=== PATIENT | male | born 1955 | race Caucasian/White ===

== ENCOUNTER 2017-11-08 12:37 | Inpatient (IN) | payer MEDICARE, SELFPAY ==
[2017-11-08] VITALS (24 sets, daily range): BP systolic 76–129; BP diastolic 55–91; PULSE 96–118; RESP 16–32; TEMP 36.3–36.4; O2SAT 95–100; BMI 24.5; BMI 24.3
--- NOTE | 2017-11-08 13:02 | RAD_ITS ---
STUDY: X-RAY CHEST REASON FOR EXAM: Male, 62 years old. Shortness of breath. TECHNIQUE: Single AP portable view of the chest. COMPARISON: None. FINDINGS: There is elevation of the right hemidiaphragm. There is mild interstitial accentuation of the lungs. There is no demonstrated pleural abnormality. Normal size heart. Normal mediastinum and paola. Normal visualized pulmonary arteries. There is atherosclerotic calcification of the aortic arch. Normal visualized thoracic spine. Normal visualized ribs, clavicles, and shoulders. There is no demonstrated abnormality of the visualized soft tissue structures of the upper abdomen. RAD/Chest 1 View (Portable) IMPRESSION: Degenerative changes, as described above. No demonstrated acute cardiopulmonary process. Electronically Signed: Boyd Colunga MD at 14:04 EDT , Service support ,
--- NOTE | 2017-11-08 13:02 | EKG12_ITS ---
Test Reason : EKG CHANGE Blood Pressure : / mmHG Vent. Rate : 088 BPM Atrial Rate : 088 BPM P-R Int : 166 ms QRS Dur : 110 ms QT Int : 434 ms P-R-T Axes : 038 -45 031 degrees QTc Int : 525 ms Normal sinus rhythm Low voltage QRS Left anterior fascicular block Prolonged QT Abnormal ECG When compared with ECG of 08-NOV-2017 13:23, MANUAL COMPARISON REQUIRED, DATA IS UNCONFIRMED Confirmed by NISHANT JONES, CYNTHIA ([id number]), editor continuity and script ASHLEE CLIFTON ([id number]) on 11/11/2017 9:43:13 AM Referred By: MELISSA Confirmed By:CYNTHIA DILLARD MD
--- NOTE | 2017-11-08 13:07 | RAD_ITS ---
STUDY: X-RAY - ABDOMEN/PELVIS REASON FOR EXAM: Male, 62 years old. Abdominal distention. Evaluate for soft tissue gas. TECHNIQUE: Two AP supine views of the abdomen and pelvis. COMPARISON: None. FINDINGS: Normal visualized lung bases. There is an unremarkable bowel gas pattern. There is seen throughout the colon as well as within nondilated small bowel loops in the upper abdomen. There is no evidence of obstruction. There is no demonstrated free abdominal air. The visualized liver, spleen and kidneys are grossly normal in size and morphology. Normal soft tissue structures. No evidence of subcutaneous gas. There is no old healed fracture of the right 12th rib. There are degenerative changes and levoscoliosis of the lumbar spine. RAD/Abdomen Single View IMPRESSION: 1. No evidence of acute intra-abdominal process. 2. No evidence of soft tissue gas. Electronically Signed: Uriel Laura DO at 16:01 EDT Tel [phone], Service support ,
--- NOTE | 2017-11-08 13:07 | ED.VISSUMM ---
- ER Visit Summary Date of Service: 11/08/17 Chief Complaint: [] Alcohol abuse laying in stool for days weakness History of Present Illness: The patient is a 62 M [] patient apparently generally lives out of state he apparently is visiting family her brother reported that the patient's been drinking heavily and for days he has been simply laying in his own stool drinking alcohol he was weak today would not get up etc. and he was brought in for evaluation the patient denies being suicidal or homicidal he does admit to the alcohol use he also reports he has bipolar disorder and COPD but he has been off meds some time he adamantly denies being suicidal his complaint is complete consisting of a deep abraded ulcerated perineum is other complaints he is awake and alert Physical Examination: [] He has an obvious deeply abraded ulcerated perineum has a malodorous to it, he to this area involves the folds the region the rectal area this is all red excoriated with multiple shallow ulcers and some deeper skin ulcers into the folds I do not appreciate any subcu air the testicles appear to be in normal position he has no testicular pain, he has deep circular folds of ulcers around the rectum but no obvious abscess or crepitus. His lungs are diminished the heart tones are unremarkable abdomen soft nontender he has had shows no obvious signs of trauma he is awake alert answering questions moving all 4 extremities his back shows red excoriation from the lower lumbar back across the buttocks Test Results: [] Emergency Department Course and Treatment: [] The differential is extensive would certainly include for fornieres gangrene cellulitis sepsis etc. his blood pressure is 95 at this time he will undergo sepsis protocol fluids antibiotics His blood pressures improved to 113/80 his sodium returns at 117, his white count is 13,000 his lactic acid is pending he has nonspecific elevations of the liver enzymes, he remained stable here in the department given all the above we have started him IV antibiotics we have provided wound care wound culture and have asked the hospital see him for further management and evaluation Treatment Plan: [] Disposition: [] Admit stable Impression: [] Hyponatremia, infection cellulitis involving the perineum with multiple ulcers, alcohol abuse, history of laying in on stool for days due to alcohol abuse weakness This note was generated with [employer] dictation software. It may contain incorrect words, spelling, and punctuation that were not noted in review of the chart prior to signing ED Disposition - Plan for ED Patient: Chief Complaint: Mental Health Referrals: Care Physician,No Primary [Primary Care Provider] -
--- NOTE | 2017-11-08 13:24 | ED.RN ---
Spoke to Brenda, social work services/case management. PT with self neglect, mental health component and noncompliant with medications. This RN wants PT on SW/CM list for further f/u.
--- NOTE | 2017-11-08 13:28 | CASEMGMT ---
SW received call from RN in ED w/concerns for pt, pt has bipolar, not on meds, unkempt, skin excoriated. As per ER physician note, pt is visiting his brother from out of state and has been drinking heavily, laying in his own stool for days, today was too weak to get up. SW will follow up w/pt on Friday as pt is going to be admitted. Pt is also listed as self pay, will speak w/pt regarding this as well and applying for Medicaid if appropriate. LIZZETTE Jay, EAP SPECIALIST
[2017-11-08] MEDS: 0.9% Normal Saline 1,000 ML IV.SOLN. 2000 ML IV (13:34)
[2017-11-08] MEDS: LORazepam 2 MG/ML Syringe 0.5 MG IV (13:46)
[2017-11-08 13:50] LABS: International Normalized Ratio 1.7; Prothrombin Time (Protime)PT. 19.6 SECONDS (11.7-14.9)
[2017-11-08 13:51] LABS: Absolute Lymphocyte Count 1.23 X10^3/ul (0.83-4.51); Absolute Neutrophil Count 10.4 X10^3/uL (2.0-7.7); Basophil# 0.05 X10^3/uL; Basophil% 0.4 % (0-1); Eosinophil# 0.01 X10^3/uL; Eosinophils% 0.1 % (0-5); Hematocrit 38.3 % (40-54); Lymphocyte # 1.23 X10^3/ul (4.0); Lymphocyte % 9.8 % (19-41); Mean Corpuscular Volume 88.2 fL (80-94); Monocyte% 4.8 % (0-10); Neutrophil # 10.39 X10^3/uL (2.7-7.7); Neutrophil % 82.8 % (47-70); Platelet Count 160 K/mm3 (150-450); RBC Distribution Width CV 14.1 % (11.6-14.6); RBC Distribution Width SD 44.6 fl (35.1-43.9); Red Blood Count 4.34 M/mm3 (4.6-6.2); White Blood Count 12.5 K/mm3 (4.4-11.0)
[2017-11-08 13:52] LABS: Mean Corp Hgb Conc 36.6 g/gl (32-36); Mean Corpuscular Hgb 32.3 pg (27.0-32.0); POSITIVE COUNT YES; POSITIVE DIFFERENTIAL NO; POSITIVE MORPHOLOGY YES; Partial Thromboplast Time 42.3 Seconds (24.1-36.2)
[2017-11-08 13:59] LABS: Squamous Epithelial Cells - UA 0 SEEN /hpf (0-5)
[2017-11-08 14:00] LABS: Color, Urine Amber (Yellow); Glucose, Dipstick Normal (Normal); Ketone-Dipstick 15 mg/dl (Negative); Leukocyte Esterase-Dipstick 25 /ul (Negative); Nitrite-Dipstick Positive (Negative); Occult Blood-Urine 10 /ul (Negative); Protein-Dipstick 15 mg/dl (Negative); Specific Gravity, Urine 1.015 (1.002-1.030); Urine Clarity Clear (Clear); Urine Urobilinogen 8 mg/dl (Normal)
[2017-11-08 14:01] LABS: ALB/GLOB Ratio 0.6 RATIO (0.9-2.4); AST(SGOT) 47 U/L (15-37); Alanine Aminotransfer ALT/SGPT 33 U/L (16-61); Alkaline Phosphatase 178 U/L (45-117); Anion Gap 12 (5-15); BUN 8 mg/dL (7-18); BUN/Creat Ratio 11.1 RATIO (10-20); Calcium,Total 7.6 mg/dL (8.5-10.1); Chloride 79 mmol/L (98-107); Creatinine, Serum 0.72 mg/dL (0.70-1.30); EST Glomerular Filtration Rate 118 mL/min (>60); Est Glom Filt Rate - Afr Amer 142 mL/min (>60); Estimated Creatinine Clearance 105.56 ml/min; Globulin 3.3 g/dL (2.2-4.2); Glucose 111 mg/dL (74-106); Protein, Total 5.3 g/dL (6.4-8.2); Sodium Level 117 mmol/L (136-145)
[2017-11-08 14:02] LABS: Urine Bilirubin Dipstick 3 mg/dL (Negative)
--- NOTE | 2017-11-08 14:02 | ED.RN ---
sodium 117, md aware.
[2017-11-08 14:10] LABS: CPK Total, Creatine Kinase 50 U/L (39-308)
[2017-11-08 14:19] LABS: Lactic Acid 3.6 mmol/L (0.4-2.0)
--- NOTE | 2017-11-08 14:20 | ED.RN ---
lactic 3.6, aware.
[2017-11-08 14:26] LABS: Bacteria RARE /hpf (None Seen); Mucous, Urine RARE /hpf (<or=2+); Red Blood Cells-Urine 0-5 SEEN /hpf (0-5); White Blood Cells 0-5 SEEN /hpf (0-5)
[2017-11-08] MEDS: Phenobarbital Sodium 130 MG/ML Vial 100 MG IV (14:39)
--- NOTE | 2017-11-08 14:39 | HP.PCM_ITS ---
Problem List (1) Hyponatremia Status: Acute (2) Alcohol abuse Status: Chronic (3) Tobacco dependence Status: Chronic (4) COPD (chronic obstructive pulmonary disease) Status: Chronic (5) Bipolar disorder Status: Chronic (6) Severe sepsis Status: Acute History of Present Illness Date of Admission: 11/08/17 Chief Complaint: Skin rash, weakness, alcohol abuse. The patient is a 62 year old M who presents to the emergency room following days of binge drinking and laying in his stool. He states he has had nausea, vomiting, abdominal pain, diarrhea and weakness. He has a significant painful rash in the perineum area. He has reported to be off of his bipolar medications. He denies suicidal ideations. Patient is a fairly poor historian. He reports a past medical history of COPD, bipolar disorder, tobacco dependence, chronic alcohol abuse. He admits to drinking approximately 12 beers per day. He smokes a pack and a half per day. Patient states he was last well approximately 2 weeks ago. He is currently living with his brother and previously from out of state. His is still currently out of state taking care of grandchildren. He states he last drank beer this morning. Denies current withdrawal symptoms. He denies fever, chills. Past Medical History Past Medical History (Chronic Problems): Chronic Problems Alcohol abuse (Chronic) Tobacco dependence (Chronic) COPD (chronic obstructive pulmonary disease) (Chronic) Bipolar disorder (Chronic) Allergies No Known Allergies Allergy (Verified 11/08/17 13:37) Home Medications: Ambulatory Orders Medication Instructions Recorded No Known/Unobtainable [No Known 07/06/16 Home Medications] Surgical History: - - Hemorrhoidectomy. Psychiatric History: Bipolar Lives: With Family - With brother. Smoking Status: Current every day smoker - 1.5 PPD Tobacco Use: Cigarettes Alcohol: Heavy Drugs: None - *Family History Maternal History Items: Cancer, Diabetes, Heart Disease, Hypertension Paternal History Items: Cancer, Diabetes, Heart Disease, Hypertension Review of Systems Constitutional: Reports: Weakness, Fatigue. Denies: Chills, Fever HEENT: Denies: Head Aches, Sinus Congestion, Sinus Drainage Cardiovascular: Denies: Chest Pain, Edema, Palpitations, Syncope Respiratory: Denies: Cough, Shortness of breath at rest, Sputum production Gastrointestinal: Reports: Abdominal Pain, Diarrhea, Nausea. Denies: Vomiting Genitourinary: Denies: Dysuria, Frequency, Hematuria Musculoskeletal: Denies: Joint Pain, Joint Tenderness Skin: Reports: - - Painful rash perineum. Neurological: Denies: Numbness, Tingling, Focal weakness Psychiatric: Reports: Anxiety, Depression Hematologic/ Lymphatic: Denies: Easy Bruising, Easy Bleeding VTE Information - Inpt Only VTE Present on Admission: No VTE Mechan Device Prophylaxis: SCD's VTE Pharm Prophylaxis ordered?: No Reason prophylaxis not ordered:: Medical Contraindication - Hold given possible need for intervention of wounds pending imaging. Patient Problems: Active and Suspected Problems Hyponatremia (Acute) Severe sepsis (Acute) - Physical Exam General: Alert, Oriented x3, - - Appears unkempt HEENT: Atraumatic, PERRLA, EOMI, Normocephalic Oral: Dry Mucosa Neck: Supple, No JVD, Negative Carotid Bruits Lungs: Clear to auscultation, Diminished Cardiovascular: Regular Rhythm, Normal S1, Normal S2, No murmurs, Tachycardic Abdomen: Bowel Sounds Present, Soft, Non Tender, Non-Distended Extremities: No clubbing, No cyanosis, No edema, Capillary Refill Less than 3 Seconds Skin: - - Extensive peritoneal beefy red excoriation with ulcerations, foul odor , extending to bilateral hips and bilateral inner thighs. Musculoskeletal: No Tenderness to Palpation of Joints or Extremities Neurological: Cranial nerves II-XII grossly intact, Neuro grossly intact Psych/Mental Status: Flat Affect, Depressed Vital Signs Temp Pulse Resp BP Pulse Ox 97.5 F L 106 H 25 H 121/91 H 100 11/08/17 13:37 11/08/17 14:02 11/08/17 14:02 11/08/17 14:02 11/08/17 14:02 Oxygen Delivery Method Room Air Weight: 73.074 kg Body Mass Index (BMI) 24.5 Laboratory Tests Past 24 Hrs 11/08/17 11/08/17 11/08/17 13:30 13:30 13:30 WBC 12.5 H RBC 4.34 L Hgb 14.0 Hct 38.3 L MCV 88.2 MCH 32.3 H MCHC 36.6 H RDW 14.1 RDW Differential 44.6 H Plt Count 160 MPV 11.0 Immature Gran % (Auto) 2.100 H Neut % (Auto) 82.8 H Lymph % (Auto) 9.8 L Harding % (Auto) 4.8 Eos % (Auto) 0.1 Baso % (Auto) 0.4 Absolute Neuts (auto) 10.4 H Absolute Lymphs (auto) 1.23 Total Counted Not Reportable Diff Path Review September foll PT 19.6 H INR 1.7 APTT 42.3 H Sodium 117 L* Potassium 4.0 Chloride 79 L Carbon Dioxide 26.0 Anion Gap 12 BUN 8 Creatinine 0.72 Estim Creat Clear Calc 105.56 Est GFR (MDRD) Af Amer 142 Est GFR (MDRD) Non-Af 118 BUN/Creatinine Ratio 11.1 Glucose 111 H Lactic Acid Calcium 7.6 L Total Bilirubin 3.00 H AST 47 H ALT 33 Alkaline Phosphatase 178 H Total Creatine Kinase Total Protein 5.3 L Albumin 2.0 L Globulin 3.3 Albumin/Globulin Ratio 0.6 L Urine Color Urine Clarity Urine pH Ur Specific Russell Urine Protein Urine Glucose (UA) Urine Ketones Urine Occult Blood Urine Nitrite Urine Bilirubin Urine Urobilinogen Ur Leukocyte Esterase Urine RBC Urine WBC Ur Squamous Epith Cells Urine Bacteria Urine Mucus 11/08/17 11/08/17 11/08/17 13:30 13:30 13:50 WBC RBC Hgb Hct MCV MCH MCHC RDW RDW Differential Plt Count MPV Immature Gran % (Auto) Neut % (Auto) Lymph % (Auto) Harding % (Auto) Eos % (Auto) Baso % (Auto) Absolute Neuts (auto) Absolute Lymphs (auto) Total Counted Diff Path Review PT INR APTT Sodium Potassium Chloride Carbon Dioxide Anion Gap BUN Creatinine Estim Creat Clear Calc Est GFR (MDRD) Af Amer Est GFR (MDRD) Non-Af BUN/Creatinine Ratio Glucose Lactic Acid 3.6 H Calcium Total Bilirubin AST ALT Alkaline Phosphatase Total Creatine Kinase 50 Total Protein Albumin Globulin Albumin/Globulin Ratio Urine Color Marisabel Urine Clarity Clear Urine pH 5.0 Ur Specific Russell 1.015 Urine Protein 15 H Urine Glucose (UA) Normal Urine Ketones 15 H Urine Occult Blood 10 H Urine Nitrite Positive H Urine Bilirubin 3 H Urine Urobilinogen 8 H Ur Leukocyte Esterase 25 H Urine RBC 0-5 SEEN Urine WBC 0-5 SEEN Ur Squamous Epith Cells 0 SEEN Urine Bacteria RARE Urine Mucus RARE Assessment/Plan All Active Problems Hyponatremia (Acute) Severe sepsis (Acute) 1. Severe sepsis secondary to suspected fungal and bacterial perineal cellulitis -(leukocytosis, tachycardia, hypotension, lactic acid 3.6) wound cultures sent from ED. Blood cultures pending. Obtain pelvic CT. Wound RN consult. Check mg, phos. Repeat lactic. Begin IV vancomycin, IV Zosyn, IV fluconazole. Frequent position changes. PRN pain regimen. PT/OT. 2. Possible UTI-urine positive for nitrites, negative WBC. Possible contamination? Urine culture pending. Antibiotics as noted above. Lepe in place. 3. Hyponatremia-Gentle IVF. Serial BMPs. 4. Chronic alcohol abuse- CIWA protocol. MVM, folic acid, B12. Check urine drug screen for other substance use. 5. Tobacco dependence-encourage smoking cessation. Nicotine replacement patch. 6. COPD-no acute exacerbation. Albuterol and DuoNeb aerosols. IS. 7. Bipolar disorder-recently took himself off of home regimen. Attempt to obtain home medication list. Encourage outpatient counseling/follow-up. 8. Moderate-severe protein calorie malnutrition- Nutrition consult. DVT prophylaxis-SCDs, hold pharmacologic prophylaxis pending further imaging. This patient was seen by REGINALDO Morris under the supervision of Dr. Kinney.
[2017-11-08] MEDS: Morphine 2 MG/ML Syringe IV (14:52)
--- NOTE | 2017-11-08 15:29 | CT_ITS ---
STUDY: CT PELVIS WITH CONTRAST REASON FOR EXAM: Male, 62 years old. Perianal pain. Chronic nausea, vomiting and diarrhea. History of alcohol abuse/withdrawal and sepsis. Patient sat in his own feces for multiple days. RADIATION DOSAGE (If Supplied By Facility): CTDIvol = ( 27.68 ) mGy, DLP = ( 1180.81 ) mGycm TECHNIQUE: Transaxial imaging of the pelvis was performed without oral contrast. 100CC ml of Isovue 300 contrast was administered intravenously. Multiplanar coronal and sagittal images were reformatted. Individualized dose optimization techniques were used for this CT. COMPARISON: None. FINDINGS: The urinary bladder is thick-walled and collapsed about a Lepe catheter. There is no evidence for opaque filling defect or obvious mass. The prostate is mildly enlarged with central calcifications. Normal seminal vesicles. Normal visualized small intestine. There is evidence of sigmoid diverticulitis without obvious inflammatory change. Normal appendix. There is diffuse pelvic fluid in the paracolic gutters and pelvis. This is most marked on the right There is no pelvic lymphadenopathy or mass lesion. There are 2 small saccular aneurysms of the lower abdominal aorta. The first measures 2.5 x 2.2 cm. The second measures 1.8 x 2 cm in size. There is diffuse atherosclerotic changes of the aorta and iliac arteries Normal abdominal wall. There is no evidence of soft tissue ulceration or abscess. There are diffuse degenerative changes of the visualized lumbar spine. CT/Pelvis WITH IV Contrast IMPRESSION: 1. Free fluid in the pelvis of unknown etiology. 2. Diverticulosis without obvious acute inflammatory change. 3. Thick-walled urinary bladder collapsed about a Lepe catheter. 4. Mildly enlarged prostate. 5. Atherosclerotic changes of the lower aorta and iliac arteries. 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 Electronically Signed: Uriel Laura DO at 16:27 EDT Tel [phone], Service support ,
[2017-11-08 16:38] LABS: Reflex Lactate? Y
[2017-11-08] MEDS: 0.9% Normal Saline 1,000 ML 125 ML IV ×2 (16:48→23:13)
--- NOTE | 2017-11-08 16:52 | PCM.RX.CS ---
Consult Pharmacy has been consulted to manage selected antiobiotic: Vancomycin Type of Consult: New start Suspected Infection: Sepsis Prior Doses of Antibiotics Received/Current Regimen: Received 1000mg IV in ER at 14:41 today Labs: Sodium 117 mmol/L (136-145) L* 11/08/17 13:30 Potassium 4.0 mmol/L (3.5-5.1) 11/08/17 13:30 Chloride 79 mmol/L (98-107) L 11/08/17 13:30 Carbon Dioxide 26.0 mmol/L (21.0-32.0) 11/08/17 13:30 Anion Gap 12 (5-15) 11/08/17 13:30 BUN 8 mg/dL (7-18) 11/08/17 13:30 Creatinine 0.72 mg/dL (0.70-1.30) 11/08/17 13:30 Est GFR (MDRD) Af Amer 142 mL/min (>60) 11/08/17 13:30 Est GFR (MDRD) Non-Af 118 mL/min (>60) 11/08/17 13:30 BUN/Creatinine Ratio 11.1 RATIO (10-20) 11/08/17 13:30 Glucose 111 mg/dL (74-106) H 11/08/17 13:30 Weight used for dosin kg Estimated Creatinine Clearance: 106 ml/min Goal Trough: 15-20 mcg/mL Pharmacy Plan for Drug Dosinmg IV q8h. Will obtain trough before the 4th dose. Pharmacy Service will continue to monitor and adjust dosing as required. Follow-Up Labs: Trough Vancomycin Labs to be done on [date and time ordered]: 11/09/17 at 14:30 before the 4th total dose at 15:00
[2017-11-08 17:32] LABS: Anion Gap 12 (5-15); BUN 7 mg/dL (7-18); BUN/Creat Ratio 14.5 RATIO (10-20); Calcium,Total 6.8 mg/dL (8.5-10.1); Chloride 83 mmol/L (98-107); Creatinine, Serum 0.48 mg/dL (0.70-1.30); EST Glomerular Filtration Rate 187 mL/min (>60); Est Glom Filt Rate - Afr Amer 226 mL/min (>60); Estimated Creatinine Clearance 158.33 ml/min; Glucose 99 mg/dL (74-106); Magnesium 1.8 mg/dL (1.6-2.6); Phosphorus 2.1 mg/dL (2.5-4.9); Potassium 3.2 mmol/L (3.5-5.1); Sodium Level 120 mmol/L (136-145)
[2017-11-08 17:39] LABS: Lactic Acid 2.1 mmol/L (0.4-2.0)
[2017-11-08] MEDS: cloNIDine HCl 0.1 MG Tablet PO ×2 (17:39→21:35)
[2017-11-08 18:47] LABS: M R Staph aureus DNA By PCR Negative (Negative); Probe Check PASS; Specimen Processing Control PASS
[2017-11-08] MEDS: Ipratropium/Albuterol Sulfate 3 ML AMPUL.NEB INHALATION (19:20)
[2017-11-08 20:31] LABS: Anion Gap 9 (5-15); BUN 8 mg/dL (7-18); BUN/Creat Ratio 16.7 RATIO (10-20); Calcium,Total 6.8 mg/dL (8.5-10.1); Chloride 86 mmol/L (98-107); Creatinine, Serum 0.48 mg/dL (0.70-1.30); EST Glomerular Filtration Rate 189 mL/min (>60); Est Glom Filt Rate - Afr Amer 229 mL/min (>60); Estimated Creatinine Clearance 158.33 ml/min; Glucose 91 mg/dL (74-106); Potassium 3.4 mmol/L (3.5-5.1); Sodium Level 120 mmol/L (136-145)
[2017-11-08] MEDS: Piperacil/Tazobactam 3.375 GM/50 ML ML IV (20:47)
[2017-11-08] MEDS: Heparin Injection (Vial) 5,000 UNIT/ML VIAL 5000 UNIT SC (21:34)
[2017-11-08] MEDS: Famotidine 20 MG Tablet PO (21:35)
[2017-11-08] MEDS: 0.9% NaCl Peripheral Flush Adult/Peds IV (21:40)
[2017-11-08 21:49] LABS: Anion Gap 12 (5-15); BUN 7 mg/dL (7-18); Calcium,Total 6.6 mg/dL (8.5-10.1); Chloride 87 mmol/L (98-107); Creatinine, Serum 0.39 mg/dL (0.70-1.30); EST Glomerular Filtration Rate 241 mL/min (>60); Est Glom Filt Rate - Afr Amer 292 mL/min (>60); Estimated Creatinine Clearance 194.87 ml/min; Glucose 88 mg/dL (74-106); Potassium 3.5 mmol/L (3.5-5.1); Sodium Level 124 mmol/L (136-145)
[2017-11-08 22:08] LABS: M R Staph aureus DNA By PCR Negative (Negative); Staph aureus DNA By PCR NEGATIVE (Negative)
[2017-11-08 22:09] LABS: Probe Check PASS
[2017-11-08 23:58] LABS: Anion Gap 12 (5-15); BUN 7 mg/dL (7-18); BUN/Creat Ratio 17.2 RATIO (10-20); Calcium,Total 6.5 mg/dL (8.5-10.1); Chloride 89 mmol/L (98-107); Creatinine, Serum 0.41 mg/dL (0.70-1.30); EST Glomerular Filtration Rate 228 mL/min (>60); Est Glom Filt Rate - Afr Amer 276 mL/min (>60); Estimated Creatinine Clearance 185.37 ml/min; Glucose 94 mg/dL (74-106); Potassium 3.2 mmol/L (3.5-5.1); Sodium Level 126 mmol/L (136-145)
[2017-11-09] VITALS (27 sets, daily range): BP systolic 80–101; BP diastolic 55–72; PULSE 84–96; RESP 16–35; TEMP 36.3–36.9; O2SAT 93–100
[2017-11-09 02:48] LABS: Anion Gap 10 (5-15); BUN 7 mg/dL (7-18); BUN/Creat Ratio 14.9 RATIO (10-20); Calcium,Total 7.3 mg/dL (8.5-10.1); Chloride 88 mmol/L (98-107); Creatinine, Serum 0.47 mg/dL (0.70-1.30); EST Glomerular Filtration Rate 194 mL/min (>60); Est Glom Filt Rate - Afr Amer 234 mL/min (>60); Glucose 84 mg/dL (74-106); Potassium 3.4 mmol/L (3.5-5.1); Sodium Level 122 mmol/L (136-145)
[2017-11-09 05:01] LABS: Hematocrit 32.3 % (40-54); Hemoglobin 11.7 g/dl (13.0-16.5); Mean Corp Hgb Conc 36.2 g/gl (32-36); Mean Corpuscular Hgb 32.8 pg (27.0-32.0); Mean Corpuscular Volume 90.5 fL (80-94); Platelet Count 113 K/mm3 (150-450); RBC Distribution Width CV 14.4 % (11.6-14.6); Red Blood Count 3.57 M/mm3 (4.6-6.2); White Blood Count 7.5 K/mm3 (4.4-11.0)
[2017-11-09 05:02] LABS: Absolute Lymphocyte Count 1.25 X10^3/ul (0.83-4.51); Absolute Neutrophil Count 5.6 X10^3/uL (2.0-7.7); Basophil# 0.03 X10^3/uL; Basophil% 0.4 % (0-1); Eosinophil# 0.06 X10^3/uL; Eosinophils% 0.8 % (0-5); Lymphocyte # 1.25 X10^3/ul (4.0); Lymphocyte % 16.6 % (19-41); Mean Platelet Vol. 10.9 fl (6.2-12.0); Monocyte# 0.44 X10^3/uL; Monocyte% 5.8 % (0-10); Neutrophil # 5.63 X10^3/uL (2.7-7.7); Neutrophil % 74.8 % (47-70); POSITIVE COUNT NO; POSITIVE DIFFERENTIAL NO; POSITIVE MORPHOLOGY NO
[2017-11-09] MEDS: Piperacil/Tazobactam 3.375 GM/50 ML ML IV ×3 (05:21→21:10)
[2017-11-09 05:27] LABS: ALB/GLOB Ratio 0.6 RATIO (0.9-2.4); AST(SGOT) 45 U/L (15-37); Alanine Aminotransfer ALT/SGPT 30 U/L (16-61); Albumin, Serum 1.5 g/dL (3.2-5.0); Alkaline Phosphatase 132 U/L (45-117); Anion Gap 11 (5-15); BUN 7 mg/dL (7-18); BUN/Creat Ratio 16.1 RATIO (10-20); CPK Total, Creatine Kinase 28 U/L (39-308); Calcium,Total 7.2 mg/dL (8.5-10.1); Chloride 89 mmol/L (98-107); Creatinine, Serum 0.44 mg/dL (0.70-1.30); EST Glomerular Filtration Rate 212 mL/min (>60); Est Glom Filt Rate - Afr Amer 256 mL/min (>60); Estimated Creatinine Clearance 172.73 ml/min; Globulin 2.7 g/dL (2.2-4.2); Glucose 83 mg/dL (74-106); Magnesium 1.7 mg/dL (1.6-2.6); Phosphorus 2.7 mg/dL (2.5-4.9); Potassium 3.4 mmol/L (3.5-5.1); Protein, Total 4.2 g/dL (6.4-8.2); Sodium Level 125 mmol/L (136-145)
[2017-11-09] MEDS: chlordiazePOXIDE 25 MG Capsule 50 MG PO (05:27)
--- NOTE | 2017-11-09 06:42 | CON.PCM_ITS ---
Reason for Consult Date of Consultation: 11/09/17 Reason for Consultation: Severe sepsis History of Present Illness: The patient is a 62-year-old male, with a history as outlined below, who presented to the emergency department on November 08 with a several day history of nausea, vomiting and abdominal pain following a recent alcohol binge. The patient resides with his brother and had reportedly been laying in his own stool for several days. He reported the presence of perineal discomfort along with chills and fever. The patient is an alcoholic and reports that he consumes 12-13 beers per day. He also smokes 1 pack of cigarettes daily. On presentation to the emergency department, the patient was noted to be afebrile, tachycardic and hemodynamically stable. He was maintaining appropriate oxygen saturations on room air. Laboratory evaluation revealed a mildly elevated white blood cell count to 13,000. INR was noted to be 1.7. Serum sodium was 117 with a chloride of 79. Lactate was elevated at 3.6. MRSA screen was negative. Initial plain film chest x-ray revealed no acute cardiopulmonary process. CT pelvis obtained in the emergency department revealed free fluid within the pelvis of unclear etiology along with diverticulosis and a thickened urinary bladder wall. The patient received supplemental IV fluids along with broad-spectrum antimicrobials and fluconazole in the emergency department. The patient was subsequently admitted to the medical intensive care unit for ongoing management. Past Medical History Past Medical History (Chronic Problems): Chronic Problems Alcohol abuse (Chronic) Tobacco dependence (Chronic) COPD (chronic obstructive pulmonary disease) (Chronic) Bipolar disorder (Chronic) Allergies No Known Allergies Allergy (Verified 11/08/17 13:37) Home Medications: Ambulatory Orders Medication Instructions Recorded No Known/Unobtainable [No Known 07/06/16 Home Medications] Surgical History: - - Hemorrhoidectomy. Psychiatric History: Bipolar Lives: With Family - With brother. Smoking Status: Current every day smoker Tobacco Use: Cigarettes Alcohol: Heavy Drugs: None - *Family History Maternal History Items: Cancer, Diabetes, Heart Disease, Hypertension Paternal History Items: Cancer, Diabetes, Heart Disease, Hypertension Review of Systems Constitutional: Reports: Chills, Weakness Eyes: Denies: Blurred vision, Double vision HEENT: Denies: Head Aches, Sinus Congestion, Sinus Drainage Cardiovascular: Denies: Chest Pain, Palpitations Respiratory: Denies: Cough, Shortness of breath at rest, Sputum production Gastrointestinal: Reports: Abdominal Pain, Diarrhea, Nausea Genitourinary: Reports: Incontinence Musculoskeletal: Denies: Joint Pain, Joint Tenderness Skin: Reports: Lesions, Rash, Skin Changes, Wounds Neurological: Denies: Numbness, Tingling, Focal weakness Psychiatric: Denies: Anxiety, Depression, Homicidal Ideations, Suicidal Ideations Hematologic/ Lymphatic: Denies: Easy Bruising, Easy Bleeding Patient Problems: Active and Suspected Problems Hyponatremia (Acute) Severe sepsis (Acute) Objective: The patient's most recent lab work, culture data and imaging studies have all been personally reviewed. Preliminary blood culture dated November 08 was positive for gram-negative rods. Wound and urine cultures are pending. - Physical Exam General: Alert, Cooperative, No apparent distress HEENT: Atraumatic, PERRLA, Normocephalic Oral: Moist Mucosa Neck: Supple, No Nodes, Trachea Midline Lungs: No rhonchi, No wheeze, No rales, Diminished Cardiovascular: Normal S1, Normal S2, No murmurs, Tachycardic Abdomen: Bowel Sounds Present, Soft, Non Tender, Non-Distended Extremities: No clubbing, No cyanosis, No edema, Cool Skin: - - Extensive perineal erythema/maceration with extension posteriorly to involve the buttocks. Musculoskeletal: Cachexia, Muscle Wasting Lymphatic: No Cervical, Supraclavicular, or Inguinal Adenopathy Neurological: Neuro grossly intact Psych/Mental Status: Flat Affect Vital Signs Temp Pulse Resp BP Pulse Ox 97.4 F L 90 27 H 84/59 L 97 11/09/17 06:00 11/09/17 06:00 11/09/17 06:00 11/09/17 06:00 11/09/17 06:00 Oxygen Delivery Method Room Air Weight: 159 lb 13.362 oz Body Mass Index (BMI) 24.3 Intake and Output for Last 24 Hours 11/07/17 11/08/17 11/09/17 23:59 23:59 23:59 Intake Total 803.7 / 803.7 590.5 / 590.5 Output Total 800 / 800 200 / 200 Balance 3.7 / 3.7 390.5 / 390.5 Laboratory Tests Past 24 Hrs 11/08/17 11/08/17 11/08/17 16:10 17:00 17:00 WBC RBC Hgb Hct MCV MCH MCHC RDW RDW Differential Plt Count MPV Immature Gran % (Auto) Neut % (Auto) Lymph % (Auto) Clay % (Auto) Eos % (Auto) Baso % (Auto) Absolute Neuts (auto) Absolute Lymphs (auto) Total Counted Sodium 120 L Potassium 3.2 L Chloride 83 L Carbon Dioxide 25.0 Anion Gap 12 BUN 7 Creatinine 0.48 L Estim Creat Clear Calc 158.33 Est GFR (MDRD) Af Amer 226 Est GFR (MDRD) Non-Af 187 BUN/Creatinine Ratio 14.5 Glucose 99 Lactic Acid 2.1 H Calcium 6.8 L Phosphorus 2.1 L Magnesium 1.8 Total Bilirubin AST ALT Alkaline Phosphatase Total Creatine Kinase Total Protein Albumin Globulin Albumin/Globulin Ratio S.aureus Protein A PCR MRSA (PCR) Negative 11/08/17 11/08/17 11/08/17 19:55 20:20 21:30 WBC RBC Hgb Hct MCV MCH MCHC RDW RDW Differential Plt Count MPV Immature Gran % (Auto) Neut % (Auto) Lymph % (Auto) Clay % (Auto) Eos % (Auto) Baso % (Auto) Absolute Neuts (auto) Absolute Lymphs (auto) Total Counted Sodium 120 L 124 L Potassium 3.4 L 3.5 Chloride 86 L 87 L Carbon Dioxide 25.0 25.0 Anion Gap 9 12 BUN 8 7 Creatinine 0.48 L 0.39 L Estim Creat Clear Calc 158.33 194.87 Est GFR (MDRD) Af Amer 229 292 Est GFR (MDRD) Non-Af 189 241 BUN/Creatinine Ratio 16.7 18.0 Glucose 91 88 Lactic Acid Calcium 6.8 L 6.6 L Phosphorus Magnesium Total Bilirubin AST ALT Alkaline Phosphatase Total Creatine Kinase Total Protein Albumin Globulin Albumin/Globulin Ratio S.aureus Protein A PCR NEGATIVE MRSA (PCR) Negative 11/08/17 11/09/17 11/09/17 23:10 02:00 04:50 WBC 7.5 RBC 3.57 L Hgb 11.7 L Hct 32.3 L MCV 90.5 MCH 32.8 H MCHC 36.2 H RDW 14.4 RDW Differential 46.0 H Plt Count 113 L MPV 10.9 Immature Gran % (Auto) 1.600 H Neut % (Auto) 74.8 H Lymph % (Auto) 16.6 L Clay % (Auto) 5.8 Eos % (Auto) 0.8 Baso % (Auto) 0.4 Absolute Neuts (auto) 5.6 Absolute Lymphs (auto) 1.25 Total Counted Not Reportable Sodium 126 L 122 L Potassium 3.2 L 3.4 L Chloride 89 L 88 L Carbon Dioxide 25.0 24.0 Anion Gap 12 10 BUN 7 7 Creatinine 0.41 L 0.47 L Estim Creat Clear Calc 185.37 161.70 Est GFR (MDRD) Af Amer 276 234 Est GFR (MDRD) Non-Af 228 194 BUN/Creatinine Ratio 17.2 14.9 Glucose 94 84 Lactic Acid Calcium 6.5 L* 7.3 L Phosphorus Magnesium Total Bilirubin AST ALT Alkaline Phosphatase Total Creatine Kinase Total Protein Albumin Globulin Albumin/Globulin Ratio S.aureus Protein A PCR MRSA (PCR) 11/09/17 04:50 WBC RBC Hgb Hct MCV MCH MCHC RDW RDW Differential Plt Count MPV Immature Gran % (Auto) Neut % (Auto) Lymph % (Auto) Clay % (Auto) Eos % (Auto) Baso % (Auto) Absolute Neuts (auto) Absolute Lymphs (auto) Total Counted Sodium 125 L Potassium 3.4 L Chloride 89 L Carbon Dioxide 25.0 Anion Gap 11 BUN 7 Creatinine 0.44 L Estim Creat Clear Calc 172.73 Est GFR (MDRD) Af Amer 256 Est GFR (MDRD) Non-Af 212 BUN/Creatinine Ratio 16.1 Glucose 83 Lactic Acid Calcium 7.2 L Phosphorus 2.7 Magnesium 1.7 Total Bilirubin 2.10 H AST 45 H ALT 30 Alkaline Phosphatase 132 H Total Creatine Kinase 28 L Total Protein 4.2 L Albumin 1.5 L Globulin 2.7 Albumin/Globulin Ratio 0.6 L S.aureus Protein A PCR MRSA (PCR) Clinical Impression(s) from Imaging Studies Chest X-Ray 11/08/17 13:02 IMPRESSION: Degenerative changes, as described above. No demonstrated acute cardiopulmonary process. Electronically Signed: Boyd Colunga MD at 14:04 EDT , Service support , Pelvis CT 11/08/17 15:29 IMPRESSION: 1. Free fluid in the pelvis of unknown etiology. 2. Diverticulosis without obvious acute inflammatory change. 3. Thick-walled urinary bladder collapsed about a Lepe catheter. 4. Mildly enlarged prostate. 5. Atherosclerotic changes of the lower aorta and iliac arteries. 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 Electronically Signed: Uriel Laura DO at 16:27 EDT Tel [phone], Service support , Assessment/Plan Active and Suspected Problems Hyponatremia (Acute) Severe sepsis (Acute) RECOMMENDATIONS: 1. Continue antibiotics/fluconazole, pending infectious workup. 2. Wound care evaluation 3. Continue gentle IV fluid hydration and monitor serum sodium level accordingly. 4. Resend blood cultures. 5. Electrolyte repletion as indicated. 6. Continue to monitor for alcohol withdrawal. Continue CIWA, along with thiamine and folate repletion. 7. ICU prophylaxis IMPRESSIONS: 1. Severe sepsis secondary to gram-negative bacteremia and extensive perineal soft tissue infection Continue broad-spectrum antibiotics, along with fluconazole, pending finalized culture results. Resend blood cultures. Continue local wound care. Wound care nurse to evaluate patient tomorrow. Continue supplemental IV fluid hydration. 2. Hyponatremia/hypokalemia Likely multifactorial in etiology with intravascular volume depletion, chronic alcohol dependence and GI losses contributing. The patient is incremented appropriately with the use of supplemental IV fluids, which will be continued. Potassium repletion as indicated. Continue to trend serial chemistry profiles. Avoid overcorrection of serum sodium. 3. Chronic alcohol dependence/tobacco abuse Continue to monitor for signs of alcohol withdrawal. Continue CIWA protocol along with thiamine and folate repletion. Nicotine replacement therapy can be offered to the patient while admitted to the hospital. Continue bronchodilators. 4. Severe protein calorie malnutrition/generalized deconditioning and weakness/ bipolar disorder Complicates care, management, recovery and prognosis. Recommend advancing diet if no surgical intervention is planned. Patient will require evaluation by physical therapy. He will likely require placement at the time of his discharge from the hospital. Nutrition consultation is pending. This note was generated with [employer] software. It may contain incorrect words, spelling, and punctuation that were not noted in checking the note before signing. Code Visit Inpatient E&M: 18222 Init Hosp L3
[2017-11-09] MEDS: Folic Acid 1 MG Tablet PO (08:20)
[2017-11-09] MEDS: Multivitamins,Ther W-Minerals Tablet 1 TABLET PO (08:20)
[2017-11-09] MEDS: Thiamine Hydrochloride 100 MG Tablet PO (08:20)
[2017-11-09] MEDS: Ibuprofen 600 MG Tablet PO ×2 (08:21→16:03)
--- NOTE | 2017-11-09 08:53 | PCM.RX.CS ---
Consult Pharmacy has been consulted to manage selected antiobiotic: Vancomycin Type of Consult: New start Suspected Infection: Sepsis Prior Doses of Antibiotics Received/Current Regimen: Received vancomycin 1000mg IV x1 in ER on 11/08/17 at 14:41 Labs: Sodium 125 mmol/L (136-145) L 11/09/17 04:50 Potassium 3.4 mmol/L (3.5-5.1) L 11/09/17 04:50 Chloride 89 mmol/L (98-107) L 11/09/17 04:50 Carbon Dioxide 25.0 mmol/L (21.0-32.0) 11/09/17 04:50 Anion Gap 11 (5-15) 11/09/17 04:50 BUN 7 mg/dL (7-18) 11/09/17 04:50 Creatinine 0.44 mg/dL (0.70-1.30) L 11/09/17 04:50 Est GFR (MDRD) Af Amer 256 mL/min (>60) 11/09/17 04:50 Est GFR (MDRD) Non-Af 212 mL/min (>60) 11/09/17 04:50 BUN/Creatinine Ratio 16.1 RATIO (10-20) 11/09/17 04:50 Glucose 83 mg/dL (74-106) 11/09/17 04:50 Weight used for dosin kg Estimated Creatinine Clearance: 106 ml/min Goal Trough: 15-20 mcg/mL Pharmacy Plan for Drug Dosing: Started vancomycin 1000mg IV q8h on 11/08/17 at 23:00. Note that pharmacy could not enter a kinetics note on 11/08/17 due to an issue in [employer] Software with e-signing the note. Pharmacy Service will continue to monitor and adjust dosing as required. Follow-Up Labs: Trough Vancomycin Labs to be done on [date and time ordered]: 11/09/17 (today) at 14:30 before the 4th total dose at 15:00
--- NOTE | 2017-11-09 09:13 | PCM.PN.HOSP ---
Patient Problems: Active and Suspected Problems Hyponatremia (Acute) Severe sepsis (Acute) Subjective: The patient is a 62 y/o M w/ PMHx: Chronic COPD, Ongoing Tobacco use, Bipolar Disorder, EtOH Abuse who presents to the [facility] ED on 11/08/17 w/ history of going several day history of nausea, emesis as well as abdominal discomfort with diarrhea while additionally on an alcoholic binge with eventual likely blackout in onset of perineal discomfort, pain, erythema with chills. Admitted w/ Severe Sepsis secondary to Diffuse BL LQ, Perineal and Posterior Buttock Region Cellulitis and Candidiasis AND resulting GNR Bactermia to the ICU given severity of electrolyte disturbances, obtained CT w/ contrast pelvic region per discussion with Dr. Hsieh w/ no acute findings requiring immediate surgical intervention. Will maintain on IV vanc, zosyn, fluconazole, pending ED obtained Wound Cx, requested Wound MRSA PCR, trending CBC in AM, monitor erythema, PRN pain regimen, antiemetics. Trended LA with improvement, repeat 2.1. Continue hydration as noted. Awaiting Urology assessment, likely will allow diet restart. Monitor BP as low, may need IVF bolus or consideration for pressor therapy, but has appeared low stable, asymptomatic. Additionally, Electrolyte Disturbances including Severe Hyponatremia secondary to GI Losses and Chronic EtOH Abuse w/ Admission Na 117, likely baseline high 120-130s secondary to chronic EtOH Abuse, maintained on telemetry in the ICU, continued to gently hydrate w/ NS given no neurological symptoms, maintained on seizure precautions/aspiration precautions secondary to EtOH Abuse history in withdrawal as noted, trended serial BMPs w/ 11/09/17 BMP w/ Na 125, K 3.4, improving. Closely monitoring to avoid >12 mEq/24 hours, ICU physician consulted, following. Monitor I/Os. Acute EtOH Withdrawal also upon admission, initiated and continued on [facility] service protocol with taper course of librium, as needed Seroquel, Catapres, Bentyl, Vistaril, IV fluids, IV antiemetics, Tylenol as needed for pain. Once patient clinically improved and completion of taper nearing will need CM assistance for transition to next level of rehabilitation care. Mag, phos obtained, phos low, supplementing. Maintain on CIWA protocol. Patient with no acute events overnight per self and per nursing report aside from mildly low blood pressures and resulting positive blood culture with gram-negative rods. 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 Patient remained afebrile and tachycardia improved upon transition to the ICU with continued IV fluids and IV antibiotic therapy as well as antifungal regimen. Pending urology consultation this morning. Patient evaluated per ICU physician this morning. Patient notes feeling improved but still ongoing discomfort to the perineal and bilateral lower quadrants groin region. Patient denies fevers, chills, nausea, emesis, abdominal pain, chest pain or dyspnea. Objective: Physical Examination: General: awake, alert, oriented x 3 and cooperative, seated upright in the ICU bed, more comfortable appearing, less ill-appearing. Skin: normal color, turgor, no icterus, cyanosis except left eye lids older appearing ecchymoses on the lid and underneath, patient extremity ecchymoses, improvement to the peroneal, bilateral lower quadrant, circumferential thigh and posterior coccyx regions with near resolution of prior beefy red appearance, mild cellulitic region still remain especially surrounding ulcerated/excoriated regions. HEENT: AT/NC aside bruising as noted, see skin, EOMI, PERRLA, improved MMM. Lungs: Diminished BS BL, > bases, poor effort, no rales, ronchi or wheezing. Heart: Improved, regular rate and regular rhythm; no gallop, rub audible. Abdomen: soft, thin/cachectic habitus, NTTP, ND, normal BS. Extremities: no cyanosis, clubbing, see skin, feet cool to touch (chronic), see skin. Neurological: patient awake, alert, oriented x 3; cognitive function intact; pupils equally reactive to light and accomodation; cranial nerves II-XII grossly normal, moving all 4 extremities, no focal deficits, strength severely globally decreased secondary to acute presentation. Psychiatric: affect appears fatigued, no acute evidence of depressive or anxiety feelings, denies any SI. Vitals/I&O's: Vital Signs Temp Pulse Resp BP Pulse Ox 97.4 F L 86 35 H 82/62 L 98 11/09/17 06:00 11/09/17 07:00 11/09/17 07:00 11/09/17 07:00 11/09/17 07:18 Oxygen Delivery Method Room Air Weight: 159 lb 13.362 oz Body Mass Index (BMI) 24.3 Intake and Output for Last 24 Hours 11/07/17 11/08/17 11/09/17 23:59 23:59 23:59 Intake Total 803.7 / 803.7 590.5 / 590.5 Output Total 800 / 800 200 / 200 Balance 3.7 / 3.7 390.5 / 390.5 Laboratory Results 11/08/17 16:10: MRSA (PCR) Negative 11/08/17 17:00: Sodium 120 L, Potassium 3.2 L, Chloride 83 L, Carbon Dioxide 25.0, Anion Gap 12, BUN 7, Creatinine 0.48 L, Estim Creat Clear Calc 158.33, Est GFR (MDRD) Af Amer 226, Est GFR (MDRD) Non-Af 187, BUN/Creatinine Ratio 14.5, Glucose 99, Calcium 6.8 L, Phosphorus 2.1 L, Magnesium 1.8 11/08/17 17:00: Lactic Acid 2.1 H 11/08/17 19:55: Sodium 120 L, Potassium 3.4 L, Chloride 86 L, Carbon Dioxide 25.0, Anion Gap 9, BUN 8, Creatinine 0.48 L, Estim Creat Clear Calc 158.33, Est GFR (MDRD) Af Amer 229, Est GFR (MDRD) Non-Af 189, BUN/Creatinine Ratio 16.7, Glucose 91, Calcium 6.8 L 11/08/17 20:20: S.aureus Protein A PCR NEGATIVE, MRSA (PCR) Negative 11/08/17 21:30: Sodium 124 L, Potassium 3.5, Chloride 87 L, Carbon Dioxide 25.0, Anion Gap 12, BUN 7, Creatinine 0.39 L, Estim Creat Clear Calc 194.87, Est GFR (MDRD) Af Amer 292, Est GFR (MDRD) Non-Af 241, BUN/Creatinine Ratio 18.0, Glucose 88, Calcium 6.6 L 11/08/17 23:10: Sodium 126 L, Potassium 3.2 L, Chloride 89 L, Carbon Dioxide 25.0, Anion Gap 12, BUN 7, Creatinine 0.41 L, Estim Creat Clear Calc 185.37, Est GFR (MDRD) Af Amer 276, Est GFR (MDRD) Non-Af 228, BUN/Creatinine Ratio 17.2, Glucose 94, Calcium 6.5 L* 11/09/17 02:00: Sodium 122 L, Potassium 3.4 L, Chloride 88 L, Carbon Dioxide 24.0, Anion Gap 10, BUN 7, Creatinine 0.47 L, Estim Creat Clear Calc 161.70, Est GFR (MDRD) Af Amer 234, Est GFR (MDRD) Non-Af 194, BUN/Creatinine Ratio 14.9, Glucose 84, Calcium 7.3 L 11/09/17 04:50: WBC 7.5, RBC 3.57 L, Hgb 11.7 L, Hct 32.3 L, MCV 90.5, MCH 32.8 H, MCHC 36.2 H, RDW 14.4, RDW Differential 46.0 H, Plt Count 113 L, MPV 10.9, Immature Gran % (Auto) 1.600 H, Neut % (Auto) 74.8 H, Lymph % (Auto) 16.6 L, [place] % (Auto) 5.8, Eos % (Auto) 0.8, Baso % (Auto) 0.4, Absolute Neuts (auto) 5.6, Absolute Lymphs (auto) 1.25, Total Counted Not Reportable 11/09/17 04:50: Sodium 125 L, Potassium 3.4 L, Chloride 89 L, Carbon Dioxide 25.0, Anion Gap 11, BUN 7, Creatinine 0.44 L, Estim Creat Clear Calc 172.73, Est GFR (MDRD) Af Amer 256, Est GFR (MDRD) Non-Af 212, BUN/Creatinine Ratio 16.1, Glucose 83, Calcium 7.2 L, Phosphorus 2.7, Magnesium 1.7, Total Bilirubin 2.10 H, AST 45 H, ALT 30, Alkaline Phosphatase 132 H, Total Creatine Kinase 28 L, Total Protein 4.2 L, Albumin 1.5 L, Globulin 2.7, Albumin/Globulin Ratio 0.6 L Current Medications Acetaminophen (Tylenol) 500 mg PO Q4H PRN PRN PRN Reason: Temp > 100.4 F Al Hydroxide/Mg Hydroxide (Mylanta Ii) 30 ml PO Q6H PRN PRN PRN Reason: Gastric burning Albuterol Sulfate (Ventolin Aerosols) 2.5 mg INHALATION Q2H PRN PRN PRN Reason: dyspnea, wheezing Chlordiazepoxide (Librium) 50 mg PO Q6H RICH PRN Reason: Taper Stop: 11/11/17 17:59 Last Admin: 11/09/17 05:27 Dose: 50 mg Clonidine (Catapres) 0.1 mg PO Q4 [facility] Last Admin: 11/09/17 05:24 Dose: Not Given Clotrimazole (Lotrimin) 1 applicatio TOPICAL BID RICH PRN Reason: Protocol Last Admin: 11/08/17 21:35 Dose: 1 applicatio Dextrose (D50w Syringe) 0 gm IV X1 PRN; Protocol PRN Reason: Hypoglycemia Dicyclomine HCl (Bentyl) 20 mg PO Q6H PRN PRN PRN Reason: abdominal discomfort Famotidine (Pepcid) 20 mg PO BID [facility] Last Admin: 11/08/17 21:35 Dose: 20 mg Folic Acid (Folic Acid) 1 mg PO DAILY@0800 [facility] Last Admin: 11/09/17 08:20 Dose: 1 mg Glucagon () 1 mg IM .X1 PRN PRN Reason: Hypoglycemia Heparin Sodium (Porcine) (Heparin Na) 5,000 unit SC Q12 [facility] Last Admin: 11/08/17 21:34 Dose: 5,000 u Hydralazine HCl (Apresoline Iv) 10 mg IV Q4H PRN PRN PRN Reason: SBP > 160 Hydroxyzine Pamoate (Vistaril Pamoate Capsule) 50 mg PO Q6H PRN PRN PRN Reason: Mild Anxiety (score 1/3) Sodium Chloride () 1,000 mls @ 125 mls/hr IV .Q8H [facility] Last Admin: 11/08/17 23:13 Dose: 125 mls/hr Fluconazole (Diflucan) 200 mg in 100 mls @ 100 mls/hr IV Q24 [facility] Piperacillin Sod/Tazobactam Sod (Zosyn) 3.375 gm in 50 mls @ 12.5 mls/hr IV Q8 [facility] Last Admin: 11/09/17 05:21 Dose: 12.5 mls/hr Vancomycin HCl (Vancomycin) 1,000 mg in 200 mls @ 200 mls/hr IV Q8H [facility] Last Admin: 11/09/17 06:14 Dose: 200 mls/hr Sodium Chloride () 250 mls @ 15 mls/hr IV .[id number] PRN PRN Reason: SALINE FLUSH Potassium Chloride (Kcl 10meq/100ml) 10 meq in 100 mls @ 100 mls/hr IV BOLUS Q1H [facility] Stop: 11/09/17 10:59 Last Admin: 11/09/17 08:18 Dose: 100 mls/hr Ibuprofen (Motrin) 600 mg PO Q8H PRN PRN PRN Reason: Mild-Moderate Pain (1-5/10) Last Admin: 11/09/17 08:21 Dose: 600 mg Lorazepam (Ativan) 2 mg PO Q2H PRN PRN; Protocol PRN Reason: CIWA score > 8 but <15 Lorazepam (Ativan) 2 mg IV Q2H PRN PRN; Protocol PRN Reason: CIWA score > 8 but <15 Lorazepam (Ativan) 2 mg PO UD PRN; Protocol PRN Reason: CIWA score >/=15. Lorazepam (Ativan) 2 mg IV UD PRN; Protocol PRN Reason: CIWA score >/=15. Magnesium Hydroxide (Milk Of Magnesia) 30 ml PO DAILY PRN PRN PRN Reason: Constipation Methocarbamol (Methocarbamol) 750 mg PO Q6H PRN PRN PRN Reason: Muscle Aches Morphine Sulfate () 1 - 2 mg IV Q4H PRN PRN PRN Reason: .MODERATE PAIN Morphine Sulfate () 2 - 4 mg IV Q4H PRN PRN Reason: Severe Pain (pain scale 6-10) Multivitamins/Minerals ([facility]ivitamin With Minerals) [facility] Last Admin: 11/09/17 08:20 Dose: 1 tablet Nicotine (Nicoderm Cq (Pbkc)) 21 mg TRANSDERM. DAILY [facility] Last Admin: 11/08/17 17:37 Dose: 21 mg Nutritional Formula (Lactose Free) (Ensure Clear) 120 ml PO 4X/DAY [facility] Last Admin: 11/08/17 21:35 Dose: 120 ml Ondansetron HCl (Zofran) 4 mg IV Q8H PRN PRN PRN Reason: NAUSEA Oxycodone HCl (Oxyir) 5 - 10 mg PO Q4H PRN PRN PRN Reason: Moderate Pain (pain scale 4-5) Pramipexole Dihydrochloride (Mirapex) 0.25 mg PO Q12H PRN PRN PRN Reason: Restless legs Promethazine HCl (Phenergan) 12.5 mg IV Q6H PRN PRN PRN Reason: NAUSEA/VOMITING Quetiapine Fumarate (Seroquel) 25 mg PO Q6H PRN PRN PRN Reason: Moderate Anxiety (score 2/3) Sodium Chloride () 5 - 30 ml IV UD PRN PRN Reason: SALINE FLUSH Last Admin: 11/08/17 21:40 Dose: 20 ml Thiamine HCl (Vitamin B1) 100 mg PO DAILYCM [facility] Last Admin: 11/09/17 08:20 Dose: 100 mg Trazodone HCl (Desyrel) 50 mg PO QHS [facility] Last Admin: 11/08/17 21:36 Dose: Not Given Medical Necessity - Tobacco Use Smoking Status: Current every day smoker Tobacco Use: Cigarettes Assessment/Plan All Active Problems Hyponatremia (Acute) Severe sepsis (Acute) The patient is a 62 y/o M w/ PMHx: Chronic COPD, Ongoing Tobacco use, Bipolar Disorder, EtOH Abuse who presents to the [facility] ED on 11/08/17 w/ history of going several day history of nausea, emesis as well as abdominal discomfort with diarrhea while additionally on an alcoholic binge with eventual likely blackout in onset of perineal discomfort, pain, erythema with chills. (1) Severe Sepsis secondary to Diffuse BL LQ, Perineal and Posterior Buttock Region Cellulitis and Candidiasis AND resulting GNR Bactermia: Admitted to the ICU given severity of electrolyte disturbances, obtained CT w/ contrast pelvic region per discussion with Dr. Hsieh w/ no acute findings requiring immediate surgical intervention. Will maintain on IV vanc, zosyn, fluconazole, pending ED obtained Wound Cx, requested Wound MRSA PCR, trending CBC in AM, monitor erythema, PRN pain regimen, antiemetics. Trended LA with improvement, repeat 2.1. Continue hydration as noted. Awaiting Urology assessment, likely will allow diet restart. Monitor BP as low, may need IVF bolus or consideration for pressor therapy, but has appeared low stable, asymptomatic. (2) Electrolyte Disturbances including Severe Hyponatremia secondary to GI Losses and Chronic EtOH Abuse: Admission Na 117, likely baseline high 120-130s secondary to chronic EtOH Abuse, maintained on telemetry in the ICU, continued to gently hydrate w/ NS given no neurological symptoms, maintained on seizure precautions/aspiration precautions secondary to EtOH Abuse history in withdrawal as noted, trended serial BMPs w/ 11/09/17 BMP w/ Na 125, K 3.4, improving. Closely monitoring to avoid >12 mEq/24 hours, ICU physician consulted, following. Monitor I/Os. (3) Acute EtOH Withdrawal: Initiated and continue on [facility] [employer] service protocol with taper course of librium, as needed Seroquel, Catapres, Bentyl, Vistaril, IV fluids, IV antiemetics, Tylenol as needed for pain. Once patient clinically improved and completion of taper nearing will need CM assistance for transition to next level of rehabilitation care. Mag, phos obtained, phos low, supplementing. Maintain on CIWA protocol. (4) N/V/D, ? Viral Gastroenteritis: Will continue hydration, no diarrhea following admission, if recurrent will obtain c diff, stool cx. (5) Debility, Weakness, Recent Immobility: Given history repeated AM TCPK, not marked appearing especially given prolonged position per report. Position changes, fall precautions, PT, OT, CM for discharge planning. (6) Chronic COPD: ATC duonebs, PRN albuterol, HOB, IS parameters. (7) Tobacco Abuse: Encouraged cessation, inpatient consultation per RT, NR if desired. (8) Bipolar disorder: Not taking regimen, once clinically appropriate will need to refer to therapy, PCP for medication considerations as binge possibly related to uncontrolled psychiatric disease. (9) Severe Protein-Calorie Malnutrition: Evidenced per habitus, BMP, muscle and fat loss, nutrition consulted. (10) Elevated LFT, Bilirubin: Given presentation, may be transient, 11/09/17 TBili 2.10, AST/ALT 45/30, improving. (11) DVT Prophylaxis: SCDs, heparin. Code Visit Inpatient E&M: 25371 Subs Hosp L3
--- NOTE | 2017-11-09 09:24 | PN_ITS ---
Patient Problems: Active and Suspected Problems Hyponatremia (Acute) Severe sepsis (Acute) Subjective: The patient is a 62 y/o M w/ PMHx: Chronic COPD, Ongoing Tobacco use, Bipolar Disorder, EtOH Abuse who presents to the [facility] ED on 11/08/17 w/ history of going several day history of nausea, emesis as well as abdominal discomfort with diarrhea while additionally on an alcoholic binge with eventual likely blackout in onset of perineal discomfort, pain, erythema with chills. Admitted w/ Severe Sepsis secondary to Diffuse BL LQ, Perineal and Posterior Buttock Region Cellulitis and Candidiasis AND resulting GNR Bactermia to the ICU given severity of electrolyte disturbances, obtained CT w/ contrast pelvic region per discussion with Dr. Hsieh w/ no acute findings requiring immediate surgical intervention. Will maintain on IV vanc, zosyn, fluconazole, pending ED obtained Wound Cx, requested Wound MRSA PCR, trending CBC in AM, monitor erythema, PRN pain regimen, antiemetics. Trended LA with improvement, repeat 2.1. Continue hydration as noted. Awaiting Urology assessment, likely will allow diet restart. Monitor BP as low, may need IVF bolus or consideration for pressor therapy, but has appeared low stable, asymptomatic. Additionally, Electrolyte Disturbances including Severe Hyponatremia secondary to GI Losses and Chronic EtOH Abuse w/ Admission Na 117, likely baseline high 120-130s secondary to chronic EtOH Abuse, maintained on telemetry in the ICU, continued to gently hydrate w/ NS given no neurological symptoms, maintained on seizure precautions/ aspiration precautions secondary to EtOH Abuse history in withdrawal as noted, trended serial BMPs w/ 11/09/17 BMP w/ Na 125, K 3.4, improving. Closely monitoring to avoid >12 mEq/24 hours, ICU physician consulted, following. Monitor I/Os. Acute EtOH Withdrawal also upon admission, initiated and continued on [facility] service protocol with taper course of librium, as needed Seroquel, Catapres, Bentyl, Vistaril, IV fluids, IV antiemetics, Tylenol as needed for pain. Once patient clinically improved and completion of taper nearing will need CM assistance for transition to next level of rehabilitation care. Mag, phos obtained, phos low, supplementing. Maintain on CIWA protocol. Patient with no acute events overnight per self and per nursing report aside from mildly low blood pressures and resulting positive blood culture with gram- negative rods. 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 Patient remained afebrile and tachycardia improved upon transition to the ICU with continued IV fluids and IV antibiotic therapy as well as antifungal regimen. Pending urology consultation this morning. Patient evaluated per ICU physician this morning. Patient notes feeling improved but still ongoing discomfort to the perineal and bilateral lower quadrants groin region. Patient denies fevers, chills, nausea, emesis, abdominal pain, chest pain or dyspnea. Objective: Physical Examination: General: awake, alert, oriented x 3 and cooperative, seated upright in the ICU bed, more comfortable appearing, less ill-appearing. Skin: normal color, turgor, no icterus, cyanosis except left eye lids older appearing ecchymoses on the lid and underneath, patient extremity ecchymoses, improvement to the peroneal, bilateral lower quadrant, circumferential thigh and posterior coccyx regions with near resolution of prior beefy red appearance , mild cellulitic region still remain especially surrounding ulcerated/ excoriated regions. HEENT: AT/NC aside bruising as noted, see skin, EOMI, PERRLA, improved MMM. Lungs: Diminished BS BL, > bases, poor effort, no rales, ronchi or wheezing. Heart: Improved, regular rate and regular rhythm; no gallop, rub audible. Abdomen: soft, thin/cachectic habitus, NTTP, ND, normal BS. Extremities: no cyanosis, clubbing, see skin, feet cool to touch (chronic), see skin. Neurological: patient awake, alert, oriented x 3; cognitive function intact; pupils equally reactive to light and accomodation; cranial nerves II-XII grossly normal, moving all 4 extremities, no focal deficits, strength severely globally decreased secondary to acute presentation. Psychiatric: affect appears fatigued, no acute evidence of depressive or anxiety feelings, denies any SI. Vitals/I&O's: Vital Signs Temp Pulse Resp BP Pulse Ox 97.4 F L 86 35 H 82/62 L 98 11/09/17 06:00 11/09/17 07:00 11/09/17 07:00 11/09/17 07:00 11/09/17 07:18 Oxygen Delivery Method Room Air Weight: 159 lb 13.362 oz Body Mass Index (BMI) 24.3 Intake and Output for Last 24 Hours 11/07/17 11/08/17 11/09/17 23:59 23:59 23:59 Intake Total 803.7 / 803.7 590.5 / 590.5 Output Total 800 / 800 200 / 200 Balance 3.7 / 3.7 390.5 / 390.5 Laboratory Results 11/08/17 16:10: MRSA (PCR) Negative 11/08/17 17:00: Sodium 120 L, Potassium 3.2 L, Chloride 83 L, Carbon Dioxide 25.0, Anion Gap 12, BUN 7, Creatinine 0.48 L, Estim Creat Clear Calc 158.33, Est GFR (MDRD) Af Amer 226, Est GFR (MDRD) Non-Af 187, BUN/Creatinine Ratio 14.5 , Glucose 99, Calcium 6.8 L, Phosphorus 2.1 L, Magnesium 1.8 11/08/17 17:00: Lactic Acid 2.1 H 11/08/17 19:55: Sodium 120 L, Potassium 3.4 L, Chloride 86 L, Carbon Dioxide 25.0, Anion Gap 9, BUN 8, Creatinine 0.48 L, Estim Creat Clear Calc 158.33, Est GFR (MDRD) Af Amer 229, Est GFR (MDRD) Non-Af 189, BUN/Creatinine Ratio 16.7, Glucose 91, Calcium 6.8 L 11/08/17 20:20: S.aureus Protein A PCR NEGATIVE, MRSA (PCR) Negative 11/08/17 21:30: Sodium 124 L, Potassium 3.5, Chloride 87 L, Carbon Dioxide 25.0 , Anion Gap 12, BUN 7, Creatinine 0.39 L, Estim Creat Clear Calc 194.87, Est GFR (MDRD) Af Amer 292, Est GFR (MDRD) Non-Af 241, BUN/Creatinine Ratio 18.0, Glucose 88, Calcium 6.6 L 11/08/17 23:10: Sodium 126 L, Potassium 3.2 L, Chloride 89 L, Carbon Dioxide 25.0, Anion Gap 12, BUN 7, Creatinine 0.41 L, Estim Creat Clear Calc 185.37, Est GFR (MDRD) Af Amer 276, Est GFR (MDRD) Non-Af 228, BUN/Creatinine Ratio 17.2 , Glucose 94, Calcium 6.5 L* 11/09/17 02:00: Sodium 122 L, Potassium 3.4 L, Chloride 88 L, Carbon Dioxide 24.0, Anion Gap 10, BUN 7, Creatinine 0.47 L, Estim Creat Clear Calc 161.70, Est GFR (MDRD) Af Amer 234, Est GFR (MDRD) Non-Af 194, BUN/Creatinine Ratio 14.9 , Glucose 84, Calcium 7.3 L 11/09/17 04:50: WBC 7.5, RBC 3.57 L, Hgb 11.7 L, Hct 32.3 L, MCV 90.5, MCH 32.8 H, MCHC 36.2 H, RDW 14.4, RDW Differential 46.0 H, Plt Count 113 L, MPV 10.9, Immature Gran % (Auto) 1.600 H, Neut % (Auto) 74.8 H, Lymph % (Auto) 16.6 L, [place] % (Auto) 5.8, Eos % (Auto) 0.8, Baso % (Auto) 0.4, Absolute Neuts (auto) 5.6, Absolute Lymphs (auto) 1.25, Total Counted Not Reportable 11/09/17 04:50: Sodium 125 L, Potassium 3.4 L, Chloride 89 L, Carbon Dioxide 25.0, Anion Gap 11, BUN 7, Creatinine 0.44 L, Estim Creat Clear Calc 172.73, Est GFR (MDRD) Af Amer 256, Est GFR (MDRD) Non-Af 212, BUN/Creatinine Ratio 16.1 , Glucose 83, Calcium 7.2 L, Phosphorus 2.7, Magnesium 1.7, Total Bilirubin 2.10 H, AST 45 H, ALT 30, Alkaline Phosphatase 132 H, Total Creatine Kinase 28 L , Total Protein 4.2 L, Albumin 1.5 L, Globulin 2.7, Albumin/Globulin Ratio 0.6 L Current Medications Acetaminophen (Tylenol) 500 mg PO Q4H PRN PRN PRN Reason: Temp > 100.4 F Al Hydroxide/Mg Hydroxide (Mylanta Ii) 30 ml PO Q6H PRN PRN PRN Reason: Gastric burning Albuterol Sulfate (Ventolin Aerosols) 2.5 mg INHALATION Q2H PRN PRN PRN Reason: dyspnea, wheezing Chlordiazepoxide (Librium) 50 mg PO Q6H RICH PRN Reason: Taper Stop: 11/11/17 17:59 Last Admin: 11/09/17 05:27 Dose: 50 mg Clonidine (Catapres) 0.1 mg PO Q4 [facility] Last Admin: 11/09/17 05:24 Dose: Not Given Clotrimazole (Lotrimin) 1 applicatio TOPICAL BID RICH PRN Reason: Protocol Last Admin: 11/08/17 21:35 Dose: 1 applicatio Dextrose (D50w Syringe) 0 gm IV X1 PRN; Protocol PRN Reason: Hypoglycemia Dicyclomine HCl (Bentyl) 20 mg PO Q6H PRN PRN PRN Reason: abdominal discomfort Famotidine (Pepcid) 20 mg PO BID [facility] Last Admin: 11/08/17 21:35 Dose: 20 mg Folic Acid (Folic Acid) 1 mg PO DAILY@0800 [facility] Last Admin: 11/09/17 08:20 Dose: 1 mg Glucagon () 1 mg IM .X1 PRN PRN Reason: Hypoglycemia Heparin Sodium (Porcine) (Heparin Na) 5,000 unit SC Q12 [facility] Last Admin: 11/08/17 21:34 Dose: 5,000 u Hydralazine HCl (Apresoline Iv) 10 mg IV Q4H PRN PRN PRN Reason: SBP > 160 Hydroxyzine Pamoate (Vistaril Pamoate Capsule) 50 mg PO Q6H PRN PRN PRN Reason: Mild Anxiety (score 1/3) Sodium Chloride () 1,000 mls @ 125 mls/hr IV .Q8H [facility] Last Admin: 11/08/17 23:13 Dose: 125 mls/hr Fluconazole (Diflucan) 200 mg in 100 mls @ 100 mls/hr IV Q24 [facility] Piperacillin Sod/Tazobactam Sod (Zosyn) 3.375 gm in 50 mls @ 12.5 mls/hr IV Q8 [facility] Last Admin: 11/09/17 05:21 Dose: 12.5 mls/hr Vancomycin HCl (Vancomycin) 1,000 mg in 200 mls @ 200 mls/hr IV Q8H [facility] Last Admin: 11/09/17 06:14 Dose: 200 mls/hr Sodium Chloride () 250 mls @ 15 mls/hr IV .[id number] PRN PRN Reason: SALINE FLUSH Potassium Chloride (Kcl 10meq/100ml) 10 meq in 100 mls @ 100 mls/hr IV BOLUS Q1H [facility] Stop: 11/09/17 10:59 Last Admin: 11/09/17 08:18 Dose: 100 mls/hr Ibuprofen (Motrin) 600 mg PO Q8H PRN PRN PRN Reason: Mild-Moderate Pain (1-5/10) Last Admin: 11/09/17 08:21 Dose: 600 mg Lorazepam (Ativan) 2 mg PO Q2H PRN PRN; Protocol PRN Reason: CIWA score > 8 but <15 Lorazepam (Ativan) 2 mg IV Q2H PRN PRN; Protocol PRN Reason: CIWA score > 8 but <15 Lorazepam (Ativan) 2 mg PO UD PRN; Protocol PRN Reason: CIWA score >/=15. Lorazepam (Ativan) 2 mg IV UD PRN; Protocol PRN Reason: CIWA score >/=15. Magnesium Hydroxide (Milk Of Magnesia) 30 ml PO DAILY PRN PRN PRN Reason: Constipation Methocarbamol (Methocarbamol) 750 mg PO Q6H PRN PRN PRN Reason: Muscle Aches Morphine Sulfate () 1 - 2 mg IV Q4H PRN PRN PRN Reason: .MODERATE PAIN Morphine Sulfate () 2 - 4 mg IV Q4H PRN PRN Reason: Severe Pain (pain scale 6-10) Multivitamins/Minerals ([facility] With Minerals) [facility] Admin: 11/09/17 08:20 Dose: 1 tablet Nicotine (Nicoderm Cq (Pbkc)) 21 mg TRANSDERM. DAILY [facility] Last Admin: 11/08/17 17:37 Dose: 21 mg Nutritional Formula (Lactose Free) (Ensure Clear) 120 ml PO 4X/DAY [facility] Last Admin: 11/08/17 21:35 Dose: 120 ml Ondansetron HCl (Zofran) 4 mg IV Q8H PRN PRN PRN Reason: NAUSEA Oxycodone HCl (Oxyir) 5 - 10 mg PO Q4H PRN PRN PRN Reason: Moderate Pain (pain scale 4-5) Pramipexole Dihydrochloride (Mirapex) 0.25 mg PO Q12H PRN PRN PRN Reason: Restless legs Promethazine HCl (Phenergan) 12.5 mg IV Q6H PRN PRN PRN Reason: NAUSEA/VOMITING Quetiapine Fumarate (Seroquel) 25 mg PO Q6H PRN PRN PRN Reason: Moderate Anxiety (score 2/3) Sodium Chloride () 5 - 30 ml IV UD PRN PRN Reason: SALINE FLUSH Last Admin: 11/08/17 21:40 Dose: 20 ml Thiamine HCl (Vitamin B1) 100 mg PO DAILYCM [facility] Last Admin: 11/09/17 08:20 Dose: 100 mg Trazodone HCl (Desyrel) 50 mg PO QHS [facility] Last Admin: 11/08/17 21:36 Dose: Not Given Medical Necessity - Tobacco Use Smoking Status: Current every day smoker Tobacco Use: Cigarettes Assessment/Plan All Active Problems Hyponatremia (Acute) Severe sepsis (Acute) The patient is a 62 y/o M w/ PMHx: Chronic COPD, Ongoing Tobacco use, Bipolar Disorder, EtOH Abuse who presents to the [facility] ED on 11/08/17 w/ history of going several day history of nausea, emesis as well as abdominal discomfort with diarrhea while additionally on an alcoholic binge with eventual likely blackout in onset of perineal discomfort, pain, erythema with chills. (1) Severe Sepsis secondary to Diffuse BL LQ, Perineal and Posterior Buttock Region Cellulitis and Candidiasis AND resulting GNR Bactermia: Admitted to the ICU given severity of electrolyte disturbances, obtained CT w/ contrast pelvic region per discussion with Dr. Hsieh w/ no acute findings requiring immediate surgical intervention. Will maintain on IV vanc, zosyn, fluconazole, pending ED obtained Wound Cx, requested Wound MRSA PCR, trending CBC in AM, monitor erythema, PRN pain regimen, antiemetics. Trended LA with improvement, repeat 2.1. Continue hydration as noted. Awaiting Urology assessment, likely will allow diet restart. Monitor BP as low, may need IVF bolus or consideration for pressor therapy, but has appeared low stable, asymptomatic. (2) Electrolyte Disturbances including Severe Hyponatremia secondary to GI Losses and Chronic EtOH Abuse: Admission Na 117, likely baseline high 120-130s secondary to chronic EtOH Abuse, maintained on telemetry in the ICU, continued to gently hydrate w/ NS given no neurological symptoms, maintained on seizure precautions/aspiration precautions secondary to EtOH Abuse history in withdrawal as noted, trended serial BMPs w/ 11/09/17 BMP w/ Na 125, K 3.4, improving. Closely monitoring to avoid >12 mEq/24 hours, ICU physician consulted , following. Monitor I/Os. (3) Acute EtOH Withdrawal: Initiated and continue on [facility] [employer] service protocol with taper course of librium, as needed Seroquel, Catapres, Bentyl, Vistaril, IV fluids, IV antiemetics, Tylenol as needed for pain. Once patient clinically improved and completion of taper nearing will need CM assistance for transition to next level of rehabilitation care. Mag, phos obtained, phos low, supplementing. Maintain on CIWA protocol. (4) N/V/D, ? Viral Gastroenteritis: Will continue hydration, no diarrhea following admission, if recurrent will obtain c diff, stool cx. (5) Debility, Weakness, Recent Immobility: Given history repeated AM TCPK, not marked appearing especially given prolonged position per report. Position changes, fall precautions, PT, OT, CM for discharge planning. (6) Chronic COPD: ATC duonebs, PRN albuterol, HOB, IS parameters. (7) Tobacco Abuse: Encouraged cessation, inpatient consultation per RT, NR if desired. (8) Bipolar disorder: Not taking regimen, once clinically appropriate will need to refer to therapy, PCP for medication considerations as binge possibly related to uncontrolled psychiatric disease. (9) Severe Protein-Calorie Malnutrition: Evidenced per habitus, BMP, muscle and fat loss, nutrition consulted. (10) Elevated LFT, Bilirubin: Given presentation, may be transient, 11/09/17 TBili 2.10, AST/ALT 45/30, improving. (11) DVT Prophylaxis: SCDs, heparin. Code Visit Inpatient E&M: 17368 Subs Hosp L3
--- NOTE | 2017-11-09 09:59 | PCM.PN.BLA ---
Progress Note pt seen most of excuriation is on thighs and buttucks consider plastics evaluation I do not see any thing surgical on the scrotum keep dry. call with questions.
[2017-11-09] MEDS: Famotidine 20 MG Tablet PO ×2 (10:24→21:11)
[2017-11-09] MEDS: 0.9% Normal Saline 1,000 ML 125 ML IV ×2 (11:16→21:10)
[2017-11-09 16:47] LABS: Vancomycin, Trough Level 15.8 ug/mL (5.0-15.0)
--- NOTE | 2017-11-09 17:16 | PCM.RX.CS ---
Consult Pharmacy has been consulted to manage selected antiobiotic: Vancomycin Type of Consult: Follow-up Suspected Infection: Sepsis Prior Doses of Antibiotics Received/Current Regimen: Currently receiving vancomycin 1000mg IV q8h Medications Labs: Sodium 125 mmol/L (136-145) L 11/09/17 04:50 Potassium 3.4 mmol/L (3.5-5.1) L 11/09/17 04:50 Chloride 89 mmol/L (98-107) L 11/09/17 04:50 Carbon Dioxide 25.0 mmol/L (21.0-32.0) 11/09/17 04:50 Anion Gap 11 (5-15) 11/09/17 04:50 BUN 7 mg/dL (7-18) 11/09/17 04:50 Creatinine 0.44 mg/dL (0.70-1.30) L 11/09/17 04:50 Est GFR (MDRD) Af Amer 256 mL/min (>60) 11/09/17 04:50 Est GFR (MDRD) Non-Af 212 mL/min (>60) 11/09/17 04:50 BUN/Creatinine Ratio 16.1 RATIO (10-20) 11/09/17 04:50 Glucose 83 mg/dL (74-106) 11/09/17 04:50 Vancomycin Trough 15.8 ug/mL (5.0-15.0) H 11/09/17 15:50 Goal Trough: 15-20 mcg/mL Pharmacy Plan for Drug Dosing: Vancomycin trough obtained before the 4th dose was 15.8 which was within goal range of 15-20. Recommend continue current dosing of 1000mg IV q8h. Pharmacy Service will continue to monitor and adjust dosing as required.
[2017-11-09] MEDS: Menthol/Lanolin/Calamine/Znox 113 GM Tube 1 APPLIC TOPICAL ×2 (17:38→21:11)
[2017-11-09] MEDS: 0.9% Normal Saline 1,000 ML 999 ML IV (17:39)
[2017-11-09] MEDS: Heparin Injection (Vial) 5,000 UNIT/ML VIAL 5000 UNIT SC (21:11)
[2017-11-10] VITALS (22 sets, daily range): BP systolic 93–120; BP diastolic 60–80; PULSE 81–89; RESP 12–25; TEMP 35.9–36.8; O2SAT 95–100
[2017-11-10] MEDS: Ibuprofen 600 MG Tablet PO (00:10)
[2017-11-10 04:32] LABS: Absolute Lymphocyte Count 1.16 X10^3/ul (0.83-4.51); Absolute Neutrophil Count 3.7 X10^3/uL (2.0-7.7); Basophil# 0.01 X10^3/uL; Basophil% 0.2 % (0-1); Eosinophil# 0.03 X10^3/uL; Eosinophils% 0.6 % (0-5); Hematocrit 30.6 % (40-54); Lymphocyte # 1.16 X10^3/ul (4.0); Lymphocyte % 21.5 % (19-41); Mean Corp Hgb Conc 35.9 g/gl (32-36); Mean Corpuscular Hgb 32.8 pg (27.0-32.0); Mean Corpuscular Volume 91.3 fL (80-94); Monocyte# 0.41 X10^3/uL; Monocyte% 7.6 % (0-10); Neutrophil # 3.68 X10^3/uL (2.7-7.7); Neutrophil % 68.1 % (47-70); Platelet Count 114 K/mm3 (150-450); RBC Distribution Width CV 14.7 % (11.6-14.6); RBC Distribution Width SD 47.5 fl (35.1-43.9); Red Blood Count 3.35 M/mm3 (4.6-6.2); White Blood Count 5.4 K/mm3 (4.4-11.0)
[2017-11-10 04:34] LABS: POSITIVE COUNT NO; POSITIVE DIFFERENTIAL NO; POSITIVE MORPHOLOGY YES
[2017-11-10 04:51] LABS: ALB/GLOB Ratio 0.5 RATIO (0.9-2.4); AST(SGOT) 53 U/L (15-37); Alanine Aminotransfer ALT/SGPT 30 U/L (16-61); Albumin, Serum 1.3 g/dL (3.2-5.0); Alkaline Phosphatase 165 U/L (45-117); Anion Gap 9 (5-15); BUN 10 mg/dL (7-18); BUN/Creat Ratio 20.2 RATIO (10-20); Calcium,Total 6.4 mg/dL (8.5-10.1); Chloride 96 mmol/L (98-107); Creatinine, Serum 0.49 mg/dL (0.70-1.30); EST Glomerular Filtration Rate 183 mL/min (>60); Est Glom Filt Rate - Afr Amer 221 mL/min (>60); Globulin 2.6 g/dL (2.2-4.2); Glucose 88 mg/dL (74-106); Potassium 3.4 mmol/L (3.5-5.1); Protein, Total 3.9 g/dL (6.4-8.2); Sodium Level 128 mmol/L (136-145)
[2017-11-10] MEDS: 0.9% Normal Saline 1,000 ML 125 ML IV ×2 (06:07→21:53)
[2017-11-10] MEDS: 0.9% NaCl IVPB Med Flush (250 mL) 15 ML IV (06:08)
[2017-11-10] MEDS: Piperacil/Tazobactam 3.375 GM/50 ML ML IV ×3 (06:08→21:54)
--- NOTE | 2017-11-10 06:29 | PCM.PN.INT ---
Subjective: Patient did okay overnight. Patient has been receiving Motrin to help with perineal pain. Patient continues to have diarrhea. Patient did receive a fluid bolus yesterday for decreased urine output with little effect. Patient has not been on pressors, but blood pressures have been marginal. Nursing reports these have been improving overnight. Patient currently saturating well on room air. General: Alert, Oriented x3, Cooperative, No apparent distress, - - Appears stated age. Speaking in full sentences. HEENT: Atraumatic, PERRLA, EOMI, Normocephalic, - - No scleral icterus or injection noted. Slight temporal wasting noted. Oral: Moist Mucosa, No Gingival or Mucosal Lesions/ Ulcerations, - - Poor dentition Neck: Supple, No JVD, No Nodes, Trachea Midline Lungs: No rhonchi, No wheeze, No rales, Diminished, - - Symmetric expansion. No dullness to percussion. Cardiovascular: Regular rate, Regular Rhythm, Normal S1, Normal S2, No murmurs, No rub noted, No Gallop Abdomen: Bowel Sounds Present, Soft, Distended, Tender - No rebound or guarding noted Extremities: No clubbing, No cyanosis, Capillary Refill Less than 3 Seconds, Edema - 2+ anasarca Skin: Rash Present - Perineal rash noted with multiple levels of breakdown. Nursing reports similar presentation Musculoskeletal: No Tenderness to Palpation of Joints or Extremities Lymphatic: No Cervical, Supraclavicular, or Inguinal Adenopathy Neurological: Cranial nerves II-XII grossly intact, Neuro grossly intact, Motor Exam 5/5 strength throughout Psych/Mental Status: Alert and oriented to time, place, person, mood and affect Vital Signs Temp Pulse Resp BP Pulse Ox 36.7 C 83 19 H 100/72 99 11/10/17 06:00 11/10/17 06:00 11/10/17 06:00 11/10/17 06:00 11/10/17 06:00 Oxygen Delivery Method Room Air Weight: 80.1 kg Body Mass Index (BMI) 24.3 Intake and Output for Last 24 Hours 11/08/17 11/09/17 11/10/17 23:59 23:59 23:59 Intake Total 803.7 / 803.7 4628.7 / 4628.7 1481.7 / 1481.7 Output Total 800 / 800 550 / 550 200 / 200 Balance 3.7 / 3.7 4078.7 / 4078.7 1281.7 / 1281.7 Labs (Last 48 Hours) 11/08/17 11/08/17 11/08/17 16:10 17:00 17:00 WBC RBC Hgb Hct MCV MCH MCHC RDW RDW Differential Plt Count MPV Immature Gran % (Auto) Neut % (Auto) Lymph % (Auto) [place] % (Auto) Eos % (Auto) Baso % (Auto) Absolute Neuts (auto) Absolute Lymphs (auto) Total Counted Diff Path Review Sodium 120 L Potassium 3.2 L Chloride 83 L Carbon Dioxide 25.0 Anion Gap 12 BUN 7 Creatinine 0.48 L Estim Creat Clear Calc 158.33 Est GFR (MDRD) Af Amer 226 Est GFR (MDRD) Non-Af 187 BUN/Creatinine Ratio 14.5 Glucose 99 Lactic Acid 2.1 H Calcium 6.8 L Phosphorus 2.1 L Magnesium 1.8 Total Bilirubin AST ALT Alkaline Phosphatase Total Creatine Kinase Total Protein Albumin Globulin Albumin/Globulin Ratio Vancomycin Trough S.aureus Protein A PCR MRSA (PCR) Negative 11/08/17 11/08/17 11/08/17 19:55 20:20 21:30 WBC RBC Hgb Hct MCV MCH MCHC RDW RDW Differential Plt Count MPV Immature Gran % (Auto) Neut % (Auto) Lymph % (Auto) [place] % (Auto) Eos % (Auto) Baso % (Auto) Absolute Neuts (auto) Absolute Lymphs (auto) Total Counted Diff Path Review Sodium 120 L 124 L Potassium 3.4 L 3.5 Chloride 86 L 87 L Carbon Dioxide 25.0 25.0 Anion Gap 9 12 BUN 8 7 Creatinine 0.48 L 0.39 L Estim Creat Clear Calc 158.33 194.87 Est GFR (MDRD) Af Amer 229 292 Est GFR (MDRD) Non-Af 189 241 BUN/Creatinine Ratio 16.7 18.0 Glucose 91 88 Lactic Acid Calcium 6.8 L 6.6 L Phosphorus Magnesium Total Bilirubin AST ALT Alkaline Phosphatase Total Creatine Kinase Total Protein Albumin Globulin Albumin/Globulin Ratio Vancomycin Trough S.aureus Protein A PCR NEGATIVE MRSA (PCR) Negative 11/08/17 11/09/17 11/09/17 23:10 02:00 04:50 WBC 7.5 RBC 3.57 L Hgb 11.7 L Hct 32.3 L MCV 90.5 MCH 32.8 H MCHC 36.2 H RDW 14.4 RDW Differential 46.0 H Plt Count 113 L MPV 10.9 Immature Gran % (Auto) 1.600 H Neut % (Auto) 74.8 H Lymph % (Auto) 16.6 L [place] % (Auto) 5.8 Eos % (Auto) 0.8 Baso % (Auto) 0.4 Absolute Neuts (auto) 5.6 Absolute Lymphs (auto) 1.25 Total Counted Not Reportable Diff Path Review Sodium 126 L 122 L Potassium 3.2 L 3.4 L Chloride 89 L 88 L Carbon Dioxide 25.0 24.0 Anion Gap 12 10 BUN 7 7 Creatinine 0.41 L 0.47 L Estim Creat Clear Calc 185.37 161.70 Est GFR (MDRD) Af Amer 276 234 Est GFR (MDRD) Non-Af 228 194 BUN/Creatinine Ratio 17.2 14.9 Glucose 94 84 Lactic Acid Calcium 6.5 L* 7.3 L Phosphorus Magnesium Total Bilirubin AST ALT Alkaline Phosphatase Total Creatine Kinase Total Protein Albumin Globulin Albumin/Globulin Ratio Vancomycin Trough S.aureus Protein A PCR MRSA (PCR) 11/09/17 11/09/17 11/10/17 04:50 15:50 04:15 WBC 5.4 RBC 3.35 L Hgb 11.0 L Hct 30.6 L MCV 91.3 MCH 32.8 H MCHC 35.9 RDW 14.7 H RDW Differential 47.5 H Plt Count 114 L MPV 11.0 Immature Gran % (Auto) 2.000 H Neut % (Auto) 68.1 Lymph % (Auto) 21.5 [place] % (Auto) 7.6 Eos % (Auto) 0.6 Baso % (Auto) 0.2 Absolute Neuts (auto) 3.7 Absolute Lymphs (auto) 1.16 Total Counted Not Reportable Diff Path Review May foll Sodium 125 L Potassium 3.4 L Chloride 89 L Carbon Dioxide 25.0 Anion Gap 11 BUN 7 Creatinine 0.44 L Estim Creat Clear Calc 172.73 Est GFR (MDRD) Af Amer 256 Est GFR (MDRD) Non-Af 212 BUN/Creatinine Ratio 16.1 Glucose 83 Lactic Acid Calcium 7.2 L Phosphorus 2.7 Magnesium 1.7 Total Bilirubin 2.10 H AST 45 H ALT 30 Alkaline Phosphatase 132 H Total Creatine Kinase 28 L Total Protein 4.2 L Albumin 1.5 L Globulin 2.7 Albumin/Globulin Ratio 0.6 L Vancomycin Trough 15.8 H S.aureus Protein A PCR MRSA (PCR) 11/10/17 04:15 WBC RBC Hgb Hct MCV MCH MCHC RDW RDW Differential Plt Count MPV Immature Gran % (Auto) Neut % (Auto) Lymph % (Auto) [place] % (Auto) Eos % (Auto) Baso % (Auto) Absolute Neuts (auto) Absolute Lymphs (auto) Total Counted Diff Path Review Sodium 128 L Potassium 3.4 L Chloride 96 L Carbon Dioxide 23.0 Anion Gap 9 BUN 10 Creatinine 0.49 L Estim Creat Clear Calc 155.10 Est GFR (MDRD) Af Amer 221 Est GFR (MDRD) Non-Af 183 BUN/Creatinine Ratio 20.2 H Glucose 88 Lactic Acid Calcium 6.4 L* Phosphorus Magnesium Total Bilirubin 1.30 H AST 53 H ALT 30 Alkaline Phosphatase 165 H Total Creatine Kinase Total Protein 3.9 L Albumin 1.3 L Globulin 2.6 Albumin/Globulin Ratio 0.5 L Vancomycin Trough S.aureus Protein A PCR MRSA (PCR) Microbiology 11/09/17 17:00 Stool C. difficile DNA Amplification - Final 11/09/17 17:00 Stool Stool Lactoferrin - Final Clinical Impression(s) from Imaging Studies [facility] X-Ray 11/08/17 13:07 IMPRESSION: 1. No evidence of acute intra-abdominal process. 2. No evidence of soft tissue gas. Electronically Signed: Uriel Laura DO at 16:01 EDT Tel [phone], Service support , Medical Necessity - Tobacco Use Smoking Status: Current every day smoker Tobacco Use: Cigarettes Assessment/Plan All Active Problems Hyponatremia (Acute) Severe sepsis (Acute) RECOMMENDATIONS: 1. Continue antibiotics/fluconazole, pending infectious workup. 2. Wound care evaluation 3. Continue gentle IV fluid hydration and monitor serum sodium level accordingly. 4. May add fentanyl for pain control 5. Electrolyte repletion as indicated. 6. Continue to monitor for alcohol withdrawal. Continue CIWA, along with thiamine and folate repletion. 7. ICU prophylaxis IMPRESSIONS: 1. Severe sepsis secondary to gram-negative bacteremia and extensive perineal soft tissue infection Continue broad-spectrum antibiotics, along with fluconazole, pending finalized culture results. Cultures appear to have a gram-negative baldomero. Continue local wound care. Wound care nurse to evaluate patient today. Continue supplemental IV fluid hydration. Cannot exclude the need for surgical diversion to facilitate wound care. Patient does have WBCs in the stool, so would continue with contact precautions until enteric bacteriologic panel is resulted. 2. Hypovolemic hyponatremia/hypokalemia Likely multifactorial in etiology with intravascular volume depletion, chronic alcohol dependence and GI losses contributing. The patient is incremented appropriately with the use of supplemental IV fluids, which will be continued. Potassium repletion as indicated. Continue to trend serial chemistry profiles. Avoid overcorrection of serum sodium. Patient was significantly depressed albumin leading to edema, but still appears to be intravascularly depleted. Encourage p.o. diet. Calcium corrects to 8.6 mg/dL when corrected for albumin. 3. Chronic alcohol dependence/tobacco abuse Continue to monitor for signs of alcohol withdrawal. Continue CIWA protocol along with thiamine and folate repletion. Nicotine replacement therapy can be offered to the patient while admitted to the hospital. Continue bronchodilators. 4. Severe protein calorie malnutrition/generalized deconditioning and weakness/bipolar disorder Complicates care, management, recovery and prognosis. Recommend advancing diet if no surgical intervention is planned. Patient will require evaluation by physical therapy. He will likely require placement at the time of his discharge from the hospital. Nutrition consultation is pending. This note was generated with [employer] software. It may contain incorrect words, spelling, and punctuation that were not noted in checking the note before signing.
--- NOTE | 2017-11-10 08:16 | PN_ITS ---
Patient Problems: Active and Suspected Problems Hyponatremia (Acute) Severe sepsis (Acute) Subjective: Patient was seen and examined. Remains in ICU. No acute events overnight. No seizures seen. Patient complains of severe pain in the perineum and buttocks. Still having diarrhea. Stool for enteric panel is still pending. C. difficile was negative. Objective: Physical Examination: General: awake, alert, oriented x 3 and cooperative, seated upright in the ICU bed, more comfortable appearing, less ill-appearing. Skin: normal color, turgor, no icterus, cyanosis except left eye lids older appearing ecchymoses on the lid and underneath, patient extremity ecchymoses, improvement to the peroneal, bilateral lower quadrant, circumferential thigh and posterior coccyx regions with near resolution of prior beefy red appearance , mild cellulitic region still remain especially surrounding ulcerated/ excoriated regions. HEENT: AT/NC aside bruising as noted, see skin, EOMI, PERRLA, improved MMM. Lungs: Diminished BS BL, no rales, ronchi or wheezing. Heart: Improved, regular rate and regular rhythm; no gallop, rub audible. Abdomen: soft, thin/cachectic habitus, NTTP, ND, normal BS. Extremities: no cyanosis, clubbing, see skin, feet cool to touch (chronic), see skin. Neurological:grossly intact Psychiatric: affect appears fatigued, no acute evidence of depressive or anxiety feelings, denies any SI. Vitals/I&O's: Vital Signs Temp Pulse Resp BP Pulse Ox 98.0 F 82 16 106/75 100 11/10/17 06:00 11/10/17 07:40 11/10/17 07:00 11/10/17 07:00 11/10/17 07:00 Oxygen Delivery Method Room Air Weight: 80.1 kg Body Mass Index (BMI) 24.3 Intake and Output for Last 24 Hours 11/08/17 11/09/17 11/10/17 23:59 23:59 23:59 Intake Total 803.7 / 803.7 4628.7 / 4628.7 1732.7 / 1732.7 Output Total 800 / 800 550 / 550 200 / 200 Balance 3.7 / 3.7 4078.7 / 4078.7 1532.7 / 1532.7 Microbiology Past 72 Hours 11/09/17 17:00 Stool C. difficile DNA Amplification - Final 11/09/17 17:00 Stool Stool Lactoferrin - Final Laboratory Results 11/09/17 15:50: Vancomycin Trough 15.8 H 11/10/17 04:15: WBC 5.4, RBC 3.35 L, Hgb 11.0 L, Hct 30.6 L, MCV 91.3, MCH 32.8 H, MCHC 35.9, RDW 14.7 H, RDW Differential 47.5 H, Plt Count 114 L, MPV 11.0, Immature Gran % (Auto) 2.000 H, Neut % (Auto) 68.1, Lymph % (Auto) 21.5, [place] % (Auto) 7.6, Eos % (Auto) 0.6, Baso % (Auto) 0.2, Absolute Neuts (auto) 3.7, Absolute Lymphs (auto) 1.16, Total Counted Not Reportable, Diff Path Review September11/10/17 04:15: Sodium 128 L, Potassium 3.4 L, Chloride 96 L, Carbon Dioxide 23.0, Anion Gap 9, BUN 10, Creatinine 0.49 L, Estim Creat Clear Calc 155.10, Est GFR (MDRD) Af Amer 221, Est GFR (MDRD) Non-Af 183, BUN/Creatinine Ratio 20.2 H, Glucose 88, Calcium 6.4 L*, Total Bilirubin 1.30 H, AST 53 H, ALT 30, Alkaline Phosphatase 165 H, Total Protein 3.9 L, Albumin 1.3 L, Globulin 2.6, Albumin/Globulin Ratio 0.5 L Current Medications Acetaminophen (Tylenol) 500 mg PO Q4H PRN PRN PRN Reason: Temp > 100.4 F Al Hydroxide/Mg Hydroxide (Mylanta Ii) 30 ml PO Q6H PRN PRN PRN Reason: Gastric burning Albuterol Sulfate (Ventolin Aerosols) 2.5 mg INHALATION Q2H PRN PRN PRN Reason: dyspnea, wheezing Calamine/Phenol (Calmoseptine Ointment) 1 applic TOPICAL 4X/DAY RICH PRN Reason: Protocol Last Admin: 11/09/17 21:11 Dose: 1 applicatio Chlordiazepoxide (Librium) 50 mg PO Q8H RICH PRN Reason: Taper Stop: 11/11/17 17:59 Last Admin: 11/10/17 02:32 Dose: Not Given Clotrimazole (Lotrimin) 1 applicatio TOPICAL BID RICH PRN Reason: Protocol Last Admin: 11/09/17 21:10 Dose: 1 applicatio Dextrose (D50w Syringe) 0 gm IV X1 PRN; Protocol PRN Reason: Hypoglycemia Dicyclomine HCl (Bentyl) 20 mg PO Q6H PRN PRN PRN Reason: abdominal discomfort Famotidine (Pepcid) 20 mg PO BID [facility] Last Admin: 11/09/17 21:11 Dose: 20 mg Folic Acid (Folic Acid) 1 mg PO DAILY@0800 [facility] Last Admin: 11/09/17 08:20 Dose: 1 mg Glucagon () 1 mg IM .X1 PRN PRN Reason: Hypoglycemia Heparin Sodium (Porcine) (Heparin Na) 5,000 unit SC Q12 [facility] Last Admin: 11/09/17 21:11 Dose: 5,000 u Hydralazine HCl (Apresoline Iv) 10 mg IV Q4H PRN PRN PRN Reason: SBP > 160 Hydroxyzine Pamoate (Vistaril Pamoate Capsule) 50 mg PO Q6H PRN PRN PRN Reason: Mild Anxiety (score 1/3) Sodium Chloride () 1,000 mls @ 125 mls/hr IV .Q8H [facility] Last Admin: 11/10/17 06:07 Dose: 125 mls/hr Fluconazole (Diflucan) 200 mg in 100 mls @ 100 mls/hr IV Q24 [facility] Last Admin: 11/09/17 10:39 Dose: 100 mls/hr Piperacillin Sod/Tazobactam Sod (Zosyn) 3.375 gm in 50 mls @ 12.5 mls/hr IV Q8 [facility] Last Admin: 11/10/17 06:08 Dose: 12.5 mls/hr Vancomycin HCl (Vancomycin) 1,000 mg in 200 mls @ 200 mls/hr IV Q8H [facility] Last Admin: 11/10/17 06:08 Dose: 200 mls/hr Sodium Chloride () 250 mls @ 15 mls/hr IV .[id number] PRN PRN Reason: SALINE FLUSH Last Admin: 11/10/17 06:08 Dose: 15 mls/hr Ibuprofen (Motrin) 600 mg PO Q8H PRN PRN PRN Reason: Mild-Moderate Pain (1-5/10) Last Admin: 11/10/17 00:10 Dose: 600 mg Lorazepam (Ativan) 2 mg PO Q2H PRN PRN; Protocol PRN Reason: CIWA score > 8 but <15 Lorazepam (Ativan) 2 mg IV Q2H PRN PRN; Protocol PRN Reason: CIWA score > 8 but <15 Lorazepam (Ativan) 2 mg PO UD PRN; Protocol PRN Reason: CIWA score >/=15. Lorazepam (Ativan) 2 mg IV UD PRN; Protocol PRN Reason: CIWA score >/=15. Magnesium Hydroxide (Milk Of Magnesia) 30 ml PO DAILY PRN PRN PRN Reason: Constipation Methocarbamol (Methocarbamol) 750 mg PO Q6H PRN PRN PRN Reason: Muscle Aches Morphine Sulfate () 1 - 2 mg IV Q4H PRN PRN PRN Reason: .MODERATE PAIN Morphine Sulfate () 2 - 4 mg IV Q4H PRN PRN Reason: Severe Pain (pain scale 6-10) Multivitamins/Minerals ([facility]ivitamin With Minerals) [facility] Last Admin: 11/09/17 08:20 Dose: 1 tablet Nicotine (Nicoderm Cq (Pbkc)) 21 mg TRANSDERM. DAILY [facility] Last Admin: 11/09/17 10:23 Dose: 21 mg Nutritional Formula (Lactose Free) (Ensure Clear) 120 ml PO 4X/DAY [facility] Last Admin: 11/09/17 21:12 Dose: Not Given Ondansetron HCl (Zofran) 4 mg IV Q8H PRN PRN PRN Reason: NAUSEA Oxycodone HCl (Oxyir) 5 - 10 mg PO Q4H PRN PRN PRN Reason: Moderate Pain (pain scale 4-5) Potassium Chloride (K-Dur) [facility] Stop: 11/10/17 17:01 Pramipexole Dihydrochloride (Mirapex) 0.25 mg PO Q12H PRN PRN PRN Reason: Restless legs Promethazine HCl (Phenergan) 12.5 mg IV Q6H PRN PRN PRN Reason: NAUSEA/VOMITING Quetiapine Fumarate (Seroquel) 25 mg PO Q6H PRN PRN PRN Reason: Moderate Anxiety (score 2/3) Sodium Chloride () 5 - 30 ml IV UD PRN PRN Reason: SALINE FLUSH Last Admin: 11/08/17 21:40 Dose: 20 ml Thiamine HCl (Vitamin B1) 100 mg PO DAILYCM [facility] Last Admin: 11/09/17 08:20 Dose: 100 mg Trazodone HCl (Desyrel) 50 mg PO QHS [facility] Last Admin: 11/09/17 21:05 Dose: Not Given Medical Necessity - Tobacco Use Smoking Status: Current every day smoker Tobacco Use: Cigarettes Assessment/Plan All Active Problems Hyponatremia (Acute) Severe sepsis (Acute) 62 y/o male with PMHx of Chronic COPD, Bipolar Disorder, Nicotine and alcohol use disorder, admitted on 11/08/17 with 8 day history of nausea, emesis, abdominal discomfort, diarrhea, was on an alcoholic binge, passed ou and presented with perineal discomfort, pain, erythema with chills. 1. Severe Sepsis secondary to Diffuse bilateral lower quadrants, perineal and posterior buttock cellulitis/intertriginous candidiasis/ E. Coli bacteremia, no fever, no tachycardia. Patient's blood pressure has been relatively low, received a couple of boluses of fluid, no acute events overnight Plan: Continue on IV vancomycin and Zosyn, transferred to [facility], continue to monitor vitals closely 2. Relative hypotension, MAP> 65, likely related to severe sepsis, will continue on IVF 125cc/hr, monitor for fluid overload 3. Severe hyponatremia, kalemia, hypomagnesemia, secondary to GI Losses/Chronic EtOH Abuse, sodium was improved to 128, change of 6mEq/l, continue on normal saline, recheck BMP in a.m. 3. Acute EtOH Withdrawal, on alcohol withdrawal protocol 4. Acute diarrhea secondary to acute gastroenteritis, stool for C. difficile is negative, stool for enteric panel is pending, follow-up on results, continue hydration. 5. Severe bilateral lower quadrants, perineal, buttocks, inner thighs cellulitis , excoriative, non-purulent cellulitis, wound cultures growing E. coli and Proteus mirabilis, continue on antibiotics, clotrimazole cream, fluconazole, wound nurse consulted. 6. Debility, weakness, recent immobility, PT/OT to evaluate and treat, care managers for discharge planning. 7. Chronic COPD, on breathing treatments prn 8. Tobacco Abuse, on nicotine replacement. 8. Bipolar disorder, needs to be followed up in the outpatient. 9. Severe Protein-Calorie Malnutrition, nutrition consulted. 10. Elevated LFT, Bilirubin, transient, improving, will continue to follow CMP. 11.DVT Prophylaxis - Heparin SC. 12. Disposition: Transfer to [facility]. Code Visit Inpatient E&M: 16225 Subs Hosp L3
[2017-11-10] MEDS: Multivitamins,Ther W-Minerals Tablet 1 TABLET PO (08:29)
[2017-11-10] MEDS: Thiamine Hydrochloride 100 MG Tablet PO (08:29)
[2017-11-10] MEDS: Folic Acid 1 MG Tablet PO (08:29)
[2017-11-10 09:04] LABS: Magnesium 1.7 mg/dL (1.6-2.6)
[2017-11-10] MEDS: Menthol/Lanolin/Calamine/Znox 113 GM Tube 1 APPLIC TOPICAL ×4 (09:41→21:55)
[2017-11-10] MEDS: Famotidine 20 MG Tablet PO ×2 (09:42→21:56)
[2017-11-10] MEDS: Heparin Injection (Vial) 5,000 UNIT/ML VIAL 5000 UNIT SC ×2 (09:43→21:55)
[2017-11-10] MEDS: oxyCODONE 5 MG Tablet PO ×2 (09:44→10:52)
--- NOTE | 2017-11-10 10:39 | CASEMGMT ---
Addendum entered by Julieta Juarez 11/10/17 13:37: Pt gets $1000/month in disability, and has been on disability for about 8 months, as per pt. LIZZETTE Jay, STAGE SET UP WORKER Original Note: Addendum entered by Julieta Juarez 11/10/17 11:21: SW did ask pt if he was suicidal, pt denies being suicidal. SW asked pt about neglect, pt denies that his brother is intentionally neglecting pt. Pt's brother is a flatbed truck driver so travels. When pt's brother is home, he does help pt w/food, and he also will take pt places if needed or pt gets a ride, as he does not drive. Pt was on no medication prior to this hospitalization. SW asked pt about POA, he may be willing to fill out POA forms and would put his brother, he states does not have anyone else. Pt will consider completing these forms tomorrow. SW assisted pt in completing a Medicaid application, faxed it to [facility]. SW asked pt again about skilled nursing placement. Pt states he will be able to manage at home, will be able to get around, even though pt is needing assist of two at present--PT/OT just finished working w/pt. SW explained we will follow up w/him again tomorrow regarding POA and possible skilled nursing placement. LIZZETTE Jay, STAGE SET UP WORKER Original Note: See assessment. SW spoke w/pt in room, pt has been living w/his brother for about one year. Pt is from [place], [place], he states is returning at the end of the year. As per RN, a woman called in stating she is his . Pt states he does not have a , did live with a woman. Pt states that is probably who called in about him. SW asked how pt has been managing at home, pt states he has been struggling to move for about 2 weeks, has been sitting in a chair. Pt's brother does not help pt with anything, as per pt. Pt states his brother is a fat ass, and is not able to help him. SW asked pt about his drinking, he states is drinking 10-12 beers/day, this is less than what he used to drink. Pt has been to AA and a [facility] house in the past. Pt states he plans to stop drinking, eventually. Pt does state has been diagnosed w/depression in the past, has been on medication prior, is not on medication now. Pt is not interested in being on meds or participating in counseling at this time. SW asked pt about insurance, pt states he thought he had Medicare and Medicaid, SW will check on this for pt. SW asked pt about going to a skilled nursing, pt states I don't know about that. SW explained we can talk about it again. SW called [facility], they have no record of pt ever applying fro Medicaid here. SW spoke w/Mirella from our financial dept, confirmed pt has no insurance. SW will go back and speak w/pt regarding Medicaid application and skilled nursing placement. LIZZETTE Jay, STAGE SET UP WORKER
--- NOTE | 2017-11-10 12:02 | NURSING ---
wound photo: bilateral buttocks/per-rectal area
[2017-11-10] MEDS: traZODone 50 MG Tablet PO (21:55)
[2017-11-11] VITALS (9 sets, daily range): BP systolic 100–109; BP diastolic 60–69; PULSE 83–99; RESP 14–16; TEMP 36.3–36.7; O2SAT 93–99
[2017-11-11] MEDS: oxyCODONE 5 MG Tablet PO ×3 (01:42→20:50)
[2017-11-11] MEDS: Piperacil/Tazobactam 3.375 GM/50 ML ML IV ×2 (05:52→15:46)
[2017-11-11 06:44] LABS: Absolute Neutrophil Count 3.6 X10^3/uL (2.0-7.7); Basophil# 0.01 X10^3/uL; Basophil% 0.2 % (0-1); Eosinophil# 0.03 X10^3/uL; Eosinophils% 0.6 % (0-5); Hematocrit 32.4 % (40-54); Hemoglobin 11.1 g/dl (13.0-16.5); Lymphocyte % 19.5 % (19-41); Mean Corp Hgb Conc 34.3 g/gl (32-36); Mean Corpuscular Volume 93.4 fL (80-94); Monocyte# 0.45 X10^3/uL; Monocyte% 8.8 % (0-10); Neutrophil # 3.61 X10^3/uL (2.7-7.7); Neutrophil % 70.3 % (47-70); Platelet Count 102 K/mm3 (150-450); RBC Distribution Width CV 15.2 % (11.6-14.6); RBC Distribution Width SD 51.3 fl (35.1-43.9); Red Blood Count 3.47 M/mm3 (4.6-6.2); White Blood Count 5.1 K/mm3 (4.4-11.0)
[2017-11-11 06:45] LABS: POSITIVE COUNT NO; POSITIVE DIFFERENTIAL NO; POSITIVE MORPHOLOGY NO
[2017-11-11 07:05] LABS: ALB/GLOB Ratio 0.5 RATIO (0.9-2.4); AST(SGOT) 55 U/L (15-37); Alanine Aminotransfer ALT/SGPT 33 U/L (16-61); Albumin, Serum 1.4 g/dL (3.2-5.0); Alkaline Phosphatase 169 U/L (45-117); Anion Gap 7 (5-15); BUN 10 mg/dL (7-18); BUN/Creat Ratio 13.6 RATIO (10-20); Calcium,Total 6.8 mg/dL (8.5-10.1); Chloride 98 mmol/L (98-107); Creatinine, Serum 0.74 mg/dL (0.70-1.30); EST Glomerular Filtration Rate 115 mL/min (>60); Est Glom Filt Rate - Afr Amer 139 mL/min (>60); Globulin 2.7 g/dL (2.2-4.2); Glucose 81 mg/dL (74-106); Protein, Total 4.1 g/dL (6.4-8.2); Sodium Level 129 mmol/L (136-145)
--- NOTE | 2017-11-11 07:52 | PCM.PN.INT ---
Subjective: Patient transferred out of the intensive care unit yesterday. No acute issues were reported overnight by nursing. Patient continues to report significant perineal pain with some mild abdominal discomfort. No nausea or vomiting has been reported. Patient denies any cough, shortness of breath or chest pain. General: Alert, Oriented x3, Cooperative, - - Mild distress secondary to pain. Appears older than stated age. HEENT: Atraumatic, PERRLA, EOMI, Normocephalic, - - Some temporal wasting noted. Oral: Moist Mucosa, No Gingival or Mucosal Lesions/ Ulcerations Neck: Supple, No JVD, No Nodes, Trachea Midline Lungs: No rhonchi, No wheeze, No rales, Diminished, - - Symmetric expansion. No dullness to percussion. Cardiovascular: Regular rate, Regular Rhythm, Normal S1, Normal S2, No murmurs, No rub noted, No Gallop Abdomen: Bowel Sounds Present, Soft, Non Tender, Non-Distended Extremities: No clubbing, No cyanosis, Capillary Refill Less than 3 Seconds, Edema Skin: - - No significant change compared to previous. Musculoskeletal: No Tenderness to Palpation of Joints or Extremities Lymphatic: No Cervical, Supraclavicular, or Inguinal Adenopathy Neurological: Cranial nerves II-XII grossly intact, Neuro grossly intact, Motor Exam 5/5 strength throughout Psych/Mental Status: Alert and oriented to time, place, person, mood and affect Vital Signs Temp Pulse Resp BP Pulse Ox 36.3 C L 85 16 101/60 98 11/11/17 03:50 11/11/17 07:19 11/11/17 03:50 11/11/17 03:50 11/11/17 03:50 Oxygen Delivery Method Room Air Weight: 80.3 kg Body Mass Index (BMI) 24.3 Intake and Output for Last 24 Hours 11/09/17 11/10/17 11/11/17 23:59 23:59 23:59 Intake Total 4628.7 / 4628.7 2376.7 / 2376.7 1458 / 1458 Output Total 550 / 550 525 / 525 900 / 900 Balance 4078.7 / 4078.7 1851.7 / 1851.7 558 / 558 Labs (Last 48 Hours) 11/09/17 11/10/17 11/10/17 15:50 04:15 04:15 WBC 5.4 RBC 3.35 L Hgb 11.0 L Hct 30.6 L MCV 91.3 MCH 32.8 H MCHC 35.9 RDW 14.7 H RDW Differential 47.5 H Plt Count 114 L MPV 11.0 Immature Gran % (Auto) 2.000 H Neut % (Auto) 68.1 Lymph % (Auto) 21.5 [place] % (Auto) 7.6 Eos % (Auto) 0.6 Baso % (Auto) 0.2 Absolute Neuts (auto) 3.7 Absolute Lymphs (auto) 1.16 Total Counted Not Reportable Diff Path Review May foll Sodium 128 L Potassium 3.4 L Chloride 96 L Carbon Dioxide 23.0 Anion Gap 9 BUN 10 Creatinine 0.49 L Estim Creat Clear Calc 155.10 Est GFR (MDRD) Af Amer 221 Est GFR (MDRD) Non-Af 183 BUN/Creatinine Ratio 20.2 H Glucose 88 Calcium 6.4 L* Magnesium Total Bilirubin 1.30 H AST 53 H ALT 30 Alkaline Phosphatase 165 H Total Protein 3.9 L Albumin 1.3 L Globulin 2.6 Albumin/Globulin Ratio 0.5 L Vancomycin Trough 15.8 H 11/10/17 11/11/17 11/11/17 04:15 06:15 06:15 WBC 5.1 RBC 3.47 L Hgb 11.1 L Hct 32.4 L MCV 93.4 MCH 32.0 MCHC 34.3 RDW 15.2 H RDW Differential 51.3 H Plt Count 102 L MPV 10.0 Immature Gran % (Auto) 0.600 Neut % (Auto) 70.3 H Lymph % (Auto) 19.5 [place] % (Auto) 8.8 Eos % (Auto) 0.6 Baso % (Auto) 0.2 Absolute Neuts (auto) 3.6 Absolute Lymphs (auto) 1.00 Total Counted Not Reportable Diff Path Review Sodium 129 L Potassium 4.0 Chloride 98 Carbon Dioxide 24.0 Anion Gap 7 BUN 10 Creatinine 0.74 Estim Creat Clear Calc 102.70 Est GFR (MDRD) Af Amer 139 Est GFR (MDRD) Non-Af 115 BUN/Creatinine Ratio 13.6 Glucose 81 Calcium 6.8 L Magnesium 1.7 2.0 Total Bilirubin 1.30 H AST 55 H ALT 33 Alkaline Phosphatase 169 H Total Protein 4.1 L Albumin 1.4 L Globulin 2.7 Albumin/Globulin Ratio 0.5 L Vancomycin Trough Microbiology 11/09/17 17:00 Stool Enteric Bacteriology - Final 11/09/17 17:00 Stool C. difficile DNA Amplification - Final 11/09/17 17:00 Stool Stool Lactoferrin - Final Medical Necessity - Tobacco Use Smoking Status: Current every day smoker Tobacco Use: Cigarettes Assessment/Plan All Active Problems Hyponatremia (Acute) Severe sepsis (Acute) RECOMMENDATIONS: 1. Continue antibiotics/fluconazole, pending infectious workup. 2. Wound care evaluation 3. Consider narrowing of antibiotic spectrum 4. Okay to use opiates for pain control from my perspective 5. Electrolyte repletion as indicated. 6. Continue to monitor for alcohol withdrawal. Continue CIWA, along with thiamine and folate repletion. 7. Hemodynamically stable on room air. Will sign off from a critical care perspective. IMPRESSIONS: 1. Severe sepsis secondary to gram-negative bacteremia and extensive perineal soft tissue infection Wound care is following. Patient growing pansensitive gram-negative bacteria. Consider discontinuation supplemental IV fluid hydration. Cannot exclude the need for surgical diversion to facilitate wound care. Enteric pathogens are negative. Likely okay to discontinue contact precautions from my perspective. 2. Hypovolemic hyponatremia/hypokalemia Likely multifactorial in etiology with intravascular volume depletion, chronic alcohol dependence and GI losses contributing. Sodium and chloride are in acceptable levels potassium repletion as indicated. Continue to trend serial chemistry profiles. Significantly depressed albumin will lead to significant third spacing. Encourage p.o. diet. Calcium corrects to normal when corrected for albumin. 3. Chronic alcohol dependence/tobacco abuse Continue to monitor for signs of alcohol withdrawal. Continue CIWA protocol along with thiamine and folate repletion. Nicotine replacement therapy can be offered to the patient while admitted to the hospital. Continue bronchodilators. Outpatient follow-up for pulmonary function testing and evaluation for COPD can be completed if patient requests. 4. Severe protein calorie malnutrition/generalized deconditioning and weakness/bipolar disorder Complicates care, management, recovery and prognosis. Recommend advancing diet if no surgical intervention is planned. Patient will require evaluation by physical therapy. He will likely require placement at the time of his discharge from the hospital. Nutrition consultation is pending. This note was generated with [employer] dictation software. It may contain incorrect words, spelling, and punctuation that were not noted in checking the note before signing. Code Visit Inpatient E&M: 65209 Subs Hosp L2
[2017-11-11] MEDS: Folic Acid 1 MG Tablet PO (08:22)
[2017-11-11] MEDS: Thiamine Hydrochloride 100 MG Tablet PO (08:22)
[2017-11-11] MEDS: Multivitamins,Ther W-Minerals Tablet 1 TABLET PO (08:23)
[2017-11-11] MEDS: Famotidine 20 MG Tablet PO ×2 (08:24→22:01)
[2017-11-11] MEDS: Heparin Injection (Vial) 5,000 UNIT/ML VIAL 5000 UNIT SC ×2 (08:25→22:01)
[2017-11-11] MEDS: Menthol/Lanolin/Calamine/Znox 113 GM Tube 1 APPLIC TOPICAL ×4 (08:26→22:01)
--- NOTE | 2017-11-11 10:17 | NURSING ---
Isolation precautions discontinued after enteric panel and sensitivities to antibiotics resulted.
[2017-11-11 11:34] LABS: Pathologist Review Reviewed
[2017-11-11 11:40] LABS: Pathologist Review Reviewed
--- NOTE | 2017-11-11 11:59 | CASEMGMT ---
Social Work Note Met with pt to discuss discharge planning. Introduced self and role at [facility]. Discuss that he required 2 people to assist him with ADLs and ambulation. Express concern with the pt returning home as he has shown difficulty with his management at home and has limited support as his brother works. Pt states that he may be able to stay with his sister in [place] and inquire if he has her phone number. Pt asks why this would be needed. Inform that we would want to confirm that she was willing and able to accept him into her home as he requires the assistance of two individuals and we cannot simply discharge him without confirming that where he intends on going is welcoming of his presence. Educate to area SNFs and that the Medicaid application was submitted yesterday 11/10 for processing of payment for placement. Pt states that he has not put much thought into this yet. Denies further questions. Pt is agreeable to speak with SW after therapy today in regards to determining a plan for discharge. Pt does express understanding of inability to manage care presently. SW to continue to follow and assist with discharge planning. Karis Cunha, BODYWORK THERAPIST, FOLD SKIVER
--- NOTE | 2017-11-11 15:35 | CASEMGMT ---
Addendum entered by Hellen Awad 11/11/17 16:02: Social Work Return call from [facility] and they are unable to accept pt due to alcohol and tobacco history. SW informed pt that neither facility could accept and reviewed other options. [facility] choice is [facility]. Phone call to [facility] and they will review the referral. They will not automatically accept pending Medicaid, but will meet with pt to get some of the needed financial information prior to accepting. Will await return call from [facility] to see if they could accommodate pt. JESU Michael Original Note: Social Work Met with pt in room to discuss d/c plan. Pt stating that he possibly go home with his 80 year old father in law or with his sister. SW reviewed with pt functional ability in therapy today and that it is taking mod - max A x 2 to help pt out of bed. Discussed pt's families ability to provide this level of care. Discussed with pt recommendations for SNF and presented options of SNFs in [facility] - where pt lives, and [place] - where pt sister lives. After extensive discussion pt is agreeable to SNF and first choice is [facility] and second choice is [facility]. Phone call to Laurita at [facility] and they do have beds available but cannot accept pending Medicaid. Phone call to Klarissa at [facility] and they do have beds and accept pending Medicaid number. Referral faxed to [facility]. Will await return call for determination if they can accept pt. Phone call to Delia at [facility] [phone] to notify her that [facility] is potentially the accepting facility. SW offered to assist pt in completing advance directives but pt does not want to complete them at this time. FELIPA will continue to follow for SNF placement. JESU Michael
[2017-11-11] MEDS: 0.9% Normal Saline 1,000 ML 125 ML IV (15:45)
[2017-11-11] MEDS: 0.9% NaCl IVPB Med Flush (250 mL) 15 ML IV (15:47)
--- NOTE | 2017-11-11 16:52 | PN_ITS ---
<Karis Gil - Last Filed: 11/11/17 16:52> Patient Problems: Active and Suspected Problems Hyponatremia (Acute) Severe sepsis (Acute) Subjective: Patient seen and examined. Lethargic on assessment. Does not open eyes or make eye contact during conversation. Denies current complaints. Denies diarrhea. - Physical Exam General: Oriented x3, No apparent distress, - - Drowsy HEENT: Atraumatic, PERRLA, EOMI, Normocephalic Oral: Dry Mucosa Neck: Supple, No JVD, Negative Carotid Bruits Lungs: Clear to auscultation, Diminished Cardiovascular: Regular rate, Regular Rhythm, Normal S1, Normal S2, No murmurs Abdomen: Bowel Sounds Present, Soft, Non Tender, Non-Distended Extremities: No clubbing, No cyanosis, No edema, Capillary Refill Less than 3 Seconds Skin: - - Extensive peritoneal excoriation with ulcerations, improved from prior. Left eye ecchymosis. Musculoskeletal: No Tenderness to Palpation of Joints or Extremities Neurological: Cranial nerves II-XII grossly intact, Neuro grossly intact Psych/Mental Status: Flat Affect, Depressed Vital Signs Temp Pulse Resp BP Pulse Ox 97.9 F 90 16 104/66 97 11/11/17 16:00 11/11/17 16:00 11/11/17 16:00 11/11/17 16:00 11/11/17 16:00 Oxygen Delivery Method Room Air Weight: 80.3 kg Body Mass Index (BMI) 24.3 Intake and Output for Last 24 Hours 11/09/17 11/10/17 11/11/17 23:59 23:59 23:59 Intake Total 4628.7 / 4628.7 2376.7 / 2376.7 1878 / 1878 Output Total 550 / 550 525 / 525 1150 / 1150 Balance 4078.7 / 4078.7 1851.7 / 1851.7 728 / 728 Microbiology Past 72 Hours 11/09/17 17:00 Enteric Bacteriology - Final Stool 11/09/17 17:00 C. difficile DNA Amplification - Final Stool 11/09/17 17:00 Stool Lactoferrin - Final Stool Laboratory Tests Past 24 Hrs 11/10/17 11/11/17 11/11/17 04:15 06:15 06:15 WBC 5.1 RBC 3.47 L Hgb 11.1 L Hct 32.4 L MCV 93.4 MCH 32.0 MCHC 34.3 RDW 15.2 H RDW Differential 51.3 H Plt Count 102 L MPV 10.0 Immature Gran % (Auto) 0.600 Neut % (Auto) 70.3 H Lymph % (Auto) 19.5 [place] % (Auto) 8.8 Eos % (Auto) 0.6 Baso % (Auto) 0.2 Absolute Neuts (auto) 3.6 Absolute Lymphs (auto) 1.00 Total Counted Not Reportable Diff Path Review Reviewed Sodium 129 L Potassium 4.0 Chloride 98 Carbon Dioxide 24.0 Anion Gap 7 BUN 10 Creatinine 0.74 Estim Creat Clear Calc 102.70 Est GFR (MDRD) Af Amer 139 Est GFR (MDRD) Non-Af 115 BUN/Creatinine Ratio 13.6 Glucose 81 Calcium 6.8 L Magnesium 2.0 Total Bilirubin 1.30 H AST 55 H ALT 33 Alkaline Phosphatase 169 H Total Protein 4.1 L Albumin 1.4 L Globulin 2.7 Albumin/Globulin Ratio 0.5 L Medical Necessity - Tobacco Use Smoking Status: Current every day smoker Tobacco Use: Cigarettes Assessment/Plan All Active Problems Hyponatremia (Acute) Severe sepsis (Acute) 1. Severe sepsis secondary to gram-negative bacteremia and extensive perennial soft tissue infection-(leukocytosis, tachycardia, hypotension, lactic acid 3.6) wound culture positive for E. coli and Proteus Mirabilis. Blood culture positive for E. coli. Stool negative for C. difficile and enteric bacteriology. Pelvis CT showed free fluid in the pelvis, mildly enlarged prostate. Continue IV vancomycin, IV Zosyn, IV Diflucan. Continue IV fluids. Continue wound care. Frequent position changes. PT/OT. 2. Possible UTI-urine positive for nitrites, negative WBC. Urine culture showed no growth. UTI ruled out. 3. Electrolyte disturbances including severe hyponatremia, hypokalemia, hypomagnesemia-improved. Trend BMP. Continue IV fluids. 4. Chronic alcohol abuse- CIWA protocol. MVM, folic acid, B12. Check urine drug screen for other substance use. 5. Tobacco dependence-encourage smoking cessation. Nicotine replacement patch. 6. COPD-no acute exacerbation. Albuterol and DuoNeb aerosols. IS. 7. Bipolar disorder-recently took himself off of home regimen. Attempt to obtain home medication list. Encourage outpatient counseling/follow-up. 8. Severe protein calorie malnutrition- Nutrition consulted. DVT prophylaxis-SCDs, hold pharmacologic prophylaxis pending further imaging. Discharge planning: Case management working on SNF placement. This patient was seen by [facility] under the supervision of Dr. Loyd. <Chantell Lody - Last Filed: 11/11/17 17:34> - Physical Exam Vital Signs Temp Pulse Resp BP Pulse Ox 97.9 F 90 16 104/66 97 11/11/17 16:00 11/11/17 16:00 11/11/17 16:00 11/11/17 16:00 11/11/17 16:00 Oxygen Delivery Method Room Air Weight: 80.3 kg Body Mass Index (BMI) 24.3 Intake and Output for Last 24 Hours 11/09/17 11/10/17 11/11/17 23:59 23:59 23:59 Intake Total 4628.7 / 4628.7 2376.7 / 2376.7 1878 / 1878 Output Total 550 / 550 525 / 525 1150 / 1150 Balance 4078.7 / 4078.7 1851.7 / 1851.7 728 / 728 Microbiology Past 72 Hours 11/09/17 17:00 Enteric Bacteriology - Final Stool 11/09/17 17:00 C. difficile DNA Amplification - Final Stool 11/09/17 17:00 Stool Lactoferrin - Final Stool Laboratory Tests Past 24 Hrs 11/10/17 11/11/17 11/11/17 04:15 06:15 06:15 WBC 5.1 RBC 3.47 L Hgb 11.1 L Hct 32.4 L MCV 93.4 MCH 32.0 MCHC 34.3 RDW 15.2 H RDW Differential 51.3 H Plt Count 102 L MPV 10.0 Immature Gran % (Auto) 0.600 Neut % (Auto) 70.3 H Lymph % (Auto) 19.5 [place] % (Auto) 8.8 Eos % (Auto) 0.6 Baso % (Auto) 0.2 Absolute Neuts (auto) 3.6 Absolute Lymphs (auto) 1.00 Total Counted Not Reportable Diff Path Review Reviewed Sodium 129 L Potassium 4.0 Chloride 98 Carbon Dioxide 24.0 Anion Gap 7 BUN 10 Creatinine 0.74 Estim Creat Clear Calc 102.70 Est GFR (MDRD) Af Amer 139 Est GFR (MDRD) Non-Af 115 BUN/Creatinine Ratio 13.6 Glucose 81 Calcium 6.8 L Magnesium 2.0 Total Bilirubin 1.30 H AST 55 H ALT 33 Alkaline Phosphatase 169 H Total Protein 4.1 L Albumin 1.4 L Globulin 2.7 Albumin/Globulin Ratio 0.5 L Assessment/Plan Patient seen and examined. I agree with the history and physical exam as well as plan as documented by nurse practitioner, Karis Gil. No acute events overnight. Vitals are stable. No complaints. consulting solution manager is working on discharge to correction facility for patient Labs appear improved Discussed with patient's nurse and wound nurse, patient's excoriations are much better with the current therapy, will we will decrease IV fluids to 75 cc/h, DC IV vancomycin and Zosyn, will continue on IV Unasyn with eventual transition to p.o. Augmentin. Code Visit Inpatient E&M: 22844 Subs Hosp L2
[2017-11-12] VITALS (11 sets, daily range): BP systolic 103–144; BP diastolic 69–85; PULSE 96–111; RESP 14–20; TEMP 36.6–37.1; O2SAT 90–95
[2017-11-12 05:27] LABS: Anion Gap 9 (5-15); BUN 12 mg/dL (7-18); BUN/Creat Ratio 11.3 RATIO (10-20); Calcium,Total 6.8 mg/dL (8.5-10.1); Chloride 102 mmol/L (98-107); Creatinine, Serum 1.06 mg/dL (0.70-1.30); EST Glomerular Filtration Rate 76 mL/min (>60); Est Glom Filt Rate - Afr Amer 92 mL/min (>60); Glucose 73 mg/dL (74-106); Sodium Level 134 mmol/L (136-145)
[2017-11-12] MEDS: 0.9% Normal Saline 1,000 ML 75 ML IV ×2 (06:16→21:32)
--- NOTE | 2017-11-12 09:40 | NURSING ---
In to reassess buttocks. areas remain stable. plan to continue current treatment. will continue to monitor.
[2017-11-12] MEDS: Multivitamins,Ther W-Minerals Tablet 1 TABLET PO (10:04)
[2017-11-12] MEDS: Thiamine Hydrochloride 100 MG Tablet PO (10:04)
[2017-11-12] MEDS: Menthol/Lanolin/Calamine/Znox 113 GM Tube 1 APPLIC TOPICAL ×4 (10:04→20:48)
[2017-11-12] MEDS: Folic Acid 1 MG Tablet PO (10:04)
[2017-11-12] MEDS: Famotidine 20 MG Tablet PO ×2 (10:05→21:03)
[2017-11-12] MEDS: Heparin Injection (Vial) 5,000 UNIT/ML VIAL 5000 UNIT SC ×2 (10:13→21:03)
--- NOTE | 2017-11-12 11:37 | CASEMGMT ---
[facility]IP[facility] called [facility], but [facility] was not available. FELIPA was told that [facility] was going to stop by this afternoon to see patient. Plan: At this time we are waiting on [facility] to talk with patient to see if they will accept him. Lesli OLSON MSW
[2017-11-12] MEDS: 0.9% NaCl IVPB Med Flush (250 mL) 15 ML IV (12:33)
--- NOTE | 2017-11-12 14:32 | PCM.PROGNOTE ---
<Karis Gil - Last Filed: 11/12/17 14:38> Patient Problems: Active and Suspected Problems Hyponatremia (Acute) Severe sepsis (Acute) Subjective: Patient seen and examined. Sitting in chair eating breakfast in no acute stress. More conversant today. States his groin area hurts due to ongoing tissue infection. Denies fever, chills. Denies other complaints. Awaiting facility acceptance for SNF. - Physical Exam General: Alert, Oriented x3, Cooperative, No apparent distress HEENT: Atraumatic, PERRLA, EOMI, Normocephalic Oral: Moist Mucosa Neck: Supple, No JVD, Negative Carotid Bruits Lungs: Clear to auscultation, Diminished Cardiovascular: Regular rate, Regular Rhythm, Normal S1, Normal S2, No murmurs Abdomen: Bowel Sounds Present, Soft, Non Tender, Non-Distended Extremities: No clubbing, No cyanosis, No edema, Capillary Refill Less than 3 Seconds Skin: - - Extensive peritoneal excoriation with ulcerations, improved from prior. Left eye ecchymosis. Musculoskeletal: No Tenderness to Palpation of Joints or Extremities Neurological: Cranial nerves II-XII grossly intact, Neuro grossly intact Psych/Mental Status: Flat Affect, Depressed Vital Signs Temp Pulse Resp BP Pulse Ox 98.1 F 110 H 17 103/72 94 11/12/17 10:00 11/12/17 11:52 11/12/17 10:00 11/12/17 10:00 11/12/17 10:00 Oxygen Delivery Method Room Air Weight: 80.3 kg Body Mass Index (BMI) 24.3 Intake and Output for Last 24 Hours 11/10/17 11/11/17 11/12/17 23:59 23:59 23:59 Intake Total 2376.7 / 2376.7 3058 / 3058 2211 / 2211 Output Total 525 / 525 1525 / 1525 1500 / 1500 Balance 1851.7 / 1851.7 1533 / 1533 711 / 711 Microbiology Past 72 Hours 11/09/17 17:00 Enteric Bacteriology - Final Stool 11/09/17 17:00 C. difficile DNA Amplification - Final Stool 11/09/17 17:00 Stool Lactoferrin - Final Stool Laboratory Tests Past 24 Hrs 11/12/17 04:40 Sodium 134 L Potassium 4.0 Chloride 102 Carbon Dioxide 23.0 Anion Gap 9 BUN 12 Creatinine 1.06 Estim Creat Clear Calc 71.70 Est GFR (MDRD) Af Amer 92 Est GFR (MDRD) Non-Af 76 BUN/Creatinine Ratio 11.3 Glucose 73 L Calcium 6.8 L Medical Necessity - Tobacco Use Smoking Status: Current every day smoker Tobacco Use: Cigarettes Assessment/Plan All Active Problems Hyponatremia (Acute) Severe sepsis (Acute) 1. Severe sepsis secondary to gram-negative bacteremia and extensive perennial soft tissue infection-(leukocytosis, tachycardia, hypotension, lactic acid 3.6) wound culture positive for E. coli and Proteus Mirabilis. Blood culture positive for E. coli. Stool negative for C. difficile and enteric bacteriology. Pelvis CT showed free fluid in the pelvis, mildly enlarged prostate. Continue IV ampicillin and IV fluconazole. Continue wound care. Frequent position changes. PT/OT. SNF at [facility] pending accepting facility. 2. Possible UTI-urine positive for nitrites, negative WBC. Urine culture showed no growth. UTI ruled out. 3. Electrolyte disturbances including severe hyponatremia, hypokalemia, hypomagnesemia-improved. Trend BMP. Continue IV fluids. 4. Chronic alcohol abuse- CIWA protocol. MVM, folic acid, B12. 5. Tobacco dependence-encourage smoking cessation. Nicotine replacement patch. 6. COPD-no acute exacerbation. Albuterol and DuoNeb aerosols. IS. 7. Bipolar disorder-recently took himself off of home regimen. Attempt to obtain home medication list. Encourage outpatient counseling/follow-up. 8. Severe protein calorie malnutrition- Nutrition consulted. DVT prophylaxis-SCDs, heparin subcu. Discharge planning: Case management working on SNF placement. This patient was seen by [facility] under the supervision of Dr. Loyd. <Chantell Loyd - Last Filed: 11/12/17 15:50> - Physical Exam Vital Signs Temp Pulse Resp BP Pulse Ox 98.1 F 101 H 16 123/73 H 94 11/12/17 15:24 11/12/17 15:24 11/12/17 15:24 11/12/17 15:24 11/12/17 15:24 Oxygen Delivery Method Room Air Weight: 80.3 kg Body Mass Index (BMI) 24.3 Intake and Output for Last 24 Hours 11/10/17 11/11/17 11/12/17 23:59 23:59 23:59 Intake Total 2376.7 / 2376.7 3058 / 3058 2211 / 2211 Output Total 525 / 525 1525 / 1525 1500 / 1500 Balance 1851.7 / 1851.7 1533 / 1533 711 / 711 Microbiology Past 72 Hours 11/09/17 17:00 Enteric Bacteriology - Final Stool 11/09/17 17:00 C. difficile DNA Amplification - Final Stool 11/09/17 17:00 Stool Lactoferrin - Final Stool Laboratory Tests Past 24 Hrs 11/12/17 04:40 Sodium 134 L Potassium 4.0 Chloride 102 Carbon Dioxide 23.0 Anion Gap 9 BUN 12 Creatinine 1.06 Estim Creat Clear Calc 71.70 Est GFR (MDRD) Af Amer 92 Est GFR (MDRD) Non-Af 76 BUN/Creatinine Ratio 11.3 Glucose 73 L Calcium 6.8 L Assessment/Plan Patient seen and examined. I agree with the history and physical exam as well as plan as documented by nurse practitioner, Karis Gil. No acute events overnight. Vitals are stable. No complaints. trials manager is working on discharge to [facility] facility for patient Labs appear improved, wounds are about the same. No more diarrhea. Remains on Unasyn. Code Visit Inpatient E&M: 05023 Subs Hosp L2
--- NOTE | 2017-11-12 14:38 | PN_ITS ---
<Karis Gil - Last Filed: 11/12/17 14:38> Patient Problems: Active and Suspected Problems Hyponatremia (Acute) Severe sepsis (Acute) Subjective: Patient seen and examined. Sitting in chair eating breakfast in no acute stress. More conversant today. States his groin area hurts due to ongoing tissue infection. Denies fever, chills. Denies other complaints. Awaiting facility acceptance for SNF. - Physical Exam General: Alert, Oriented x3, Cooperative, No apparent distress HEENT: Atraumatic, PERRLA, EOMI, Normocephalic Oral: Moist Mucosa Neck: Supple, No JVD, Negative Carotid Bruits Lungs: Clear to auscultation, Diminished Cardiovascular: Regular rate, Regular Rhythm, Normal S1, Normal S2, No murmurs Abdomen: Bowel Sounds Present, Soft, Non Tender, Non-Distended Extremities: No clubbing, No cyanosis, No edema, Capillary Refill Less than 3 Seconds Skin: - - Extensive peritoneal excoriation with ulcerations, improved from prior. Left eye ecchymosis. Musculoskeletal: No Tenderness to Palpation of Joints or Extremities Neurological: Cranial nerves II-XII grossly intact, Neuro grossly intact Psych/Mental Status: Flat Affect, Depressed Vital Signs Temp Pulse Resp BP Pulse Ox 98.1 F 110 H 17 103/72 94 11/12/17 10:00 11/12/17 11:52 11/12/17 10:00 11/12/17 10:00 11/12/17 10:00 Oxygen Delivery Method Room Air Weight: 80.3 kg Body Mass Index (BMI) 24.3 Intake and Output for Last 24 Hours 11/10/17 11/11/17 11/12/17 23:59 23:59 23:59 Intake Total 2376.7 / 2376.7 3058 / 3058 2211 / 2211 Output Total 525 / 525 1525 / 1525 1500 / 1500 Balance 1851.7 / 1851.7 1533 / 1533 711 / 711 Microbiology Past 72 Hours 11/09/17 17:00 Enteric Bacteriology - Final Stool 11/09/17 17:00 C. difficile DNA Amplification - Final Stool 11/09/17 17:00 Stool Lactoferrin - Final Stool Laboratory Tests Past 24 Hrs 11/12/17 04:40 Sodium 134 L Potassium 4.0 Chloride 102 Carbon Dioxide 23.0 Anion Gap 9 BUN 12 Creatinine 1.06 Estim Creat Clear Calc 71.70 Est GFR (MDRD) Af Amer 92 Est GFR (MDRD) Non-Af 76 BUN/Creatinine Ratio 11.3 Glucose 73 L Calcium 6.8 L Medical Necessity - Tobacco Use Smoking Status: Current every day smoker Tobacco Use: Cigarettes Assessment/Plan All Active Problems Hyponatremia (Acute) Severe sepsis (Acute) 1. Severe sepsis secondary to gram-negative bacteremia and extensive perennial soft tissue infection-(leukocytosis, tachycardia, hypotension, lactic acid 3.6) wound culture positive for E. coli and Proteus Mirabilis. Blood culture positive for E. coli. Stool negative for C. difficile and enteric bacteriology. Pelvis CT showed free fluid in the pelvis, mildly enlarged prostate. Continue IV ampicillin and IV fluconazole. Continue wound care. Frequent position changes. PT/OT. SNF at [place] pending accepting facility. 2. Possible UTI-urine positive for nitrites, negative WBC. Urine culture showed no growth. UTI ruled out. 3. Electrolyte disturbances including severe hyponatremia, hypokalemia, hypomagnesemia-improved. Trend BMP. Continue IV fluids. 4. Chronic alcohol abuse- CIWA protocol. MVM, folic acid, B12. 5. Tobacco dependence-encourage smoking cessation. Nicotine replacement patch. 6. COPD-no acute exacerbation. Albuterol and DuoNeb aerosols. IS. 7. Bipolar disorder-recently took himself off of home regimen. Attempt to obtain home medication list. Encourage outpatient counseling/follow-up. 8. Severe protein calorie malnutrition- Nutrition consulted. DVT prophylaxis-SCDs, heparin subcu. Discharge planning: Case management working on SNF placement. This patient was seen by REGINALDO Morris under the supervision of Dr. Loyd. <Chantell Loyd - Last Filed: 11/12/17 15:50> - Physical Exam Vital Signs Temp Pulse Resp BP Pulse Ox 98.1 F 101 H 16 123/73 H 94 11/12/17 15:24 11/12/17 15:24 11/12/17 15:24 11/12/17 15:24 11/12/17 15:24 Oxygen Delivery Method Room Air Weight: 80.3 kg Body Mass Index (BMI) 24.3 Intake and Output for Last 24 Hours 11/10/17 11/11/17 11/12/17 23:59 23:59 23:59 Intake Total 2376.7 / 2376.7 3058 / 3058 2211 / 2211 Output Total 525 / 525 1525 / 1525 1500 / 1500 Balance 1851.7 / 1851.7 1533 / 1533 711 / 711 Microbiology Past 72 Hours 11/09/17 17:00 Enteric Bacteriology - Final Stool 11/09/17 17:00 C. difficile DNA Amplification - Final Stool 11/09/17 17:00 Stool Lactoferrin - Final Stool Laboratory Tests Past 24 Hrs 11/12/17 04:40 Sodium 134 L Potassium 4.0 Chloride 102 Carbon Dioxide 23.0 Anion Gap 9 BUN 12 Creatinine 1.06 Estim Creat Clear Calc 71.70 Est GFR (MDRD) Af Amer 92 Est GFR (MDRD) Non-Af 76 BUN/Creatinine Ratio 11.3 Glucose 73 L Calcium 6.8 L Assessment/Plan Patient seen and examined. I agree with the history and physical exam as well as plan as documented by nurse practitioner, Karis Gil. No acute events overnight. Vitals are stable. No complaints. discovery manager is working on discharge to [facility] facility for patient Labs appear improved, wounds are about the same. No more diarrhea. Remains on Unasyn. Code Visit Inpatient E&M: 83211 Subs Hosp L2
--- NOTE | 2017-11-12 14:45 | CASEMGMT ---
FELIPA spoke with Kaur from [facility]. She left documents for SW. She indicated these documents need completed and some of the information requested is needed also. Kaur tried to talk with patient, but he would not cooperate with her. SW completed parts of the form with information from his Medicaid application. SW will talk with patient about the other information they are requesting. Patient was sleeping and would not wake up to SW saying his name. Plan: Possibly [facility] pending patient cooperating and giving needed information. Lesli OLSON MSW
[2017-11-12] MEDS: traZODone 50 MG Tablet PO (21:03)
[2017-11-12] MEDS: Ibuprofen 600 MG Tablet PO (21:30)
[2017-11-13] VITALS (11 sets, daily range): BP systolic 108–143; BP diastolic 74–81; PULSE 90–100; RESP 16–18; TEMP 36.4–36.7; O2SAT 93–97
[2017-11-13] MEDS: oxyCODONE 5 MG Tablet PO ×2 (03:57→14:31)
[2017-11-13 05:32] LABS: Anion Gap 8 (5-15); BUN 14 mg/dL (7-18); BUN/Creat Ratio 12.3 RATIO (10-20); Calcium,Total 6.9 mg/dL (8.5-10.1); Chloride 103 mmol/L (98-107); Creatinine, Serum 1.14 mg/dL (0.70-1.30); EST Glomerular Filtration Rate 70 mL/min (>60); Est Glom Filt Rate - Afr Amer 84 mL/min (>60); Estimated Creatinine Clearance 66.67 ml/min; Glucose 87 mg/dL (74-106); Potassium 3.6 mmol/L (3.5-5.1); Sodium Level 133 mmol/L (136-145)
[2017-11-13] MEDS: 0.9% NaCl Peripheral Flush Adult/Peds IV (05:57)
[2017-11-13] MEDS: Multivitamins,Ther W-Minerals Tablet 1 TABLET PO (08:37)
[2017-11-13] MEDS: Folic Acid 1 MG Tablet PO (08:37)
[2017-11-13] MEDS: Thiamine Hydrochloride 100 MG Tablet PO (08:37)
[2017-11-13] MEDS: Menthol/Lanolin/Calamine/Znox 113 GM Tube 1 APPLIC TOPICAL ×4 (08:38→21:01)
[2017-11-13] MEDS: Famotidine 20 MG Tablet PO ×2 (08:39→21:01)
[2017-11-13] MEDS: Heparin Injection (Vial) 5,000 UNIT/ML VIAL 5000 UNIT SC ×2 (09:27→21:01)
--- NOTE | 2017-11-13 10:20 | NURSING ---
In to reassess the wounds to bilateral buttocks/groin. there is slightly less redness noted. patient had been on the bedpan. there is a small amount of bleeding noted in some areas. encouraged patient to turn from side to side rather than laying on his bottom to keep pressure off open areas and also to allow some air to get to these wounds. would not be able to keep a dressing in place to these areas. applied stoma powder followed by calmoseptine and repeated to layer and protect these wounds. will continue to monitor. pt is currently laying on his right side.
[2017-11-13] MEDS: 0.9% Normal Saline 1,000 ML 75 ML IV (11:42)
--- NOTE | 2017-11-13 15:30 | CASEMGMT ---
Social Work Phone call from Delia at [facility] and pt Medicaid pending number is [id number]. Met with pt in room to discuss discharge plan. Reviewed current plan with pt that [facility] had a bed available. Pt is agreeable to go to [facility]. SW explained to pt that financial information is needed for [facility] and Medicaid application. Pt states his SSA is deposited into direct express account. Pt does not know balance of account but thinks $1000/month is SSA payment. Pt states his wallet with ID and cards are locked up. Pt states his brother should know financial information and pt gave SW permission to call pt brother. Phone call placed to Boone Maria, pt brother, who states he withdrew all money from pt checking account and the money is with pt belongings and wallet locked up at the hospital. 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 SW explained to pt where his belongings were and need for information for SNF as they are concerned about payment. Pt gave permission for SW to obtain wallet for needed items and requested that eye glasses and cell phone be brought to him. SW spoke with security, who escorted SW to pt belongings. Eye glasses and cell phone obtained. Copy made of pt cards and cards put back with belongings and locked up. Pt has $3568.00 in locked belongings. Pt has a balance of $2880.00 in [employer] Account. Laurita at [facility] notified and pt does not qualify for Medicaid but will be private pay for first month and this balance ($5240) is due prior to admission. [facility] will assist with applying for Medicaid after pt arrives to the facility if another month of SNF is needed. Kaur from [facility] will come to hospital to secure payment prior to admission. FELIPA entered pt room and gave pt cell phone, syrup mixer and eye glasses. Pt immediately states he has changed his mind and is not going to a prison. FELIPA reviewed with pt that therapy notes reflect he needs 2 person mod A to get to standing and can stand pivot transfer only. SW inquired where he will be going at d/c and he states he will go to his sister's home or father and mother in law's home. SW emphasized need for SNF and pt continues to decline need. SW explained that he will be private pay for first month due prior to admission. SW asked to have contact information of person he will be living with if he returns home to confirm they can take care of him. Pt gave SW permission to call his who lives in [place] and gave SW her number. Gabi ([phone]) called and informed about pt desire to return home and recommendations for SNF and that pt will be private pay for first month. Gabi agrees pt is in need of SNF. Gabi states she will speak with pt and call SW back. Return call from Gabi. She states she has spoken with pt and he does not want to see SW any more today. He wants time to consider his options. Gabi states that if pt does not go to SNF, his niece has agreed to pick pt up at the hospital and drive him to Gabi's home in [place] and Gabi will care for him. FELIPA clearly explained the level of care that pt is currently needing and inquired how pt will be able to travel in a car to [place]. Gabi states her niece, niece's and a cousin will assist with transportation and be able to handle pt. FELIPA also inquired of Gabi's ability to care for pt once there and she states they have a dgt who is in the medical field and if needed they will put pt in a SNF near [place]. SW informed physician of conversation with pt and Gabi. SW will followup with pt in the morning to confirm d/c plan. JESU Michael
--- NOTE | 2017-11-13 19:36 | PCM.PN.HOSP ---
Patient Problems: Active and Suspected Problems Hyponatremia (Acute) Severe sepsis (Acute) Subjective: He was seen and examined. No acute events overnight. Waiting on insurance precertification for [facility] to [facility]. Objective: Physical Exam General: Alert, Oriented x3, Cooperative, No apparent distress HEENT: Atraumatic, PERRLA, EOMI, Normocephalic Oral: Moist Mucosa Neck: Supple, No JVD, Negative Carotid Bruits Lungs: Clear to auscultation, Diminished Cardiovascular: Regular rate, Regular Rhythm, Normal S1, Normal S2, No murmurs Abdomen: Bowel Sounds Present, Soft, Non Tender, Non-Distended Extremities: No clubbing, No cyanosis, No edema, Capillary Refill Less than 3 Seconds Skin: - - Extensive peritoneal excoriation with ulcerations, improved from prior. Left eye ecchymosis. Musculoskeletal: No Tenderness to Palpation of Joints or Extremities Neurological: Cranial nerves II-XII grossly intact, Neuro grossly intact Psych/Mental Status: Flat Affect, Depressed Vitals/I&O's: Vital Signs Temp Pulse Resp BP Pulse Ox 97.5 F L 99 18 143/81 H 97 11/13/17 15:00 11/13/17 15:02 11/13/17 15:00 11/13/17 15:00 11/13/17 15:00 Oxygen Delivery Method Room Air Weight: 80.6 kg Body Mass Index (BMI) 24.3 Intake and Output for Last 24 Hours 11/11/17 11/12/17 11/13/17 23:59 23:59 23:59 Intake Total 3058 / 3058 4166 / 4166 2603 / 2603 Output Total 1525 / 1525 2175 / 2175 750 / 750 Balance 1533 / 1533 1990 / 1990 1853 / 1853 Laboratory Results 11/13/17 05:03: Sodium 133 L, Potassium 3.6, Chloride 103, Carbon Dioxide 22.0, Anion Gap 8, BUN 14, Creatinine 1.14, Estim Creat Clear Calc 66.67, Est GFR (MDRD) Af Amer 84, Est GFR (MDRD) Non-Af 70, BUN/Creatinine Ratio 12.3, Glucose 87, Calcium 6.9 L Current Medications Acetaminophen (Tylenol) 500 mg PO Q4H PRN PRN PRN Reason: Temp > 100.4 F Al Hydroxide/Mg Hydroxide (Mylanta Ii) 30 ml PO Q6H PRN PRN PRN Reason: Gastric burning Albuterol Sulfate (Ventolin Aerosols) 2.5 mg INHALATION Q2H PRN PRN PRN Reason: dyspnea, wheezing Calamine/Phenol (Calmoseptine Ointment) 1 applic TOPICAL 4X/DAY RICH PRN Reason: Protocol Last Admin: 11/13/17 17:51 Dose: 1 applicatio Clotrimazole (Lotrimin) 1 applicatio TOPICAL BID RICH PRN Reason: Protocol Last Admin: 11/13/17 08:38 Dose: 1 applicatio Dextrose (D50w Syringe) 0 gm IV X1 PRN; Protocol PRN Reason: Hypoglycemia Dicyclomine HCl (Bentyl) 20 mg PO Q6H PRN PRN PRN Reason: abdominal discomfort Famotidine (Pepcid) 20 mg PO BID [facility] Last Admin: 11/13/17 08:39 Dose: 20 mg Folic Acid (Folic Acid) 1 mg PO DAILY@0800 [facility] Last Admin: 11/13/17 08:37 Dose: 1 mg Glucagon () 1 mg IM .X1 PRN PRN Reason: Hypoglycemia Heparin Sodium (Porcine) (Heparin Na) 5,000 unit SC Q12 [facility] Last Admin: 11/13/17 09:27 Dose: 5,000 u Hydralazine HCl (Apresoline Iv) 10 mg IV Q4H PRN PRN PRN Reason: SBP > 160 Hydroxyzine Pamoate (Vistaril Pamoate Capsule) 50 mg PO Q6H PRN PRN PRN Reason: Mild Anxiety (score 1/3) Fluconazole (Diflucan) 200 mg in 100 mls @ 100 mls/hr IV Q24 [facility] Last Admin: 11/13/17 09:27 Dose: 100 mls/hr Sodium Chloride () 250 mls @ 15 mls/hr IV .[id number] PRN PRN Reason: SALINE FLUSH Last Admin: 11/12/17 12:33 Dose: 15 mls/hr Ampicillin Sodium/Sulbactam (Sodium 3 gm/ Sodium Chloride) 112 mls @ 150 mls/hr IV Q6 [facility] Last Admin: 11/13/17 17:51 Dose: 150 mls/hr Sodium Chloride () 1,000 mls @ 75 mls/hr IV .[id number] [facility] Last Admin: 11/13/17 11:42 Dose: 75 mls/hr Ibuprofen (Motrin) 600 mg PO Q8H PRN PRN PRN Reason: Mild-Moderate Pain (1-5/10) Last Admin: 11/12/17 21:30 Dose: 600 mg Lorazepam (Ativan) 2 mg PO Q2H PRN PRN; Protocol PRN Reason: CIWA score > 8 but <15 Lorazepam (Ativan) 2 mg IV Q2H PRN PRN; Protocol PRN Reason: CIWA score > 8 but <15 Lorazepam (Ativan) 2 mg PO UD PRN; Protocol PRN Reason: CIWA score >/=15. Lorazepam (Ativan) 2 mg IV UD PRN; Protocol PRN Reason: CIWA score >/=15. Magnesium Hydroxide (Milk Of Magnesia) 30 ml PO DAILY PRN PRN PRN Reason: Constipation Methocarbamol (Methocarbamol) 750 mg PO Q6H PRN PRN PRN Reason: Muscle Aches Morphine Sulfate () 1 - 2 mg IV Q4H PRN PRN PRN Reason: .MODERATE PAIN Morphine Sulfate () 2 - 4 mg IV Q4H PRN PRN Reason: Severe Pain (pain scale 6-10) Multivitamins/Minerals ([facility]amin With Minerals) [facility] Last Admin: 11/13/17 08:37 Dose: 1 tablet Nicotine (Nicoderm Cq (Pbkc)) 21 mg TRANSDERM. DAILY [facility] Last Admin: 11/13/17 08:39 Dose: 21 mg Nutritional Formula (Lactose Free) (Ensure Clear) 120 ml PO 4X/DAY [facility] Last Admin: 11/13/17 17:51 Dose: Not Given Ondansetron HCl (Zofran) 4 mg IV Q8H PRN PRN PRN Reason: NAUSEA Oxycodone HCl (Oxyir) 5 - 10 mg PO Q4H PRN PRN PRN Reason: Moderate Pain (pain scale 4-5) Last Admin: 11/13/17 14:31 Dose: 10 mg Pramipexole Dihydrochloride (Mirapex) 0.25 mg PO Q12H PRN PRN PRN Reason: Restless legs Promethazine HCl (Phenergan) 12.5 mg IV Q6H PRN PRN PRN Reason: NAUSEA/VOMITING Quetiapine Fumarate (Seroquel) 25 mg PO Q6H PRN PRN PRN Reason: Moderate Anxiety (score 2/3) Sodium Chloride () 10 ml IV UD PRN PRN Reason: PICC FLUSH Thiamine HCl (Vitamin B1) 100 mg PO DAILYCM [facility] Last Admin: 11/13/17 08:37 Dose: 100 mg Trazodone HCl (Desyrel) 50 mg PO QHS [facility] Last Admin: 11/12/17 21:03 Dose: 50 mg Medical Necessity - Tobacco Use Smoking Status: Current every day smoker Tobacco Use: Cigarettes Assessment/Plan All Active Problems Hyponatremia (Acute) Severe sepsis (Acute) 1. Severe sepsis secondary to gram-negative bacteremia and extensive perennial soft tissue infection-(leukocytosis, tachycardia, hypotension, lactic acid 3.6), improving, Continue IV ampicillin and IV fluconazole. Continue wound care. Frequent position changes. PT/OT. SNF at [place] pending accepting facility. 2. Electrolyte disturbances including severe hyponatremia, hypokalemia, hypomagnesemia, resolved 4. Chronic alcohol abuse- CIWA protocol. MVM, folic acid, B12. 5. Tobacco dependence-encourage smoking cessation. Nicotine replacement patch. 6. COPD-no acute exacerbation. Albuterol and DuoNeb aerosols. IS. 7. Bipolar disorder-recently took himself off of home regimen. Attempt to obtain home medication list. Encourage outpatient counseling/follow-up. 8. Severe protein calorie malnutrition, ruled out from nutrition notes, on nutritional supplements for poor po intake, Nutrition consulted. DVT prophylaxis-SCDs, heparin subcu. Discharge planning: Case management working on SNF placement. Code Visit Inpatient E&M: 54064 Subs Hosp L2
--- NOTE | 2017-11-13 19:42 | PN_ITS ---
Patient Problems: Active and Suspected Problems Hyponatremia (Acute) Severe sepsis (Acute) Subjective: He was seen and examined. No acute events overnight. Waiting on insurance precertification for [facility] to [facility] facility. Objective: Physical Exam General: Alert, Oriented x3, Cooperative, No apparent distress HEENT: Atraumatic, PERRLA, EOMI, Normocephalic Oral: Moist Mucosa Neck: Supple, No JVD, Negative Carotid Bruits Lungs: Clear to auscultation, Diminished Cardiovascular: Regular rate, Regular Rhythm, Normal S1, Normal S2, No murmurs Abdomen: Bowel Sounds Present, Soft, Non Tender, Non-Distended Extremities: No clubbing, No cyanosis, No edema, Capillary Refill Less than 3 Seconds Skin: - - Extensive peritoneal excoriation with ulcerations, improved from prior. Left eye ecchymosis. Musculoskeletal: No Tenderness to Palpation of Joints or Extremities Neurological: Cranial nerves II-XII grossly intact, Neuro grossly intact Psych/Mental Status: Flat Affect, Depressed Vitals/I&O's: Vital Signs Temp Pulse Resp BP Pulse Ox 97.5 F L 99 18 143/81 H 97 11/13/17 15:00 11/13/17 15:02 11/13/17 15:00 11/13/17 15:00 11/13/17 15:00 Oxygen Delivery Method Room Air Weight: 80.6 kg Body Mass Index (BMI) 24.3 Intake and Output for Last 24 Hours 11/11/17 11/12/17 11/13/17 23:59 23:59 23:59 Intake Total 3058 / 3058 4166 / 4166 2603 / 2603 Output Total 1525 / 1525 2175 / 2175 750 / 750 Balance 1533 / 1533 1990 / 1990 1853 / 1853 Laboratory Results 11/13/17 05:03: Sodium 133 L, Potassium 3.6, Chloride 103, Carbon Dioxide 22.0, Anion Gap 8, BUN 14, Creatinine 1.14, Estim Creat Clear Calc 66.67, Est GFR ( MDRD) Af Amer 84, Est GFR (MDRD) Non-Af 70, BUN/Creatinine Ratio 12.3, Glucose 87, Calcium 6.9 L Current Medications Acetaminophen (Tylenol) 500 mg PO Q4H PRN PRN PRN Reason: Temp > 100.4 F Al Hydroxide/Mg Hydroxide (Mylanta Ii) 30 ml PO Q6H PRN PRN PRN Reason: Gastric burning Albuterol Sulfate (Ventolin Aerosols) 2.5 mg INHALATION Q2H PRN PRN PRN Reason: dyspnea, wheezing Calamine/Phenol (Calmoseptine Ointment) 1 applic TOPICAL 4X/DAY RICH PRN Reason: Protocol Last Admin: 11/13/17 17:51 Dose: 1 applicatio Clotrimazole (Lotrimin) 1 applicatio TOPICAL BID RICH PRN Reason: Protocol Last Admin: 11/13/17 08:38 Dose: 1 applicatio Dextrose (D50w Syringe) 0 gm IV X1 PRN; Protocol PRN Reason: Hypoglycemia Dicyclomine HCl (Bentyl) 20 mg PO Q6H PRN PRN PRN Reason: abdominal discomfort Famotidine (Pepcid) 20 mg PO BID [facility] Last Admin: 11/13/17 08:39 Dose: 20 mg Folic Acid (Folic Acid) 1 mg PO DAILY@0800 [facility] Last Admin: 11/13/17 08:37 Dose: 1 mg Glucagon () 1 mg IM .X1 PRN PRN Reason: Hypoglycemia Heparin Sodium (Porcine) (Heparin Na) 5,000 unit SC Q12 [facility] Last Admin: 11/13/17 09:27 Dose: 5,000 u Hydralazine HCl (Apresoline Iv) 10 mg IV Q4H PRN PRN PRN Reason: SBP > 160 Hydroxyzine Pamoate (Vistaril Pamoate Capsule) 50 mg PO Q6H PRN PRN PRN Reason: Mild Anxiety (score 1/3) Fluconazole (Diflucan) 200 mg in 100 mls @ 100 mls/hr IV Q24 [facility] Last Admin: 11/13/17 09:27 Dose: 100 mls/hr Sodium Chloride () 250 mls @ 15 mls/hr IV .[id number] PRN PRN Reason: SALINE FLUSH Last Admin: 11/12/17 12:33 Dose: 15 mls/hr Ampicillin Sodium/Sulbactam (Sodium 3 gm/ Sodium Chloride) 112 mls @ 150 mls/ hr IV Q6 [facility] Last Admin: 11/13/17 17:51 Dose: 150 mls/hr Sodium Chloride () 1,000 mls @ 75 mls/hr IV .[id number] [facility] Last Admin: 11/13/17 11:42 Dose: 75 mls/hr Ibuprofen (Motrin) 600 mg PO Q8H PRN PRN PRN Reason: Mild-Moderate Pain (1-5/10) Last Admin: 11/12/17 21:30 Dose: 600 mg Lorazepam (Ativan) 2 mg PO Q2H PRN PRN; Protocol PRN Reason: CIWA score > 8 but <15 Lorazepam (Ativan) 2 mg IV Q2H PRN PRN; Protocol PRN Reason: CIWA score > 8 but <15 Lorazepam (Ativan) 2 mg PO UD PRN; Protocol PRN Reason: CIWA score >/=15. Lorazepam (Ativan) 2 mg IV UD PRN; Protocol PRN Reason: CIWA score >/=15. Magnesium Hydroxide (Milk Of Magnesia) 30 ml PO DAILY PRN PRN PRN Reason: Constipation Methocarbamol (Methocarbamol) 750 mg PO Q6H PRN PRN PRN Reason: Muscle Aches Morphine Sulfate () 1 - 2 mg IV Q4H PRN PRN PRN Reason: .MODERATE PAIN Morphine Sulfate () 2 - 4 mg IV Q4H PRN PRN Reason: Severe Pain (pain scale 6-10) Multivitamins/Minerals ([facility]ivitamin With Minerals) [facility] Last Admin: 11/13/17 08:37 Dose: 1 tablet Nicotine (Nicoderm Cq (Pbkc)) 21 mg TRANSDERM. DAILY [facility] Last Admin: 11/13/17 08:39 Dose: 21 mg Nutritional Formula (Lactose Free) (Ensure Clear) 120 ml PO 4X/DAY [facility] Last Admin: 11/13/17 17:51 Dose: Not Given Ondansetron HCl (Zofran) 4 mg IV Q8H PRN PRN PRN Reason: NAUSEA Oxycodone HCl (Oxyir) 5 - 10 mg PO Q4H PRN PRN PRN Reason: Moderate Pain (pain scale 4-5) Last Admin: 11/13/17 14:31 Dose: 10 mg Pramipexole Dihydrochloride (Mirapex) 0.25 mg PO Q12H PRN PRN PRN Reason: Restless legs Promethazine HCl (Phenergan) 12.5 mg IV Q6H PRN PRN PRN Reason: NAUSEA/VOMITING Quetiapine Fumarate (Seroquel) 25 mg PO Q6H PRN PRN PRN Reason: Moderate Anxiety (score 2/3) Sodium Chloride () 10 ml IV UD PRN PRN Reason: PICC FLUSH Thiamine HCl (Vitamin B1) 100 mg PO DAILYCM [facility] Last Admin: 11/13/17 08:37 Dose: 100 mg Trazodone HCl (Desyrel) 50 mg PO QHS [facility] Last Admin: 11/12/17 21:03 Dose: 50 mg Medical Necessity - Tobacco Use Smoking Status: Current every day smoker Tobacco Use: Cigarettes Assessment/Plan All Active Problems Hyponatremia (Acute) Severe sepsis (Acute) 1. Severe sepsis secondary to gram-negative bacteremia and extensive perennial soft tissue infection-(leukocytosis, tachycardia, hypotension, lactic acid 3.6) , improving, Continue IV ampicillin and IV fluconazole. Continue wound care. Frequent position changes. PT/OT. SNF at [place] pending accepting facility. 2. Electrolyte disturbances including severe hyponatremia, hypokalemia, hypomagnesemia, resolved 4. Chronic alcohol abuse- CIWA protocol. MVM, folic acid, B12. 5. Tobacco dependence-encourage smoking cessation. Nicotine replacement patch. 6. COPD-no acute exacerbation. Albuterol and DuoNeb aerosols. IS. 7. Bipolar disorder-recently took himself off of home regimen. Attempt to obtain home medication list. Encourage outpatient counseling/follow-up. 8. Severe protein calorie malnutrition, ruled out from nutrition notes, on nutritional supplements for poor po intake, Nutrition consulted. DVT prophylaxis-SCDs, heparin subcu. Discharge planning: Case management working on SNF placement. Code Visit Inpatient E&M: 00145 Subs Hosp L2
[2017-11-13] MEDS: traZODone 50 MG Tablet PO (21:01)
[2017-11-13] MEDS: Ibuprofen 600 MG Tablet PO (21:19)
[2017-11-14] VITALS (11 sets, daily range): BP systolic 103–124; BP diastolic 71–89; PULSE 88–103; RESP 18–20; TEMP 36.2–36.7; O2SAT 91–100
[2017-11-14] MEDS: 0.9% Normal Saline 1,000 ML 75 ML IV ×2 (02:31→15:41)
[2017-11-14] MEDS: oxyCODONE 5 MG Tablet PO ×2 (05:23→09:58)
[2017-11-14] MEDS: Heparin Injection (Vial) 5,000 UNIT/ML VIAL 5000 UNIT SC ×2 (09:30→22:34)
[2017-11-14] MEDS: Famotidine 20 MG Tablet PO ×2 (09:30→22:35)
[2017-11-14] MEDS: Menthol/Lanolin/Calamine/Znox 113 GM Tube 1 APPLIC TOPICAL ×4 (09:31→22:33)
[2017-11-14] MEDS: Thiamine Hydrochloride 100 MG Tablet PO (09:31)
[2017-11-14] MEDS: Folic Acid 1 MG Tablet PO (09:31)
[2017-11-14] MEDS: Multivitamins,Ther W-Minerals Tablet 1 TABLET PO (09:32)
--- NOTE | 2017-11-14 10:19 | PCM.DC.SUM ---
Discharge Date and Diagnosis - Problem List Patient Problems: Active and Suspected Problems Hyponatremia (Acute) Severe sepsis (Acute) Date of Admission: 11/08/17 - Primary Discharge Diagnosis Active and Suspected Problems Hyponatremia (Acute) Severe sepsis (Acute) - Secondary Discharge Diagnosis Chronic Problems Alcohol abuse (Chronic) Tobacco dependence (Chronic) COPD (chronic obstructive pulmonary disease) (Chronic) Bipolar disorder (Chronic) Hospital Course and Treatment Summary of Care Provided: The patient is a 62 year old M [] Home Medications: Medications to take at Discharge No Known/Unobtainable [No Known Home Medications] 07/06/16 Primary Care Physician: Care Physician,No Primary [Primary Care Provider] - Medical Necessity - Tobacco Use Smoking Status: Current every day smoker Tobacco Use: Cigarettes
--- NOTE | 2017-11-14 10:43 | CASEMGMT ---
SW and physician spoke with patient about placement as he is refusing. He has reluctantly agreed to go. SW told him [facility] will be in today around 1p to talk with him about the money they will need up front. Lesli OLSON MSW
--- NOTE | 2017-11-14 14:23 | CASEMGMT ---
FELIPA received call from Kaur at [facility]. She said that therapy is going to cost extra. FELIPA faxed her PT/OT notes from today and she will try and find out cost for therapy. Await return call from Kaur. Lesli OLSON MSW
--- NOTE | 2017-11-14 16:00 | CASEMGMT ---
FELIPA spoke with Kaur and patient will be charged a large amount of money. FELIPA feels another facility that will work with patient a little more would be helpful. FELIPA spoke with [facility] and they do not have any beds. FELIPA also spoke with Nova at [facility] and she said they would be willing to work with patient on saving costs, but still getting the care he needs. FELIPA let physician know patient will be here until Friday. SW will also let patient know. Plan: SNF private pay. Lesli VILA
--- NOTE | 2017-11-14 17:00 | NURSING ---
At 1600, pt went from sitting in chair back to bed. Pt laying on Lt side, with skin to coccyx Open to air. PT refused lunch, I don't have an appetite. This nurse offered his Ensure, refused that as well.
--- NOTE | 2017-11-14 17:49 | PCM.PN.HOSP ---
Patient Problems: Active and Suspected Problems Hyponatremia (Acute) Severe sepsis (Acute) Subjective: Patient seen and examined. No new complains. Waiting on patient's decision to go for SNF and then hearing back from facility. Social workers working with patient. Denies any complains apart from part in his perineum and back. Vitals/I&O's: Vital Signs Temp Pulse Resp BP Pulse Ox 97.9 F 103 H 18 120/83 H 100 11/14/17 09:20 11/14/17 17:14 11/14/17 09:20 11/14/17 09:20 11/14/17 09:20 Oxygen Delivery Method Room Air Weight: 86.7 kg Body Mass Index (BMI) 24.3 Intake and Output for Last 24 Hours 11/12/17 11/13/17 11/14/17 23:59 23:59 23:59 Intake Total 4166 / 4166 3196 / 3196 1377 / 1377 Output Total 2175 / 2175 950 / 950 425 / 425 Balance 1990 / 1990 2246 / 2246 952 / 952 Current Medications Acetaminophen (Tylenol) 500 mg PO Q4H PRN PRN PRN Reason: Temp > 100.4 F Al Hydroxide/Mg Hydroxide (Mylanta Ii) 30 ml PO Q6H PRN PRN PRN Reason: Gastric burning Albuterol Sulfate (Ventolin Aerosols) 2.5 mg INHALATION Q2H PRN PRN PRN Reason: dyspnea, wheezing Calamine/Phenol (Calmoseptine Ointment) 1 applic TOPICAL 4X/DAY [facility] PRN Reason: Protocol Last Admin: 11/14/17 15:41 Dose: 1 applicatio Clotrimazole (Lotrimin) 1 applicatio TOPICAL BID [facility] PRN Reason: Protocol Last Admin: 11/14/17 09:43 Dose: 1 applicatio Dextrose (D50w Syringe) 0 gm IV X1 PRN; Protocol PRN Reason: Hypoglycemia Dicyclomine HCl (Bentyl) 20 mg PO Q6H PRN PRN PRN Reason: abdominal discomfort Famotidine (Pepcid) 20 mg PO BID [facility] Last Admin: 11/14/17 09:30 Dose: 20 mg Folic Acid (Folic Acid) 1 mg PO DAILY@0800 [facility] Last Admin: 11/14/17 09:31 Dose: 1 mg Glucagon () 1 mg IM .X1 PRN PRN Reason: Hypoglycemia Heparin Sodium (Porcine) (Heparin Na) 5,000 unit SC Q12 [facility] Last Admin: 11/14/17 09:30 Dose: 5,000 u Hydralazine HCl (Apresoline Iv) 10 mg IV Q4H PRN PRN PRN Reason: SBP > 160 Hydroxyzine Pamoate (Vistaril Pamoate Capsule) 50 mg PO Q6H PRN PRN PRN Reason: Mild Anxiety (score 1/3) Fluconazole (Diflucan) 200 mg in 100 mls @ 100 mls/hr IV Q24 [facility] Last Admin: 11/14/17 09:43 Dose: 100 mls/hr Sodium Chloride () 250 mls @ 15 mls/hr IV .[id number] PRN PRN Reason: SALINE FLUSH Last Admin: 11/12/17 12:33 Dose: 15 mls/hr Ampicillin Sodium/Sulbactam (Sodium 3 gm/ Sodium Chloride) 112 mls @ 150 mls/hr IV Q6 [facility] Last Admin: 11/14/17 11:46 Dose: 150 mls/hr Sodium Chloride () 1,000 mls @ 75 mls/hr IV .[id number] [facility] Last Admin: 11/14/17 15:41 Dose: 75 mls/hr Ibuprofen (Motrin) 600 mg PO Q8H PRN PRN PRN Reason: Mild-Moderate Pain (1-5/10) Last Admin: 11/13/17 21:19 Dose: 600 mg Lorazepam (Ativan) 2 mg PO Q2H PRN PRN; Protocol PRN Reason: CIWA score > 8 but <15 Lorazepam (Ativan) 2 mg IV Q2H PRN PRN; Protocol PRN Reason: CIWA score > 8 but <15 Lorazepam (Ativan) 2 mg PO UD PRN; Protocol PRN Reason: CIWA score >/=15. Lorazepam (Ativan) 2 mg IV UD PRN; Protocol PRN Reason: CIWA score >/=15. Magnesium Hydroxide (Milk Of Magnesia) 30 ml PO DAILY PRN PRN PRN Reason: Constipation Methocarbamol (Methocarbamol) 750 mg PO Q6H PRN PRN PRN Reason: Muscle Aches Morphine Sulfate () 1 - 2 mg IV Q4H PRN PRN PRN Reason: .MODERATE PAIN Morphine Sulfate () 2 - 4 mg IV Q4H PRN PRN Reason: Severe Pain (pain scale 6-10) Multivitamins/Minerals (Multivitamin With Minerals) [facility] Last Admin: 11/14/17 09:32 Dose: 1 tablet Nicotine (Nicoderm Cq (Pbkc)) 21 mg TRANSDERM. DAILY [facility] Last Admin: 11/14/17 09:30 Dose: 21 mg Nutritional Formula (Lactose Free) (Ensure Clear) 120 ml PO 4X/DAY [facility] Last Admin: 11/14/17 15:34 Dose: Not Given Ondansetron HCl (Zofran) 4 mg IV Q8H PRN PRN PRN Reason: NAUSEA Oxycodone HCl (Oxyir) 5 - 10 mg PO Q4H PRN PRN PRN Reason: Moderate Pain (pain scale 4-5) Last Admin: 11/14/17 09:58 Dose: 10 mg Pramipexole Dihydrochloride (Mirapex) 0.25 mg PO Q12H PRN PRN PRN Reason: Restless legs Promethazine HCl (Phenergan) 12.5 mg IV Q6H PRN PRN PRN Reason: NAUSEA/VOMITING Quetiapine Fumarate (Seroquel) 25 mg PO Q6H PRN PRN PRN Reason: Moderate Anxiety (score 2/3) Sodium Chloride () 10 ml IV UD PRN PRN Reason: PICC FLUSH Thiamine HCl (Vitamin B1) [facility] Last Admin: 11/14/17 09:31 Dose: 100 mg Trazodone HCl (Desyrel) 50 mg PO QHS [facility] Last Admin: 11/13/17 21:01 Dose: 50 mg Medical Necessity - Tobacco Use Smoking Status: Current every day smoker Tobacco Use: Cigarettes Assessment/Plan All Active Problems Hyponatremia (Acute) Severe sepsis (Acute) 1. Severe sepsis secondary to gram-negative bacteremia and extensive perennial soft tissue infection, improving, on IV ampicillin and IV fluconazole. Continue wound care o. Frequent position changes. PT/OT. SNF at [place] pending accepting facility. 2. Electrolyte disturbances including severe hyponatremia, hypokalemia, hypomagnesemia, resolved 4. Chronic alcohol abuse- CIWA protocol. MVM, folic acid, B12. 5. Tobacco dependence-encourage smoking cessation. Nicotine replacement patch. 6. COPD-no acute exacerbation. Albuterol and DuoNeb aerosols. IS. 7. Bipolar disorder-recently took himself off of home regimen. started on trazodone, will encourage outpatient counseling/follow-up. 8. Severe protein calorie malnutrition, ruled out from nutrition notes, on nutritional supplements for poor po intake, Nutrition consulted. DVT prophylaxis-SCDs, heparin subcu. Discharge planning: Case management working on SNF placement. Code Visit Inpatient E&M: 42621 Subs Hosp L2
[2017-11-14] MEDS: traZODone 50 MG Tablet PO (22:34)
[2017-11-15] VITALS (12 sets, daily range): BP systolic 123–143; BP diastolic 76–88; PULSE 90–108; RESP 12–18; TEMP 36.4–37; O2SAT 93–95
[2017-11-15] MEDS: oxyCODONE 5 MG Tablet PO ×3 (00:43→22:10)
[2017-11-15] MEDS: 0.9% Normal Saline 1,000 ML 75 ML IV (05:26)
[2017-11-15] MEDS: Thiamine Hydrochloride 100 MG Tablet PO (10:50)
[2017-11-15] MEDS: Heparin Injection (Vial) 5,000 UNIT/ML VIAL 5000 UNIT SC ×2 (10:50→22:11)
[2017-11-15] MEDS: Famotidine 20 MG Tablet PO ×2 (10:50→22:11)
[2017-11-15] MEDS: Folic Acid 1 MG Tablet PO (10:50)
[2017-11-15] MEDS: Menthol/Lanolin/Calamine/Znox 113 GM Tube 1 APPLIC TOPICAL ×4 (10:50→22:01)
[2017-11-15] MEDS: Multivitamins,Ther W-Minerals Tablet 1 TABLET PO (10:50)
--- NOTE | 2017-11-15 14:54 | PCM.PN.HOSP ---
Patient Problems: Active and Suspected Problems Hyponatremia (Acute) Severe sepsis (Acute) Subjective: No acute events. No new complains. Waiting on discharge planning. Objective: Physical Exam General: Alert, Oriented x3, Cooperative, No apparent distress HEENT: Atraumatic, PERRLA, EOMI, Normocephalic Oral: Moist Mucosa Neck: Supple, No JVD, Negative Carotid Bruits Lungs: Clear to auscultation, Diminished Cardiovascular: Regular rate, Regular Rhythm, Normal S1, Normal S2, No murmurs Abdomen: Bowel Sounds Present, Soft, Non Tender, Non-Distended Extremities: No clubbing, No cyanosis, No edema, Capillary Refill Less than 3 Seconds Skin: - - Extensive peritoneal excoriation with ulcerations, improved from prior. Left eye ecchymosis. Musculoskeletal: No Tenderness to Palpation of Joints or Extremities Neurological: Cranial nerves II-XII grossly intact, Neuro grossly intact Psych/Mental Status: Flat Affect, Depressed Vitals/I&O's: Vital Signs Temp Pulse Resp BP Pulse Ox 98.6 F 108 H 18 138/80 H 95 11/15/17 10:50 11/15/17 11:54 11/15/17 10:50 11/15/17 10:50 11/15/17 10:50 Oxygen Delivery Method Room Air Weight: 86.7 kg Body Mass Index (BMI) 24.3 Intake and Output for Last 24 Hours 11/13/17 11/14/17 11/15/17 23:59 23:59 23:59 Intake Total 3196 / 3196 3001 / 3001 1704 / 1704 Output Total 950 / 950 825 / 825 600 / 600 Balance 2246 / 2246 2176 / 2176 1104 / 1104 Current Medications Acetaminophen (Tylenol) 500 mg PO Q4H PRN PRN PRN Reason: Temp > 100.4 F Al Hydroxide/Mg Hydroxide (Mylanta Ii) 30 ml PO Q6H PRN PRN PRN Reason: Gastric burning Albuterol Sulfate (Ventolin Aerosols) 2.5 mg INHALATION Q2H PRN PRN PRN Reason: dyspnea, wheezing Calamine/Phenol (Calmoseptine Ointment) 1 applic TOPICAL 4X/DAY [facility] PRN Reason: Protocol Last Admin: 11/15/17 10:50 Dose: 1 applicatio Clotrimazole (Lotrimin) 1 applicatio TOPICAL BID [facility] PRN Reason: Protocol Last Admin: 11/15/17 10:50 Dose: 1 applicatio Dextrose (D50w Syringe) 0 gm IV X1 PRN; Protocol PRN Reason: Hypoglycemia Dicyclomine HCl (Bentyl) 20 mg PO Q6H PRN PRN PRN Reason: abdominal discomfort Famotidine (Pepcid) 20 mg PO BID [facility] Last Admin: 11/15/17 10:50 Dose: 20 mg Folic Acid (Folic Acid) 1 mg PO DAILY@0800 [facility] Last Admin: 11/15/17 10:50 Dose: 1 mg Glucagon () 1 mg IM .X1 PRN PRN Reason: Hypoglycemia Heparin Sodium (Porcine) (Heparin Na) 5,000 unit SC Q12 [facility] Last Admin: 11/15/17 10:50 Dose: 5,000 u Hydroxyzine Pamoate (Vistaril Pamoate Capsule) 50 mg PO Q6H PRN PRN PRN Reason: Mild Anxiety (score 1/3) Sodium Chloride () 250 mls @ 15 mls/hr IV .[id number] PRN PRN Reason: SALINE FLUSH Last Admin: 11/12/17 12:33 Dose: 15 mls/hr Ampicillin Sodium/Sulbactam (Sodium 3 gm/ Sodium Chloride) 112 mls @ 150 mls/hr IV Q6 [facility] Last Admin: 11/15/17 12:42 Dose: 150 mls/hr Ibuprofen (Motrin) 600 mg PO Q8H PRN PRN PRN Reason: Mild-Moderate Pain (1-5/10) Last Admin: 11/13/17 21:19 Dose: 600 mg Lorazepam (Ativan) 2 mg PO Q2H PRN PRN; Protocol PRN Reason: CIWA score > 8 but <15 Lorazepam (Ativan) 2 mg IV Q2H PRN PRN; Protocol PRN Reason: CIWA score > 8 but <15 Lorazepam (Ativan) 2 mg PO UD PRN; Protocol PRN Reason: CIWA score >/=15. Lorazepam (Ativan) 2 mg IV UD PRN; Protocol PRN Reason: CIWA score >/=15. Magnesium Hydroxide (Milk Of Magnesia) 30 ml PO DAILY PRN PRN PRN Reason: Constipation Methocarbamol (Methocarbamol) 750 mg PO Q6H PRN PRN PRN Reason: Muscle Aches Multivitamins/Minerals ([facility] With Minerals) [facility] Last Admin: 11/15/17 10:50 Dose: 1 tablet Nicotine (Nicoderm Cq (Pbkc)) 21 mg TRANSDERM. DAILY [facility] Last Admin: 11/15/17 10:50 Dose: 21 mg Nutritional Formula (Lactose Free) (Ensure Clear) 120 ml PO 4X/DAY [facility] Last Admin: 11/15/17 10:50 Dose: 120 ml Ondansetron HCl (Zofran) 4 mg IV Q8H PRN PRN PRN Reason: NAUSEA Oxycodone HCl (Oxyir) 5 - 10 mg PO Q4H PRN PRN PRN Reason: Moderate Pain (pain scale 4-5) Last Admin: 11/15/17 00:43 Dose: 5 mg Thiamine HCl (Vitamin B1) [facility] Last Admin: 11/15/17 10:50 Dose: 100 mg Trazodone HCl (Desyrel) 50 mg PO QHS [facility] Last Admin: 11/14/17 22:34 Dose: 50 mg Medical Necessity - Tobacco Use Smoking Status: Current every day smoker Tobacco Use: Cigarettes Assessment/Plan All Active Problems Hyponatremia (Acute) Severe sepsis (Acute) 1. Severe sepsis secondary to gram-negative bacteremia and extensive perennial soft tissue infection, improving, on IV ampicillin, will dc IV fluconazole. Continue with wound care, wound nurse consulted. Frequent position changes. PT/OT. SNF at [place] pending accepting facility. 2. Electrolyte disturbances including severe hyponatremia, hypokalemia, hypomagnesemia, resolved 3. Chronic alcohol abuse- CIWA protocol. MVM, folic acid, B12. 4. Tobacco dependence-encourage smoking cessation. Nicotine replacement patch. 5. COPD-no acute exacerbation. Albuterol and DuoNeb aerosols. IS. 6. Bipolar disorder-recently took himself off of home regimen. started on trazodone, will encourage outpatient counseling/follow-up. 7. Severe protein calorie malnutrition, ruled out from nutrition notes, on nutritional supplements for poor po intake, Nutrition consulted. 8. Hypoalbuminemia with bilateral leg edema, started on LAURIE-wraps 9. DVT prophylaxis-SCDs, heparin subcu. 10. Discharge planning: Case management working on SNF placement. Code Visit Inpatient E&M: 65770 Subs Hosp L2
--- NOTE | 2017-11-15 14:57 | PN_ITS ---
Patient Problems: Active and Suspected Problems Hyponatremia (Acute) Severe sepsis (Acute) Subjective: No acute events. No new complains. Waiting on discharge planning. Objective: Physical Exam General: Alert, Oriented x3, Cooperative, No apparent distress HEENT: Atraumatic, PERRLA, EOMI, Normocephalic Oral: Moist Mucosa Neck: Supple, No JVD, Negative Carotid Bruits Lungs: Clear to auscultation, Diminished Cardiovascular: Regular rate, Regular Rhythm, Normal S1, Normal S2, No murmurs Abdomen: Bowel Sounds Present, Soft, Non Tender, Non-Distended Extremities: No clubbing, No cyanosis, No edema, Capillary Refill Less than 3 Seconds Skin: - - Extensive peritoneal excoriation with ulcerations, improved from prior. Left eye ecchymosis. Musculoskeletal: No Tenderness to Palpation of Joints or Extremities Neurological: Cranial nerves II-XII grossly intact, Neuro grossly intact Psych/Mental Status: Flat Affect, Depressed Vitals/I&O's: Vital Signs Temp Pulse Resp BP Pulse Ox 98.6 F 108 H 18 138/80 H 95 11/15/17 10:50 11/15/17 11:54 11/15/17 10:50 11/15/17 10:50 11/15/17 10:50 Oxygen Delivery Method Room Air Weight: 86.7 kg Body Mass Index (BMI) 24.3 Intake and Output for Last 24 Hours 11/13/17 11/14/17 11/15/17 23:59 23:59 23:59 Intake Total 3196 / 3196 3001 / 3001 1704 / 1704 Output Total 950 / 950 825 / 825 600 / 600 Balance 2246 / 2246 2176 / 2176 1104 / 1104 Current Medications Acetaminophen (Tylenol) 500 mg PO Q4H PRN PRN PRN Reason: Temp > 100.4 F Al Hydroxide/Mg Hydroxide (Mylanta Ii) 30 ml PO Q6H PRN PRN PRN Reason: Gastric burning Albuterol Sulfate (Ventolin Aerosols) 2.5 mg INHALATION Q2H PRN PRN PRN Reason: dyspnea, wheezing Calamine/Phenol (Calmoseptine Ointment) 1 applic TOPICAL 4X/DAY [facility] PRN Reason: Protocol Last Admin: 11/15/17 10:50 Dose: 1 applicatio Clotrimazole (Lotrimin) 1 applicatio TOPICAL BID [facility] PRN Reason: Protocol Last Admin: 11/15/17 10:50 Dose: 1 applicatio Dextrose (D50w Syringe) 0 gm IV X1 PRN; Protocol PRN Reason: Hypoglycemia Dicyclomine HCl (Bentyl) 20 mg PO Q6H PRN PRN PRN Reason: abdominal discomfort Famotidine (Pepcid) 20 mg PO BID [facility] Last Admin: 11/15/17 10:50 Dose: 20 mg Folic Acid (Folic Acid) 1 mg PO DAILY@0800 [facility] Last Admin: 11/15/17 10:50 Dose: 1 mg Glucagon () 1 mg IM .X1 PRN PRN Reason: Hypoglycemia Heparin Sodium (Porcine) (Heparin Na) 5,000 unit SC Q12 [facility] Last Admin: 11/15/17 10:50 Dose: 5,000 u Hydroxyzine Pamoate (Vistaril Pamoate Capsule) 50 mg PO Q6H PRN PRN PRN Reason: Mild Anxiety (score 1/3) Sodium Chloride () 250 mls @ 15 mls/hr IV .[id number] PRN PRN Reason: SALINE FLUSH Last Admin: 11/12/17 12:33 Dose: 15 mls/hr Ampicillin Sodium/Sulbactam (Sodium 3 gm/ Sodium Chloride) 112 mls @ 150 mls/ hr IV Q6 [facility] Last Admin: 11/15/17 12:42 Dose: 150 mls/hr Ibuprofen (Motrin) 600 mg PO Q8H PRN PRN PRN Reason: Mild-Moderate Pain (1-5/10) Last Admin: 11/13/17 21:19 Dose: 600 mg Lorazepam (Ativan) 2 mg PO Q2H PRN PRN; Protocol PRN Reason: CIWA score > 8 but <15 Lorazepam (Ativan) 2 mg IV Q2H PRN PRN; Protocol PRN Reason: CIWA score > 8 but <15 Lorazepam (Ativan) 2 mg PO UD PRN; Protocol PRN Reason: CIWA score >/=15. Lorazepam (Ativan) 2 mg IV UD PRN; Protocol PRN Reason: CIWA score >/=15. Magnesium Hydroxide (Milk Of Magnesia) 30 ml PO DAILY PRN PRN PRN Reason: Constipation Methocarbamol (Methocarbamol) 750 mg PO Q6H PRN PRN PRN Reason: Muscle Aches Multivitamins/Minerals ([facility]itamin With Minerals) [facility] Admin: 11/15/17 10:50 Dose: 1 tablet Nicotine (Nicoderm Cq (Pbkc)) 21 mg TRANSDERM. DAILY [facility] Last Admin: 11/15/17 10:50 Dose: 21 mg Nutritional Formula (Lactose Free) (Ensure Clear) 120 ml PO 4X/DAY [facility] Last Admin: 11/15/17 10:50 Dose: 120 ml Ondansetron HCl (Zofran) 4 mg IV Q8H PRN PRN PRN Reason: NAUSEA Oxycodone HCl (Oxyir) 5 - 10 mg PO Q4H PRN PRN PRN Reason: Moderate Pain (pain scale 4-5) Last Admin: 11/15/17 00:43 Dose: 5 mg Thiamine HCl ([facility]itamin B1) [facility] Last Admin: 11/15/17 10:50 Dose: 100 mg Trazodone HCl (Desyrel) 50 mg PO QHS [facility] Last Admin: 11/14/17 22:34 Dose: 50 mg Medical Necessity - Tobacco Use Smoking Status: Current every day smoker Tobacco Use: Cigarettes Assessment/Plan All Active Problems Hyponatremia (Acute) Severe sepsis (Acute) 1. Severe sepsis secondary to gram-negative bacteremia and extensive perennial soft tissue infection, improving, on IV ampicillin, will dc IV fluconazole. Continue with wound care, wound nurse consulted. Frequent position changes. PT/ OT. SNF at [place] pending accepting facility. 2. Electrolyte disturbances including severe hyponatremia, hypokalemia, hypomagnesemia, resolved 3. Chronic alcohol abuse- CIWA protocol. MVM, folic acid, B12. 4. Tobacco dependence-encourage smoking cessation. Nicotine replacement patch. 5. COPD-no acute exacerbation. Albuterol and DuoNeb aerosols. IS. 6. Bipolar disorder-recently took himself off of home regimen. started on trazodone, will encourage outpatient counseling/follow-up. 7. Severe protein calorie malnutrition, ruled out from nutrition notes, on nutritional supplements for poor po intake, Nutrition consulted. 8. Hypoalbuminemia with bilateral leg edema, started on LAURIE-wraps 9. DVT prophylaxis-SCDs, heparin subcu. 10. Discharge planning: Case management working on SNF placement. Code Visit Inpatient E&M: 08392 Subs Hosp L2
[2017-11-15] MEDS: Dicyclomine 10 MG Capsule 20 MG PO (15:16)
[2017-11-15] MEDS: Magnesium Hydroxide 30 ML UDC PO (17:23)
[2017-11-15] MEDS: traZODone 50 MG Tablet PO (22:11)
[2017-11-16] VITALS (10 sets, daily range): BP systolic 120–134; BP diastolic 77–81; PULSE 74–103; RESP 16–18; TEMP 36.4–36.6; O2SAT 93–94
[2017-11-16] MEDS: 0.9% NaCl PICC Flush IV ×4 (05:02→17:26)
[2017-11-16 05:12] LABS: Absolute Lymphocyte Count 1.19 X10^3/ul (0.83-4.51); Absolute Neutrophil Count 6.1 X10^3/uL (2.0-7.7); Basophil# 0.03 X10^3/uL; Basophil% 0.4 % (0-1); Eosinophil# 0.02 X10^3/uL; Eosinophils% 0.3 % (0-5); Hematocrit 30.6 % (40-54); Hemoglobin 10.5 g/dl (13.0-16.5); Lymphocyte # 1.19 X10^3/ul (4.0); Lymphocyte % 15.3 % (19-41); Mean Corp Hgb Conc 34.3 g/gl (32-36); Mean Corpuscular Hgb 32.4 pg (27.0-32.0); Mean Corpuscular Volume 94.4 fL (80-94); Mean Platelet Vol. 9.9 fl (6.2-12.0); Monocyte# 0.42 X10^3/uL; Monocyte% 5.4 % (0-10); Neutrophil # 6.05 X10^3/uL (2.7-7.7); Neutrophil % 77.8 % (47-70); Platelet Count 106 K/mm3 (150-450); RBC Distribution Width CV 16.5 % (11.6-14.6); Red Blood Count 3.24 M/mm3 (4.6-6.2); White Blood Count 7.8 K/mm3 (4.4-11.0)
[2017-11-16 05:13] LABS: Differential Indicated SCAN CRITERIA MET; POSITIVE COUNT NO; POSITIVE DIFFERENTIAL NO; POSITIVE MORPHOLOGY YES
[2017-11-16 05:24] LABS: Anion Gap 10 (5-15); BUN 12 mg/dL (7-18); BUN/Creat Ratio 11.7 RATIO (10-20); Calcium,Total 7.5 mg/dL (8.5-10.1); Chloride 104 mmol/L (98-107); Creatinine, Serum 1.03 mg/dL (0.70-1.30); EST Glomerular Filtration Rate 78 mL/min (>60); Est Glom Filt Rate - Afr Amer 95 mL/min (>60); Estimated Creatinine Clearance 73.79 ml/min; Glucose 101 mg/dL (74-106); Potassium 3.6 mmol/L (3.5-5.1); Sodium Level 137 mmol/L (136-145)
--- NOTE | 2017-11-16 07:51 | US_ITS ---
STUDY: ABDOMINAL ULTRASOUND - RIGHT UPPER QUADRANT REASON FOR VISIT: Male, 62 years old. History of alcohol use and ascites TECHNIQUE: Ultrasound evaluation of the right upper quadrant was performed with real-time and static bella-scale imaging. TECHNICAL QUALITY: Limited. Examination limited by bowel gas. COMPARISON: None. FINDINGS: Liver: The liver measures 22 cm. There is increased echogenicity consistent with fatty infiltration. The bile ducts are within normal limits. There is hepatic color flow. The direction of portal flow is hepatopetal. There is no demonstrated mass lesion. Gallbladder: Normal distended gallbladder. The gallbladder wall measures 4.3 mm. There is a negative sonographic Lozano's sign. There is no pericholecystic fluid. There is biliary sludge dependent within the gallbladder. There is ascites fluid about the gallbladder in the gallbladder fossa. Common Bile Duct (C.B.D.): The common bile duct measures 4.3 mm. Pancreas: There is nonvisualization of the pancreas. Right Kidney: Normal size of the right kidney. The right kidney measures 12.7 cm. Normal renal cortex. The right cortex measures 1.8 cm. There is no demonstrated renal mass or cyst. There is no right hydronephrosis. Moderate ascites fluid US/Liver IMPRESSION: Hepatomegaly and hepatic steatosis. Small amount of gallbladder sludge with borderline gallbladder wall thickening. Moderate ascites fluid. Nonvisualized pancreas Electronically Signed: Kiet Astudillo DO at 16:47 EDT Tel , Service support ,
[2017-11-16] MEDS: Folic Acid 1 MG Tablet PO (09:12)
[2017-11-16] MEDS: Multivitamins,Ther W-Minerals Tablet 1 TABLET PO (09:12)
[2017-11-16] MEDS: Thiamine Hydrochloride 100 MG Tablet PO (09:12)
[2017-11-16] MEDS: oxyCODONE 5 MG Tablet PO ×2 (09:12→20:24)
[2017-11-16] MEDS: Famotidine 20 MG Tablet PO ×2 (09:12→21:33)
[2017-11-16] MEDS: Menthol/Lanolin/Calamine/Znox 113 GM Tube 1 APPLIC TOPICAL ×4 (09:17→21:35)
[2017-11-16] MEDS: Heparin Injection (Vial) 5,000 UNIT/ML VIAL 5000 UNIT SC ×2 (09:17→21:34)
[2017-11-16] MEDS: Furosemide 20 MG/2 ML VIAL IV (09:19)
--- NOTE | 2017-11-16 10:22 | RAD_ITS ---
STUDY: X-RAY CHEST REASON FOR EXAM: Male, 62 years old. Shortness of breath with dyspnea TECHNIQUE: Single AP portable view of the chest. COMPARISON: 11/08/2017 FINDINGS: Right PICC with tip in the mid SVC. Lungs are mildly hypoinflated. Airspace disease noted bilaterally, this could represent hypoventilatory effect versus mild pulmonary edema. There is no demonstrated pleural abnormality. There is borderline cardiomegaly. Normal mediastinum and paola. Normal visualized pulmonary arteries. Normal visualized aortic arch and descending thoracic aorta. There are diffuse degenerative changes of the visualized thoracic spine. Normal visualized ribs, clavicles, and shoulders. There is no demonstrated abnormality of the visualized soft tissue structures of the upper abdomen. RAD/Chest 1 View (Portable) IMPRESSION: Hypoinflated lungs. Airspace disease bilaterally as above Electronically Signed: Kiet Astudillo DO at 11:06 EDT Tel , Service support ,
--- NOTE | 2017-11-16 15:23 | PN_ITS ---
Patient Problems: Active and Suspected Problems Hyponatremia (Acute) Severe sepsis (Acute) Subjective: Patient was seen and examined. Slightly SOB. LAURIE wraps to legs. Feels slowly improved. Denies fever or chills. Objective: Physical Exam General: Alert, Oriented x3, Cooperative, No apparent distress HEENT: Atraumatic, PERRLA, EOMI, Normocephalic Oral: Moist Mucosa Neck: Supple, No JVD, Negative Carotid Bruits Lungs: Clear to auscultation, Diminished Cardiovascular: Regular rate, Regular Rhythm, Normal S1, Normal S2, No murmurs Abdomen: Bowel Sounds Present, Soft, Non Tender, Non-Distended Extremities: No clubbing, No cyanosis, No edema, Capillary Refill Less than 3 Seconds Skin: - - Extensive peritoneal excoriation with ulcerations, improved from prior. Left eye ecchymosis. Musculoskeletal: No Tenderness to Palpation of Joints or Extremities Neurological: Cranial nerves II-XII grossly intact, Neuro grossly intact Psych/Mental Status: Flat Affect, Depressed Vitals/I&O's: Vital Signs Temp Pulse Resp BP Pulse Ox 97.6 F L 101 H 18 120/78 94 11/16/17 08:38 11/16/17 11:41 11/16/17 08:38 11/16/17 08:38 11/16/17 08:38 Oxygen Delivery Method Room Air Weight: 90.3 kg Body Mass Index (BMI) 24.3 Intake and Output for Last 24 Hours 11/14/17 11/15/17 11/16/17 23:59 23:59 23:59 Intake Total 3001 / 3001 2225 / 2225 919 / 919 Output Total 825 / 825 800 / 800 1350 / 1350 Balance 2176 / 2176 1425 / 1425 -431 / -431 Laboratory Results 11/16/17 05:00: WBC 7.8, RBC 3.24 L, Hgb 10.5 L, Hct 30.6 L, MCV 94.4 H, MCH 32.4 H, MCHC 34.3, RDW 16.5 H, RDW Differential 54.0 H, Plt Count 106 L, MPV 9.9 , Immature Gran % (Auto) 0.800, Neut % (Auto) 77.8 H, Lymph % (Auto) 15.3 L, [place] % (Auto) 5.4, Eos % (Auto) 0.3, Baso % (Auto) 0.4, Absolute Neuts (auto) 6.1, Absolute Lymphs (auto) 1.19, Total Counted Not Reportable 11/16/17 05:00: Sodium 137, Potassium 3.6, Chloride 104, Carbon Dioxide 23.0, Anion Gap 10, BUN 12, Creatinine 1.03, Estim Creat Clear Calc 73.79, Est GFR ( MDRD) Af Amer 95, Est GFR (MDRD) Non-Af 78, BUN/Creatinine Ratio 11.7, Glucose 101, Calcium 7.5 L Current Medications Acetaminophen (Tylenol) 500 mg PO Q4H PRN PRN PRN Reason: Temp > 100.4 F Al Hydroxide/Mg Hydroxide (Mylanta Ii) 30 ml PO Q6H PRN PRN PRN Reason: Gastric burning Albuterol Sulfate (Ventolin Aerosols) 2.5 mg INHALATION Q2H PRN PRN PRN Reason: dyspnea, wheezing Albuterol/Ipratropium (Duoneb) 3 ml INHALATION Q4HWA.RT PRN PRN Reason: SOB &/OR WHEEZING Calamine/Phenol (Calmoseptine Ointment) 1 applic TOPICAL 4X/DAY RICH PRN Reason: Protocol Last Admin: 11/16/17 12:53 Dose: 1 applicatio Clotrimazole (Lotrimin) 1 applicatio TOPICAL BID RICH PRN Reason: Protocol Last Admin: 11/16/17 09:20 Dose: 1 applicatio Dextrose (D50w Syringe) 0 gm IV X1 PRN; Protocol PRN Reason: Hypoglycemia Dicyclomine HCl (Bentyl) 20 mg PO Q6H PRN PRN PRN Reason: abdominal discomfort Last Admin: 11/15/17 15:16 Dose: 20 mg Famotidine (Pepcid) 20 mg PO BID [facility] Last Admin: 11/16/17 09:12 Dose: 20 mg Folic Acid (Folic Acid) 1 mg PO DAILY@0800 [facility] Last Admin: 11/16/17 09:12 Dose: 1 mg Furosemide (Lasix) 20 mg IV DAILY [facility] Last Admin: 11/16/17 09:19 Dose: 20 mg Glucagon () 1 mg IM .X1 PRN PRN Reason: Hypoglycemia Heparin Sodium (Beef Lung) (Heparin 500 Unit/5 Ml (100/Ml)) 500 unit IV UD PRN PRN Reason: HEPARIN FLUSH Heparin Sodium (Porcine) (Heparin Na) 5,000 unit SC Q12 [facility] Last Admin: 11/16/17 09:17 Dose: 5,000 u Hydroxyzine Pamoate (Vistaril Pamoate Capsule) 50 mg PO Q6H PRN PRN PRN Reason: Mild Anxiety (score 1/3) Sodium Chloride () 250 mls @ 15 mls/hr IV .[id number] PRN PRN Reason: SALINE FLUSH Last Admin: 11/12/17 12:33 Dose: 15 mls/hr Ampicillin Sodium/Sulbactam (Sodium 3 gm/ Sodium Chloride) 112 mls @ 150 mls/ hr IV Q6 [facility] Last Admin: 11/16/17 12:49 Dose: 150 mls/hr Sodium Chloride () 250 mls @ 15 mls/hr IV .[id number] PRN PRN Reason: SALINE FLUSH Ibuprofen (Motrin) 600 mg PO Q8H PRN PRN PRN Reason: Mild-Moderate Pain (1-5/10) Last Admin: 11/13/17 21:19 Dose: 600 mg Lorazepam (Ativan) 2 mg PO Q2H PRN PRN; Protocol PRN Reason: CIWA score > 8 but <15 Lorazepam (Ativan) 2 mg IV Q2H PRN PRN; Protocol PRN Reason: CIWA score > 8 but <15 Lorazepam (Ativan) 2 mg PO UD PRN; Protocol PRN Reason: CIWA score >/=15. Lorazepam (Ativan) 2 mg IV UD PRN; Protocol PRN Reason: CIWA score >/=15. Magnesium Hydroxide (Milk Of Magnesia) 30 ml PO DAILY PRN PRN PRN Reason: Constipation Last Admin: 11/15/17 17:23 Dose: 30 ml Methocarbamol (Methocarbamol) 750 mg PO Q6H PRN PRN PRN Reason: Muscle Aches Multivitamins/Minerals (Multivitamin With Minerals) [facility] Last Admin: 11/16/17 09:12 Dose: 1 tablet Nicotine (Nicoderm Cq (Pbkc)) 21 mg TRANSDERM. DAILY [facility] Last Admin: 11/16/17 09:14 Dose: 21 mg Nutritional Formula (Lactose Free) (Ensure Clear) 120 ml PO 4X/DAY [facility] Last Admin: 11/16/17 12:54 Dose: 120 ml Ondansetron HCl (Zofran) 4 mg IV Q8H PRN PRN PRN Reason: NAUSEA Oxycodone HCl (Oxyir) 5 - 10 mg PO Q4H PRN PRN PRN Reason: Moderate Pain (pain scale 4-5) Last Admin: 11/16/17 09:12 Dose: 5 mg Sodium Chloride () 10 - 20 ml IV UD PRN PRN Reason: PICC FLUSH Last Admin: 11/16/17 12:49 Dose: 10 ml Thiamine HCl (Vitamin B1) 100 mg PO DAILYCM [facility] Last Admin: 11/16/17 09:12 Dose: 100 mg Trazodone HCl (Desyrel) 50 mg PO QHS [facility] Last Admin: 11/15/17 22:11 Dose: 50 mg Medical Necessity - Tobacco Use Smoking Status: Current every day smoker Tobacco Use: Cigarettes Assessment/Plan All Active Problems Hyponatremia (Acute) Severe sepsis (Acute) 1. Severe sepsis secondary to gram-negative bacteremia and extensive perennial soft tissue infection, improving, on IV ampicillin, Continue with wound care, wound nurse consulted. Frequent position changes. PT/ OT. SNF at [place] pending accepting facility. 2. Electrolyte disturbances including severe hyponatremia, hypokalemia, hypomagnesemia, resolved 3. Chronic alcohol abuse- CIWA protocol. MVM, folic acid, B12. 4. Tobacco dependence-encourage smoking cessation. Nicotine replacement patch. 5. COPD-no acute exacerbation. Albuterol and DuoNeb aerosols. IS. 6. Bipolar disorder-recently took himself off of home regimen. started on trazodone, will encourage outpatient counseling/follow-up. 7. Severe protein calorie malnutrition, ruled out from nutrition notes, on nutritional supplements for poor po intake, Nutrition consulted. 8. Hypoalbuminemia with bilateral leg edema, started on LAURIE-wraps 9. DVT prophylaxis-SCDs, heparin subcu. 10. Discharge planning: Case management working on SNF placement. Code Visit Inpatient E&M: 26245 Subs Hosp L2
[2017-11-16] MEDS: Magnesium Hydroxide 30 ML UDC PO (17:31)
[2017-11-16] MEDS: traZODone 50 MG Tablet PO (21:34)
[2017-11-17] VITALS (17 sets, daily range): BP systolic 79–127; BP diastolic 56–82; PULSE 87–160; RESP 16–22; TEMP 36.4–36.7; O2SAT 90–94
[2017-11-17] MEDS: 0.9% NaCl PICC Flush IV ×3 (05:23→08:57)
[2017-11-17 06:17] LABS: ALB/GLOB Ratio 0.4 RATIO (0.9-2.4); AST(SGOT) 49 U/L (15-37); Alanine Aminotransfer ALT/SGPT 28 U/L (16-61); Albumin, Serum 1.3 g/dL (3.2-5.0); Alkaline Phosphatase 176 U/L (45-117); Anion Gap 8 (5-15); BUN 11 mg/dL (7-18); Calcium,Total 7.4 mg/dL (8.5-10.1); Chloride 103 mmol/L (98-107); EST Glomerular Filtration Rate 81 mL/min (>60); Est Glom Filt Rate - Afr Amer 98 mL/min (>60); Globulin 3.1 g/dL (2.2-4.2); Glucose 84 mg/dL (74-106); Potassium 3.6 mmol/L (3.5-5.1); Protein, Total 4.4 g/dL (6.4-8.2); Sodium Level 136 mmol/L (136-145)
--- NOTE | 2017-11-17 08:53 | CASEMGMT ---
Addendum entered by Lesli Lopes 11/17/17 13:12: SW received a call from Karis at [facility]. They came up with a cost of approximately $2,984.60 for 14 days. This is room and board as well as therapy. SW will utilize [facility] prescription assistance program to help with his meds. SW will talk with patient about this as well. Patient is not going to be d/c today due to some continued medical difficulties. FELIPA did let [facility] know this information. Lesli VILA Original Note: FELIPA faxed referral information to [facility]. FELIPA also called and spoke with Karis and she said [facility] sent her an e-mail on situation. She will work with their business office and therapy department to obtain an approximate cost for patient. Lesli VILA
[2017-11-17] MEDS: Ondansetron 4 MG/2 ML Vial IV (08:56)
[2017-11-17] MEDS: Menthol/Lanolin/Calamine/Znox 113 GM Tube 1 APPLIC TOPICAL ×4 (09:20→22:24)
[2017-11-17 12:46] LABS: Bedside Glucose 94 mg/dL (70-110)
--- NOTE | 2017-11-17 13:16 | PCM.PN.HOSP ---
Patient Problems: Active and Suspected Problems Hyponatremia (Acute) Severe sepsis (Acute) Subjective: Patient was seen and examined. Slightly SOB. LAURIE wraps to legs. Feels slowly improved. Denies fever or chills. Objective: Physical Exam General: Alert, Oriented x3, Cooperative, No apparent distress HEENT: Atraumatic, PERRLA, EOMI, Normocephalic Oral: Moist Mucosa Neck: Supple, No JVD, Negative Carotid Bruits Lungs: Clear to auscultation, Diminished Cardiovascular: Regular rate, Regular Rhythm, Normal S1, Normal S2, No murmurs Abdomen: Bowel Sounds Present, Soft, Non Tender, Non-Distended Extremities: No clubbing, No cyanosis, No edema, Capillary Refill Less than 3 Seconds Skin: - - Extensive peritoneal excoriation with ulcerations, improved from prior. Left eye ecchymosis. Musculoskeletal: No Tenderness to Palpation of Joints or Extremities Neurological: Cranial nerves II-XII grossly intact, Neuro grossly intact Psych/Mental Status: Flat Affect, Depressed Vitals/I&O's: Vital Signs Temp Pulse Resp BP Pulse Ox 98.1 F 143 H 22 H 102/67 93 11/17/17 12:15 11/17/17 12:15 11/17/17 12:15 11/17/17 12:15 11/17/17 12:15 Oxygen Delivery Method Room Air Weight: 94.1 kg Body Mass Index (BMI) 24.3 Intake and Output for Last 24 Hours 11/15/17 11/16/17 11/17/17 23:59 23:59 23:59 Intake Total 2225 / 2225 1663 / 1663 319 / 319 Output Total 800 / 800 1974 450 / 450 Balance 1425 / 1425 -312 / -312 -131 / -131 Laboratory Results 11/17/17 05:28: Sodium 136, Potassium 3.6, Chloride 103, Carbon Dioxide 25.0, Anion Gap 8, BUN 11, Creatinine 1.00, Estim Creat Clear Calc 76.00, Est GFR (MDRD) Af Amer 98, Est GFR (MDRD) Non-Af 81, BUN/Creatinine Ratio 11.0, Glucose 84, Calcium 7.4 L, Total Bilirubin 0.60, AST 49 H, ALT 28, Alkaline Phosphatase 176 H, Total Protein 4.4 L, Albumin 1.3 L, Globulin 3.1, Albumin/Globulin Ratio 0.4 L 11/17/17 12:35: POC Glucose 94 Current Medications Acetaminophen (Tylenol) 500 mg PO Q4H PRN PRN PRN Reason: Temp > 100.4 F Al Hydroxide/Mg Hydroxide (Mylanta Ii) 30 ml PO Q6H PRN PRN PRN Reason: Gastric burning Albuterol Sulfate (Ventolin Aerosols) 2.5 mg INHALATION Q2H PRN PRN PRN Reason: dyspnea, wheezing Albuterol/Ipratropium (Duoneb) 3 ml INHALATION Q4HWA.RT PRN PRN Reason: SOB &/OR WHEEZING Calamine/Phenol (Calmoseptine Ointment) 1 applic TOPICAL 4X/DAY RICH PRN Reason: Protocol Last Admin: 11/16/17 21:35 Dose: 1 applicatio Clotrimazole (Lotrimin) 1 applicatio TOPICAL BID RICH PRN Reason: Protocol Last Admin: 11/16/17 21:36 Dose: 1 applicatio Dextrose (D50w Syringe) 0 gm IV X1 PRN; Protocol PRN Reason: Hypoglycemia Dicyclomine HCl (Bentyl) 20 mg PO Q6H PRN PRN PRN Reason: abdominal discomfort Last Admin: 11/15/17 15:16 Dose: 20 mg Famotidine (Pepcid) 20 mg PO BID [facility] Last Admin: 11/16/17 21:33 Dose: 20 mg Folic Acid (Folic Acid) 1 mg PO DAILY@0800 [facility] Last Admin: 11/16/17 09:12 Dose: 1 mg Furosemide (Lasix) 20 mg IV DAILY [facility] Last Admin: 11/16/17 09:19 Dose: 20 mg Glucagon () 1 mg IM .X1 PRN PRN Reason: Hypoglycemia Heparin Sodium (Beef Lung) (Heparin 500 Unit/5 Ml (100/Ml)) 500 unit IV UD PRN PRN Reason: HEPARIN FLUSH Heparin Sodium (Porcine) (Heparin Na) 5,000 unit SC Q12 [facility] Last Admin: 11/16/17 21:34 Dose: 5,000 u Hydroxyzine Pamoate (Vistaril Pamoate Capsule) 50 mg PO Q6H PRN PRN PRN Reason: Mild Anxiety (score 1/3) Ampicillin Sodium/Sulbactam (Sodium 3 gm/ Sodium Chloride) 112 mls @ 150 mls/hr IV Q6 [facility] Last Admin: 11/17/17 12:33 Dose: 150 mls/hr Sodium Chloride () 250 mls @ 15 mls/hr IV .[id number] PRN PRN Reason: SALINE FLUSH Ibuprofen (Motrin) 600 mg PO Q8H PRN PRN PRN Reason: Mild-Moderate Pain (1-5/10) Last Admin: 11/13/17 21:19 Dose: 600 mg Lorazepam (Ativan) 2 mg PO Q2H PRN PRN; Protocol PRN Reason: CIWA score > 8 but <15 Lorazepam (Ativan) 2 mg IV Q2H PRN PRN; Protocol PRN Reason: CIWA score > 8 but <15 Lorazepam (Ativan) 2 mg PO UD PRN; Protocol PRN Reason: CIWA score >/=15. Lorazepam (Ativan) 2 mg IV UD PRN; Protocol PRN Reason: CIWA score >/=15. Magnesium Hydroxide (Milk Of Magnesia) 30 ml PO DAILY PRN PRN PRN Reason: Constipation Last Admin: 11/16/17 17:31 Dose: 30 ml Methocarbamol (Methocarbamol) 750 mg PO Q6H PRN PRN PRN Reason: Muscle Aches Multivitamins/Minerals ([facility]ivitamin With Minerals) [facility] Last Admin: 11/16/17 09:12 Dose: 1 tablet Nicotine (Nicoderm Cq (Pbkc)) 21 mg TRANSDERM. DAILY [facility] Last Admin: 11/16/17 09:14 Dose: 21 mg Nutritional Formula (Lactose Free) (Ensure Clear) 120 ml PO 4X/DAY [facility] Last Admin: 11/16/17 21:35 Dose: Not Given Ondansetron HCl (Zofran) 4 mg IV Q8H PRN PRN PRN Reason: NAUSEA Last Admin: 11/17/17 08:56 Dose: 4 mg Oxycodone HCl (Oxyir) 5 - 10 mg PO Q4H PRN PRN PRN Reason: Moderate Pain (pain scale 4-5) Last Admin: 11/16/17 20:24 Dose: 5 mg Sodium Chloride () 10 - 20 ml IV UD PRN PRN Reason: PICC FLUSH Last Admin: 11/17/17 08:57 Dose: 10 ml Thiamine HCl (Vitamin B1) [facility] Last Admin: 11/16/17 09:12 Dose: 100 mg Trazodone HCl (Desyrel) 50 mg PO QHS [facility] Last Admin: 11/16/17 21:34 Dose: 50 mg Medical Necessity - Tobacco Use Smoking Status: Current every day smoker Tobacco Use: Cigarettes Assessment/Plan All Active Problems Hyponatremia (Acute) Severe sepsis (Acute) 1. Severe sepsis secondary to gram-negative bacteremia and extensive perennial soft tissue infection, improving, on IV ampicillin, will aim for a total of 10 days. Continue with wound care, wound nurse consulted. Frequent position changes. PT/OT. SNF at [place] pending accepting facility. 2. Electrolyte disturbances including severe hyponatremia, hypokalemia, hypomagnesemia, resolved 3. Ascites, newly diagnosed, hepatomegaly, will get radiology to do ultrasound guided paracentesis, hepatitis profile 4. Chronic alcohol abuse- [facility] protocol. MVM, folic acid, B12. 5. Tobacco dependence-encourage smoking cessation. Nicotine replacement patch. 6. COPD-no acute exacerbation. Albuterol and DuoNeb aerosols. IS. 7. Bipolar disorder-recently took himself off of home regimen. started on trazodone, will encourage outpatient counseling/follow-up. 8. Severe protein calorie malnutrition, ruled out from nutrition notes, on nutritional supplements for poor po intake, Nutrition consulted. 9. Hypoalbuminemia with bilateral leg edema, started on LAURIE-wraps 10. DVT prophylaxis-SCDs, heparin subcu. 11. Discharge planning: Case management working on SNF placement. Code Visit Inpatient E&M: 25198 Subs Hosp L2
--- NOTE | 2017-11-17 13:27 | EKG12_ITS ---
Test Reason : TACHY Blood Pressure : / mmHG Vent. Rate : 138 BPM Atrial Rate : 138 BPM P-R Int : 138 ms QRS Dur : 088 ms QT Int : 290 ms P-R-T Axes : 037 -68 058 degrees QTc Int : 439 ms Sinus tachycardia Left axis deviation Low voltage QRS Abnormal ECG When compared with ECG of 09-NOV-2017 19:55, Vent. rate has increased BY 50 BPM Questionable change in QRS duration Confirmed by NISHANT JONES, CYNTHIA ([id number]), food expeditor MARCY LOTT ([id number]) on 11/25/2017 1:15:30 PM Referred By: KATARINA Confirmed By:CYNTHIA DILLARD MD
[2017-11-17 13:53] LABS: Absolute Lymphocyte Count 0.69 X10^3/ul (0.83-4.51); Absolute Neutrophil Count 9.9 X10^3/uL (2.0-7.7); Basophil# 0.02 X10^3/uL; Basophil% 0.2 % (0-1); Hematocrit 35.1 % (40-54); Hemoglobin 11.9 g/dl (13.0-16.5); Lymphocyte # 0.69 X10^3/ul (4.0); Lymphocyte % 6.2 % (19-41); Mean Corp Hgb Conc 33.9 g/gl (32-36); Mean Corpuscular Hgb 31.6 pg (27.0-32.0); Mean Corpuscular Volume 93.4 fL (80-94); Mean Platelet Vol. 9.6 fl (6.2-12.0); Monocyte# 0.54 X10^3/uL; Monocyte% 4.9 % (0-10); Neutrophil # 9.85 X10^3/uL (2.7-7.7); Neutrophil % 88.4 % (47-70); Platelet Count 120 K/mm3 (150-450); RBC Distribution Width CV 16.4 % (11.6-14.6); RBC Distribution Width SD 55.7 fl (35.1-43.9); Red Blood Count 3.76 M/mm3 (4.6-6.2); White Blood Count 11.1 K/mm3 (4.4-11.0)
[2017-11-17 13:54] LABS: POSITIVE COUNT NO; POSITIVE DIFFERENTIAL NO; POSITIVE MORPHOLOGY NO
--- NOTE | 2017-11-17 15:21 | NURSING ---
Pt is currently off the unit. unable to reassess buttocks at this time. pt had been up in chair earlier when in to assess patient. nursing states some improvement.
[2017-11-17] MEDS: 0.9% Normal Saline 1,000 ML 75 ML IV (16:15)
[2017-11-17] MEDS: Multivitamins,Ther W-Minerals Tablet 1 TABLET PO (17:31)
[2017-11-17] MEDS: Famotidine 20 MG Tablet PO ×2 (17:31→22:24)
[2017-11-17] MEDS: Folic Acid 1 MG Tablet PO (17:31)
[2017-11-17] MEDS: Thiamine Hydrochloride 100 MG Tablet PO (17:31)
[2017-11-17] MEDS: traZODone 50 MG Tablet PO (22:23)
[2017-11-18] VITALS (17 sets, daily range): BP systolic 111–136; BP diastolic 67–80; PULSE 94–116; RESP 14–18; TEMP 36.5–36.9; O2SAT 87–97
--- NOTE | 2017-11-18 | FLU_PTH ---
PATIENT: HERNAN GUTIERREZ Jr. LOC: [facility] U#:[id number] AGE/SX: 62/M ROOM: [facility] RE11/08/[address]: Dr. Danielito Patel DO : 1955 BED: 1 DIS: 11/21/2017 SPEC #: [id number] RECD: 11/20/17 07:55 STATUS: ULISES REKi #: [id number] JOSE: 11/18/17 00:[address]: Chantell Loyd DEPT: CYTOLOGY RECD BY: Hernan Trinidad ENTERED: 11/20/17 07:56 SP TYPE: Fluid OTHR DR: MD Dr. Yao Castro DO Dr. Juan Miguel Proano, MD No Primary Care Phys Tissues: PARACENTESIS FLUID Procedures: Pap Stain (control) Special Stain Group II Special Stain Group I Surgery Specimen Level IV AFB Stain (control) GMS Stain (control) Cell Block Cytospin Fluid HEADER OPERATION: Right ultrasound-guided paracentesis PRE-OP DIAGNOSIS: Severe sepsis perineal infection; hyponatremic TISSUE SUBMITTED: Paracentesis fluid for cytology DIAGNOSIS CYTOLOGY Paracentesis fluid for cytology (cytospin and cell block): Marked acute inflammation. AM:jori 11/21/17 COMMENT The cell block is negative for acid fast bacilli and fungal organisms. Matched controls are appropriate. CYTOLOGY STUDY Slides are reviewed. CYTOLOGY GROSS Received is 100 ml of cloudy yellow fluid labeled with the patient's name and and designated per the requisition as paracentesis. Submitted for cytology preparation including cell block. / 11/20/17 TC:2 CPT: 63065, 08490, 45860 x2
[2017-11-18] MEDS: oxyCODONE 5 MG Tablet PO ×2 (04:15→21:56)
[2017-11-18] MEDS: Ondansetron 4 MG/2 ML Vial IV (04:16)
[2017-11-18] MEDS: 0.9% NaCl PICC Flush IV (04:24)
[2017-11-18 04:58] LABS: International Normalized Ratio 1.7; Prothrombin Time (Protime)PT. 19.6 SECONDS (11.7-14.9)
[2017-11-18 04:59] LABS: Partial Thromboplast Time 53.6 Seconds (24.1-36.2)
[2017-11-18 05:12] LABS: ALB/GLOB Ratio 0.4 RATIO (0.9-2.4); AST(SGOT) 42 U/L (15-37); Alanine Aminotransfer ALT/SGPT 27 U/L (16-61); Albumin, Serum 1.3 g/dL (3.2-5.0); Alkaline Phosphatase 164 U/L (45-117); Anion Gap 9 (5-15); BUN 14 mg/dL (7-18); BUN/Creat Ratio 12.4 RATIO (10-20); Calcium,Total 7.5 mg/dL (8.5-10.1); Chloride 104 mmol/L (98-107); Creatinine, Serum 1.13 mg/dL (0.70-1.30); EST Glomerular Filtration Rate 70 mL/min (>60); Est Glom Filt Rate - Afr Amer 85 mL/min (>60); Estimated Creatinine Clearance 67.26 ml/min; Globulin 3.3 g/dL (2.2-4.2); Glucose 103 mg/dL (74-106); Potassium 4.1 mmol/L (3.5-5.1); Protein, Total 4.6 g/dL (6.4-8.2); Sodium Level 137 mmol/L (136-145)
[2017-11-18] MEDS: Acetaminophen 500 MG Tablet PO (06:40)
--- NOTE | 2017-11-18 07:45 | NURSING ---
radiology called with INR too high to complete paracentesis at this time. notified dr. baez, she is aware and will add orders for pt
[2017-11-18] MEDS: Folic Acid 1 MG Tablet PO (08:17)
[2017-11-18] MEDS: Multivitamins,Ther W-Minerals Tablet 1 TABLET PO (08:17)
[2017-11-18] MEDS: Famotidine 20 MG Tablet PO ×2 (08:17→22:57)
[2017-11-18] MEDS: Menthol/Lanolin/Calamine/Znox 113 GM Tube 1 APPLIC TOPICAL ×4 (08:18→21:57)
[2017-11-18 08:28] LABS: LDH 314 U/L (87-241)
[2017-11-18] MEDS: Thiamine Hydrochloride 100 MG Tablet PO (11:05)
--- NOTE | 2017-11-18 11:31 | NURSING ---
wound photo: bilateral buttocks
--- NOTE | 2017-11-18 13:25 | CASEMGMT ---
SW spoke with patient and told him the cost if he would go to [place]. He told SW there is not point in talking to him about it anymore as he is not going anywhere. He said he is going home with his daughter. SW asked where she lives and he said [place]. SW told him SW will check back with him later. Lesli VILA
--- NOTE | 2017-11-18 14:27 | NURSING ---
pt back from paracentesis, VS taken, pt stable at this time, therapy in with pt.
[2017-11-18 14:35] LABS: Cytology, Body Fluid / CSF SEE PATHOLOGY REPORT
--- NOTE | 2017-11-18 14:45 | PCM.PN.HOSP ---
Patient Problems: Active and Suspected Problems Hyponatremia (Acute) Severe sepsis (Acute) Subjective: Patient was seen and examined. He will be having paracentesis today. INR is 1.7, will get 2 units of FFP. No acute events overnight. Objective: Physical Exam General: Alert, Oriented x3, Cooperative, No apparent distress HEENT: Atraumatic, PERRLA, EOMI, Normocephalic Oral: Moist Mucosa Neck: Supple, No JVD, Negative Carotid Bruits Lungs: Clear to auscultation, Diminished Cardiovascular: Regular rate, Regular Rhythm, Normal S1, Normal S2, No murmurs Abdomen: Bowel Sounds Present, Soft, Non Tender, Non-Distended Extremities: Bilateral leg edema +3, scrotal edema, anasarca++ Skin: - - Extensive peritoneal excoriation with ulcerations, improved from prior. Left eye ecchymosis. Musculoskeletal: No Tenderness to Palpation of Joints or Extremities Neurological: Cranial nerves II-XII grossly intact, Neuro grossly intact Psych/Mental Status: Flat Affect, Depressed Vitals/I&O's: Vital Signs Temp Pulse Resp BP Pulse Ox 98.1 F 106 H 18 111/75 96 11/18/17 14:26 11/18/17 14:26 11/18/17 14:26 11/18/17 14:26 11/18/17 14:26 Oxygen Flow Rate (L/min) 2 Oxygen Delivery Method Nasal Cannula Weight: 93 kg Body Mass Index (BMI) 24.3 Intake and Output for Last 24 Hours 11/16/17 11/17/17 11/18/17 23:59 23:59 23:59 Intake Total 1663 / 1663 1804 / 1804 918 / 918 Output Total 1974 / 1974 700 / 700 350 / 350 Balance -312 / -312 1104 / 1104 568 / 568 Laboratory Results 11/18/17 04:25: Sodium 137, Potassium 4.1, Chloride 104, Carbon Dioxide 24.0, Anion Gap 9, BUN 14, Creatinine 1.13, Estim Creat Clear Calc 67.26, Est GFR (MDRD) Af Amer 85, Est GFR (MDRD) Non-Af 70, BUN/Creatinine Ratio 12.4, Glucose 103, Calcium 7.5 L, Total Bilirubin 0.80, AST 42 H, ALT 27, Alkaline Phosphatase 164 H, Total Protein 4.6 L, Albumin 1.3 L, Globulin 3.3, Albumin/Globulin Ratio 0.4 L 11/18/17 04:25: Hepatitis A IgM Ab Pending, Hep Bs Antigen Pending, Hep B Core IgM Ab Pending, Hepatitis C Ab (EIA) Pending 11/18/17 04:25: PT 19.6 H, INR 1.7, APTT 53.6 H 11/18/17 04:25: Lactate Dehydrogenase 314 H 11/18/17 08:45: Blood Type O POSITIVE 11/18/17 : Fluid Glucose Pending, Fluid Total Protein Pending, Fluid LDH Pending 11/18/17 : Fluid Source Pending, Fluid Color Pending, Fluid Appearance Pending, Fluid WBC Pending, Fluid RBC Pending, Fluid Tot Cell Count Pending, Fl Pathologist Comment Pending, Fluid Comment 2 Pending 11/18/17 : Miscellaneous Cytology Pending Current Medications Acetaminophen (Tylenol) 500 mg PO Q4H PRN PRN PRN Reason: Temp > 100.4 F Last Admin: 11/18/17 06:40 Dose: 500 mg Al Hydroxide/Mg Hydroxide (Mylanta Ii) 30 ml PO Q6H PRN PRN PRN Reason: Gastric burning Albuterol Sulfate (Ventolin Aerosols) 2.5 mg INHALATION Q2H PRN PRN PRN Reason: dyspnea, wheezing Albuterol/Ipratropium (Duoneb) 3 ml INHALATION Q4HWA.RT PRN PRN Reason: SOB &/OR WHEEZING Calamine/Phenol (Calmoseptine Ointment) 1 applic TOPICAL 4X/DAY [facility] PRN Reason: Protocol Last Admin: 11/18/17 12:55 Dose: 1 applicatio Clotrimazole (Lotrimin) 1 applicatio TOPICAL BID RICH PRN Reason: Protocol Last Admin: 11/18/17 08:20 Dose: 1 applicatio Dextrose (D50w Syringe) 0 gm IV X1 PRN; Protocol PRN Reason: Hypoglycemia Dicyclomine HCl (Bentyl) 20 mg PO Q6H PRN PRN PRN Reason: abdominal discomfort Last Admin: 11/15/17 15:16 Dose: 20 mg Famotidine (Pepcid) 20 mg PO BID [facility] Last Admin: 11/18/17 08:17 Dose: 20 mg Folic Acid (Folic Acid) 1 mg PO DAILY@0800 [facility] Last Admin: 11/18/17 08:17 Dose: 1 mg Glucagon () 1 mg IM .X1 PRN PRN Reason: Hypoglycemia Heparin Sodium (Porcine) (Heparin Na) 5,000 unit SC Q12 [facility] Last Admin: 11/18/17 07:41 Dose: Not Given Hydroxyzine Pamoate (Vistaril Pamoate Capsule) 50 mg PO Q6H PRN PRN PRN Reason: Mild Anxiety (score 1/3) Ampicillin Sodium/Sulbactam (Sodium 3 gm/ Sodium Chloride) 112 mls @ 150 mls/hr IV Q6 [facility] Last Admin: 11/18/17 11:05 Dose: 150 mls/hr Sodium Chloride () 250 mls @ 15 mls/hr IV .[id number] PRN PRN Reason: SALINE FLUSH Magnesium Hydroxide (Milk Of Magnesia) 30 ml PO DAILY PRN PRN PRN Reason: Constipation Last Admin: 11/16/17 17:31 Dose: 30 ml Multivitamins/Minerals ([facility]itamin With Minerals) [facility] Last Admin: 11/18/17 08:17 Dose: 1 tablet Nicotine (Nicoderm Cq (Pbkc)) 21 mg TRANSDERM. DAILY [facility] Last Admin: 11/18/17 11:05 Dose: 21 mg Nutritional Formula (Lactose Free) (Ensure Clear) 120 ml PO 4X/DAY [facility] Last Admin: 11/18/17 12:55 Dose: Not Given Ondansetron HCl (Zofran) 4 mg IV Q8H PRN PRN PRN Reason: NAUSEA Last Admin: 11/18/17 04:16 Dose: 4 mg Oxycodone HCl (Oxyir) 5 mg PO Q4H PRN PRN PRN Reason: Moderate Pain (pain scale 4-5) Sodium Chloride () 10 - 20 ml IV UD PRN PRN Reason: PICC FLUSH Last Admin: 11/18/17 04:24 Dose: 20 ml Thiamine HCl ([facility]itamin B1) [facility] Last Admin: 11/18/17 11:05 Dose: 100 mg Trazodone HCl (Desyrel) 50 mg PO QHS [facility] Last Admin: 11/17/17 22:23 Dose: 50 mg Medical Necessity - Tobacco Use Smoking Status: Current every day smoker Tobacco Use: Cigarettes Assessment/Plan All Active Problems Hyponatremia (Acute) Severe sepsis (Acute) 1. Severe sepsis secondary to gram-negative bacteremia and extensive perennial soft tissue infection, improving, on IV ampicillin, will aim for a total of 10 days. 2. Anasarca secondary to severe hypoalbuminemia, on low dose lasix, receiving nutritional supplements 3. Electrolyte disturbances including severe hyponatremia, hypokalemia, hypomagnesemia, resolved 4. Ascites, newly diagnosed, hepatomegaly, getting ultrasound guided paracentesis, follow-up on hepatitis profile 4. Chronic alcohol abuse, on CIWA protocol. MVM, folic acid, B12. 5. Tobacco dependence, encourage smoking cessation. Nicotine replacement patch. 6. COPD, in no acute exacerbation. On Albuterol and DuoNeb aerosols, incentive spirometer. 7. Bipolar disorder, needs to follow-up in outpatient, on trazodone now. 8. Severe protein calorie malnutrition, ruled out from nutrition notes, on nutritional supplements for poor po intake, Nutrition consulted. 9. DVT prophylaxis-SCDs, heparin subcu - patient has been refusing. 10. Discharge planning: Case management working on SNF placement. Code Visit Inpatient E&M: 12891 Subs Hosp L2
--- NOTE | 2017-11-18 15:13 | CASEMGMT ---
Patient's brother came to [facility]. FELIPA spoke with him and introduced self. SW told him patient currently does not qualify for Medicaid as he has too much chatman on hand. Patient's brother said he has applied for Medicaid 2 times already. He said patient will qualify for Medicaid once he gets the money patient owes him. Patient asked his brother to go to security and get all of his belongings including the money. At this time patient will not discuss SNF. FELIPA called Tita and let Karis know that patient is currently not agreeing to SNF. FELIPA will have to follow up with patient again on . Lesli OLSON MSW
--- NOTE | 2017-11-18 15:25 | NURSING ---
pt requested belongings be sent home with pts brother, the assistant director of nursing retrieved items from safe, this RN reviewed belongings and list with pt and brother in room, all items accounted for, pt aware and okay. pt signed forms
[2017-11-18 15:32] LABS: Body Fluid Mononuclear WBC # 0.975 10^3/uL; Body Fluid Polynuclear WBC # 9.852 10^3/uL
[2017-11-18 15:53] LABS: White Blood Count/Body Fluid 9.244 10^3/uL
[2017-11-18 17:07] LABS: Auto B Fluid Analyzer BKGD Ct COUNTS W/IN LIMITS (W/IN LIMITS); Lymphocytes 3 %; Neutrophil (Segs) 97 %
--- NOTE | 2017-11-18 17:07 | US_ITS ---
PROCEDURE: Ultrasound guided paracentesis. DATE OF EXAMINATION: November 18, 2017. INDICATION: Male, 62 years old. Ascites. PHYSICIAN: Kam Hicks M.D. TECHNIQUE: The risks, benefits, and alternatives to the procedure were explained to the patient. The specific risks of bleeding, infection, and damage to bowel were detailed and accepted. Witnessed informed consent was obtained. The abdomen was ultrasonographically surveyed. An appropriate pocket of fluid was identified at the right lower quadrant. The skin were cleaned and prepped in the usual sterile fashion. Using ultrasound guidance, the peritoneal cavity was accessed with a 5-Malaysian paracentesis needle/catheter system. The trocar was removed. A total of 3370 ml of divya-colored fluid were removed from the peritoneal cavity. A 120 mL sample was sent to the laboratory. The catheter was removed and a sterile dressing was applied. The procedure was well tolerated. US/Paracentesis with US IMPRESSION: Ultrasound guided paracentesis. Electronically Signed: aKm Hicks MD at 14:57 EDT Tel [phone], Service support ,
[2017-11-18 17:08] LABS: Color/Body Fluid YELLOW; Source- Body Fluid ASCITES FLUID
[2017-11-18 17:29] LABS: International Normalized Ratio 1.5; Prothrombin Time (Protime)PT. 18.1 SECONDS (11.7-14.9)
[2017-11-18 17:30] LABS: Partial Thromboplast Time 50.7 Seconds (24.1-36.2)
[2017-11-18 17:46] LABS: Body Fluid QC Type(s) BF3Q
[2017-11-18 17:47] LABS: Appearance/Body Fluid CLOUDY
[2017-11-18] MEDS: traZODone 50 MG Tablet PO (21:57)
[2017-11-18 22:32] LABS: Glucose, Body Fluid 80 mg/dL (40-70); LDH,Body Fluid 185 Units/l (Not Establ.); Protein, Body Fluid 1.4 g/dL (Not Establ.)
[2017-11-19] VITALS (12 sets, daily range): BP systolic 117–134; BP diastolic 69–87; PULSE 105–116; RESP 16–18; TEMP 36.8–37.1; O2SAT 95–97
[2017-11-19] MEDS: oxyCODONE 5 MG Tablet PO ×2 (03:51→09:19)
[2017-11-19 05:00] LABS: Partial Thromboplast Time 49.6 Seconds (24.1-36.2)
[2017-11-19 05:17] LABS: ALB/GLOB Ratio 0.4 RATIO (0.9-2.4); AST(SGOT) 28 U/L (15-37); Alanine Aminotransfer ALT/SGPT 21 U/L (16-61); Albumin, Serum 1.4 g/dL (3.2-5.0); Alkaline Phosphatase 130 U/L (45-117); Anion Gap 9 (5-15); BUN 17 mg/dL (7-18); BUN/Creat Ratio 16.7 RATIO (10-20); Calcium,Total 7.6 mg/dL (8.5-10.1); Chloride 104 mmol/L (98-107); Creatinine, Serum 1.02 mg/dL (0.70-1.30); EST Glomerular Filtration Rate 79 mL/min (>60); Est Glom Filt Rate - Afr Amer 96 mL/min (>60); Estimated Creatinine Clearance 74.51 ml/min; Globulin 3.3 g/dL (2.2-4.2); Glucose 85 mg/dL (74-106); Potassium 4.1 mmol/L (3.5-5.1); Protein, Total 4.7 g/dL (6.4-8.2); Sodium Level 139 mmol/L (136-145)
--- NOTE | 2017-11-19 08:07 | ECHOD_ITS ---
Reason For Study: SOB Procedure This was a 2D Doppler, Color Flow transthoracic echocardiogram. The study was technically limited. The study was technically difficult. Patient was scanned sitting in chair. Exam performed portable in patient room. Left Ventricle Normal size and thickness. The estimated ejection fraction is 65 %. Unable to assess diastolic dysfunction. No regional wall motion abnormalities noted. Right Ventricle Normal size and thickness. Normal systolic function. Atria Normal left atrium. Normal right atrium. Normal atrial septum. Mitral Valve The mitral valve is structurally normal. No prolapse or stenosis seen. Trivial mitral valve insufficiency. Tricuspid Valve Normal tricuspid valve. Trivial tricuspid valve insufficiency. Right ventricular systolic pressure estimated to be 26 mmHg. Aortic Valve Trisinus/trileaflet aortic valve. Mild focal aortic valve thickening. There is no aortic stenosis. Pulmonic Valve The pulmonic valve is not well visualized. Great Vessels Normal aortic root. Normal arch. Normal inferior vena cava. Inferior vena cava collapse with sniff. Pericardium/Pleural Trivial pericardial effusion. There are no echocardiographic indications of cardiac tamponade. MMode/2D Measurements & Calculations LVIDd: 3.9 cm IVSd: 1.2 cm Ao root diam: 4.1 cm LVIDs: 2.0 cm LVPWd: 0.96 cm LA dimension: 3.4 cm FS: 47.4 % Doppler Measurements & Calculations MV E max shaun: 62.2 cm/sec Lat Peak E' Shaun: 9.0 cm/sec Med Peak E' Shaun: 7.4 cm/sec MV A max shaun: 54.5 cm/sec E/E' lat: 6.9 E/E' med: 8.4 MV E/A: 1.1 PA V2 max: 103.8 cm/sec TR max shaun: 229.0 cm/sec TR max P.0 mmHg Interpretation Summary The estimated ejection fraction is 65 %. Unable to assess diastolic dysfunction. Trivial mitral valve insufficiency. Right ventricular systolic pressure estimated to be 26 mmHg. Trivial posterior pericardial effusion. There are no echocardiographic indications of cardiac tamponade. Ordering Physician: Chantell Loyd Referring Physician: Isadora PCP Performed By: Melody Ballesteros RDCS
[2017-11-19 08:09] LABS: HEPATITIS B SURFACE AG Negative (Negative); Hepatitis A IgM Antibody Negative (Negative); Hepatitis B Core AB IgM Negative (Negative)
[2017-11-19] MEDS: Multivitamins,Ther W-Minerals Tablet 1 TABLET PO (09:17)
[2017-11-19] MEDS: Thiamine Hydrochloride 100 MG Tablet PO (09:17)
[2017-11-19] MEDS: Folic Acid 1 MG Tablet PO (09:17)
[2017-11-19] MEDS: Menthol/Lanolin/Calamine/Znox 113 GM Tube 1 APPLIC TOPICAL ×4 (09:18→23:15)
[2017-11-19] MEDS: Furosemide 20 MG Tablet PO ×2 (09:18→17:49)
[2017-11-19] MEDS: Famotidine 20 MG Tablet PO ×2 (09:19→23:16)
--- NOTE | 2017-11-19 13:48 | PCM.PROGNOTE ---
<Radhames Cowart - Last Filed: 11/19/17 13:48> Patient Problems: Active and Suspected Problems Hyponatremia (Acute) Severe sepsis (Acute) Subjective: Pt mildly dyspneic. Complains of Abdominal diffuse discomfort and distention, although somewhat relieved since paracentesis. No fever or chills. Tolerating reyes cath that was inserted at admission. No BM for 4 days. No N/V. Very weak and debilitated. 2 assist getting up to stand per PT notes. - Physical Exam General: Alert, Oriented x3, Cooperative HEENT: Atraumatic, PERRLA, EOMI, Normocephalic Neck: Supple, No JVD, Negative Carotid Bruits Lungs: Clear to auscultation, Normal air movement Cardiovascular: Regular rate, No murmurs Abdomen: Bowel Sounds Present, Soft, Non Tender, Distended Extremities: Capillary Refill Less than 3 Seconds, Edema - BLE Skin: No rashes, No breakdown Musculoskeletal: No Tenderness to Palpation of Joints or Extremities Neurological: Cranial nerves II-XII grossly intact Psych/Mental Status: Normal Affect, Appropriate, Alert and oriented to time, place, person, mood and affect Vital Signs Temp Pulse Resp BP Pulse Ox 98.6 F 113 H 16 117/69 97 11/19/17 09:41 11/19/17 11:11 11/19/17 09:41 11/19/17 09:41 11/19/17 09:41 Oxygen Flow Rate (L/min) 2 Oxygen Delivery Method Nasal Cannula Weight: 93.2 kg Body Mass Index (BMI) 24.3 Intake and Output for Last 24 Hours 11/17/17 11/18/17 11/19/17 23:59 23:59 23:59 Intake Total 1804 / 1804 1552 / 1552 566 / 566 Output Total 700 / 700 700 / 700 450 / 450 Balance 1104 / 1104 852 / 852 116 / 116 Microbiology Past 72 Hours 11/18/17 Unknown Gram Stain - Final Fluid - Paracentesis (Abd) Laboratory Tests Past 24 Hrs 11/18/17 11/18/17 11/18/17 16:55 Unknown Unknown PT 18.1 H INR 1.5 APTT 50.7 H Sodium Potassium Chloride Carbon Dioxide Anion Gap BUN Creatinine Estim Creat Clear Calc Est GFR (MDRD) Af Amer Est GFR (MDRD) Non-Af BUN/Creatinine Ratio Glucose Calcium Total Bilirubin AST ALT Alkaline Phosphatase Total Protein Albumin Globulin Albumin/Globulin Ratio Fluid Source ASCITES FLUID Fluid Color YELLOW Fluid Appearance CLOUDY Fluid WBC 9.244 Fluid RBC 0.06092 Fluid Tot Cell Count 9.262 Fld Polynuclear WBCs # 9.852 Fld Polynuclear WBCs % 91.0 Fluid Mononuclear WBCs 0.975 Fld Mononuclear WBCs % 9.0 Fluid Neutrophils 97 Fluid Lymphocytes 3 Fl Pathologist Comment May follow Fluid Glucose 80 H Fluid Total Protein 1.4 Fluid LDH 185 Fluid Comment 2 SEE COMMENT Miscellaneous Cytology 11/18/17 11/19/17 11/19/17 Unknown 04:40 04:40 PT INR APTT 49.6 H Sodium 139 Potassium 4.1 Chloride 104 Carbon Dioxide 26.0 Anion Gap 9 BUN 17 Creatinine 1.02 Estim Creat Clear Calc 74.51 Est GFR (MDRD) Af Amer 96 Est GFR (MDRD) Non-Af 79 BUN/Creatinine Ratio 16.7 Glucose 85 Calcium 7.6 L Total Bilirubin 0.70 AST 28 ALT 21 Alkaline Phosphatase 130 H Total Protein 4.7 L Albumin 1.4 L Globulin 3.3 Albumin/Globulin Ratio 0.4 L Fluid Source Fluid Color Fluid Appearance Fluid WBC Fluid RBC Fluid Tot Cell Count Fld Polynuclear WBCs # Fld Polynuclear WBCs % Fluid Mononuclear WBCs Fld Mononuclear WBCs % Fluid Neutrophils Fluid Lymphocytes Fl Pathologist Comment Fluid Glucose Fluid Total Protein Fluid LDH Fluid Comment 2 Miscellaneous Cytology Pending Medical Necessity - Tobacco Use Smoking Status: Current every day smoker Tobacco Use: Cigarettes Assessment/Plan All Active Problems Hyponatremia (Acute) Severe sepsis (Acute) 1. Severe sepsis 2/2 gn bacteremia, perineal cellulitis - Continue wound care and Unasyn total 10 days. Today is day#9. Afebrile. Mildly tachy. 2. Ascites 2/2 hepatic steatosis, alcoholism, hypoalbuminemia/severe protein malnutrition - s/p paracentesis, s/p liver US. 3.3 L out. BP stable. Still distended. Continue lasix via IV. Hepatitis panel pending. Continue protein supplements. Trend renal function. Increase lasix if tolerated. 3. COPD and Nicotine abuse - smoked whole life. Likely underlying COPD. Wean O2. Continue patch. 4. Bipolar disorder - continue home meds. 5. Debility - very weak. Needs placed in skilled. DVT ppx: heparin - refusing. DC planning: SNF. This patient was seen by Radhames Cowart PA-C under the supervision of Doctor Rach. <Chantell Loyd - Last Filed: 11/19/17 16:41> - Physical Exam Vital Signs Temp Pulse Resp BP Pulse Ox 98.7 F 108 H 17 134/87 H 95 11/19/17 15:40 11/19/17 15:40 11/19/17 15:40 11/19/17 15:40 11/19/17 15:40 Oxygen Flow Rate (L/min) 2 Oxygen Delivery Method Nasal Cannula Weight: 93.2 kg Body Mass Index (BMI) 24.3 Intake and Output for Last 24 Hours 11/17/17 11/18/17 11/19/17 23:59 23:59 23:59 Intake Total 1804 / 1804 1552 / 1552 566 / 566 Output Total 700 / 700 700 / 700 450 / 450 Balance 1104 / 1104 852 / 852 116 / 116 Microbiology Past 72 Hours 11/18/17 Unknown Gram Stain - Final Fluid - Paracentesis (Abd) Laboratory Tests Past 24 Hrs 11/18/17 11/18/17 11/18/17 16:55 Unknown Unknown PT 18.1 H INR 1.5 APTT 50.7 H Sodium Potassium Chloride Carbon Dioxide Anion Gap BUN Creatinine Estim Creat Clear Calc Est GFR (MDRD) Af Amer Est GFR (MDRD) Non-Af BUN/Creatinine Ratio Glucose Calcium Total Bilirubin AST ALT Alkaline Phosphatase Total Protein Albumin Globulin Albumin/Globulin Ratio Fluid Source ASCITES FLUID Fluid Color YELLOW Fluid Appearance CLOUDY Fluid WBC 9.244 Fluid RBC 0.34120 Fluid Tot Cell Count 9.262 Fld Polynuclear WBCs # 9.852 Fld Polynuclear WBCs % 91.0 Fluid Mononuclear WBCs 0.975 Fld Mononuclear WBCs % 9.0 Fluid Neutrophils 97 Fluid Lymphocytes 3 Fl Pathologist Comment May follow Fluid Glucose 80 H Fluid Total Protein 1.4 Fluid LDH 185 Fluid Comment 2 SEE COMMENT 11/19/17 11/19/17 04:40 04:40 PT INR APTT 49.6 H Sodium 139 Potassium 4.1 Chloride 104 Carbon Dioxide 26.0 Anion Gap 9 BUN 17 Creatinine 1.02 Estim Creat Clear Calc 74.51 Est GFR (MDRD) Af Amer 96 Est GFR (MDRD) Non-Af 79 BUN/Creatinine Ratio 16.7 Glucose 85 Calcium 7.6 L Total Bilirubin 0.70 AST 28 ALT 21 Alkaline Phosphatase 130 H Total Protein 4.7 L Albumin 1.4 L Globulin 3.3 Albumin/Globulin Ratio 0.4 L Fluid Source Fluid Color Fluid Appearance Fluid WBC Fluid RBC Fluid Tot Cell Count Fld Polynuclear WBCs # Fld Polynuclear WBCs % Fluid Mononuclear WBCs Fld Mononuclear WBCs % Fluid Neutrophils Fluid Lymphocytes Fl Pathologist Comment Fluid Glucose Fluid Total Protein Fluid LDH Fluid Comment 2 Assessment/Plan Patient was seen and examined independently. I agree with interval history and physical exam as documented by Radhames Cowart Patient underwent paracentesis with more than 3.3 L of fluid removed. He complains of still feeling weak, blood pressures have been stable, no fevers. Fluid analysis is suggestive of portal hypertension. Continue on IV Lasix, strict I's and O's Discussed extensively with patient on discharge planning -recommended discharge to penitentiary facility, patient was reluctant but later agreed Patient should ideally be under palliative care service as his general outlook and prognosis is guarded. Would add Zoloft for major depression, EKG in a.m. Code Visit Inpatient E&M: 09094 Subs Hosp L2
--- NOTE | 2017-11-19 17:48 | EKG12_ITS ---
Test Reason : TACHY ARRYTHMIA Blood Pressure : / mmHG Vent. Rate : 118 BPM Atrial Rate : 118 BPM P-R Int : 160 ms QRS Dur : 090 ms QT Int : 332 ms P-R-T Axes : 034 -26 060 degrees QTc Int : 465 ms Sinus tachycardia Low voltage QRS Borderline ECG When compared with ECG of 17-NOV-2017 12:24, MANUAL COMPARISON REQUIRED, DATA IS UNCONFIRMED Confirmed by NISHANT JONES, CYNTHIA ([id number]), tape editor MARCY LOTT ([id number]) on 11/25/2017 1:13:00 PM Referred By: KATARINA Confirmed By:CYNTHIA DILLARD MD
[2017-11-19] MEDS: traZODone 50 MG Tablet PO (23:16)
[2017-11-20] VITALS (13 sets, daily range): BP systolic 124–151; BP diastolic 78–99; PULSE 108–120; RESP 16–20; TEMP 36.4–37.1; O2SAT 92–96
[2017-11-20] MEDS: 0.9% NaCl PICC Flush IV ×2 (04:56→12:56)
[2017-11-20 05:12] LABS: Absolute Lymphocyte Count 1.14 X10^3/ul (0.83-4.51); Absolute Neutrophil Count 9.9 X10^3/uL (2.0-7.7); Basophil# 0.04 X10^3/uL; Basophil% 0.3 % (0-1); Eosinophil# 0.01 X10^3/uL; Eosinophils% 0.1 % (0-5); Hemoglobin 11.2 g/dl (13.0-16.5); Lymphocyte # 1.14 X10^3/ul (4.0); Lymphocyte % 9.6 % (19-41); Mean Corp Hgb Conc 33.9 g/gl (32-36); Mean Corpuscular Volume 94.3 fL (80-94); Mean Platelet Vol. 10.1 fl (6.2-12.0); Monocyte# 0.72 X10^3/uL; Monocyte% 6.1 % (0-10); Neutrophil # 9.92 X10^3/uL (2.7-7.7); Neutrophil % 83.6 % (47-70); Platelet Count 156 K/mm3 (150-450); RBC Distribution Width CV 17.1 % (11.6-14.6); RBC Distribution Width SD 55.7 fl (35.1-43.9); White Blood Count 11.9 K/mm3 (4.4-11.0)
[2017-11-20 05:14] LABS: Differential Indicated SCAN CRITERIA MET; POSITIVE COUNT NO; POSITIVE DIFFERENTIAL NO; POSITIVE MORPHOLOGY YES
[2017-11-20 05:21] LABS: Anion Gap 9 (5-15); BUN 21 mg/dL (7-18); BUN/Creat Ratio 21.5 RATIO (10-20); Calcium,Total 7.8 mg/dL (8.5-10.1); Chloride 103 mmol/L (98-107); Creatinine, Serum 0.98 mg/dL (0.70-1.30); EST Glomerular Filtration Rate 83 mL/min (>60); Est Glom Filt Rate - Afr Amer 101 mL/min (>60); Estimated Creatinine Clearance 77.55 ml/min; Glucose 92 mg/dL (74-106); Partial Thromboplast Time 48.1 Seconds (24.1-36.2); Potassium 4.3 mmol/L (3.5-5.1); Sodium Level 138 mmol/L (136-145)
--- NOTE | 2017-11-20 05:55 | EKG12_ITS ---
Test Reason : AM EKG Blood Pressure : / mmHG Vent. Rate : 110 BPM Atrial Rate : 110 BPM P-R Int : 142 ms QRS Dur : 094 ms QT Int : 352 ms P-R-T Axes : 015 012 002 degrees QTc Int : 476 ms Sinus tachycardia Anterior infarct , age undetermined Abnormal ECG When compared with ECG of 19-NOV-2017 17:35, MANUAL COMPARISON REQUIRED, DATA IS UNCONFIRMED Confirmed by NISHANT JONES, CYNTHIA ([id number]), newspaper editor managing MARCY LOTT ([id number]) on 11/25/2017 1:12:36 PM Referred By: DR TINOCO Confirmed By:CYNTHIA DILLARD MD
[2017-11-20] MEDS: Thiamine Hydrochloride 100 MG Tablet PO (08:26)
[2017-11-20] MEDS: Famotidine 20 MG Tablet PO (08:26)
[2017-11-20] MEDS: Multivitamins,Ther W-Minerals Tablet 1 TABLET PO (08:26)
[2017-11-20] MEDS: Furosemide 20 MG Tablet PO (08:26)
[2017-11-20] MEDS: Folic Acid 1 MG Tablet PO (08:26)
--- NOTE | 2017-11-20 10:35 | RAD_ITS ---
STUDY: X-RAY CHEST REASON FOR EXAM: Male, 62 years old. Shortness of breath and dyspnea. TECHNIQUE: Single AP portable view of the chest. COMPARISON: Comparison is made with prior examination dated November 16, 2017. FINDINGS: EKG electrodes are seen. A right-sided PICC line catheter is in situ with the tip in the right atrium. Limited inspiratory effort. Increased markings at the lung bases suggestive of either atelectasis and/or bibasilar infiltrates. Increased markings in the left upper lobe as well. Follow-up is recommended. There is blunting of the left costophrenic angle. Normal size heart. Normal mediastinum and paola. Normal visualized pulmonary arteries. There is atherosclerotic calcification of the aortic arch with tortuosity. There are diffuse degenerative changes of the visualized thoracic spine. Normal visualized ribs, clavicles, and shoulders. There is no demonstrated abnormality of the visualized soft tissue structures of the upper abdomen. RAD/Chest 1 View (Portable) IMPRESSION: Limited inspiratory effort. Increased markings at the lung bases as well as in the left upper lobe. Follow-up is recommended. Electronically Signed: Kam Hicks MD at 13:11 EDT Tel [phone], Service support ,
[2017-11-20 10:55] LABS: Allen Test POS; Base Excess -1 mmol/L (-2 to +2); Bicarbonate 22.4 mmol/L (22-26); Blood Gas Specimen Type ART; O2 Delivery Device Nasal Can; PO2 67 mmHG (75-100); SITE L Radial; SO2 94 % (95-99); Time Given 1040; Total Carbon Dioxide 23 mmol/L; pCO2 31.6 mmHg (35-45); pH 7.46 (7.35-7.45)
--- NOTE | 2017-11-20 10:55 | NURSING ---
pt was weaned to 1L O2 at 92%. therapy worked with pt and assisted him to recliner. upon moving, he became more short of breath and was increased to 3L NC sats at 92%
[2017-11-20 11:12] LABS: International Normalized Ratio 1.4
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
[2017-11-20] MEDS: Menthol/Lanolin/Calamine/Znox 113 GM Tube 1 APPLIC TOPICAL ×4 (12:00→22:51)
[2017-11-20] MEDS: Dextrose 5%/0.9% NaCl 1,000 ML 60 ML IV (12:55)
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
--- NOTE | 2017-11-20 13:59 | PCM.PN.HOSP ---
Patient Problems: Active and Suspected Problems Hyponatremia (Acute) Severe sepsis (Acute) Subjective: Patient was seen and examined. Patient failed his swallow evaluation by speech therapy. Speech therapy thinks he is aspirating and he is NPO. Patient is lethargic, has been for some days. Not looking well. Appears more depressed. Started on Zoloft yesterday. Vitals are stable. Labs show slight increased leucocytosis, remains on unasyn. Objective: Physical Exam General: Alert, Oriented x3, Cooperative, No apparent distress HEENT: Atraumatic, PERRLA, EOMI, Normocephalic Oral: Moist Mucosa Neck: Supple, No JVD, Negative Carotid Bruits Lungs: Clear to auscultation, Diminished Cardiovascular: Regular rate, Regular Rhythm, Normal S1, Normal S2, No murmurs Abdomen: Bowel Sounds Present, Soft, Non Tender, Non-Distended Extremities: Bilateral leg edema +3, scrotal edema, anasarca++ Skin: - - Extensive peritoneal excoriation with ulcerations, improved from prior. Left eye ecchymosis. Musculoskeletal: No Tenderness to Palpation of Joints or Extremities Neurological: Cranial nerves II-XII grossly intact, Neuro grossly intact Psych/Mental Status: Flat Affect, Depressed Vitals/I&O's: Vital Signs Temp Pulse Resp BP Pulse Ox 97.6 F L 120 H 20 H 139/99 H 96 11/20/17 10:45 11/20/17 12:00 11/20/17 10:45 11/20/17 10:45 11/20/17 10:45 Oxygen Flow Rate (L/min) 3 Oxygen Delivery Method Nasal Cannula Weight: 93.2 kg Body Mass Index (BMI) 24.3 Intake and Output for Last 24 Hours 11/18/17 11/19/17 11/20/17 23:59 23:59 23:59 Intake Total 1552 / 1552 686 / 686 574 / 574 Output Total 700 / 700 650 / 650 750 / 750 Balance 852 / 852 36 / 36 -176 / -176 Microbiology Past 72 Hours 11/18/17 Unknown Fluid - Paracentesis (Abd) Gram Stain - Final 11/18/17 Unknown Fluid - Paracentesis (Abd) Body Fluid Culture - Preliminary No growth-Final to follow 11/18/17 Unknown Fluid - Paracentesis (Abd) Anaerobic Culture - Preliminary No growth in 48 hours. Laboratory Results 11/20/17 04:50: APTT 48.1 H 11/20/17 04:50: WBC 11.9 H, RBC 3.50 L, Hgb 11.2 L, Hct 33.0 L, MCV 94.3 H, MCH 32.0, MCHC 33.9, RDW 17.1 H, RDW Differential 55.7 H, Plt Count 156, MPV 10.1, Immature Gran % (Auto) 0.300, Neut % (Auto) 83.6 H, Lymph % (Auto) 9.6 L, [place] % (Auto) 6.1, Eos % (Auto) 0.1, Baso % (Auto) 0.3, Absolute Neuts (auto) 9.9 H, Absolute Lymphs (auto) 1.14, Total Counted Not Reportable 11/20/17 04:50: Sodium 138, Potassium 4.3, Chloride 103, Carbon Dioxide 26.0, Anion Gap 9, BUN 21 H, Creatinine 0.98, Estim Creat Clear Calc 77.55, Est GFR (MDRD) Af Amer 101, Est GFR (MDRD) Non-Af 83, BUN/Creatinine Ratio 21.5 H, Glucose 92, Calcium 7.8 L 11/20/17 04:50: PT 17.0 H, INR 1.4 11/20/17 10:51: Specimen Type ART, Sample Site L Radial, pH 7.46 H, Bicarbonate Actual 22.4, POC Total CO2 23, Base Excess -1, O2 Saturation 94 L, ABG pCO2 31.6 L, ABG pO2 67 L, Mitul Test POS, O2 Delivery Device Nasal Can, Liter Flow 3.0, Blood Gas Notified Whom HOSP , Blood Gas Notified Time 1040 Current Medications Acetaminophen (Tylenol) 500 mg PO Q4H PRN PRN PRN Reason: Temp > 100.4 F Last Admin: 11/18/17 06:40 Dose: 500 mg Al Hydroxide/Mg Hydroxide (Mylanta Ii) 30 ml PO Q6H PRN PRN PRN Reason: Gastric burning Albuterol Sulfate (Ventolin Aerosols) 2.5 mg INHALATION Q2H PRN PRN PRN Reason: dyspnea, wheezing Albuterol/Ipratropium (Duoneb) 3 ml INHALATION Q4HWA.RT PRN PRN Reason: SOB &/OR WHEEZING Calamine/Phenol (Calmoseptine Ointment) 1 applic TOPICAL 4X/DAY RICH PRN Reason: Protocol Last Admin: 11/20/17 12:00 Dose: 1 applicatio Clotrimazole (Lotrimin) 1 applicatio TOPICAL BID RICH PRN Reason: Protocol Last Admin: 11/20/17 12:00 Dose: 1 applicatio Dextrose (D50w Syringe) 0 gm IV X1 PRN; Protocol PRN Reason: Hypoglycemia Dicyclomine HCl (Bentyl) 20 mg PO Q6H PRN PRN PRN Reason: abdominal discomfort Last Admin: 11/15/17 15:16 Dose: 20 mg Famotidine (Pepcid) 20 mg PO BID [facility] Last Admin: 11/20/17 08:26 Dose: 20 mg Folic Acid (Folic Acid) 1 mg PO DAILY@0800 [facility] Last Admin: 11/20/17 08:26 Dose: 1 mg Glucagon () 1 mg IM .X1 PRN PRN Reason: Hypoglycemia Heparin Sodium (Porcine) (Heparin Na) 5,000 unit SC Q12 [facility] Last Admin: 11/18/17 07:41 Dose: Not Given Hydroxyzine Pamoate (Vistaril Pamoate Capsule) 50 mg PO Q6H PRN PRN PRN Reason: Mild Anxiety (score 1/3) Ampicillin Sodium/Sulbactam (Sodium 3 gm/ Sodium Chloride) 112 mls @ 150 mls/hr IV Q6 [facility] Last Admin: 11/20/17 12:55 Dose: 150 mls/hr Sodium Chloride () 250 mls @ 15 mls/hr IV .[id number] PRN PRN Reason: SALINE FLUSH Dextrose/Sodium Chloride (Dextrose 5%/0.9% Nacl) 1,000 mls @ 60 mls/hr IV .[id number] [facility] Stop: 11/21/17 05:09 Last Admin: 11/20/17 12:55 Dose: 60 mls/hr Magnesium Hydroxide (Milk Of Magnesia) 30 ml PO DAILY PRN PRN PRN Reason: Constipation Last Admin: 11/16/17 17:31 Dose: 30 ml Multivitamins/Minerals (Multivitamin With Minerals) 1 tablet PO DAILYCM [facility] Last Admin: 11/20/17 08:26 Dose: 1 tablet Nicotine (Nicoderm Cq (Pbkc)) 21 mg TRANSDERM. DAILY [facility] Last Admin: 11/20/17 08:27 Dose: 21 mg Nutritional Formula (Lactose Free) (Ensure Clear) 120 ml PO 4X/DAY [facility] Last Admin: 11/20/17 12:52 Dose: Not Given Ondansetron HCl (Zofran) 4 mg IV Q8H PRN PRN PRN Reason: NAUSEA Last Admin: 11/18/17 04:16 Dose: 4 mg Oxycodone HCl (Oxyir) 5 mg PO Q4H PRN PRN PRN Reason: Moderate Pain (pain scale 4-5) Last Admin: 11/19/17 09:19 Dose: 5 mg Senna/Docusate Sodium (Senokot-S, Ceci-Colace) 1 tablet PO DAILY PRN PRN PRN Reason: CONSTIPATION Sertraline HCl (Zoloft) 50 mg PO DAILY [facility] Sodium Chloride () 10 - 20 ml IV UD PRN PRN Reason: PICC FLUSH Last Admin: 11/20/17 12:56 Dose: 10 ml [facility] ([facility]) [facility] Last Admin: 11/20/17 08:26 Dose: 100 mg Trazodone HCl (Desyrel) 50 mg PO QHS [facility] Last Admin: 11/19/17 23:16 Dose: 50 mg Medical Necessity - Tobacco Use Smoking Status: Current every day smoker Tobacco Use: Cigarettes Assessment/Plan All Active Problems Hyponatremia (Acute) Severe sepsis (Acute) 1. Severe sepsis secondary to E. 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 2. Dyspnea, multifactorial, ABG is unremarkable, increased markings in the lung bases as well as left lower lobe, no signs of consolidation, will encourage incentive spirometer patient has not been doing it. 3. Acute decompensated alcoholic liver disease with ascites, present from admission, s/p paracentesis on 11/18/17, will ask for repeat paracentesis 4. Dysphagia, likely functional from progressive weakness, speech therapy assisting with management, made NPO, will start IVF gently, follow-up on recommendations. 5. Electrolyte disturbances including severe hyponatremia, hypokalemia, hypomagnesemia, resolved 6. Chronic alcohol abuse, on CIWA protocol. MVM, folic acid, B12. 7. Tobacco dependence, encourage smoking cessation. Nicotine replacement patch. 8. COPD, in no acute exacerbation. On Albuterol and DuoNeb aerosols, incentive spirometer. 9. Bipolar disorder, depression, needs to follow-up in outpatient, on trazodone, Zoloft. No QTC prolongation. 10. Severe protein calorie malnutrition, ruled out from nutrition notes, on nutritional supplements for poor po intake, Nutrition consulted. 11. DVT prophylaxis-SCDs, heparin subcu - patient has been refusing. 12. Discharge planning: Case management working on SNF placement. Code Visit Inpatient E&M: 61580 Subs Hosp L3
--- NOTE | 2017-11-20 14:05 | PN_ITS ---
Patient Problems: Active and Suspected Problems Hyponatremia (Acute) Severe sepsis (Acute) Subjective: Patient was seen and examined. Patient failed his swallow evaluation by speech therapy. Speech therapy thinks he is aspirating and he is NPO. Patient is lethargic, has been for some days. Not looking well. Appears more depressed. Started on Zoloft yesterday. Vitals are stable. Labs show slight increased leucocytosis, remains on unasyn. Objective: Physical Exam General: Alert, Oriented x3, Cooperative, No apparent distress HEENT: Atraumatic, PERRLA, EOMI, Normocephalic Oral: Moist Mucosa Neck: Supple, No JVD, Negative Carotid Bruits Lungs: Clear to auscultation, Diminished Cardiovascular: Regular rate, Regular Rhythm, Normal S1, Normal S2, No murmurs Abdomen: Bowel Sounds Present, Soft, Non Tender, Non-Distended Extremities: Bilateral leg edema +3, scrotal edema, anasarca++ Skin: - - Extensive peritoneal excoriation with ulcerations, improved from prior. Left eye ecchymosis. Musculoskeletal: No Tenderness to Palpation of Joints or Extremities Neurological: Cranial nerves II-XII grossly intact, Neuro grossly intact Psych/Mental Status: Flat Affect, Depressed Vitals/I&O's: Vital Signs Temp Pulse Resp BP Pulse Ox 97.6 F L 120 H 20 H 139/99 H 96 11/20/17 10:45 11/20/17 12:00 11/20/17 10:45 11/20/17 10:45 11/20/17 10:45 Oxygen Flow Rate (L/min) 3 Oxygen Delivery Method Nasal Cannula Weight: 93.2 kg Body Mass Index (BMI) 24.3 Intake and Output for Last 24 Hours 11/18/17 11/19/17 11/20/17 23:59 23:59 23:59 Intake Total 1552 / 1552 686 / 686 574 / 574 Output Total 700 / 700 650 / 650 750 / 750 Balance 852 / 852 36 / 36 -176 / -176 Microbiology Past 72 Hours 11/18/17 Unknown Fluid - Paracentesis (Abd) Gram Stain - Final 11/18/17 Unknown Fluid - Paracentesis (Abd) Body Fluid Culture - Preliminary No growth-Final to follow 11/18/17 Unknown Fluid - Paracentesis (Abd) Anaerobic Culture - Preliminary No growth in 48 hours. Laboratory Results 11/20/17 04:50: APTT 48.1 H 11/20/17 04:50: WBC 11.9 H, RBC 3.50 L, Hgb 11.2 L, Hct 33.0 L, MCV 94.3 H, MCH 32.0, MCHC 33.9, RDW 17.1 H, RDW Differential 55.7 H, Plt Count 156, MPV 10.1, Immature Gran % (Auto) 0.300, Neut % (Auto) 83.6 H, Lymph % (Auto) 9.6 L, [place] % (Auto) 6.1, Eos % (Auto) 0.1, Baso % (Auto) 0.3, Absolute Neuts (auto) 9.9 H, Absolute Lymphs (auto) 1.14, Total Counted Not Reportable 11/20/17 04:50: Sodium 138, Potassium 4.3, Chloride 103, Carbon Dioxide 26.0, Anion Gap 9, BUN 21 H, Creatinine 0.98, Estim Creat Clear Calc 77.55, Est GFR ( MDRD) Af Amer 101, Est GFR (MDRD) Non-Af 83, BUN/Creatinine Ratio 21.5 H, Glucose 92, Calcium 7.8 L 11/20/17 04:50: PT 17.0 H, INR 1.4 11/20/17 10:51: Specimen Type ART, Sample Site L Radial, pH 7.46 H, Bicarbonate Actual 22.4, POC Total CO2 23, Base Excess -1, O2 Saturation 94 L, ABG pCO2 31.6 L, ABG pO2 67 L, Mitul Test POS, O2 Delivery Device Nasal Can, Liter Flow 3.0, Blood Gas Notified Whom HOSP , Blood Gas Notified Time 1040 Current Medications Acetaminophen (Tylenol) 500 mg PO Q4H PRN PRN PRN Reason: Temp > 100.4 F Last Admin: 11/18/17 06:40 Dose: 500 mg Al Hydroxide/Mg Hydroxide (Mylanta Ii) 30 ml PO Q6H PRN PRN PRN Reason: Gastric burning Albuterol Sulfate (Ventolin Aerosols) 2.5 mg INHALATION Q2H PRN PRN PRN Reason: dyspnea, wheezing Albuterol/Ipratropium (Duoneb) 3 ml INHALATION Q4HWA.RT PRN PRN Reason: SOB &/OR WHEEZING Calamine/Phenol (Calmoseptine Ointment) 1 applic TOPICAL 4X/DAY RICH PRN Reason: Protocol Last Admin: 11/20/17 12:00 Dose: 1 applicatio Clotrimazole (Lotrimin) 1 applicatio TOPICAL BID RICH PRN Reason: Protocol Last Admin: 11/20/17 12:00 Dose: 1 applicatio Dextrose (D50w Syringe) 0 gm IV X1 PRN; Protocol PRN Reason: Hypoglycemia Dicyclomine HCl (Bentyl) 20 mg PO Q6H PRN PRN PRN Reason: abdominal discomfort Last Admin: 11/15/17 15:16 Dose: 20 mg Famotidine (Pepcid) 20 mg PO BID [facility] Last Admin: 11/20/17 08:26 Dose: 20 mg Folic Acid (Folic Acid) 1 mg PO DAILY@0800 [facility] Last Admin: 11/20/17 08:26 Dose: 1 mg Glucagon () 1 mg IM .X1 PRN PRN Reason: Hypoglycemia Heparin Sodium (Porcine) (Heparin Na) 5,000 unit SC Q12 [facility] Last Admin: 11/18/17 07:41 Dose: Not Given Hydroxyzine Pamoate (Vistaril Pamoate Capsule) 50 mg PO Q6H PRN PRN PRN Reason: Mild Anxiety (score 1/3) Ampicillin Sodium/Sulbactam (Sodium 3 gm/ Sodium Chloride) 112 mls @ 150 mls/ hr IV Q6 [facility] Last Admin: 11/20/17 12:55 Dose: 150 mls/hr Sodium Chloride () 250 mls @ 15 mls/hr IV .[id number] PRN PRN Reason: SALINE FLUSH Dextrose/Sodium Chloride (Dextrose 5%/0.9% Nacl) 1,000 mls @ 60 mls/hr IV .[id number] [facility] Stop: 11/21/17 05:09 Last Admin: 11/20/17 12:55 Dose: 60 mls/hr Magnesium Hydroxide (Milk Of Magnesia) 30 ml PO DAILY PRN PRN PRN Reason: Constipation Last Admin: 11/16/17 17:31 Dose: 30 ml Multivitamins/Minerals (Multivitamin With Minerals) 1 tablet PO DAILYCM [facility] Last Admin: 11/20/17 08:26 Dose: 1 tablet Nicotine (Nicoderm Cq (Pbkc)) 21 mg TRANSDERM. DAILY [facility] Last Admin: 11/20/17 08:27 Dose: 21 mg Nutritional Formula (Lactose Free) (Ensure Clear) 120 ml PO 4X/DAY [facility] Last Admin: 11/20/17 12:52 Dose: Not Given Ondansetron HCl (Zofran) 4 mg IV Q8H PRN PRN PRN Reason: NAUSEA Last Admin: 11/18/17 04:16 Dose: 4 mg Oxycodone HCl (Oxyir) 5 mg PO Q4H PRN PRN PRN Reason: Moderate Pain (pain scale 4-5) Last Admin: 11/19/17 09:19 Dose: 5 mg Senna/Docusate Sodium (Senokot-S, Ceci-Colace) 1 tablet PO DAILY PRN PRN PRN Reason: CONSTIPATION Sertraline HCl (Zoloft) 50 mg PO DAILY [facility] Sodium Chloride () 10 - 20 ml IV UD PRN PRN Reason: PICC FLUSH Last Admin: 11/20/17 12:56 Dose: 10 ml [facility] ([facility] B1) [facility] Last Admin: 11/20/17 08:26 Dose: 100 mg Trazodone HCl (Desyrel) 50 mg PO QHS [facility] Last Admin: 11/19/17 23:16 Dose: 50 mg Medical Necessity - Tobacco Use Smoking Status: Current every day smoker Tobacco Use: Cigarettes Assessment/Plan All Active Problems Hyponatremia (Acute) Severe sepsis (Acute) 1. Severe sepsis secondary to E. 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 2. Dyspnea, multifactorial, ABG is unremarkable, increased markings in the lung bases as well as left lower lobe, no signs of consolidation, will encourage incentive spirometer patient has not been doing it. 3. Acute decompensated alcoholic liver disease with ascites, present from admission, s/p paracentesis on 11/18/17, will ask for repeat paracentesis 4. Dysphagia, likely functional from progressive weakness, speech therapy assisting with management, made NPO, will start IVF gently, follow-up on recommendations. 5. Electrolyte disturbances including severe hyponatremia, hypokalemia, hypomagnesemia, resolved 6. Chronic alcohol abuse, on CIWA protocol. MVM, folic acid, B12. 7. Tobacco dependence, encourage smoking cessation. Nicotine replacement patch. 8. COPD, in no acute exacerbation. On Albuterol and DuoNeb aerosols, incentive spirometer. 9. Bipolar disorder, depression, needs to follow-up in outpatient, on trazodone , Zoloft. No QTC prolongation. 10. Severe protein calorie malnutrition, ruled out from nutrition notes, on nutritional supplements for poor po intake, Nutrition consulted. 11. DVT prophylaxis-SCDs, heparin subcu - patient has been refusing. 12. Discharge planning: Case management working on SNF placement. Code Visit Inpatient E&M: 31104 Subs Hosp L3
--- NOTE | 2017-11-20 17:16 | CASEMGMT ---
Addendum entered by Julieta Juarez 11/21/17 07:57: As per pt's fried Su, pt is not legally to Gabi, though she refers to herself as pt's . LIZZETTE Jay, ADMISSIONS SPECIALIST Original Note: Pt's brother Jose and friend Su came in to see pt. Pt's brother brought in a Medicare card that appears to be active, said he found it in pt's wallet. SW will check w/our financial dept tomorrow. Brother Jose is asking about POA/LW papers. SW spoke w/pt, Jose and friend Su in the room. SW explained to pt's brother that the pt is the one to complete the POA forms, saying who he would want to make medical decisions for him if he cannot make them for himself. Pt's brother interrupted this SW and talked over this SW multiple times, it does not seem pt's brother fully understand that the pt needs to complete these forms, not him. SW again explained he does not need to be here, SW will speak w/pt tomorrow about POA. SW also told pt if he truly has Medicare, we should be able to get him into a longterm under Medicare. Pt's brother asked about Medicare and Medicaid, SW attempted to explain however, again pt's brother interrupted SW multiple times, it is not certain pt's brother does have an understanding of the medical insurance. SW will follow up w/pt about LW/POA tomorrow, and w/our financial dept to verify pt's Medicare. LIZZETTE Jay, ADMISSIONS SPECIALIST
[2017-11-20 17:18] LABS: Hep C Antibodies 0.5 s/co ratio (0.0-0.9)
[2017-11-20] MEDS: Morphine 2 MG/ML Syringe 1 MG IV (18:39)
[2017-11-21] VITALS (12 sets, daily range): BP systolic 131–148; BP diastolic 74–98; PULSE 107–137; RESP 16–22; TEMP 36.9–37.1; O2SAT 91–95
--- NOTE | 2017-11-21 | FLU_PTH ---
PATIENT: HERNAN GUTIERREZ Jr. LOC: [facility] U#:[id number] AGE/SX: 62/M ROOM: [facility] RE11/08/[address]: Dr. Danielito Patel DO : 1955 BED: 1 DIS: 11/21/2017 SPEC #: [id number] RECD: 11/21/17 09:12 STATUS: ULISES JUDI #: [id number] JOSE: 11/21/17 00:[address]: Danielito Patel DEPT: CYTOLOGY RECD BY: Hernan Trinidad ENTERED: 11/21/17 11:32 SP TYPE: Fluid OTHR DR: MD Dr. Yao Castro DO Dr. Juan Miguel Proano, MD No Primary Care Phys Tissues: PARACENTESIS FLUID Procedures: Pap Stain (control) Special Stain Group II Surgery Specimen Level IV Cell Block Cytospin Fluid HEADER OPERATION: Ultrasound-guided right paracentesis PRE-OP DIAGNOSIS: Severe sepsis, perineal infection, hyponatremic TISSUE SUBMITTED: Paracentesis fluid for cytology DIAGNOSIS CYTOLOGY Paracentesis fluid for cytology (cytospin and cell block): Negative for malignant cells. Acute inflammation. See cytology study and comment. SJ:rg 11/24/17 COMMENT Please make reference to previous specimen ([id number]), paracentesis fluid for cytology with diagnosis of marked acute inflammation and negative for acid fast bacilli and fungal organisms. CYTOLOGY STUDY Slides are reviewed. The specimen predominantly consists of neutrophils, a few macrophages and mesothelial cells. CYTOLOGY GROSS Received is 115 ml of cloudy divya fluid labeled with the patient's name and and designated per the requisition as paracentesis. Submitted for cytology preparation including cell block. 11/21/17 TC:2 CPT: 18095, 69299
[2017-11-21] MEDS: 0.9% NaCl PICC Flush IV ×2 (05:01→06:39)
[2017-11-21 05:26] LABS: International Normalized Ratio 1.5; Prothrombin Time (Protime)PT. 17.9 SECONDS (11.7-14.9)
[2017-11-21 05:33] LABS: ALB/GLOB Ratio 0.4 RATIO (0.9-2.4); AST(SGOT) 36 U/L (15-37); Alanine Aminotransfer ALT/SGPT 20 U/L (16-61); Albumin, Serum 1.3 g/dL (3.2-5.0); Alkaline Phosphatase 172 U/L (45-117); Anion Gap 8 (5-15); BUN 23 mg/dL (7-18); BUN/Creat Ratio 22.8 RATIO (10-20); Calcium,Total 7.5 mg/dL (8.5-10.1); Chloride 107 mmol/L (98-107); Creatinine, Serum 1.01 mg/dL (0.70-1.30); EST Glomerular Filtration Rate 80 mL/min (>60); Est Glom Filt Rate - Afr Amer 97 mL/min (>60); Estimated Creatinine Clearance 75.25 ml/min; Globulin 3.3 g/dL (2.2-4.2); Glucose 109 mg/dL (74-106); Potassium 3.6 mmol/L (3.5-5.1); Protein, Total 4.6 g/dL (6.4-8.2); Sodium Level 144 mmol/L (136-145)
--- NOTE | 2017-11-21 08:36 | NURSING ---
per dr. maya, okay to hold morning meds due to NPO status
[2017-11-21] MEDS: Menthol/Lanolin/Calamine/Znox 113 GM Tube 1 APPLIC TOPICAL ×2 (09:47→14:15)
[2017-11-21 09:56] LABS: Pathologist Comment/Body Fluid Reviewed
[2017-11-21 10:04] LABS: Protein, Body Fluid 1.5 g/dL (Not Establ.)
--- NOTE | 2017-11-21 11:14 | NURSING ---
Bilateral buttocks/scrotal areas all continue to be improving. will continue current treatment. Pt awaiting residential placement.
--- NOTE | 2017-11-21 13:42 | CASEMGMT ---
Addendum entered by Julieta Juarez 11/21/17 14:47: SW faxed all discharge paperwork including hospital exemption to [facility]. SW did let physician know pt's brother's concerns, physician states pt is ready for discharge. SW set up an ambulance for 5:30pm. SW let pt, RN, and [facility] know the time of transport. SW did let Shirley at [facility] know also about the brother's concerns, and gave her Gabi's number as well as a contact for pt. SW did ask pt if he would like SW to call Gabi, he states he would. SW called Gabi, states they were common law in the state of [place]. They have two daughters together, and they are on their way here from [place] right now. FELIPA explained that pt is going to [facility] today, gave her all of the information for [facility]. Gabi explains that they want to take pt to a fpc in [place]. FELIPA explained that pt is very weak at present and needing the assist of two people, he may not be able to travel right now. FELIPA explained it may make more sense for pt to get a little stronger and then work w/[facility] to get pt transferred to a facility in [place]. Gabi states understanding. They will go see pt at [facility] today. F[facility]IPA did let [facility] know about family coming in to visit pt at [facility] and wanting to take pt to [place]. SW also let pt know that family is coming to visit and will see him at [facility]. No further needs anticipated. Pt to [facility] today. LIZZETTE Jay, AUDIO VISUAL AIDS DIRECTOR Original Note: Pt's Medicare insurance is verified and active. SW spoke w/pt in regard to going to a rehab facility, pt is agreeable to [facility]--who was willing to accept pt last week when pt did not have insurance. SW asked pt about completing POA forms, pt does not want to complete them at this time. SW did let pt know that when he would like to complete the papers, he can put whomever he would like as POA, it does not have to be his brother. Pt states understanding. SW explained will call [facility] and see if they can take pt. Physician is concerned pt may need to have another paracentesis by next week. FELIPA called [facility], spoke w/Shirley. FELIPA let Shirley know pt has verified Medicare, and also gave her the pending Medicaid number. SW faxed clinical updates. Shirley from [facility] called back and said they can take pt today. FELIPA did also ask if pt can see a psychiatrist at [facility], Shirley states that they do have a psychiatrist that comes to [facility]. FELIPA spoke w/pt, pt is agreeable to go to [facility] today. SW asked pt if he would like FELIPA to call his brother, pt is agreeable to this. FELIPA called pt's brother, SW explained that pt can go to [facility] today for rehab. Pt's brother then told this SW that this SW is nice and evil, and that this SW is coercing pt into going to the fpc. SW explained that pt is agreeable to go to the fpc. Pt's brother said he needs to talk to the doctor, states pt has a touch of pneumonia. SW explained that pt does not have pneumonia as per physician. Pt's brother then states that pt was choking yesterday. SW explained that pt has been cleared to eat. SW explained that as per the doctor, pt is stable to go to the fpc today. SW explained pt is too weak and can't walk, cannot go home. Pt's brother states pt has water on the brain or something. SW explained that pt is able to make his own decisions. Pt's brother asked also about POA forms, and SW explained that pt does not want to fill out the forms today. Pt's brother again states that the SW is nice and evil and that the SW works for the hospital and only cares about the hospital. Pt's brother states he will be calling his statistical geneticist, also states pt's is on her way here. FELIPA spoke w/pt again, SW let pt know called his brother and his brother is upset pt is going to a fpc today. Pt is still in agreement with going to [facility] today. SW explained will let pt know what time he is set up. SW will continue to follow. LIZZETTE Jay, AUDIO VISUAL AIDS DIRECTOR
--- NOTE | 2017-11-21 14:07 | PCM.TXEXTCAR ---
- Diet 11/21/17 11:55 Diet: Regular Diet Food consistency:: Puree Liquid Consistency:: Honey Thick Dietary Modifications:: Pureed Diet Honey Thick Liquids Is pt able to select menu?: No Diet Comments: Supervision; seated upright in chair, meds crushed in applesauce - Routine Orders/Code Status Routine Lab Work: BMP - on 11/23/17 - Wound(s) buttocks/scrotum Wound Type: incontininence associated dermatitis Lt inner groin/thigh Wound Type: Pressure Injury rt lower abd paracentesis Wound Type: Puncture - Therapies Weight Bearing: Full weight bearing Physical Therapy: Eval and Treat Occupational Therapy: Eval and Treat Speech Therapy: Eval and Treat - Problem/Diagnosis (1) Hyponatremia Status: Acute Current Visit: Yes (2) Alcohol abuse Status: Chronic Current Visit: Yes (3) Tobacco dependence Status: Chronic Current Visit: Yes (4) COPD (chronic obstructive pulmonary disease) Status: Chronic Current Visit: Yes (5) Severe sepsis Status: Acute Comment: E.coli bacteremia Current Visit: Yes (6) Depression Status: Acute Current Visit: Yes - Allergies/Procedures Done in Hospital Allergies/Adverse Reactions: Allergies No Known Allergies Allergy (Verified 11/08/17 13:37) Procedures: Paracentesis - suspected to be secondary to liver disease - Type of Care/Length of Stay Estimated LOS: Convalescent Care Less Than 30 days Type of Care Needed: Skilled Rehab Potential: Fair Prognosis: Fair - Additional Orders/Day of Discharge H&P will serve as current which was dated: 11/08/17 Day of Discharge: 11/21/17 - Dietary and Speech Recommendations Dietitian Recommendations/Changes: Rec continue Regular diet with modified textures/consistencies per ENGINEERING EXECUTIVE. Rec 1 pkt Jacob BID for improved wound healing. Continue Ensure Clear on medpass. - Follow Up Care Primary Care Physician: Care Physician,No Primary [Primary Care Provider] -
--- NOTE | 2017-11-21 15:32 | US_ITS ---
PROCEDURE: Ultrasound guided paracentesis. DATE OF EXAMINATION: November 21, 2017. INDICATION: Male, 62 years old. Ascites. PHYSICIAN: Kam Hicks M.D. TECHNIQUE: The risks, benefits, and alternatives to the procedure were explained to the patient. The specific risks of bleeding, infection, and damage to bowel were detailed and accepted. Witnessed informed consent was obtained. The abdomen was ultrasonographically surveyed. An appropriate pocket of fluid was identified at the right lower quadrant. The skin were cleaned and prepped in the usual sterile fashion. Using ultrasound guidance, the peritoneal cavity was accessed with a 5-Armenian paracentesis needle/catheter system. The trocar was removed. A total of 3870 ml of divya-colored fluid were removed from the peritoneal cavity. The catheter was removed and a sterile dressing was applied. The procedure was well tolerated. US/Paracentesis with US IMPRESSION: Ultrasound guided paracentesis. Electronically Signed: Kam Hicks MD at 10:46 EDT Tel [phone], Service support ,
--- NOTE | 2017-11-21 16:40 | RAD_ITS ---
STUDY: X-RAY CHEST REASON FOR EXAM: Male, 62 years old. Shortness of breath TECHNIQUE: Frontal view of the chest COMPARISON: 11/20/2017 FINDINGS: There is a right-sided PICC line with its tip in the superior vena cava. When compared with the prior exam, there is improved aeration at the lung bases. There are no focal infiltrates. There are no pleural effusions. There is no pneumothorax. The heart is normal in size. The visualized osseous structures are within normal limits. RAD/Chest 1 View (Portable) IMPRESSION: No acute thoracic pathology. Electronically Signed: Tan Dubon, at 17:07 EDT Tel , Service support ,
[2017-11-21] MEDS: Propranolol 10 MG Tablet 20 MG PO (16:42)
[2017-11-21] MEDS: Furosemide 20 MG/2 ML VIAL IV (16:42)
--- NOTE | 2017-11-23 18:43 | PCM.DC.SUM ---
Discharge Date and Diagnosis - Problem List Patient Problems: Active and Suspected Problems Altered mental status (Acute) Sepsis (Acute) Aspiration pneumonia (Acute) Date of Admission: 11/08/17 Date of Discharge: 11/21/17 - Primary Discharge Diagnosis Active and Suspected Problems #1 severe sepsis secondary to E. coli from cellulitis of the buttocks #2 cellulitis of the buttocks due to E. coli, Proteus mirabilis, Bacteroides, and corynebacterium #3 alcohol withdrawal #4 chronic alcoholism #5 oropharyngeal dysphasia #6 depression #7 generalized debility #8 ascites secondary to suspected liver cirrhosis #9 suspected liver cirrhosis secondary to chronic alcoholism #10 self-neglect #11 chronic obstructive pulmonary disease #12 bipolar disorder by history #13 severe caloric and protein malnutrition #14 hyponatremia - Secondary Discharge Diagnosis Chronic Problems Alcohol abuse (Chronic) Tobacco dependence (Chronic) COPD (chronic obstructive pulmonary disease) (Chronic) Bipolar disorder (Chronic) Hospital Course and Treatment Operations: None Procedures: 2-D Echocardiogram, Paracentesis Summary of Care Provided: The patient is a 62 year old M who was seen in the emergency room at [facility] [place] after being brought in from his home with generalized weakness and severe excoriation of his buttocks region from lying in his own stool after drinking alcohol for many days. Patient was alert on presentation to the emergency room and stated that he had a history of bipolar disorder and COPD, he complained of pain from the ulcerated areas on his buttocks. Workup in the emergency room showed his sodium to be low at 117, white count was elevated at 12.5, chloride was low at 79, lactic acid was elevated at 3.6. Patient's bilirubin was elevated at 3, his alkaline phosphatase was elevated at 178 and his AST was 47. Chest x-ray showed no acute cardiopulmonary process. Patient was felt to be in severe sepsis from cellulitis of his buttocks, patient's buttocks area was excoriated with multiple shallow ulcerations present. Patient was admitted to ICU, placed on IV antibiotics, and seen by critical care. Patient also had alcohol withdrawal during his admission, blood cultures grew out E. coli, wound cultures grew out E. coli, Proteus, corynebacterium, and Bacteroides. Patient underwent a full course of treatment with IV antibiotics. Patient had a prolonged hospitalization and was finally transferred to PCU. He underwent to paracentesis with removal of over 3 L of fluid each time, this was felt to be secondary to probable cirrhosis from alcoholic liver disease. Patient was seen by PT and OT and it was recommended that he go to an extended care facility for rehab at the time of discharge from the hospital. Patient's brother was contacted by director social service but refused to fill out paperwork to become the patient's POA, I had discussions with the patient about going to an extended care facility for rehab and the patient was agreeable to this. Patient was seen by speech therapy who initially felt he was safe to eat, the next day, speech therapy felt that he was not safe to eat, and finally, on the day the patient was discharged to the extended care facility on 11/23/17, speech therapy felt the patient was safe for a honey thickened pur?ed diet. Chest x-ray was done on 11/23/17 which showed no acute thoracic pathology. On that date, I evaluated the patient and the patient appeared to be stable for discharge to the extended care facility although he was weak from deconditioning. On 11/23/17, patient was seen and examined felt to be in stable condition for discharge to an extended care facility for further snf Medications: Medications to take at Discharge Clotrimazole [Lotrimin] 1 applicatio TOPICAL BID tube 11/21/17 Famotidine [Pepcid] 20 mg PO BID tablet 11/21/17 Folic Acid 1 mg PO DAILY@0800 tablet 11/21/17 Ipratropium/Albuterol Sulfate [Duoneb] 3 ml INHALATION 4X/DAY #1 ampul.neb 11/21/17 Menthol/Lanolin/Calamine/Znox [Calmoseptine Ointment] 1 applic TOPICAL 4X/DAY tube 11/21/17 Multivitamins,Ther W-Minerals [Multivitamin With Minerals] 1 tablet PO DAILYCM tablet 11/21/17 Nicotine [Nicoderm Cq] 21 mg TRANSDERM. DAILY patch 11/21/17 Propranolol HCl [Inderal (Beta Anant)] 20 mg PO TID #1 tablet 11/21/17 Sertraline HCl [Zoloft] 50 mg PO DAILY tablet 11/21/17 Spironolactone [Aldactone] 25 mg PO BID #1 tablet 11/21/17 Thiamine Hydrochloride [Vitamin B1] 100 mg PO DAILYCM tablet 07/06/18 traZODone [Desyrel] 50 mg PO QHS tablet 11/21/17 Bisacodyl 10 mg RC DAILY PRN PRN 11/22/17 Magnesium Hydroxide [Milk Of Magnesia] 30 ml PO DAILY PRN PRN 11/22/17 Mineral Oil 1 bottle RC DAILY PRN PRN 11/22/17 Oxycodone [Oxyir] 5 mg PO Q4H PRN PRN 11/22/17 Following Prescrptions Were Given to Patient: Spironolactone [Aldactone] 25 mg PO BID #1 tablet Propranolol HCl [Inderal (Beta Anant)] 20 mg PO TID #1 tablet Ipratropium/Albuterol Sulfate [Duoneb] 3 ml INHALATION 4X/DAY #1 ampul.neb Primary Care Physician: Care Physician,No Primary [Primary Care Provider] - Disposition: Halfway facility Minutes spent on discharge:: 35 Patient Condition:: Stable Medical Necessity - Tobacco Use Smoking Status: Current every day smoker Tobacco Use: Cigarettes Meaningful Use Info Meaningful Use Diagnoses (Choose all that apply): None applicable Code Visit Inpatient E&M: 25401 Disch Hosp
--- NOTE | 2017-11-23 19:06 | DS.PCM_ITS ---
Discharge Date and Diagnosis - Problem List Patient Problems: Active and Suspected Problems Altered mental status (Acute) Sepsis (Acute) Aspiration pneumonia (Acute) Date of Admission: 11/08/17 Date of Discharge: 11/21/17 - Primary Discharge Diagnosis Active and Suspected Problems #1 severe sepsis secondary to E. coli from cellulitis of the buttocks #2 cellulitis of the buttocks due to E. coli, Proteus mirabilis, Bacteroides, and corynebacterium #3 alcohol withdrawal #4 chronic alcoholism #5 oropharyngeal dysphasia #6 depression #7 generalized debility #8 ascites secondary to suspected liver cirrhosis #9 suspected liver cirrhosis secondary to chronic alcoholism #10 self-neglect #11 chronic obstructive pulmonary disease #12 bipolar disorder by history #13 severe caloric and protein malnutrition #14 hyponatremia - Secondary Discharge Diagnosis Chronic Problems Alcohol abuse (Chronic) Tobacco dependence (Chronic) COPD (chronic obstructive pulmonary disease) (Chronic) Bipolar disorder (Chronic) Hospital Course and Treatment Operations: None Procedures: 2-D Echocardiogram, Paracentesis Summary of Care Provided: The patient is a 62 year old M who was seen in the emergency room at [facility] after being brought in from his home with generalized weakness and severe excoriation of his buttocks region from lying in his own stool after drinking alcohol for many days. Patient was alert on presentation to the emergency room and stated that he had a history of bipolar disorder and COPD, he complained of pain from the ulcerated areas on his buttocks. Workup in the emergency room showed his sodium to be low at 117, white count was elevated at 12.5, chloride was low at 79, lactic acid was elevated at 3.6. Patient's bilirubin was elevated at 3, his alkaline phosphatase was elevated at 178 and his AST was 47. Chest x-ray showed no acute cardiopulmonary process. Patient was felt to be in severe sepsis from cellulitis of his buttocks, patient 's buttocks area was excoriated with multiple shallow ulcerations present. Patient was admitted to ICU, placed on IV antibiotics, and seen by critical care. Patient also had alcohol withdrawal during his admission, blood cultures grew out E. coli, wound cultures grew out E. coli, Proteus, corynebacterium, and Bacteroides. Patient underwent a full course of treatment with IV antibiotics. Patient had a prolonged hospitalization and was finally transferred to PCU. He underwent to paracentesis with removal of over 3 L of fluid each time, this was felt to be secondary to probable cirrhosis from alcoholic liver disease. Patient was seen by PT and OT and it was recommended that he go to an extended care facility for rehab at the time of discharge from the hospital. Patient's brother was contacted by social insurance analyst but refused to fill out paperwork to become the patient's POA, I had discussions with the patient about going to an extended care facility for rehab and the patient was agreeable to this. Patient was seen by speech therapy who initially felt he was safe to eat, the next day, speech therapy felt that he was not safe to eat, and finally, on the day the patient was discharged to the extended care facility on 11/23/17, speech therapy felt the patient was safe for a honey thickened pur?ed diet. Chest x-ray was done on 11/23/17 which showed no acute thoracic pathology. On that date, I evaluated the patient and the patient appeared to be stable for discharge to the extended care facility although he was weak from deconditioning. On 11/23/17, patient was seen and examined felt to be in stable condition for discharge to an extended care facility for further [facility] Medications: Medications to take at Discharge Clotrimazole [Lotrimin] 1 applicatio TOPICAL BID tube 11/21/17 Famotidine [Pepcid] 20 mg PO BID tablet 11/21/17 Folic Acid 1 mg PO DAILY@0800 tablet 11/21/17 Ipratropium/Albuterol Sulfate [Duoneb] 3 ml INHALATION 4X/DAY #1 ampul.neb 11/21 Menthol/Lanolin/Calamine/Znox [Calmoseptine Ointment] 1 applic TOPICAL 4X/DAY tube 11/21/17 Multivitamins,Ther W-Minerals [Multivitamin With Minerals] 1 tablet PO DAILYCM tablet 11/21/17 Nicotine [Nicoderm Cq] 21 mg TRANSDERM. DAILY patch 11/21/17 Propranolol HCl [Inderal (Beta Anant)] 20 mg PO TID #1 tablet 11/21/17 Sertraline HCl [Zoloft] 50 mg PO DAILY tablet 11/21/17 Spironolactone [Aldactone] 25 mg PO BID #1 tablet 11/21/17 Thiamine Hydrochloride [Vitamin B1] 100 mg PO DAILYCM tablet 07/06/18 traZODone [Desyrel] 50 mg PO QHS tablet 11/21/17 Bisacodyl 10 mg RC DAILY PRN PRN 11/22/17 Magnesium Hydroxide [Milk Of Magnesia] 30 ml PO DAILY PRN PRN 11/22/17 Mineral Oil 1 bottle RC DAILY PRN PRN 11/22/17 Oxycodone [Oxyir] 5 mg PO Q4H PRN PRN 11/22/17 Following Prescrptions Were Given to Patient: Spironolactone [Aldactone] 25 mg PO BID #1 tablet Propranolol HCl [Inderal (Beta Anant)] 20 mg PO TID #1 tablet Ipratropium/Albuterol Sulfate [Duoneb] 3 ml INHALATION 4X/DAY #1 ampul.neb Primary Care Physician: Care Physician,No Primary [Primary Care Provider] - Disposition: Group Home facility Minutes spent on discharge:: 35 Patient Condition:: Stable Medical Necessity - Tobacco Use Smoking Status: Current every day smoker Tobacco Use: Cigarettes Meaningful Use Info Meaningful Use Diagnoses (Choose all that apply): None applicable Code Visit Inpatient E&M: 14372 Disch Hosp
== END 2017-11-21 18:29 | disposition skilled nursing facility (03) | DRG 871 ==
LOC: ED 13:30 → ICU 15:18 → PCU 11-10 16:13
PROVIDERS: Family Medicine; Internal Medicine; Nurse Practitioner Family; Physician Assistant; Admitting Provider Family Medicine; Emergency Provider Emergency Medicine; Visit Provider Internal Medicine
DX: A41.51 Sepsis due to Escherichia coli [E. coli] (principal); E43 Unspecified severe protein-calorie malnutrition; L03.317 Cellulitis of buttock; F10.239 Alcohol dependence with withdrawal, unspecified; E87.1 Hypo-osmolality and hyponatremia; R65.20 Severe sepsis without septic shock; B96.20 Unspecified Escherichia coli [E. coli] as the cause of diseases classified elsewhere; B96.4 Proteus (mirabilis) (morganii) as the cause of diseases classified elsewhere; B96.89 Other specified bacterial agents as the cause of diseases classified elsewhere; R13.12 Dysphagia, oropharyngeal phase; R53.81 Other malaise; K70.31 Alcoholic cirrhosis of liver with ascites; J44.9 Chronic obstructive pulmonary disease, unspecified; F31.9 Bipolar disorder, unspecified; Z68.24 Body mass index [BMI] 24.0-24.9, adult; F17.210 Nicotine dependence, cigarettes, uncomplicated; E86.9 Volume depletion, unspecified
CPT/HCPCS: 36415; 36569; 36600; 49083; 71045; 72193; 74018; 76705; 80048; 80053; 80074; 80202; 81001; 82550; 82803; 82945; 82962; 83605; 83615; 83630; 83735; 84100; 84157; 85025; 85610; 85730; 86900; 87040; 87070; 87075; 87076; 87077; 87086; 87186; 87205; 87493; 87506; 87640; 87641; 88108; 88305; 88312; 88313; 89050; 92526; 93005; 93306; 97110; 97162; 97166; 97530; 97535; 99251; 99285; J7030; J7040; J7050; P9017; Q9957; Q9967; A4216; C1751; G0463; J0295; J0610; J1940; J2405

== ENCOUNTER 2017-11-22 11:06 | Inpatient (IN) | payer MEDICARE, SELFPAY ==
[2017-11-22] VITALS (38 sets, daily range): BP systolic 67–113; BP diastolic 47–81; PULSE 84–115; RESP 16–37; TEMP 36.7–37.1; O2SAT 86–99; BMI 29.2; BMI 29.3
--- NOTE | 2017-11-22 11:27 | CT_ITS ---
STUDY: CT BRAIN WITHOUT CONTRAST REASON FOR EXAM: Male, 62 years old. Altered mental status, not answering appropriately per long term, eating bandaids. Recently hospitalized for sepsis, hx traumatic brain injury, paracentesis yesterday. RADIATION DOSAGE (If Supplied By Facility): CTDIvol = ( 44.99 ) mGy, DLP = ( 745.49 ) mGycm TECHNIQUE: Transaxial CT imaging of the brain was performed without administration of intravenous contrast material. Individualized dose optimization techniques were used for this CT. COMPARISON: None. FINDINGS: There is cerebral atrophy with widening of the extra-axial spaces and ventricular dilatation. There are areas of decreased attenuation within the white matter tracts of the supratentorial brain, consistent with microvascular disease changes. There is no intracranial hemorrhage. There are no findings of an acute ischemic infarction. Normal soft tissue structures. Normal visualized paranasal sinuses. CT/Brain/Head without Contrast IMPRESSION: Chronic involutional changes of the brain. Electronically Signed: Ian Mayer MD at 12:49 EDT Tel , Service support ,
--- NOTE | 2017-11-22 11:28 | EKG12_ITS ---
Test Reason : ALT LOC Blood Pressure : / mmHG Vent. Rate : 103 BPM Atrial Rate : 103 BPM P-R Int : 144 ms QRS Dur : 094 ms QT Int : 368 ms P-R-T Axes : 027 -29 030 degrees QTc Int : 482 ms Sinus tachycardia Low voltage QRS Nonspecific ST and T wave abnormality Abnormal ECG Confirmed by NISHANT JONES, CYNTHIA ([id number]), assistant film editor MARCY LOTT ([id number]) on 11/24/2017 3:22:09 PM Referred By: LI Confirmed By:CYNTHIA DILLARD MD
[2017-11-22 11:46] LABS: Absolute Lymphocyte Count 1.78 X10^3/ul (0.83-4.51); Absolute Neutrophil Count 16.1 X10^3/uL (2.0-7.7); Basophil# 0.02 X10^3/uL; Basophil% 0.1 % (0-1); Hematocrit 37.4 % (40-54); Hemoglobin 12.2 g/dl (13.0-16.5); International Normalized Ratio 1.5; Lymphocyte # 1.78 X10^3/ul (4.0); Lymphocyte % 9.4 % (19-41); Mean Corp Hgb Conc 32.6 g/gl (32-36); Mean Corpuscular Hgb 31.4 pg (27.0-32.0); Mean Corpuscular Volume 96.4 fL (80-94); Mean Platelet Vol. 9.8 fl (6.2-12.0); Monocyte# 1.11 X10^3/uL; Monocyte% 5.8 % (0-10); Neutrophil # 16.05 X10^3/uL (2.7-7.7); Neutrophil % 84.4 % (47-70); Platelet Count 199 K/mm3 (150-450); Prothrombin Time (Protime)PT. 18.1 SECONDS (11.7-14.9); RBC Distribution Width SD 59.5 fl (35.1-43.9); Red Blood Count 3.88 M/mm3 (4.6-6.2)
[2017-11-22 11:48] LABS: Differential Indicated SCAN CRITERIA MET; POSITIVE COUNT NO; POSITIVE DIFFERENTIAL NO; POSITIVE MORPHOLOGY YES
[2017-11-22 11:51] LABS: Alcohol, Blood (Medical)-Serum < 3.0 mg/dL
[2017-11-22 11:56] LABS: Lactic Acid 1.3 mmol/L (0.4-2.0)
[2017-11-22 11:59] LABS: ALB/GLOB Ratio 0.3 RATIO (0.9-2.4); AST(SGOT) 43 U/L (15-37); Alanine Aminotransfer ALT/SGPT 25 U/L (16-61); Albumin, Serum 1.2 g/dL (3.2-5.0); Alkaline Phosphatase 191 U/L (45-117); Anion Gap 8 (5-15); BUN 35 mg/dL (7-18); BUN/Creat Ratio 30.2 RATIO (10-20); Calcium,Total 7.8 mg/dL (8.5-10.1); Chloride 109 mmol/L (98-107); Creatinine, Serum 1.16 mg/dL (0.70-1.30); EST Glomerular Filtration Rate 68 mL/min (>60); Est Glom Filt Rate - Afr Amer 83 mL/min (>60); Estimated Creatinine Clearance 65.52 ml/min; Globulin 3.7 g/dL (2.2-4.2); Glucose 82 mg/dL (74-106); Lipase 179 U/L (73-393); Potassium 4.3 mmol/L (3.5-5.1); Protein, Total 4.9 g/dL (6.4-8.2); Sodium Level 145 mmol/L (136-145)
--- NOTE | 2017-11-22 12:10 | RAD_ITS ---
STUDY: X-RAY CHEST REASON FOR EXAM: Male, 62 years old. Cough TECHNIQUE: Single view of the chest was obtained COMPARISON: November 21, 2017 chest radiograph FINDINGS: Mild cardiomegaly with with ill-defined airspace opacities in the right lower lobe and subsegmental atelectasis not significant change since previous study. Noted. Overall findings have not significant progressed since previous examination. Right-sided PICC line noted with its tip atrium. Mild perihilar streaky opacities. No pneumothorax No significant change in lung findings since previous examination. Electronically Signed: Corky Liriano, at 12:35 EDT Tel , Service support , RAD/Chest 1 View (Portable)
--- NOTE | 2017-11-22 12:14 | ED.VISSUMM ---
- ER Visit Summary Date of Service: 11/22/17 Chief Complaint: [Altered mental status] History of Present Illness: The patient is a 62 M [who presents from a correction with altered mental status. He was discharged from the hospital after an episode of sepsis hyponatremia as well as ascites with paracentesis. Since then his mental status has been declining he had rapid shallow breathing and bizarre behavior such as eating Band-Aids. Patient is unable to provide any history. History is limited from the family. Physical Examination: [] Blood pressure 100/73 heart rate 106 respiratory rate 36 99% on nonrebreather WN WD NAD Old small amount of bruising around the left eye Pupils dilated and minimally reactive Dry mucous membranes with upper airway congestion NECK supple and nontender, no masses Regular tachycardic rhythm no murmur rub or gallop, weak radial strong carotid pulses symmetric bilaterally Tachypneic taking shallow respirations with scattered rhonchi in all lung deluca ABDOMEN is soft and nontender, normal bowel sounds, moderately distended with fluid wave, no rebound or guarding Scrotum is edematous and erythematous nontender no focal lesions SKIN is warm and dry no rashes Lethargic weak voice, diffusely weak following commands unable to comprehend verbal communications due to the weakness of his voice there does not appear to be any focal deficits No lymphadenopathy Test Results: [] Emergency Department Course and Treatment: [Patient is ill-appearing. He had recent sepsis. Sepsis workup was pursued in the emergency department. He did have evidence of heart strain with ST depressions in V2 and T-wave inversions in V3. Screening labs show increase in leukocytosis to 19. Chest x-ray shows a right lower lobe infiltrate. This does not appear significantly changed from his previous chest x-rays. He has been coughing while eating. There is a risk for aspiration. He also had paracentesis does not appear exquisitely tender of the abdomen but is at risk for spontaneous bacterial peritonitis. He has wounds of the sacrum. He was covered with broad-spectrum antibiotics. Blood pressure did drop to 84 systolic normal saline boluses were ordered at that time. Lactic acid was within normal limits. Ammonia was slightly high at 51. I do think the patient requires admission to the hospital. I suspect early sepsis. I spoke with the hospitalist who will admit the patient] Treatment Plan: [] Disposition: [Admit] Impression: [1. Sepsis 2. Alcoholic liver disease] This note was generated with [employer] [employer] dictation software. It may contain incorrect words, spelling, and punctuation that were not noted in review of the chart prior to signing ED Disposition - Plan for ED Patient: Chief Complaint: Alt LOC Referrals: Care Physician,No Primary [Primary Care Provider] -
--- NOTE | 2017-11-22 12:47 | CM.ED ---
Social Work Note Consulted by ED RN for concerns presented by daughter, Marcelle. Down to ED and per nursing Marcelle is in the waiting room. Wants to discuss medical decision making for her father as she expresses concerns with the brother making decisions. States that Marcelle is in the waiting room with her mother. Out to waiting room and no visitors present at this time. According to documentation from last visit the pt is able to make his own decisions. Unsure of who is allowing anyone else to make his decisions. Will attempt to follow-up with daughter, Marcelle, as time allows. Karis Cunha, MANAGER [employer], SCRIPT WORKER
[2017-11-22 12:54] LABS: Mucous, Urine 0 SEEN /hpf (<or=2+); White Blood Cells 0 SEEN /hpf (0-5)
--- NOTE | 2017-11-22 13:08 | HP.PCM_ITS ---
Problem List (1) Altered mental status Status: Acute (2) Sepsis Status: Acute (3) Aspiration pneumonia Status: Acute History of Present Illness Date of Admission: 11/22/17 Chief Complaint: altered mental status The patient is a 62 year old M with a history of chronic alcohol abuse with cirrhosis, bipolar disorder, depression, COPD, and severe protein calorie malnutrition. Patient was admitted from his [facility] on 11/22/2017 after he was brought to the [facility] ED on account of altered mental status. Patient had been on admission [facility] and was just discharged to the [facility] on 11/21/2017. Not much history could be obtained as patient was not very responsive. His daughter was by his bedside but she had just driven up from [place] and so cannot give much information. All she had been told by her mother who is the patient's partner was that she had spoken to him yesterday and he had been alert and oriented. Per discussion with the ED doctor, patient was brought in because of altered mental status and suspicion for aspiration. As mentioned he had been on admission after being managed for sepsis, and hyponatremia as well as ascites for which he received paracentesis. In the [facility] and admit noted that his mental status was declining and he had rapid shallow breathing and bizarre behavior such as eating Band-Aids. Unable to obtain any more history from patient relatives. On admission in the ED, temperature was 98.1, blood pressure was 100/73 and suddenly went down to 84/62, pulse rate was 106 and patient was breathing at 36 minute. Labs were significant for leukocytosis of 16.9. Brain MRI was negative. Patient is being admitted to be worked up for altered mental status. [] Past Medical History Past Medical History (Chronic Problems): Chronic Problems Alcohol abuse (Chronic) Tobacco dependence (Chronic) COPD (chronic obstructive pulmonary disease) (Chronic) Bipolar disorder (Chronic) Allergies No Known Allergies Allergy (Verified 11/22/17 11:14) Home Medications: Ambulatory Orders Medication Instructions Recorded Clotrimazole [Lotrimin] 1 applicatio TOPICAL BID tube 11/21/17 Famotidine [Pepcid] 20 mg PO BID tablet 11/21/17 Folic Acid 1 mg PO DAILY@0800 tablet 11/21/17 Ipratropium/Albuterol Sulfate 3 ml INHALATION 4X/DAY #1 ampul.neb 11/21/17 [Duoneb] Menthol/Lanolin/Calamine/Znox 1 applic TOPICAL 4X/DAY tube 11/21/17 [Calmoseptine Ointment] Multivitamins,Ther W-Minerals 1 tablet PO DAILYCM tablet 11/21/17 [Multivitamin With Minerals] Nicotine [Nicoderm Cq] 21 mg TRANSDERM. DAILY patch 11/21/17 Propranolol HCl [Inderal (Beta 20 mg PO TID #1 tablet 11/21/17 Anant)] Sertraline HCl [Zoloft] 50 mg PO DAILY tablet 11/21/17 Spironolactone [Aldactone] 25 mg PO BID #1 tablet 11/21/17 Thiamine Hydrochloride [Vitamin B1] 100 mg PO DAILYCM tablet 11/21/17 traZODone [Desyrel] 50 mg PO QHS tablet 11/21/17 Bisacodyl 10 mg RC DAILY PRN PRN 11/22/17 Magnesium Hydroxide [Milk Of 30 ml PO DAILY PRN PRN 11/22/17 Magnesia] Mineral Oil 1 bottle RC DAILY PRN PRN 11/22/17 Oxycodone [Oxyir] 5 mg PO Q4H PRN PRN 11/22/17 Surgical History: - - Hemorrhoidectomy. Psychiatric History: Bipolar, Depression Lives: Correction Smoking Status: Former smoker - *Family History Maternal History Items: Cancer, Diabetes, Heart Disease, Hypertension Paternal History Items: Cancer, Diabetes, Heart Disease, Hypertension Review of Systems Unable to obtain accurate/complete ROS d/t: altered mental status VTE Information - Inpt Only VTE Present on Admission: No VTE Mechan Device Prophylaxis: SCD's VTE Pharm Prophylaxis ordered?: Yes Patient Problems: Active and Suspected Problems Altered mental status (Acute) Sepsis (Acute) Aspiration pneumonia (Acute) - Physical Exam General: Confused, Disoriented HEENT: Atraumatic, EOMI, Normocephalic, - - pupils very dilated, and slugglishly responsive to light. Oral: Dry Mucosa Neck: Supple, No JVD, Negative Carotid Bruits Lungs: - - coarse crackles in upper lung deluca bilaterally; R>L Cardiovascular: Regular Rhythm, Normal S1, Normal S2, Tachycardic, - Abdomen: Bowel Sounds Present, Soft, Non Tender, Non-Distended, No Hepato- splenomegaly Extremities: No clubbing, No cyanosis, Capillary Refill Less than 3 Seconds, - - pitting edema of RLE. Edema of scrotum Skin: - - stabe 2 sacral decubitus ulcers Lymphatic: No Cervical, Supraclavicular, or Inguinal Adenopathy Neurological: Cranial nerves II-XII grossly intact, - - patient obtunded, GCS 7/ 15. Has mild asterixis of upper extremities. No visible mouth droop Psych/Mental Status: - - obtunded Vital Signs Temp Pulse Resp BP Pulse Ox 98.1 F 99 35 H 84/59 L 95 11/22/17 11:08 11/22/17 13:02 11/22/17 13:02 11/22/17 13:02 11/22/17 13:02 Oxygen Flow Rate (L/min) 10 Oxygen Delivery Method Non-Rebreather Weight: 192 lb 10.944 oz Body Mass Index (BMI) 29.2 Laboratory Tests Past 24 Hrs 11/22/17 11/22/17 11/22/17 11:15 11:15 11:15 WBC 19.0 H RBC 3.88 L Hgb 12.2 L Hct 37.4 L MCV 96.4 H MCH 31.4 MCHC 32.6 RDW 17.0 H RDW Differential 59.5 H Plt Count 199 MPV 9.8 Immature Gran % (Auto) 0.300 Neut % (Auto) 84.4 H Lymph % (Auto) 9.4 L Nicholas % (Auto) 5.8 Eos % (Auto) 0.0 Baso % (Auto) 0.1 Absolute Neuts (auto) 16.1 H Absolute Lymphs (auto) 1.78 Total Counted Not Reportable PT 18.1 H INR 1.5 Sodium 145 Potassium 4.3 Chloride 109 H Carbon Dioxide 28.0 Anion Gap 8 BUN 35 H Creatinine 1.16 Estim Creat Clear Calc 65.52 Est GFR (MDRD) Af Amer 83 Est GFR (MDRD) Non-Af 68 BUN/Creatinine Ratio 30.2 H Glucose 82 Lactic Acid Calcium 7.8 L Total Bilirubin 0.90 AST 43 H ALT 25 Alkaline Phosphatase 191 H Ammonia Troponin I 0.062 H Total Protein 4.9 L Albumin 1.2 L Globulin 3.7 Albumin/Globulin Ratio 0.3 L Lipase 179 Urine Color Urine Clarity Urine pH Ur Specific [place] Urine Protein Urine Glucose (UA) Urine Ketones Urine Occult Blood Urine Nitrite Urine Bilirubin Urine Urobilinogen Ur Leukocyte Esterase Urine RBC Urine WBC Ur Squamous Epith Cells Urine Bacteria Urine Mucus Ethyl Alcohol 11/22/17 11/22/17 11/22/17 11:15 11:15 11:45 WBC RBC Hgb Hct MCV MCH MCHC RDW RDW Differential Plt Count MPV Immature Gran % (Auto) Neut % (Auto) Lymph % (Auto) Nicholas % (Auto) Eos % (Auto) Baso % (Auto) Absolute Neuts (auto) Absolute Lymphs (auto) Total Counted PT INR Sodium Potassium Chloride Carbon Dioxide Anion Gap BUN Creatinine Estim Creat Clear Calc Est GFR (MDRD) Af Amer Est GFR (MDRD) Non-Af BUN/Creatinine Ratio Glucose Lactic Acid 1.3 Calcium Total Bilirubin AST ALT Alkaline Phosphatase Ammonia 51.0 H Troponin I Total Protein Albumin Globulin Albumin/Globulin Ratio Lipase Urine Color Urine Clarity Urine pH Ur Specific [place] Urine Protein Urine Glucose (UA) Urine Ketones Urine Occult Blood Urine Nitrite Urine Bilirubin Urine Urobilinogen Ur Leukocyte Esterase Urine RBC Urine WBC Ur Squamous Epith Cells Urine Bacteria Urine Mucus Ethyl Alcohol < 3.0 11/22/17 12:45 WBC RBC Hgb Hct MCV MCH MCHC RDW RDW Differential Plt Count MPV Immature Gran % (Auto) Neut % (Auto) Lymph % (Auto) Nicholas % (Auto) Eos % (Auto) Baso % (Auto) Absolute Neuts (auto) Absolute Lymphs (auto) Total Counted PT INR Sodium Potassium Chloride Carbon Dioxide Anion Gap BUN Creatinine Estim Creat Clear Calc Est GFR (MDRD) Af Amer Est GFR (MDRD) Non-Af BUN/Creatinine Ratio Glucose Lactic Acid Calcium Total Bilirubin AST ALT Alkaline Phosphatase Ammonia Troponin I Total Protein Albumin Globulin Albumin/Globulin Ratio Lipase Urine Color Pending Urine Clarity Pending Urine pH Pending Ur Specific [place] Pending Urine Protein Pending Urine Glucose (UA) Pending Urine Ketones Pending Urine Occult Blood Pending Urine Nitrite Pending Urine Bilirubin Pending Urine Urobilinogen Pending Ur Leukocyte Esterase Pending Urine RBC Pending Urine WBC Pending Ur Squamous Epith Cells Pending Urine Bacteria Pending Urine Mucus Pending Ethyl Alcohol Diagnostic Data Brain CT 11/22/17 11:27 IMPRESSION: Chronic involutional changes of the brain. Electronically Signed: Ian Mayer MD at 12:49 EDT Tel , Service support , Chest X-Ray 11/22/17 12:10 Assessment/Plan All Active Problems Hyponatremia (Acute) Severe sepsis (Acute) Depression (Acute) Altered mental status (Acute) Sepsis (Acute) Aspiration pneumonia (Acute) 8-year-old male with a history of chronic alcohol abuse with resultant cirrhosis status post paracentesis, bipolar disorder and depression. He was admitted by the ED on 11/22/2017 complaint of altered mental status from his [facility]. 1. Metabolic encephalopathy due to sepsis and medication induced * patient obtunded; Bonifacio Coma scale is 7/15. * will admit to ICU * aspiration precautions * keep NPO for now * given a dose of narcan, but it didnt help much with encephalopathy * will monitor RASS score now he is intubated * 2. Septic shock due to aspiration pneumonia * SIRS criteria- 3/4 (tachycardia, tachypnea, elevated white cell count) * Lactic acid is 1.3. * Chest x-ray showed mild cardiomegaly with ill-defined airspace opacities in the right lower lobe and subsegmental atelectasis not significant since previous study. Have him up in my review, there is questionable infiltrate in upper lungs bilaterally perhaps more so in right upper lung field. * very tachypneic, saturating at 99%on 8L of oxygen by nonrebreather mask * per documentation from previous admission, patient was also tachypneic during his admission for which was discharged just yesterday. * Aspiration precautions. Maintain oxygen to keep saturation above 92% * Will get pulmonary medical care consult. * Speech therapy to evaluate for swallowing. Will keep n.p.o. until then. * Received IV fluid bolus of 1 L in the ED. Will continue with IV fluids normal saline at 1 50 cc/h * Has PICC line in place right upper extremity. * blood pressure ~ 60s-70s systolic. Will start levophed drip to maintain MAP> 65 * will start IV vancomycin and IV zosyn * 3. Acute hypercapnic and hYpoxic respiratory failure due to aspiration pneumonia * was Saturating 98% on 10 L of oxygen. Baseline he is not on oxygen. Breathing around 36/min. * on admission in ICU, rapid response called because patient became bradycardic. * blood gas done showed pH of 7.09 with PCO2 of 87 and PO2 of 136, indicating respiratory acidosis * patient emergently intubated; thick, brownish fluid visualised in airway. * ventilator settings; AC/VC with TV of 450mls, RR-20, PEEP-10, 100% oxygen * to get blood gas after ~ 30 mins on ventilator to assess response * pulmonology consulted * will monitor RASS score. Pain control with fentanyl 4. CIrrrhosis with ascites s/p paracentesis * had USG guided paracentesis on 11/21/17 drainage of 3.87L. Abdomen is soft and nontender. Spontaneous bacterial peritonitis is low on my list of differentials as he has no tenderness whatsoever in the abdomen. There is also an obvious focus of infection with the crackles in his lung field. * On spironolactone and beta-anant. Also furosemide. Will hold in light of septic shock * BP is in the 80s, but MAP is 70. WIll target for MAP of >65; due to cirrhosis and ascites, patient's BP will run low, so will just monitor for now. * 5. Depression and bipolar disorder: on trazodone. will hold o/a of metabolic encephalopathy 6. Severe protein calorie malnutrition: We will consult nutrition. Currently NPO 7. COPD: intubated for hypoxic, hypercapnic respiratory failure. 8. DVT prophylaxis: heparin. Platelets WNL 9. GI prophylaxis: famotidine 10. Code status: * FUll code. I spent 30 minutes counselling family about code status. Daughter Lori is his next of kin. Has a common law partner, and brother who are involved in his care. Extensive discussion with daughter was the family, patient is to remain full code. This note was generated with XMLAWation software. It may contain incorrect words, spelling, and punctuation that were not noted in checking the note before signing. Code Visit Inpatient E&M: 43841 Init Hosp L3 Procedures: 24321 Insert Emergency Airway
[2017-11-22] MEDS: Aspirin 300 MG Suppository RECTAL (13:10)
[2017-11-22 13:19] LABS: Color, Urine Yellow (Yellow); Glucose, Dipstick Normal (Normal); Ketone-Dipstick Negative (Negative); Leukocyte Esterase-Dipstick Negative /ul (Negative); Nitrite-Dipstick Negative (Negative); Occult Blood-Urine 150 /ul (Negative); Protein-Dipstick 15 mg/dl (Negative); Urine Bilirubin Dipstick 1 mg/dL (Negative); Urine Clarity Sl. Cloudy (Clear); Urine Urobilinogen Normal (Normal)
[2017-11-22 13:23] LABS: Amorphous Sediment 1+; Bacteria 1+ /hpf (None Seen); Hyaline Cast 10-25 SEEN /lpf (0-5); Red Blood Cells-Urine 5-10 SEEN /hpf (0-5); Squamous Epithelial Cells - UA 0-5 SEEN /hpf (0-5)
[2017-11-22] MEDS: 0.9% Normal Saline 1,000 ML 999 ML IV (14:11)
[2017-11-22] MEDS: Naloxone 0.4 MG/ML Syringe IV (14:50)
--- NOTE | 2017-11-22 15:10 | NURSING ---
Pt admitted to ICU 6 from ED. On initial presentation patient had eye open and looking around room but quickly became more difficult to arouse. Pt was observed to have agonal respirations on 100% NRB Dr Gaby danielson. Dr cano notified of consult and orders were received for an ABG and subsequently bipap was attempted. Pt did not tolerate bipap and began having bradycardia into 30's but spontaneously returned back to 90's. See [facility]GE[facility] papers for further documentation.
--- NOTE | 2017-11-22 15:17 | RAD_ITS ---
STUDY: X-RAY CHEST REASON FOR EXAM: Male, 62 years old. ET tube placement TECHNIQUE: Single view of the chest was obtained COMPARISON: November 22, 2017 chest radiograph FINDINGS: Endotracheal tube is seen with its tip lying approximately 4 cm above the edd. Cardiac size mildly enlarged. Patchy reticulonodular opacities noted including the right lower lobe. Gaseous distention of the stomach seen. Right-sided PICC line is noted with its tip near the cavoatrial junction IMPRESSION: Endotracheal tube with its tip lying approximately 4 cm above the edd. Electronically Signed: Corky Liriano, at 15:53 EDT Tel , Service support , RAD/Chest 1 View (Portable)
--- NOTE | 2017-11-22 15:35 | RAD_ITS ---
STUDY: X-RAY - ABDOMEN/PELVIS REASON FOR EXAM: Male, 62 years old. Orogastric tube placement TECHNIQUE: Single view of the abdomen was obtained COMPARISON: None. FINDINGS: Orogastric tube is noted with its tip in the stomach. Gaseous distention of bowel loops is seen. Degenerative changes in the thoracic spine as well as the lumbar spine the visualized segments. IMPRESSION: Satisfactory positioning of the orogastric tube in the stomach. Electronically Signed: Corky Liriano, at 15:49 EDT Tel , Service support , RAD/Abdomen Single View (Portable)
[2017-11-22 15:51] LABS: Allen Test POS; Base Excess -3 mmol/L (-2 to +2); Bicarbonate 26.6 mmol/L (22-26); Blood Gas Specimen Type ART; O2 Delivery Device NRB Mask; PO2 136 mmHG (75-100); SITE L Radial; SO2 97 % (95-99); Time Given 1453; Total Carbon Dioxide 29 mmol/L; pH 7.09 (7.35-7.45)
[2017-11-22 16:25] LABS: Allen Test POS; Base Excess 1 mmol/L (-2 to +2); Bicarbonate 27.2 mmol/L (22-26); Blood Gas Specimen Type ART; FI02 100; Mode A-C; O2 Delivery Device Vent; PEEP 5; PO2 286 mmHG (75-100); RR 20; SITE L Radial; SO2 100 % (95-99); Time Given 1621; Total Carbon Dioxide 29 mmol/L; Vt 450; pCO2 56.2 mmHg (35-45); pH 7.29 (7.35-7.45)
[2017-11-22] MEDS: Menthol/Lanolin/Calamine/Znox 113 GM Tube 1 APPLIC TOPICAL ×2 (17:00→21:13)
[2017-11-22] MEDS: Heparin Injection (Vial) 5,000 UNIT/ML VIAL 5000 UNIT SC ×2 (17:02→21:14)
[2017-11-22] MEDS: Piperacil/Tazobactam 3.375 GM/50 ML ML IV ×2 (17:03→21:15)
[2017-11-22 18:25] LABS: CPK Total, Creatine Kinase 5234 U/L (39-308); Triglycerides 1496 mg/dL
[2017-11-22] MEDS: Albuterol 2.5 MG/3 ML VIAL.NEB. INHALATION ×2 (18:38→22:44)
[2017-11-22 18:48] LABS: M R Staph aureus DNA By PCR Negative (Negative); Probe Check PASS; Specimen Processing Control PASS
--- NOTE | 2017-11-22 18:49 | PCM.RX.CS ---
Consult Pharmacy has been consulted to manage selected antiobiotic: Vancomycin Type of Consult: New start Suspected Infection: Sepsis Prior Doses of Antibiotics Received/Current Regimen: VANCOMYCIN 1250MG IV X1 IN ED 11/22/17@1343 Labs: Sodium 145 mmol/L (136-145) 11/22/17 11:15 Potassium 4.3 mmol/L (3.5-5.1) 11/22/17 11:15 Chloride 109 mmol/L (98-107) H 11/22/17 11:15 Carbon Dioxide 28.0 mmol/L (21.0-32.0) 11/22/17 11:15 Anion Gap 8 (5-15) 11/22/17 11:15 BUN 35 mg/dL (7-18) H 11/22/17 11:15 Creatinine 1.16 mg/dL (0.70-1.30) 11/22/17 11:15 Est GFR (MDRD) Af Amer 83 mL/min (>60) 11/22/17 11:15 Est GFR (MDRD) Non-Af 68 mL/min (>60) 11/22/17 11:15 BUN/Creatinine Ratio 30.2 RATIO (10-20) H 11/22/17 11:15 Glucose 82 mg/dL (74-106) 11/22/17 11:15 Weight used for dosin.4 kg Estimated Creatinine Clearance: 65ML/MIN Goal Trough: 15-20 mcg/mL Pharmacy Plan for Drug Dosing: PLAN/RECOMMENDATIONS 1. Vancomycin 1000mg IV Q12hrs to start 11/23/17 @0200 2. Trough scheduled 11/24 @0130 9Prior to 4th total dose) 3. Pharmacy Service will continue to monitor and adjust dosing as required.
[2017-11-22] MEDS: Spironolactone 25 MG Tablet PO (21:12)
[2017-11-22] MEDS: Chlorhexidine 15 ML PO (21:13)
[2017-11-22] MEDS: Famotidine 20 MG Tablet GT (21:14)
[2017-11-23] VITALS (59 sets, daily range): BP systolic 69–122; BP diastolic 48–77; PULSE 89–128; RESP 14–32; TEMP 36.6–37.9; O2SAT 83–98
[2017-11-23 01:56] LABS: Bedside Glucose 87 mg/dL (70-110)
[2017-11-23] MEDS: Albuterol 2.5 MG/3 ML VIAL.NEB. INHALATION ×2 (02:18→06:57)
[2017-11-23 04:04] LABS: Hematocrit 35.9 % (40-54); Mean Corp Hgb Conc 33.4 g/gl (32-36); Mean Corpuscular Hgb 31.7 pg (27.0-32.0); Mean Platelet Vol. 10.2 fl (6.2-12.0); Platelet Count 288 K/mm3 (150-450); RBC Distribution Width SD 57.3 fl (35.1-43.9); Red Blood Count 3.78 M/mm3 (4.6-6.2); White Blood Count 24.1 K/mm3 (4.4-11.0)
[2017-11-23 04:13] LABS: Scan Indicated on CBC? Y/N NO
[2017-11-23 04:23] LABS: Anion Gap 11 (5-15); BUN 47 mg/dL (7-18); BUN/Creat Ratio 27.5 RATIO (10-20); Calcium,Total 7.5 mg/dL (8.5-10.1); Chloride 109 mmol/L (98-107); Creatinine, Serum 1.71 mg/dL (0.70-1.30); EST Glomerular Filtration Rate 44 mL/min (>60); Est Glom Filt Rate - Afr Amer 53 mL/min (>60); Estimated Creatinine Clearance 44.44 ml/min; Glucose 105 mg/dL (74-106); Potassium 4.4 mmol/L (3.5-5.1); Sodium Level 144 mmol/L (136-145)
[2017-11-23 05:41] LABS: Bedside Glucose 104 mg/dL (70-110)
--- NOTE | 2017-11-23 06:15 | CON.PCM_ITS ---
Reason for Consult Date of Consultation: 11/23/17 Reason for Consultation: Septic shock and acute respiratory failure History of Present Illness: The patient is a 62-year-old male, with a history as outlined below, who presented to the emergency department on November 22 from a snf facility with encephalopathy and hypoxia. The patient was recently admitted to the hospital, beginning on November 08, during which time he was in the intensive care unit with severe sepsis secondary to gram-negative bacteremia and extensive perineal soft tissue infection. The patient was transferred to an extended care facility on November 21. At the time of his discharge from the hospital, he was noted to have failed a swallow evaluation by speech therapy, who was concerned that the patient was aspirating. The last documentation by the hospitalist on November 20 reported but the patient appeared lethargic. History pertinent to this hospitalization was very limited, as the patient is currently intubated and sedated. The patient is an alcoholic and typically consumes between 12 and 13 beers per day. He is also a smoker of 1 pack of cigarettes daily. On presentation to the emergency department, the patient was noted to be afebrile, tachycardic and hemodynamically stable. Per documentation, the patient was tachypneic with respiratory rates in the 30s and requiring a nonrebreather. Laboratory evaluation revealed an elevated white blood cell count to 19,000. INR was within normal limits at 1.5. Initial arterial blood gas revealed a pH of 7.09, PCO2 of 87 and PO2 of 136. Chemistry profile was initially unremarkable. Serum lactate was 1.3. AST was mildly elevated at 43. Alkaline phosphatase was increased to 191 with a corresponding ammonia level of 51. Troponin was elevated to 0.062. A total CK level was increased to 5234 with an elevated triglyceride level at 1496. The patient received supplemental IV fluid hydration along with antibiotics. He was subsequently transferred to the medical intensive care unit for ongoing management. Upon arrival to the intensive care unit, nursing staff reported agonal respirations and severely decreased mentation. The patient did require emergent intubation for airway protection. Despite being adequately volume resuscitated, the patient remained hypotensive, necessitating the initiation of Levophed to maintain hemodynamic stability. Past Medical History Past Medical History (Chronic Problems): Chronic Problems Alcohol abuse (Chronic) Tobacco dependence (Chronic) COPD (chronic obstructive pulmonary disease) (Chronic) Bipolar disorder (Chronic) Allergies No Known Allergies Allergy (Verified 11/22/17 11:14) Home Medications: Ambulatory Orders Medication Instructions Recorded Clotrimazole [Lotrimin] 1 applicatio TOPICAL BID tube 11/21/17 Famotidine [Pepcid] 20 mg PO BID tablet 11/21/17 Folic Acid 1 mg PO DAILY@0800 tablet 11/21/17 Ipratropium/Albuterol Sulfate 3 ml INHALATION 4X/DAY #1 ampul.neb 11/21/17 [Duoneb] Menthol/Lanolin/Calamine/Znox 1 applic TOPICAL 4X/DAY tube 11/21/17 [Calmoseptine Ointment] Multivitamins,Ther W-Minerals 1 tablet PO DAILYCM tablet 11/21/17 [Multivitamin With Minerals] Nicotine [Nicoderm Cq] 21 mg TRANSDERM. DAILY patch 11/21/17 Propranolol HCl [Inderal (Beta 20 mg PO TID #1 tablet 11/21/17 Anant)] Sertraline HCl [Zoloft] 50 mg PO DAILY tablet 11/21/17 Spironolactone [Aldactone] 25 mg PO BID #1 tablet 11/21/17 Thiamine Hydrochloride [Vitamin B1] 100 mg PO DAILYCM tablet 11/21/17 traZODone [Desyrel] 50 mg PO QHS tablet 11/21/17 Bisacodyl 10 mg RC DAILY PRN PRN 11/22/17 Magnesium Hydroxide [Milk Of 30 ml PO DAILY PRN PRN 11/22/17 Magnesia] Mineral Oil 1 bottle RC DAILY PRN PRN 11/22/17 Oxycodone [Oxyir] 5 mg PO Q4H PRN PRN 11/22/17 Surgical History: - - Hemorrhoidectomy. Psychiatric History: Bipolar, Depression Lives: Residential Smoking Status: Former smoker - *Family History Maternal History Items: Cancer, Diabetes, Heart Disease, Hypertension Paternal History Items: Cancer, Diabetes, Heart Disease, Hypertension Review of Systems Unable to obtain accurate/complete ROS d/t: Due to current intubation and mechanical ventilation status. Patient Problems: Active and Suspected Problems Altered mental status (Acute) Sepsis (Acute) Aspiration pneumonia (Acute) Objective: The patient's most recent lab work, culture data and imaging studies have all been personally reviewed. Blood, urine and sputum cultures are currently pending. Ascitic fluid from paracentesis performed on November 18 was negative for infection. - Physical Exam General: - - Intubated, sedated and mechanically ventilated. HEENT: Atraumatic, PERRLA, Normocephalic Oral: No Gingival or Mucosal Lesions/ Ulcerations, - - Endotracheal and OG tubes in place Neck: Supple, No Nodes, Trachea Midline Lungs: No rhonchi, No wheeze, No rales, Diminished Cardiovascular: Normal S1, Normal S2, No murmurs, No rub noted, No Gallop, Tachycardic Abdomen: Bowel Sounds Present, Soft, Non Tender Extremities: No clubbing, No cyanosis, Cool, Edema Skin: - - Extensive perineal/gluteal wounds, present on arrival Musculoskeletal: Cachexia, Muscle Wasting Lymphatic: No Cervical, Supraclavicular, or Inguinal Adenopathy Neurological: - - No focal deficits. Currently sedated with a RASS of -2 Vital Signs Temp Pulse Resp BP Pulse Ox 98.8 F 120 H 29 H 87/64 L 93 11/23/17 03:00 11/23/17 05:25 11/23/17 05:25 11/23/17 05:00 11/23/17 05:25 Oxygen Flow Rate (L/min) 40 Oxygen Delivery Method Mechanical Ventilator Weight: 239 lb 10.279 oz Body Mass Index (BMI) 29.2 Intake and Output for Last 24 Hours 11/21/17 11/22/17 11/23/17 23:59 23:59 23:59 Intake Total 1000 / 1000 558 / 558 Output Total 100 / 100 50 / 50 Balance 900 / 900 508 / 508 Laboratory Tests Past 24 Hrs 11/22/17 11/22/17 11/22/17 14:54 16:22 17:30 WBC RBC Hgb Hct MCV MCH MCHC RDW RDW Differential Plt Count MPV Specimen Type ART ART Sample Site L Radial L Radial pH 7.09 L* 7.29 L Bicarbonate Actual 26.6 H 27.2 H POC Total CO2 29 29 Base Excess -3 L 1 O2 Saturation 97 100 H O2 % 100 ABG pCO2 87.0 H* 56.2 H ABG pO2 136 H 286 H Mitul Test POS POS Respiration Rate 20 O2 Delivery Device NRB Mask Vent Liter Flow 15.0 Minute Volume 10.00 Vent Mode A-C Tidal Volume 450 POC PEEP 5 Blood Gas Notified Whom ICU MD ICU MD Blood Gas Notified Time 8970 0282 Sodium Potassium Chloride Carbon Dioxide Anion Gap BUN Creatinine Estim Creat Clear Calc Est GFR (MDRD) Af Amer Est GFR (MDRD) Non-Af BUN/Creatinine Ratio Glucose Calcium Total Creatine Kinase 5234 H Triglycerides 1496 H MRSA (PCR) 11/22/17 11/23/17 11/23/17 17:30 03:50 03:50 WBC 24.1 H RBC 3.78 L Hgb 12.0 L Hct 35.9 L MCV 95.0 H MCH 31.7 MCHC 33.4 RDW 17.0 H RDW Differential 57.3 H Plt Count 288 MPV 10.2 Specimen Type Sample Site pH Bicarbonate Actual POC Total CO2 Base Excess O2 Saturation O2 % ABG pCO2 ABG pO2 Mitul Test Respiration Rate O2 Delivery Device Liter Flow Minute Volume Vent Mode Tidal Volume POC PEEP Blood Gas Notified Whom Blood Gas Notified Time Sodium 144 Potassium 4.4 Chloride 109 H Carbon Dioxide 24.0 Anion Gap 11 BUN 47 H Creatinine 1.71 H Estim Creat Clear Calc 44.44 Est GFR (MDRD) Af Amer 53 L Est GFR (MDRD) Non-Af 44 L BUN/Creatinine Ratio 27.5 H Glucose 105 Calcium 7.5 L Total Creatine Kinase Triglycerides MRSA (PCR) Negative POC Glucose 11/23/17 11/23/17 05:36 01:51 POC Glucose 104 87 Clinical Impression(s) from Imaging Studies Brain CT 11/22/17 11:27 IMPRESSION: Chronic involutional changes of the brain. Electronically Signed: Ian Mayer MD at 12:49 EDT Tel , Service support , Chest X-Ray 11/22/17 12:10 Chest X-Ray 11/22/17 15:17 KUB X-Ray 11/22/17 15:35 Assessment/Plan Active and Suspected Problems Altered mental status (Acute) Sepsis (Acute) Aspiration pneumonia (Acute) RECOMMENDATIONS: 1. Propofol should be avoided given elevated baseline triglyceride levels 2. Discontinue beta-anant and Spironolactone, given vasopressor requirement 3. Recheck serum ammonia level and consider starting lactulose and rifaximin 4. Obtain repeat arterial blood gas 5. Discontinue normal saline continuous supplemental IV fluids 6. Continue broad-spectrum antibiotics, pending infectious workup 7. Continue Levophed to maintain a mean arterial pressure at or above 65 mmHg. 8. ICU prophylaxis with subcutaneous heparin and Pepcid IMPRESSIONS: 1. Septic shock Clinical concern for acute aspiration event, given the circumstances of his presentation. Patient will be given 1 additional liter of lactated Ringer's, after which time, he will have received adequate volume resuscitation. Plan to continue Levophed to maintain a mean arterial pressure at or above 65 mmHg. No need for continuous supplemental IV fluids. Okay from my perspective to initiate tube feeds today. Recommend wound care consultation to address perineal lesions. Avoid propofol for sedation, given elevated triglyceride level. Continue fentanyl. Precedex can be added, if needed. Continue broad- spectrum antibiotics, pending finalized infectious workup. 2. Acute hypoxemic and hypercarbic respiratory failure The patient does have an extensive smoking history, raising the concern for potential underlying COPD. However, there is a high probability that the patient experienced an acute aspiration event upon arrival to the hospital. Continue full mechanical ventilatory support. Sputum cultures are pending. Continue bronchodilators as ordered. Recommend increasing sedation and transitioning from ACVC to ACVC+. Maintain a RASS of -1 to 1. Plan for daily paired spontaneous awakening and breathing trials. 3. Encephalopathy, likely metabolic/infectious in nature The patient is currently being treated for septic shock. In addition, he had an elevated ammonia level to 51. Lactulose will be added to the patient's medication regimen today. Continue treatment of underlying infectious process. 4. Acute kidney injury Likely secondary to hemodynamic instability in the setting of #1. Anticipate improvement following stabilization of hemodynamics. Continue to monitor urine output. No indication for renal replacement therapy at the current time. 5. Troponin elevation Likely secondary to demand ischemia in the setting of #1. 6. Chronic alcohol and tobacco dependence/severe protein calorie malnutrition/ deconditioning/bipolar disorder Complicates care, management, recovery and prognosis. The patient will require physical therapy evaluation, once medically stabilized. Okay to start tube feeds today from my perspective. CODE STATUS/goals of care discussion to be had with the patient's family. TIME: 55 minutes of critical care time, independent of procedures, was spent addressing the patient's septic shock, acute respiratory failure, encephalopathy , acute kidney injury, troponin elevation, review of all data and collaboration with the care team. ([id number]) Code Visit 9xxxx: [id number] Critical care first hour
[2017-11-23] MEDS: Piperacil/Tazobactam 3.375 GM/50 ML ML IV ×3 (06:37→22:35)
[2017-11-23] MEDS: Heparin Injection (Vial) 5,000 UNIT/ML VIAL 5000 UNIT SC ×3 (06:38→22:35)
[2017-11-23 08:00] LABS: Allen Test POS; Base Excess -2 mmol/L (-2 to +2); Bicarbonate 21.8 mmol/L (22-26); Blood Gas Specimen Type ART; FI02 40; Mode VC+; O2 Delivery Device Vent; PEEP 5; PO2 75 mmHG (75-100); RR 12; SITE L Radial; SO2 96 % (95-99); Time Given 755; Total Carbon Dioxide 23 mmol/L; Vt 500; pCO2 28.8 mmHg (35-45); pH 7.49 (7.35-7.45)
[2017-11-23] MEDS: Lactated Ringers 1,000 ML 999 ML IV (08:05)
[2017-11-23] MEDS: Menthol/Lanolin/Calamine/Znox 113 GM Tube 1 APPLIC TOPICAL ×4 (08:59→22:36)
[2017-11-23] MEDS: CHLORHEXIDINE GLUC 2% CLOTH 1 EACH TOWELETTE TOPICAL (09:30)
[2017-11-23] MEDS: Multivitamins,Ther W-Minerals Tablet 1 TABLET PO (09:49)
[2017-11-23] MEDS: Thiamine Hydrochloride 100 MG Tablet PO (09:49)
[2017-11-23] MEDS: Famotidine 20 MG Tablet GT ×2 (09:49→22:35)
[2017-11-23] MEDS: Folic Acid 1 MG Tablet PO (09:50)
[2017-11-23] MEDS: Lactulose 20 GM/30 ML UDC 10 GM NG (09:50)
[2017-11-23] MEDS: Chlorhexidine 15 ML PO ×2 (09:52→22:34)
--- NOTE | 2017-11-23 09:52 | PCM.PN.HOSP ---
Patient Problems: Active and Suspected Problems Altered mental status (Acute) Sepsis (Acute) Aspiration pneumonia (Acute) Subjective: The patient is a 62 year old M with a history of chronic alcohol abuse with cirrhosis, bipolar disorder, depression, COPD, and severe protein calorie malnutrition. Patient was admitted from his [facility] on 11/22/2017 after he was brought to the [facility] ED on account of altered mental status. Patient had been on admission [facility] and was just discharged to the [facility] on 11/21/2017. Not much history could be obtained as patient was not very responsive. . Per discussion with the ED doctor, patient was brought in because of altered mental status and suspicion for aspiration. As mentioned he had been on admission after being managed for sepsis, and hyponatremia as well as ascites for which he received paracentesis. In the [facility] and admit noted that his mental status was declining and he had rapid shallow breathing and bizarre behavior such as eating Band-Aids. Unable to obtain any more history from patient relatives. On admission in the ED, temperature was 98.1, blood pressure was 100/73 and suddenly went down to 84/62, pulse rate was 106 and patient was breathing at 36 minute. Labs were significant for leukocytosis of 16.9. Brain MRI was negative. Patient was admitted to the ICU and ABGs done showed severe respiratory acidosis with CO2 in the 80s. Patient was intubated during which copious amounts of thick brown fluid was found in the airway. He has been managed for septic shock due to aspiration pneumonia and is on IV vancomycin and IV Zosyn. Remains intubated and is on Levophed. Patient seen and examined. He was lying in bed comfortably and open his eyes to voice. Unable to do review of systems because patient is intubated. However according to his nurse overnight there were no active issues. Vitals/I&O's: Vital Signs Temp Pulse Resp BP Pulse Ox 98.3 F 108 H 24 H 88/62 L 95 11/23/17 06:42 11/23/17 09:00 11/23/17 09:00 11/23/17 09:00 11/23/17 09:00 Oxygen Flow Rate (L/min) 40 Oxygen Delivery Method Mechanical Ventilator Weight: 190 lb 4.143 oz Body Mass Index (BMI) 29.2 Intake and Output for Last 24 Hours 07/11/0311/22/17 11/23/17 23:59 23:59 23:59 Intake Total 1000 / 1000 880.8 / 880.8 Output Total 100 / 100 75 / 75 Balance 900 / 900 805.8 / 805.8 General: - - intubated, sedated, RASS score is 0. Opens his eyes in response to voice. HEENT: Atraumatic, EOMI, Normocephalic, - - pupils dilated, but responsive to light. Oral: Moist Mucosa Neck: Supple, No JVD, Negative Carotid Bruits Lungs: - - still has few crackles in upper lung deluca bilaterally. No wheezing or rhonchi auscultated Cardiovascular: Regular Rhythm, Normal S1, Normal S2, No murmurs, Tachycardic Abdomen: Bowel Sounds Present, Soft, Non Tender, - - mildly distended; tympanitic to percussion. No positive fluid thrill or shifting dullness Extremities: No clubbing, No cyanosis, Capillary Refill Less than 3 Seconds, - - 2+ pitting edema of the LEs. Skin: No rashes, No breakdown Musculoskeletal: No Tenderness to Palpation of Joints or Extremities Lymphatic: No Cervical, Supraclavicular, or Inguinal Adenopathy Neurological: Cranial nerves II-XII grossly intact, - - intubated, sedated, RASS score 1. Moves extremities spontaneously. Laboratory Results 11/22/17 14:54: Specimen Type ART, Sample Site L Radial, pH 7.09 L*, Bicarbonate Actual 26.6 H, POC Total CO2 29, Base Excess -3 L, O2 Saturation 97, ABG pCO2 87.0 H*, ABG pO2 136 H, Mitul Test POS, O2 Delivery Device NRB Mask, Liter Flow 15.0, Blood Gas Notified Whom ICU , Blood Gas Notified Time 1453 11/22/17 16:22: Specimen Type ART, Sample Site L Radial, pH 7.29 L, Bicarbonate Actual 27.2 H, POC Total CO2 29, Base Excess 1, O2 Saturation 100 H, O2 % 100, ABG pCO2 56.2 H, ABG pO2 286 H, Mitul Test POS, Respiration Rate 20, O2 Delivery Device Vent, Minute Volume 10.00, Vent Mode A-C, Tidal Volume 450, POC PEEP 5, Blood Gas Notified Whom ICU , Blood Gas Notified Time 1621 11/22/17 17:30: Total Creatine Kinase 5234 H, Triglycerides 1496 H 11/22/17 17:30: MRSA (PCR) Negative 11/23/17 01:51: POC Glucose 87 11/23/17 03:50: WBC 24.1 H, RBC 3.78 L, Hgb 12.0 L, Hct 35.9 L, MCV 95.0 H, MCH 31.7, MCHC 33.4, RDW 17.0 H, RDW Differential 57.3 H, Plt Count 288, MPV 10.2 11/23/17 03:50: Sodium 144, Potassium 4.4, Chloride 109 H, Carbon Dioxide 24.0, Anion Gap 11, BUN 47 H, Creatinine 1.71 H, Estim Creat Clear Calc 44.44, Est GFR (MDRD) Af Amer 53 L, Est GFR (MDRD) Non-Af 44 L, BUN/Creatinine Ratio 27.5 H, Glucose 105, Calcium 7.5 L 11/23/17 05:36: POC Glucose 104 11/23/17 07:55: Specimen Type ART, Sample Site L Radial, pH 7.49 H, Bicarbonate Actual 21.8 L, POC Total CO2 23, Base Excess -2, O2 Saturation 96, O2 % 40, ABG pCO2 28.8 L, ABG pO2 75, Imtul Test POS, Respiration Rate 12, O2 Delivery Device Vent, Vent Mode VC+, Tidal Volume 500, POC PEEP 5, Blood Gas Notified Whom ICU MD, Blood Gas Notified Time 755 Current Medications Albuterol Sulfate (Ventolin Aerosols) 2.5 mg INHALATION Q2H PRN PRN PRN Reason: WHEEZING Albuterol/Ipratropium (Duoneb) 3 ml INHALATION Q6H.RT RICH Bisacodyl (Dulcolax) 10 mg RECTAL DAILY PRN PRN PRN Reason: Constipation Calamine/Phenol (Calmoseptine Ointment) 1 applic TOPICAL 4X/DAY [facility] PRN Reason: Protocol Last Admin: 11/23/17 08:59 Dose: 1 applicatio Chlorhexidine Gluconate () 15 ml PO BID [facility] Last Admin: 11/23/17 09:52 Dose: 15 ml Clotrimazole (Lotrimin) 1 applicatio TOPICAL BID [facility] PRN Reason: Protocol Last Admin: 11/23/17 08:58 Dose: 1 applicatio Famotidine (Pepcid) 20 mg GT BID [facility] Last Admin: 11/23/17 09:49 Dose: 20 mg Folic Acid (Folic Acid) 1 mg PO DAILY@0800 [facility] Last Admin: 11/23/17 09:50 Dose: 1 mg Heparin Sodium (Porcine) (Heparin Na) 5,000 unit SC Q8 [facility] Last Admin: 11/23/17 06:38 Dose: 5,000 u Piperacillin Sod/Tazobactam Sod (Zosyn) 3.375 gm in 50 mls @ 12.5 mls/hr IV Q8 [facility] Last Admin: 11/23/17 06:37 Dose: 12.5 mls/hr Vancomycin IV Pharmacy to Dose (1 ea/ Sodium Chloride) 500 mls @ 250 mls/hr IV PRN PRN PRN Reason: Protocol Norepinephrine Bitartrate 8 mg (/ Dextrose) 258 mls @ 9.67 mls/hr IV .[id number] [facility] PRN Reason: 5 MCG/MIN Last Admin: 11/23/17 09:51 Dose: 9.67 mls/hr Fentanyl () 100 mls @ 2.5 mls/hr IV .Q40H [facility] PRN Reason: Protocol Last Admin: 11/23/17 09:52 Dose: 2.5 mls/hr Vancomycin HCl (Vancomycin) 1,000 mg in 200 mls @ 200 mls/hr IV Q12H [facility] Last Admin: 11/23/17 02:40 Dose: 200 mls/hr Dexmedetomidine HCl 400 mcg/ (Sodium Chloride) 100 mls @ 13.58 mls/hr IV .[id number] [facility]; 0.5 MCG/KG/HR PRN Reason: Protocol Enteral Nutritional Formula (Vital Af 1.2 Jewel Liquid) 1,000 mls @ 60 mls/hr GT .[id number] [facility] Lactulose (Chronulac, Cephulac) 10 gm NG DAILY [facility] Last Admin: 11/23/17 09:50 Dose: 10 gm Magnesium Hydroxide (Milk Of Magnesia) 30 ml PO DAILY PRN PRN PRN Reason: Constipation Magnesium Hydroxide (Milk Of Magnesia) 30 ml PO DAILY PRN PRN PRN Reason: Constipation Mineral Oil (Mineral Oil) 1 bottle RECTAL DAILY PRN PRN PRN Reason: Constipation Multivitamins/Minerals (Multivitamin With Minerals) [facility] Last Admin: 11/23/17 09:49 Dose: 1 tablet Nicotine (Nicoderm Cq (Pbkc)) 21 mg TRANSDERM. DAILY [facility] Sodium Chloride () 5 - 30 ml IV UD PRN PRN Reason: SALINE FLUSH Thiamine HCl (Vitamin B1) [facility] Last Admin: 11/23/17 09:49 Dose: 100 mg Medical Necessity - Tobacco Use Smoking Status: Former smoker Assessment/Plan All Active Problems Hyponatremia (Acute) Severe sepsis (Acute) Depression (Acute) Altered mental status (Acute) Sepsis (Acute) Aspiration pneumonia (Acute) 8-year-old male with a history of chronic alcohol abuse with resultant cirrhosis status post paracentesis, bipolar disorder and depression. He was admitted by the ED on 11/22/2017 complaint of altered mental status from his [facility]. 1. Septic shock due to aspiration pneumonia intubated and sedated after being admitted from his [facility] because of altered mental status. Started on Levophed on account of hypotension. FiO2 is down to 40% and tidal volume is 500 with respiratory rate of 12 and PEEP of 5, per vent settings. received ~ 1.8L of IVF since admission yesterday SIRS criteria is now 3/4 network diagnostic support specialist on board suctioning showed copious thick, brown fluid in lungs on IV vancomycin and IV zosyn. wbc today is 24.1 on IV levophed at 10mcg/min; will start precedex and wean down on levophed due to tachycardia maintain MAP>65 Maintain RASS between 0 to -2 on fentanyl drip propofol stopped o/a of hypertriglyceridema 2. Acute hypercapnic and hYpoxic respiratory failure due to aspiration pneumonia Debated on ventilator. Vent settings AC volume control with tidal volume of 500, respiratory rate of 12, PEEP of 5 and FiO2 40%. on breathing treatments and suctioning prn now on 40% FiO2, down from 100% on admission maintain saturation >92% 3. CIrrrhosis with ascites s/p paracentesis currently edematous, likely due to third spacing from IVF will give a bolus of IVF Lactated Ringers due to CAROL; conservative fluid management now on account of third spacing. spironolactone, furosemide and beta-ailyn on hold. On lactulose to titrate to 3-3 loose stools daily 4. Rhabdomyolysis: CK was 5234. THe CPR patient received may have contributed to it. Will cycle and monitor urine output. 5. CAROL: Cr was 1.16 on admission, now 1.71. Likely due to septic shock and rhabdomyolysis. Will give bolus of 1l of lactated Ringers and monitor urine output 6. Depression and bipolar disorder: trazodone on hold. Will consider starting seroquel/buspar whilst patient is intubated 7. Severe protein calorie malnutrition: Nutrition consulted. NPO o/a of hypoxic respiratory failure 8. COPD: intubated for hypoxic, hypercapnic respiratory failure. on breathing treatments 9. DVT prophylaxis: heparin. 10. GI prophylaxis: famotidine 11. Code status: Full code. Daughter Lori is next of kin. This note was generated with Smallable dictation software. It may contain incorrect words, spelling, and punctuation that were not noted in checking the note before signing. Code Visit Inpatient E&M: 22969 Subs Hosp L3
--- NOTE | 2017-11-23 10:13 | CM.UR ---
Participated in interdisciplinary rounds. Patient is a readmission as he was just discharged to [facility] on 11/21/17 and readmitted on 11/22/17. Chronic alcohol abuse. He had rapid mental health decline at [facility] and was found to be septic. Patient is now intubated and on vent. Daughter spoke with FELIPA Dyson in ER yesterday as she is concerned about her father. Currently the patient's brother is helping manage the patient. Daughter doesn't feel he is making very good decisions. Currently there is no DPOA or guardianship that I am aware of. The brother is a fork truck driver and not always available to the patient. Placing consult to FELIPA for the above concerns. Jigna Rodriguez RN, CCM.
--- NOTE | 2017-11-23 10:17 | PN_ITS ---
Patient Problems: Active and Suspected Problems Altered mental status (Acute) Sepsis (Acute) Aspiration pneumonia (Acute) Subjective: The patient is a 62 year old M with a history of chronic alcohol abuse with cirrhosis, bipolar disorder, depression, COPD, and severe protein calorie malnutrition. Patient was admitted from his custodial on 11/22/2017 after he was brought to the [facility] ED on account of altered mental status. Patient had been on admission [facility] and was just discharged to the custodial on 11/21/2017. Not much history could be obtained as patient was not very responsive. . Per discussion with the ED doctor, patient was brought in because of altered mental status and suspicion for aspiration. As mentioned he had been on admission after being managed for sepsis, and hyponatremia as well as ascites for which he received paracentesis. In the custodial and admit noted that his mental status was declining and he had rapid shallow breathing and bizarre behavior such as eating Band-Aids. Unable to obtain any more history from patient relatives. On admission in the ED, temperature was 98.1, blood pressure was 100/73 and suddenly went down to 84 /62, pulse rate was 106 and patient was breathing at 36 minute. Labs were significant for leukocytosis of 16.9. Brain MRI was negative. Patient was admitted to the ICU and ABGs done showed severe respiratory acidosis with CO2 in the 80s. Patient was intubated during which copious amounts of thick brown fluid was found in the airway. He has been managed for septic shock due to aspiration pneumonia and is on IV vancomycin and IV Zosyn. Remains intubated and is on Levophed. Patient seen and examined. He was lying in bed comfortably and open his eyes to voice. Unable to do review of systems because patient is intubated. However according to his nurse overnight there were no active issues. Vitals/I&O's: Vital Signs Temp Pulse Resp BP Pulse Ox 98.3 F 108 H 24 H 88/62 L 95 11/23/17 06:42 11/23/17 09:00 11/23/17 09:00 11/23/17 09:00 11/23/17 09:00 Oxygen Flow Rate (L/min) 40 Oxygen Delivery Method Mechanical Ventilator Weight: 190 lb 4.143 oz Body Mass Index (BMI) 29.2 Intake and Output for Last 24 Hours 07/11/0311/22/17 11/23/17 23:59 23:59 23:59 Intake Total 1000 / 1000 880.8 / 880.8 Output Total 100 / 100 75 / 75 Balance 900 / 900 805.8 / 805.8 General: - - intubated, sedated, RASS score is 0. Opens his eyes in response to voice. HEENT: Atraumatic, EOMI, Normocephalic, - - pupils dilated, but responsive to light. Oral: Moist Mucosa Neck: Supple, No JVD, Negative Carotid Bruits Lungs: - - still has few crackles in upper lung deluca bilaterally. No wheezing or rhonchi auscultated Cardiovascular: Regular Rhythm, Normal S1, Normal S2, No murmurs, Tachycardic Abdomen: Bowel Sounds Present, Soft, Non Tender, - - mildly distended; tympanitic to percussion. No positive fluid thrill or shifting dullness Extremities: No clubbing, No cyanosis, Capillary Refill Less than 3 Seconds, - - 2+ pitting edema of the LEs. Skin: No rashes, No breakdown Musculoskeletal: No Tenderness to Palpation of Joints or Extremities Lymphatic: No Cervical, Supraclavicular, or Inguinal Adenopathy Neurological: Cranial nerves II-XII grossly intact, - - intubated, sedated, RASS score 1. Moves extremities spontaneously. Laboratory Results 11/22/17 14:54: Specimen Type ART, Sample Site L Radial, pH 7.09 L*, Bicarbonate Actual 26.6 H, POC Total CO2 29, Base Excess -3 L, O2 Saturation 97 , ABG pCO2 87.0 H*, ABG pO2 136 H, Mitul Test POS, O2 Delivery Device NRB Mask, Liter Flow 15.0, Blood Gas Notified Whom ICU , Blood Gas Notified Time 1453 11/22/17 16:22: Specimen Type ART, Sample Site L Radial, pH 7.29 L, Bicarbonate Actual 27.2 H, POC Total CO2 29, Base Excess 1, O2 Saturation 100 H, O2 % 100, ABG pCO2 56.2 H, ABG pO2 286 H, Mitul Test POS, Respiration Rate 20, O2 Delivery Device Vent, Minute Volume 10.00, Vent Mode A-C, Tidal Volume 450, POC PEEP 5, Blood Gas Notified Whom ICU , Blood Gas Notified Time 1621 11/22/17 17:30: Total Creatine Kinase 5234 H, Triglycerides 1496 H 11/22/17 17:30: MRSA (PCR) Negative 11/23/17 01:51: POC Glucose 87 11/23/17 03:50: WBC 24.1 H, RBC 3.78 L, Hgb 12.0 L, Hct 35.9 L, MCV 95.0 H, MCH 31.7, MCHC 33.4, RDW 17.0 H, RDW Differential 57.3 H, Plt Count 288, MPV 10.2 11/23/17 03:50: Sodium 144, Potassium 4.4, Chloride 109 H, Carbon Dioxide 24.0, Anion Gap 11, BUN 47 H, Creatinine 1.71 H, Estim Creat Clear Calc 44.44, Est GFR (MDRD) Af Amer 53 L, Est GFR (MDRD) Non-Af 44 L, BUN/Creatinine Ratio 27.5 H , Glucose 105, Calcium 7.5 L 11/23/17 05:36: POC Glucose 104 11/23/17 07:55: Specimen Type ART, Sample Site L Radial, pH 7.49 H, Bicarbonate Actual 21.8 L, POC Total CO2 23, Base Excess -2, O2 Saturation 96, O2 % 40, ABG pCO2 28.8 L, ABG pO2 75, Mitul Test POS, Respiration Rate 12, O2 Delivery Device Vent, Vent Mode VC+, Tidal Volume 500, POC PEEP 5, Blood Gas Notified Whom ICU MD, Blood Gas Notified Time 755 Current Medications Albuterol Sulfate (Ventolin Aerosols) 2.5 mg INHALATION Q2H PRN PRN PRN Reason: WHEEZING Albuterol/Ipratropium (Duoneb) 3 ml INHALATION Q6H.RT RICH Bisacodyl (Dulcolax) 10 mg RECTAL DAILY PRN PRN PRN Reason: Constipation Calamine/Phenol (Calmoseptine Ointment) 1 applic TOPICAL 4X/DAY [facility] PRN Reason: Protocol Last Admin: 11/23/17 08:59 Dose: 1 applicatio Chlorhexidine Gluconate () 15 ml PO BID [facility] Last Admin: 11/23/17 09:52 Dose: 15 ml Clotrimazole (Lotrimin) 1 applicatio TOPICAL BID [facility] PRN Reason: Protocol Last Admin: 11/23/17 08:58 Dose: 1 applicatio Famotidine (Pepcid) 20 mg GT BID [facility] Last Admin: 11/23/17 09:49 Dose: 20 mg Folic Acid (Folic Acid) 1 mg PO DAILY@0800 [facility] Last Admin: 11/23/17 09:50 Dose: 1 mg Heparin Sodium (Porcine) (Heparin Na) 5,000 unit SC Q8 [facility] Last Admin: 11/23/17 06:38 Dose: 5,000 u Piperacillin Sod/Tazobactam Sod (Zosyn) 3.375 gm in 50 mls @ 12.5 mls/hr IV Q8 [facility] Last Admin: 11/23/17 06:37 Dose: 12.5 mls/hr Vancomycin IV Pharmacy to Dose (1 ea/ Sodium Chloride) 500 mls @ 250 mls/hr IV PRN PRN PRN Reason: Protocol Norepinephrine Bitartrate 8 mg (/ Dextrose) 258 mls @ 9.67 mls/hr IV .[id number] [facility] PRN Reason: 5 MCG/MIN Last Admin: 11/23/17 09:51 Dose: 9.67 mls/hr Fentanyl () 100 mls @ 2.5 mls/hr IV .Q40H [facility] PRN Reason: Protocol Last Admin: 11/23/17 09:52 Dose: 2.5 mls/hr Vancomycin HCl (Vancomycin) 1,000 mg in 200 mls @ 200 mls/hr IV Q12H [facility] Last Admin: 11/23/17 02:40 Dose: 200 mls/hr Dexmedetomidine HCl 400 mcg/ (Sodium Chloride) 100 mls @ 13.58 mls/hr IV .[id number] [facility]; 0.5 MCG/KG/HR PRN Reason: Protocol Enteral Nutritional Formula (Vital Af 1.2 Jewel Liquid) 1,000 mls @ 60 mls/hr GT .[id number] [facility] Lactulose (Chronulac, Cephulac) 10 gm NG DAILY [facility] Last Admin: 11/23/17 09:50 Dose: 10 gm Magnesium Hydroxide (Milk Of Magnesia) 30 ml PO DAILY PRN PRN PRN Reason: Constipation Magnesium Hydroxide (Milk Of Magnesia) 30 ml PO DAILY PRN PRN PRN Reason: Constipation Mineral Oil (Mineral Oil) 1 bottle RECTAL DAILY PRN PRN PRN Reason: Constipation Multivitamins/Minerals ([facility]erals) [facility] Last Admin: 11/23/17 09:49 Dose: 1 tablet Nicotine (Nicoderm Cq (Pbkc)) 21 mg TRANSDERM. DAILY [facility] Sodium Chloride () 5 - 30 ml IV UD PRN PRN Reason: SALINE FLUSH Thiamine [facility] ([facility]itamin B1) [facility] Last Admin: 11/23/17 09:49 Dose: 100 mg Medical Necessity - Tobacco Use Smoking Status: Former smoker Assessment/Plan All Active Problems Hyponatremia (Acute) Severe sepsis (Acute) Depression (Acute) Altered mental status (Acute) Sepsis (Acute) Aspiration pneumonia (Acute) 8-year-old male with a history of chronic alcohol abuse with resultant cirrhosis status post paracentesis, bipolar disorder and depression. He was admitted by the ED on 11/22/2017 complaint of altered mental status from his custodial. 1. Septic shock due to aspiration pneumonia * intubated and sedated after being admitted from his custodial because of altered mental status. * Started on Levophed on account of hypotension. * FiO2 is down to 40% and tidal volume is 500 with respiratory rate of 12 and PEEP of 5, per vent settings. 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 * wbc today is 24.1 * on IV levophed at 10mcg/min; will start precedex and wean down on levophed due to tachycardia * maintain MAP>65 * Maintain RASS between 0 to -2 * on fentanyl drip * propofol stopped o/a of hypertriglyceridema * 2. Acute hypercapnic and hYpoxic respiratory failure due to aspiration pneumonia * Debated on ventilator. Vent settings AC volume control with tidal volume of 500, respiratory rate of 12, PEEP of 5 and FiO2 40%. * on breathing treatments and suctioning prn * now on 40% FiO2, down from 100% on admission * maintain saturation >92% 3. CIrrrhosis with ascites s/p paracentesis * currently edematous, likely due to third spacing from IVF * will give a bolus of IVF Lactated Ringers due to CAROL; conservative fluid management now on account of third spacing. * spironolactone, furosemide and beta-ailyn on hold. * On lactulose to titrate to 3-3 loose stools daily * * 4. Rhabdomyolysis: CK was 5234. THe CPR patient received may have contributed to it. Will cycle and monitor urine output. 5. CAROL: Cr was 1.16 on admission, now 1.71. Likely due to septic shock and rhabdomyolysis. Will give bolus of 1l of lactated Ringers and monitor urine output 6. Depression and bipolar disorder: trazodone on hold. Will consider starting seroquel/buspar whilst patient is intubated 7. Severe protein calorie malnutrition: Nutrition consulted. NPO o/a of hypoxic respiratory failure 8. COPD: intubated for hypoxic, hypercapnic respiratory failure. on breathing treatments 9. DVT prophylaxis: heparin. 10. GI prophylaxis: famotidine 11. Code status: Full code. Daughter Lori is next of kin. * This note was generated with [employer] software. It may contain incorrect words, spelling, and punctuation that were not noted in checking the note before signing. Code Visit Inpatient E&M: 93781 Subs Hosp L3
[2017-11-23 11:09] LABS: CPK Total, Creatine Kinase 47 U/L (39-308)
[2017-11-23 12:35] LABS: Bedside Glucose 103 mg/dL (70-110)
[2017-11-23] MEDS: Ipratropium/Albuterol Sulfate 3 ML AMPUL.NEB INHALATION ×2 (13:56→21:06)
[2017-11-23] MEDS: Vital AF 1.2 Cal Liquid 1,000 ML 60 ML GT (15:18)
[2017-11-23 18:25] LABS: Bedside Glucose 116 mg/dL (70-110)
[2017-11-23] MEDS: Lactulose 20 GM/30 ML UDC GT (22:34)
[2017-11-23 23:16] LABS: Bedside Glucose 127 mg/dL (70-110)
[2017-11-24] VITALS (69 sets, daily range): BP systolic 75–122; BP diastolic 52–80; PULSE 86–105; RESP 15–31; TEMP 36.5–37.3; O2SAT 86–100
[2017-11-24] MEDS: Ipratropium/Albuterol Sulfate 3 ML AMPUL.NEB INHALATION ×4 (02:10→19:44)
[2017-11-24] MEDS: CHLORHEXIDINE GLUC 2% CLOTH 1 EACH TOWELETTE TOPICAL (03:20)
[2017-11-24] MEDS: 0.9% NaCl Peripheral Flush Adult/Peds IV (04:29)
[2017-11-24 05:14] LABS: Anion Gap 12 (5-15); BUN 56 mg/dL (7-18); BUN/Creat Ratio 23.3 RATIO (10-20); Calcium,Total 7.1 mg/dL (8.5-10.1); Chloride 105 mmol/L (98-107); EST Glomerular Filtration Rate 30 mL/min (>60); Est Glom Filt Rate - Afr Amer 36 mL/min (>60); Estimated Creatinine Clearance 31.67 ml/min; Glucose 250 mg/dL (74-106); Potassium 4.3 mmol/L (3.5-5.1); Sodium Level 140 mmol/L (136-145)
--- NOTE | 2017-11-24 06:08 | RAD_ITS ---
STUDY: X-RAY - ABDOMEN/PELVIS REASON FOR EXAM: Male, 62 years old. Sepsis. Nausea and vomiting. TECHNIQUE: Two AP supine views of the abdomen and pelvis. COMPARISON: Comparison is made with prior study dated November 22, 2014. FINDINGS: A nasogastric tube is seen with the tip in the fundal portion of the stomach. There are dilated loops of the small intestine with a non-distended colon consistent with a small bowel obstruction. The visualized liver, spleen and kidneys are grossly normal in size and morphology. I suspect a distended urinary bladder. There are diffuse degenerative changes of the visualized lumbar spine. RAD/Abdomen Single View (Portable) IMPRESSION: Findings suggestive of a distended urinary bladder. Findings in keeping with a small bowel obstruction. Follow-up is recommended. Electronically Signed: Kam Hicks MD at 10:08 EDT Tel [phone], Service support ,
[2017-11-24 06:34] LABS: Absolute Lymphocyte Count 3.21 X10^3/ul (0.83-4.51); Absolute Neutrophil Count 15.6 X10^3/uL (2.0-7.7); Basophil# 0.05 X10^3/uL; Basophil% 0.2 % (0-1); Eosinophil# 0.07 X10^3/uL; Eosinophils% 0.3 % (0-5); Hematocrit 32.7 % (40-54); Hemoglobin 10.7 g/dl (13.0-16.5); Lymphocyte # 3.21 X10^3/ul (4.0); Lymphocyte % 15.9 % (19-41); Mean Corp Hgb Conc 32.7 g/gl (32-36); Mean Corpuscular Hgb 30.9 pg (27.0-32.0); Mean Corpuscular Volume 94.5 fL (80-94); Mean Platelet Vol. 10.7 fl (6.2-12.0); Monocyte# 1.21 X10^3/uL; Neutrophil # 15.55 X10^3/uL (2.7-7.7); Neutrophil % 77.4 % (47-70); Platelet Count 260 K/mm3 (150-450); RBC Distribution Width CV 17.3 % (11.6-14.6); RBC Distribution Width SD 58.7 fl (35.1-43.9); Red Blood Count 3.46 M/mm3 (4.6-6.2); White Blood Count 20.1 K/mm3 (4.4-11.0)
[2017-11-24] MEDS: Piperacil/Tazobactam 3.375 GM/50 ML ML IV ×3 (06:34→23:02)
[2017-11-24] MEDS: Heparin Injection (Vial) 5,000 UNIT/ML VIAL 5000 UNIT SC ×3 (06:34→23:01)
[2017-11-24 06:41] LABS: Bedside Glucose 125 mg/dL (70-110)
[2017-11-24 06:52] LABS: Differential Indicated SCAN CRITERIA MET; POSITIVE COUNT NO; POSITIVE DIFFERENTIAL NO; POSITIVE MORPHOLOGY YES
--- NOTE | 2017-11-24 07:06 | CPS ---
pt on 2 pressors, no vent weaning to be tried. pt does not meet criteria.
[2017-11-24 07:21] LABS: Differential Comment SCANNED
[2017-11-24] MEDS: Thiamine Hydrochloride 100 MG Tablet PO (08:53)
[2017-11-24] MEDS: Multivitamins,Ther W-Minerals Tablet 1 TABLET PO (08:53)
[2017-11-24] MEDS: Folic Acid 1 MG Tablet PO (08:53)
[2017-11-24] MEDS: Chlorhexidine 15 ML PO ×2 (09:45→23:01)
[2017-11-24] MEDS: Menthol/Lanolin/Calamine/Znox 113 GM Tube 1 APPLIC TOPICAL ×4 (09:45→23:00)
[2017-11-24] MEDS: Lactulose 20 GM/30 ML UDC GT (09:47)
[2017-11-24] MEDS: Famotidine 20 MG Tablet GT ×2 (09:49→23:01)
--- NOTE | 2017-11-24 09:52 | PCM.PN.HOSP ---
Patient Problems: Active and Suspected Problems Altered mental status (Acute) Sepsis (Acute) Aspiration pneumonia (Acute) Subjective: The patient is a 62 year old M with a history of chronic alcohol abuse with cirrhosis, bipolar disorder, depression, COPD, and severe protein calorie malnutrition. Patient was admitted from his correction on 11/22/2017 after he was brought to the [facility] ED on account of altered mental status. Patient had been on admission [facility] and was just discharged to the correction on 11/21/2017. Not much history could be obtained as patient was not very responsive. . Per discussion with the ED doctor, patient was brought in because of altered mental status and suspicion for aspiration. As mentioned he had been on admission after being managed for sepsis, and hyponatremia as well as ascites for which he received paracentesis. In the correction and admit noted that his mental status was declining and he had rapid shallow breathing and bizarre behavior such as eating Band-Aids. Unable to obtain any more history from patient relatives. On admission in the ED, temperature was 98.1, blood pressure was 100/73 and suddenly went down to 84/62, pulse rate was 106 and patient was breathing at 36 minute. Labs were significant for leukocytosis of 16.9. Brain MRI was negative. Patient was admitted to the ICU and ABGs done showed severe respiratory acidosis with CO2 in the 80s. Patient was intubated during which copious amounts of thick brown fluid was found in the airway. He has been managed for septic shock due to aspiration pneumonia and is on IV vancomycin and IV Zosyn. Remains intubated and is on Levophed. Patient seen and examined. He remains intubated but is off fentanyl. Per his nurse, patient was noted to have worsening abdominal distention and abdominal compartment pressure checked was just 12 this morning. Blood pressure has remained stable and he is on Levophed at 10 mcg/min which is down from the peak of 20 that he was on yesterday. Suctioning did not give any residuals. Review of systems as discussed with nurse otherwise negative. Vitals/I&O's: Vital Signs Temp Pulse Resp BP Pulse Ox 99.0 F 95 25 H 88/63 L 98 11/24/17 08:00 11/24/17 09:32 11/24/17 09:32 11/24/17 09:32 11/24/17 09:32 Oxygen Flow Rate (L/min) 40 Oxygen Delivery Method Mechanical Ventilator Weight: 193 lb 12.581 oz Body Mass Index (BMI) 29.2 Intake and Output for Last 24 Hours 11/22/17 11/23/17 11/24/17 23:59 23:59 23:59 Intake Total 1000 / 1000 3701.1 / 3701.1 754 / 754 Output Total 100 / 100 240 / 240 150 / 150 Balance 900 / 900 3461.1 / 3461.1 604 / 604 General: - - intubated, sedated with precedex, RASS score is -2 HEENT: Atraumatic, PERRLA, EOMI, Normocephalic Oral: Dry Mucosa Neck: Supple, No JVD, Negative Carotid Bruits Lungs: - - has mildly decreased breath sounds bibasally, with coarse crackles Cardiovascular: Regular rate, Regular Rhythm, Normal S1, Normal S2, No murmurs Abdomen: Hypoactive Bowel Sounds, Distended, - - abdomen tympanitic to percussion Extremities: No clubbing, No cyanosis, - - 2+ generalised pitting edema of extremities, and abdominal wall. 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 Laboratory Results 11/23/17 03:50: Total Creatine Kinase 47 11/23/17 12:26: POC Glucose 103 11/23/17 18:21: POC Glucose 116 H 11/23/17 23:11: POC Glucose 127 H 11/24/17 04:35: WBC 20.1 H, RBC 3.46 L, Hgb 10.7 L, Hct 32.7 L, MCV 94.5 H, MCH 30.9, MCHC 32.7, RDW 17.3 H, RDW Differential 58.7 H, Plt Count 260, MPV 10.7, Immature Gran % (Auto) 0.200, Neut % (Auto) 77.4 H, Lymph % (Auto) 15.9 L, [place] % (Auto) 6.0, Eos % (Auto) 0.3, Baso % (Auto) 0.2, Absolute Neuts (auto) 15.6 H, Absolute Lymphs (auto) 3.21, Total Counted Not Reportable, Differential Comment SCANNED 11/24/17 04:35: Sodium 140, Potassium 4.3, Chloride 105, Carbon Dioxide 23.0, Anion Gap 12, BUN 56 H, Creatinine 2.40 H, Estim Creat Clear Calc 31.67, Est GFR (MDRD) Af Amer 36 L, Est GFR (MDRD) Non-Af 30 L, BUN/Creatinine Ratio 23.3 H, Glucose 250 H, Calcium 7.1 L 11/24/17 06:37: POC Glucose 125 H Current Medications Albuterol Sulfate (Ventolin Aerosols) 2.5 mg INHALATION Q2H PRN PRN PRN Reason: WHEEZING Albuterol/Ipratropium (Duoneb) 3 ml INHALATION Q6H.RT [facility] Last Admin: 11/24/17 06:58 Dose: 3 ml Bisacodyl (Dulcolax) 10 mg RECTAL DAILY PRN PRN PRN Reason: Constipation Calamine/Phenol (Calmoseptine Ointment) 1 applic TOPICAL 4X/DAY [facility] PRN Reason: Protocol Last Admin: 11/24/17 09:45 Dose: 1 applicatio Chlorhexidine Gluconate () 15 ml PO BID [facility] Last Admin: 11/24/17 09:45 Dose: 15 ml Chlorhexidine Gluconate () 1 each TOPICAL DAILY [facility] Last Admin: 11/24/17 03:20 Dose: 1 each Clotrimazole (Lotrimin) 1 applicatio TOPICAL BID [facility] PRN Reason: Protocol Last Admin: 11/24/17 09:46 Dose: 1 applicatio Dextrose (D50w Syringe) 0 gm IV X1 PRN; Protocol PRN Reason: Hypoglycemia Famotidine (Pepcid) 20 mg GT BID [facility] Last Admin: 11/24/17 09:49 Dose: 20 mg Folic Acid (Folic Acid) 1 mg GT DAILY [facility] Glucagon () 1 mg IM .X1 PRN PRN Reason: Hypoglycemia Heparin Sodium (Porcine) (Heparin Na) 5,000 unit SC Q8 [facility] Last Admin: 11/24/17 06:34 Dose: 5,000 u Piperacillin Sod/Tazobactam Sod (Zosyn) 3.375 gm in 50 mls @ 12.5 mls/hr IV Q8 [facility] Last Admin: 11/24/17 06:34 Dose: 12.5 mls/hr Norepinephrine Bitartrate 8 mg (/ Dextrose) 258 mls @ 9.67 mls/hr IV .[id number] [facility] PRN Reason: 5 MCG/MIN Last Admin: 11/24/17 07:33 Dose: 9.67 mls/hr Dexmedetomidine HCl 400 mcg/ (Sodium Chloride) 100 mls @ 13.58 mls/hr IV .[id number] RICH; 0.5 MCG/KG/HR PRN Reason: Protocol Last Admin: 11/24/17 07:33 Dose: 13.58 mls/hr Enteral Nutritional Formula (Vital Af 1.2 Jewel Liquid) 1,000 mls @ 60 mls/hr GT .[id number] R[facility] Last Admin: 11/24/17 06:38 Dose: Not Given Insulin Human Lispro (Humalog Kwikpen (Bkc)) 0 unit SC Q6 [facility] PRN Reason: Protocol Last Admin: 11/24/17 06:38 Dose: Not Given Lactulose (Chronulac, Cephulac) 20 gm GT BID [facility] Last Admin: 11/24/17 09:47 Dose: 20 gm Mineral Oil (Mineral Oil) 1 bottle RECTAL DAILY PRN PRN PRN Reason: Constipation Nicotine (Nicoderm Cq (Pbkc)) 21 mg TRANSDERM. DAILY [facility] Last Admin: 11/24/17 09:47 Dose: Not Given Sodium Chloride () 5 - 30 ml IV UD PRN PRN Reason: SALINE FLUSH Last Admin: 11/24/17 04:29 Dose: 10 ml Thiamine HCl (Vitamin B1) 100 mg GT DAILY [facility] Medical Necessity - Tobacco Use Smoking Status: Former smoker Assessment/Plan All Active Problems Hyponatremia (Acute) Severe sepsis (Acute) Depression (Acute) Altered mental status (Acute) Sepsis (Acute) Aspiration pneumonia (Acute) 8-year-old male with a history of chronic alcohol abuse with resultant cirrhosis status post paracentesis, bipolar disorder and depression. He was admitted by the ED on 11/22/2017 complaint of altered mental status from his correction. 1. Septic shock due to aspiration pneumonia Maintenance intubated and sedated. Levophed down to 10 mics per minute from peak of 20 yesterday and he is on Precedex 0.5 mcg per minute. Patient was heavily sedated at time of review, so precedex was brought down to 0.3mcg/min Vent settings: FiO2-40%, RR-12, TV-500mls, PEEP-5 urine output over 24 hours is 240mls; in positive balance by 3.4L white cell count down to 20/ today has been off fentanyl drip since yesterday on precedex; vasopressin was added yesterday, but he has been off of it. sputum cultured Klebsiella and Proteus mirabilis blood cultures pending urine culture negative. 2. Acute hypercapnic and hYpoxic respiratory failure due to aspiration pneumonia still on ventilator. Vent settings AC volume control with tidal volume of 500, respiratory rate of 12, PEEP of 5 and FiO2 40%. on breathing treatments and suctioning prn maintain saturation >92% 3. CIrrrhosis with ascites s/p paracentesis Patient now very edematous, likely due to third spacing from IV fluids. Spironolactone, furosemide and beta-ailyn on hold. on lactulose, to titrate to 2-3 loose stools daily 4. Rhabdomyolysis: resolved. CK was at 5234 on admisison, likely due to CPR; had trended down to 47 on repeat. 5. CAROL: Cr was 1.16 on admission, now trended up to 2.4. Urine output is trending down and was 240mls over last 24 hours. this is likely due the septic shock and sepsis will check urine electrolytes nephrology consulted. Will await rec's. 6. Depression and bipolar disorder: trazodone on hold. 7. Severe protein calorie malnutrition: Nutrition consulted. Currently on tube feeds 8. COPD: intubated for hypoxic, hypercapnic respiratory failure. on breathing treatments 9. DVT prophylaxis: heparin. 10. GI prophylaxis: famotidine 11. Code status: Full code. Daughter Lori is next of kin. This note was generated with [employer] software. It may contain incorrect words, spelling, and punctuation that were not noted in checking the note before signing. Code Visit Inpatient E&M: [id number] [facility] L3
--- NOTE | 2017-11-24 09:59 | CASEMGMT ---
Social Work: Participated in ICU rounds. Patient was discharged from [facility] on Friday to [facility] and re admitted to [facility] ICU on Friday. Patient's daughter Marcelle present for rounds. Patient is currently on ventilator and unable to communicate to team. Spoke with patient's daughter Marcelle after ICU rounds. Marcelle and patient's ex- Gabi are currently in [place]. Marcelle states we were not aware of how sick he was because his brother was not keeping us in the loop. This SW explained that up until D/C to [facility] on Friday, patient was alert and oriented and able to make own decisions. Marcelle with questions regarding D/C planning and finances. SW explained that SW will follow through out admission and assist with D/C planning when patient is medically ready. Marcelle with concerns about finances. This SW encouraged daughter to discuss concerns with patient's brother as patient gave brother the money that was locked up here in security office when patient was here last week. Marcelle states that she will discuss with patient's brother. Discussed palliative care with patient's daughter who is agreeable to need for palliative care. Daughter to discuss with patient as he becomes more alert and able to have conversation. Patient's daughter tearful through out conversation with this SW. Much active listening and supportive counseling provided. Will continue to follow closely to assist as needed with D/C planning. PLAN: Discharge back to [facility] when medically ready.
--- NOTE | 2017-11-24 10:13 | PN_ITS ---
Patient Problems: Active and Suspected Problems Altered mental status (Acute) Sepsis (Acute) Aspiration pneumonia (Acute) Subjective: The patient is a 62 year old M with a history of chronic alcohol abuse with cirrhosis, bipolar disorder, depression, COPD, and severe protein calorie malnutrition. Patient was admitted from his retirement on 11/22/2017 after he was brought to the [facility] ED on account of altered mental status. Patient had been on admission [facility] and was just discharged to the retirement on 11/21/2017. Not much history could be obtained as patient was not very responsive. . Per discussion with the ED doctor, patient was brought in because of altered mental status and suspicion for aspiration. As mentioned he had been on admission after being managed for sepsis, and hyponatremia as well as ascites for which he received paracentesis. In the retirement and admit noted that his mental status was declining and he had rapid shallow breathing and bizarre behavior such as eating Band-Aids. Unable to obtain any more history from patient relatives. On admission in the ED, temperature was 98.1, blood pressure was 100/73 and suddenly went down to 84 /62, pulse rate was 106 and patient was breathing at 36 minute. Labs were significant for leukocytosis of 16.9. Brain MRI was negative. Patient was admitted to the ICU and ABGs done showed severe respiratory acidosis with CO2 in the 80s. Patient was intubated during which copious amounts of thick brown fluid was found in the airway. He has been managed for septic shock due to aspiration pneumonia and is on IV vancomycin and IV Zosyn. Remains intubated and is on Levophed. Patient seen and examined. He remains intubated but is off fentanyl. Per his nurse, patient was noted to have worsening abdominal distention and abdominal compartment pressure checked was just 12 this morning. Blood pressure has remained stable and he is on Levophed at 10 mcg/min which is down from the peak of 20 that he was on yesterday. Suctioning did not give any residuals. Review of systems as discussed with nurse otherwise negative. Vitals/I&O's: Vital Signs Temp Pulse Resp BP Pulse Ox 99.0 F 95 25 H 88/63 L 98 11/24/17 08:00 11/24/17 09:32 11/24/17 09:32 11/24/17 09:32 11/24/17 09:32 Oxygen Flow Rate (L/min) 40 Oxygen Delivery Method Mechanical Ventilator Weight: 193 lb 12.581 oz Body Mass Index (BMI) 29.2 Intake and Output for Last 24 Hours 11/22/17 11/23/17 11/24/17 23:59 23:59 23:59 Intake Total 1000 / 1000 3701.1 / 3701.1 754 / 754 Output Total 100 / 100 240 / 240 150 / 150 Balance 900 / 900 3461.1 / 3461.1 604 / 604 General: - - intubated, sedated with precedex, RASS score is -2 HEENT: Atraumatic, PERRLA, EOMI, Normocephalic Oral: Dry Mucosa Neck: Supple, No JVD, Negative Carotid Bruits Lungs: - - has mildly decreased breath sounds bibasally, with coarse crackles Cardiovascular: Regular rate, Regular Rhythm, Normal S1, Normal S2, No murmurs Abdomen: Hypoactive Bowel Sounds, Distended, - - abdomen tympanitic to percussion Extremities: No clubbing, No cyanosis, - - 2+ generalised pitting edema of extremities, and abdominal wall. 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 Laboratory Results 11/23/17 03:50: Total Creatine Kinase 47 11/23/17 12:26: POC Glucose 103 11/23/17 18:21: POC Glucose 116 H 11/23/17 23:11: POC Glucose 127 H 11/24/17 04:35: WBC 20.1 H, RBC 3.46 L, Hgb 10.7 L, Hct 32.7 L, MCV 94.5 H, MCH 30.9, MCHC 32.7, RDW 17.3 H, RDW Differential 58.7 H, Plt Count 260, MPV 10.7, Immature Gran % (Auto) 0.200, Neut % (Auto) 77.4 H, Lymph % (Auto) 15.9 L, [place] % (Auto) 6.0, Eos % (Auto) 0.3, Baso % (Auto) 0.2, Absolute Neuts (auto) 15.6 H , Absolute Lymphs (auto) 3.21, Total Counted Not Reportable, Differential Comment SCANNED 11/24/17 04:35: Sodium 140, Potassium 4.3, Chloride 105, Carbon Dioxide 23.0, Anion Gap 12, BUN 56 H, Creatinine 2.40 H, Estim Creat Clear Calc 31.67, Est GFR (MDRD) Af Amer 36 L, Est GFR (MDRD) Non-Af 30 L, BUN/Creatinine Ratio 23.3 H , Glucose 250 H, Calcium 7.1 L 11/24/17 06:37: POC Glucose 125 H Current Medications Albuterol Sulfate (Ventolin Aerosols) 2.5 mg INHALATION Q2H PRN PRN PRN Reason: WHEEZING Albuterol/Ipratropium (Duoneb) 3 ml INHALATION Q6H.RT [facility] Last Admin: 11/24/17 06:58 Dose: 3 ml Bisacodyl (Dulcolax) 10 mg RECTAL DAILY PRN PRN PRN Reason: Constipation Calamine/Phenol (Calmoseptine Ointment) 1 applic TOPICAL 4X/DAY [facility] PRN Reason: Protocol Last Admin: 11/24/17 09:45 Dose: 1 applicatio Chlorhexidine Gluconate () 15 ml PO BID [facility] Last Admin: 11/24/17 09:45 Dose: 15 ml Chlorhexidine Gluconate () 1 each TOPICAL DAILY [facility] Last Admin: 11/24/17 03:20 Dose: 1 each Clotrimazole (Lotrimin) 1 applicatio TOPICAL BID [facility] PRN Reason: Protocol Last Admin: 11/24/17 09:46 Dose: 1 applicatio Dextrose (D50w Syringe) 0 gm IV X1 PRN; Protocol PRN Reason: Hypoglycemia Famotidine (Pepcid) 20 mg GT BID [facility] Last Admin: 11/24/17 09:49 Dose: 20 mg Folic Acid (Folic Acid) 1 mg GT DAILY [facility] Glucagon () 1 mg IM .X1 PRN PRN Reason: Hypoglycemia Heparin Sodium (Porcine) (Heparin Na) 5,000 unit SC Q8 RICH Last Admin: 11/24/17 06:34 Dose: 5,000 u Piperacillin Sod/Tazobactam Sod (Zosyn) 3.375 gm in 50 mls @ 12.5 mls/hr IV Q8 RICH Last Admin: 11/24/17 06:34 Dose: 12.5 mls/hr Norepinephrine Bitartrate 8 mg (/ Dextrose) 258 mls @ 9.67 mls/hr IV .[id number] RICH PRN Reason: 5 MCG/MIN Last Admin: 11/24/17 07:33 Dose: 9.67 mls/hr Dexmedetomidine HCl 400 mcg/ (Sodium Chloride) 100 mls @ 13.58 mls/hr IV .[id number] RICH; 0.5 MCG/KG/HR PRN Reason: Protocol Last Admin: 11/24/17 07:33 Dose: 13.58 mls/hr Enteral Nutritional Formula (Vital Af 1.2 Jewel Liquid) 1,000 mls @ 60 mls/hr GT .[id number] RICH Last Admin: 11/24/17 06:38 Dose: Not Given Insulin Human Lispro (Humalog Kwikpen (Bkc)) 0 unit SC Q6 [facility] PRN Reason: Protocol Last Admin: 11/24/17 06:38 Dose: Not Given Lactulose (Chronulac, Cephulac) 20 gm GT BID [facility] Last Admin: 11/24/17 09:47 Dose: 20 gm Mineral Oil (Mineral Oil) 1 bottle RECTAL DAILY PRN PRN PRN Reason: Constipation Nicotine (Nicoderm Cq (Pbkc)) 21 mg TRANSDERM. DAILY [facility] Last Admin: 11/24/17 09:47 Dose: Not Given Sodium Chloride () 5 - 30 ml IV UD PRN PRN Reason: SALINE FLUSH Last Admin: 11/24/17 04:29 Dose: 10 ml Thiamine HCl (Vitamin B1) 100 mg GT DAILY [facility] Medical Necessity - Tobacco Use Smoking Status: Former smoker Assessment/Plan All Active Problems Hyponatremia (Acute) Severe sepsis (Acute) Depression (Acute) Altered mental status (Acute) Sepsis (Acute) Aspiration pneumonia (Acute) 8-year-old male with a history of chronic alcohol abuse with resultant cirrhosis status post paracentesis, bipolar disorder and depression. He was admitted by the ED on 11/22/2017 complaint of altered mental status from his retirement. 1. Septic shock due to aspiration pneumonia * Maintenance intubated and sedated. * Levophed down to 10 mics per minute from peak of 20 yesterday and he is on Precedex 0.5 mcg per minute. Patient was heavily sedated at time of review, so precedex was brought down to 0.3mcg/min * Vent settings: FiO2-40%, RR-12, TV-500mls, PEEP-5 * urine output over 24 hours is 240mls; in positive balance by 3.4L * white cell count down to 20/1 today * has been off fentanyl drip since yesterday * on precedex; vasopressin was added yesterday, but he has been off of it. * sputum cultured Klebsiella and Proteus mirabilis * blood cultures pending * urine culture negative. * 2. Acute hypercapnic and hYpoxic respiratory failure due to aspiration pneumonia * still on ventilator. Vent settings AC volume control with tidal volume of 500 , respiratory rate of 12, PEEP of 5 and FiO2 40%. * on breathing treatments and suctioning prn * maintain saturation >92% 3. CIrrrhosis with ascites s/p paracentesis * Patient now very edematous, likely due to third spacing from IV fluids. * Spironolactone, furosemide and beta-ailyn on hold. * on lactulose, to titrate to 2-3 loose stools daily * * 4. Rhabdomyolysis: * resolved. CK was at 5234 on admisison, likely due to CPR; had trended down to 47 on repeat. * 5. CAROL: * Cr was 1.16 on admission, now trended up to 2.4. Urine output is trending down and was 240mls over last 24 hours. * this is likely due the septic shock and sepsis * will check urine electrolytes * nephrology consulted. Will await rec's. * 6. Depression and bipolar disorder: trazodone on hold. 7. Severe protein calorie malnutrition: Nutrition consulted. Currently on tube feeds 8. COPD: intubated for hypoxic, hypercapnic respiratory failure. on breathing treatments 9. DVT prophylaxis: heparin. 10. GI prophylaxis: famotidine 11. Code status: Full code. Daughter Lori is next of kin. * This note was generated with [employer] software. It may contain incorrect words, spelling, and punctuation that were not noted in checking the note before signing. Code Visit Inpatient E&M: 32641 [facility] L3
--- NOTE | 2017-11-24 10:49 | PN_ITS ---
Subjective: Patient did okay overnight. Patient has remained on Precedex therapy and has been relatively unresponsive. Patient's daughter at the bedside during family rounds. Patient has not been able to tolerate tube feeds. Patient did have a bladder pressure/intra-abdominal pressure checked this morning and it was noted to be 8. Objective: Abdominal imaging is consistent with a small bowel ileus. Patient has since been placed on low intermittent suction. General: - - Intubated and sedated. Good vent synchrony noted. Anasarca noted. Appears much older than stated age. HEENT: Atraumatic, PERRLA, EOMI, Normocephalic, - - Poor dentition. No scleral icterus or injection noted. Oral: No Gingival or Mucosal Lesions/ Ulcerations, Dry Mucosa Neck: Supple, No JVD, No Nodes, Trachea Midline Lungs: No wheeze, No rales, Diminished, Rhonchi - Bilateral, - - Symmetric expansion. No dullness to percussion. Cardiovascular: Normal S1, Normal S2, No murmurs, No rub noted, No Gallop, Tachycardic Abdomen: Soft, Non Tender, Hypoactive Bowel Sounds, Distended Extremities: No cyanosis, Capillary Refill Less than 3 Seconds, Clubbing, Edema - Anasarca Skin: - - Extensive perineal and gluteal wounds similar to previous. Musculoskeletal: Cachexia, Muscle Wasting Lymphatic: No Cervical, Supraclavicular, or Inguinal Adenopathy Neurological: - - No focal neuro deficits were appreciated. Psych/Mental Status: Flat Affect, Restless Vital Signs Temp Pulse Resp BP Pulse Ox 37.2 C 95 24 H 80/59 L 98 11/24/17 08:00 11/24/17 10:00 11/24/17 10:00 11/24/17 10:00 11/24/17 10:00 Oxygen Flow Rate (L/min) 40 Oxygen Delivery Method Mechanical Ventilator Weight: 87.9 kg Body Mass Index (BMI) 29.2 Intake and Output for Last 24 Hours 11/22/17 11/23/17 11/24/17 23:59 23:59 23:59 Intake Total 1000 / 1000 3701.1 / 3701.1 754 / 754 Output Total 100 / 100 240 / 240 150 / 150 Balance 900 / 900 3461.1 / 3461.1 604 / 604 Labs (Last 48 Hours) 11/22/17 11/22/17 11/22/17 14:54 16:22 17:30 WBC RBC Hgb Hct MCV MCH MCHC RDW RDW Differential Plt Count MPV Immature Gran % (Auto) Neut % (Auto) Lymph % (Auto) Johnson % (Auto) Eos % (Auto) Baso % (Auto) Absolute Neuts (auto) Absolute Lymphs (auto) Total Counted Differential Comment Specimen Type ART ART Sample Site L Radial L Radial pH 7.09 L* 7.29 L Bicarbonate Actual 26.6 H 27.2 H POC Total CO2 29 29 Base Excess -3 L 1 O2 Saturation 97 100 H O2 % 100 ABG pCO2 87.0 H* 56.2 H ABG pO2 136 H 286 H Mitul Test POS POS Respiration Rate 20 O2 Delivery Device NRB Mask Vent Liter Flow 15.0 Minute Volume 10.00 Vent Mode A-C Tidal Volume 450 POC PEEP 5 Blood Gas Notified Whom ICU MD ICU MD Blood Gas Notified Time 1453 1621 Sodium Potassium Chloride Carbon Dioxide Anion Gap BUN Creatinine Estim Creat Clear Calc Est GFR (MDRD) Af Amer Est GFR (MDRD) Non-Af BUN/Creatinine Ratio Glucose Calcium Total Creatine Kinase 5234 H Triglycerides 1496 H MRSA (PCR) POC Glucose 11/22/17 11/23/17 11/23/17 17:30 01:51 03:50 WBC 24.1 H RBC 3.78 L Hgb 12.0 L Hct 35.9 L MCV 95.0 H MCH 31.7 MCHC 33.4 RDW 17.0 H RDW Differential 57.3 H Plt Count 288 MPV 10.2 Immature Gran % (Auto) Neut % (Auto) Lymph % (Auto) Johnson % (Auto) Eos % (Auto) Baso % (Auto) Absolute Neuts (auto) Absolute Lymphs (auto) Total Counted Differential Comment Specimen Type Sample Site pH Bicarbonate Actual POC Total CO2 Base Excess O2 Saturation O2 % ABG pCO2 ABG pO2 Mitul Test Respiration Rate O2 Delivery Device Liter Flow Minute Volume Vent Mode Tidal Volume POC PEEP Blood Gas Notified Whom Blood Gas Notified Time Sodium Potassium Chloride Carbon Dioxide Anion Gap BUN Creatinine Estim Creat Clear Calc Est GFR (MDRD) Af Amer Est GFR (MDRD) Non-Af BUN/Creatinine Ratio Glucose Calcium Total Creatine Kinase Triglycerides MRSA (PCR) Negative POC Glucose 87 11/23/17 11/23/1718 03:50 03:50 05:36 WBC RBC Hgb Hct MCV MCH MCHC RDW RDW Differential Plt Count MPV Immature Gran % (Auto) Neut % (Auto) Lymph % (Auto) Johnson % (Auto) Eos % (Auto) Baso % (Auto) Absolute Neuts (auto) Absolute Lymphs (auto) Total Counted Differential Comment Specimen Type Sample Site pH Bicarbonate Actual POC Total CO2 Base Excess O2 Saturation O2 % ABG pCO2 ABG pO2 Mitul Test Respiration Rate O2 Delivery Device Liter Flow Minute Volume Vent Mode Tidal Volume POC PEEP Blood Gas Notified Whom Blood Gas Notified Time Sodium 144 Potassium 4.4 Chloride 109 H Carbon Dioxide 24.0 Anion Gap 11 BUN 47 H Creatinine 1.71 H Estim Creat Clear Calc 44.44 Est GFR (MDRD) Af Amer 53 L Est GFR (MDRD) Non-Af 44 L BUN/Creatinine Ratio 27.5 H Glucose 105 Calcium 7.5 L Total Creatine Kinase 47 Triglycerides MRSA (PCR) POC Glucose 104 11/23/17 11/23/17 11/23/17 07:55 12:26 18:21 WBC RBC Hgb Hct MCV MCH MCHC RDW RDW Differential Plt Count MPV Immature Gran % (Auto) Neut % (Auto) Lymph % (Auto) Johnson % (Auto) Eos % (Auto) Baso % (Auto) Absolute Neuts (auto) Absolute Lymphs (auto) Total Counted Differential Comment Specimen Type ART Sample Site L Radial pH 7.49 H Bicarbonate Actual 21.8 L POC Total CO2 23 Base Excess -2 O2 Saturation 96 O2 % 40 ABG pCO2 28.8 L ABG pO2 75 Mitul Test POS Respiration Rate 12 O2 Delivery Device Vent Liter Flow Minute Volume Vent Mode VC+ Tidal Volume 500 POC PEEP 5 Blood Gas Notified Whom ICU Blood Gas Notified Time 755 Sodium Potassium Chloride Carbon Dioxide Anion Gap BUN Creatinine Estim Creat Clear Calc Est GFR (MDRD) Af Amer Est GFR (MDRD) Non-Af BUN/Creatinine Ratio Glucose Calcium Total Creatine Kinase Triglycerides MRSA (PCR) POC Glucose 103 116 H 11/23/17 11/24/17 11/24/17 23:11 04:35 04:35 WBC 20.1 H RBC 3.46 L Hgb 10.7 L Hct 32.7 L MCV 94.5 H MCH 30.9 MCHC 32.7 RDW 17.3 H RDW Differential 58.7 H Plt Count 260 MPV 10.7 Immature Gran % (Auto) 0.200 Neut % (Auto) 77.4 H Lymph % (Auto) 15.9 L Johnson % (Auto) 6.0 Eos % (Auto) 0.3 Baso % (Auto) 0.2 Absolute Neuts (auto) 15.6 H Absolute Lymphs (auto) 3.21 Total Counted Not Reportable Differential Comment SCANNED Specimen Type Sample Site pH Bicarbonate Actual POC Total CO2 Base Excess O2 Saturation O2 % ABG pCO2 ABG pO2 Mitul Test Respiration Rate O2 Delivery Device Liter Flow Minute Volume Vent Mode Tidal Volume POC PEEP Blood Gas Notified Whom Blood Gas Notified Time Sodium 140 Potassium 4.3 Chloride 105 Carbon Dioxide 23.0 Anion Gap 12 BUN 56 H Creatinine 2.40 H Estim Creat Clear Calc 31.67 Est GFR (MDRD) Af Amer 36 L Est GFR (MDRD) Non-Af 30 L BUN/Creatinine Ratio 23.3 H Glucose 250 H Calcium 7.1 L Total Creatine Kinase Triglycerides MRSA (PCR) POC Glucose 127 H 11/24/17 06:37 WBC RBC Hgb Hct MCV MCH MCHC RDW RDW Differential Plt Count MPV Immature Gran % (Auto) Neut % (Auto) Lymph % (Auto) Johnson % (Auto) Eos % (Auto) Baso % (Auto) Absolute Neuts (auto) Absolute Lymphs (auto) Total Counted Differential Comment Specimen Type Sample Site pH Bicarbonate Actual POC Total CO2 Base Excess O2 Saturation O2 % ABG pCO2 ABG pO2 Mitul Test Respiration Rate O2 Delivery Device Liter Flow Minute Volume Vent Mode Tidal Volume POC PEEP Blood Gas Notified Whom Blood Gas Notified Time Sodium Potassium Chloride Carbon Dioxide Anion Gap BUN Creatinine Estim Creat Clear Calc Est GFR (MDRD) Af Amer Est GFR (MDRD) Non-Af BUN/Creatinine Ratio Glucose Calcium Total Creatine Kinase Triglycerides MRSA (PCR) POC Glucose 125 H Microbiology 11/22/17 16:10 Sputum, Induced/Lukens Gram Stain - Final 11/22/17 16:10 Sputum, Induced/Lukens Respiratory Culture - Preliminary Klebsiella pneumoniae sp pneum 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 Findings in keeping with a small bowel obstruction. Follow-up is recommended. Electronically Signed: Kam Hicks MD at 10:08 EDT Tel [phone], Service support , Medical Necessity - Tobacco Use Smoking Status: Former smoker Assessment/Plan All Active Problems Hyponatremia (Acute) Severe sepsis (Acute) Depression (Acute) Altered mental status (Acute) Sepsis (Acute) Aspiration pneumonia (Acute) RECOMMENDATIONS: 1. Propofol should be avoided given elevated baseline triglyceride levels, continue Precedex 2. Discontinue beta-ailyn and Spironolactone, given vasopressor requirement 3. Continue lactulose 4. Obtain repeat arterial blood gas 5. NG to low intermittent suction 6. Continue broad-spectrum antibiotics, pending infectious workup 7. Continue Levophed to maintain a mean arterial pressure at or above 65 mmHg. Discontinue vasopressin 8. ICU prophylaxis with subcutaneous heparin and Pepcid IMPRESSIONS: 1. Septic shock Clinical concern for acute aspiration event, given the circumstances of his presentation. Patient's hemodynamics have slightly improved compared to yesterday. Patient has been able to come off of vasopressin, but still has substantial Levophed requirements. Patient is on broad-spectrum antibiotics and has grown Proteus, Klebsiella and a gram-negative baldomero from his sputum. 2. Acute hypoxemic and hypercarbic respiratory failure The patient does have an extensive smoking history, raising the concern for potential underlying COPD. However, there is a high probability that the patient experienced an acute aspiration event upon arrival to the hospital. Continue full mechanical ventilatory support. Sputum cultures are pending. Continue bronchodilators as ordered. Continue Precedex therapy. Maintain a RASS of -1 to 1. Plan for daily paired spontaneous awakening and breathing trials per protocol. 3. Encephalopathy, likely metabolic/infectious in nature The patient is currently being treated for septic shock. In addition, he had an elevated ammonia level to 51. Lactulose has been added to the patient's medication regimen. Continue treatment of underlying infectious process. 4. Acute kidney injury Likely secondary to hemodynamic instability in the setting of #1. Anticipate improvement following stabilization of hemodynamics. Continue to monitor urine output. No indication for renal replacement therapy at the current time. Patient does have significant extravasation secondary to poor nutritional status. Continue to support blood pressure using pressor agents. 5. Troponin elevation Likely secondary to demand ischemia in the setting of #1. 6. Small bowel ileus Likely secondary to septic shock. Conservative management at this time. Patient does have OG to low intermittent suction. Attempt to hold fentanyl if possible. 7. Chronic alcohol and tobacco dependence/severe protein calorie malnutrition/deconditioning/bipolar disorder Complicates care, management, recovery and prognosis. The patient will require physical therapy evaluation, once medically stabilized. Okay to start tube feeds today from my perspective. CODE STATUS/goals of care discussion to be had with the patient's family. TIME: 65 minutes of critical care time, independent of procedures, was spent addressing the patient's septic shock, acute respiratory failure, encephalopathy , acute kidney injury, troponin elevation, review of all data and collaboration with the care team. (7 AM to 11 AM) Code Visit [id number]: [id number] Critical care first hour
--- NOTE | 2017-11-24 12:26 | PCM.CONS.R ---
Consultation - Renal 11/24/17 PCP/ Referring MD: Requesting physician: Dr Griffin Primary care physician: No Primary Care Phys Reason for Consultation:: acute kidney injury - History of Present Illness History of Present Illness: The patient is a 62 year old M with a history of chronic alcohol abuse with cirrhosis, bipolar disorder, depression, COPD, tobacco use and severe protein calorie malnutrition with albumin 1.2. He was recently discharged from [facility] on 11/21 to [facility] after hospitalized for hyponatremia sodium 117 on 11/08, perineal infection. He was readmitted for hepatic encephalopathy, altered mental status, hypoxia from aspiration pneumonia s/p intubation for respiratory distress. Currently sedate, on vent. Chart reviewed. Pt daughter at bedside. Arrived Sat night from [place] after received phone call from pt brother about his admission. According to the pt daughter, he has been in [place] living with his brother for past 2 years. He drinks about 30 beers a day. He has a history of encephalopathy, confusion, abusive behavior with alcohol consumption. He has been lethargic and has been sitting in his waste on the couch at home prior to admit. He has chronic swelling. Creatinine during last hospitalization at [facility] was 0.48 in October increased to 1.01 on 11/21 prior to discharge to [facility]. He was sent on aldactone. Creatinine on admit was 1.16 on 11/22 to 1.71 on 11/23, 2.4 today. He is hypotensive requiring pressor support for sepsis with GNR in sputum. He underwent paracentesis on 11/19 during his last hospitalization. He has diffuse edema, on vent. Echo from 11/19/17 showed preserved EF of 65%. - Allergies Allergies: Allergies No Known Allergies Allergy (Verified 11/22/17 11:14) - Current Medications Current Medications: Current Medications Albuterol Sulfate (Ventolin Aerosols) 2.5 mg INHALATION Q2H PRN PRN PRN Reason: WHEEZING Albuterol/Ipratropium (Duoneb) 3 ml INHALATION Q6H.RT [facility] Last Admin: 11/24/17 06:58 Dose: 3 ml Bisacodyl (Dulcolax) 10 mg RECTAL DAILY PRN PRN PRN Reason: Constipation Calamine/Phenol (Calmoseptine Ointment) 1 applic TOPICAL 4X/DAY RICH PRN Reason: Protocol Last Admin: 11/24/17 09:45 Dose: 1 applicatio Chlorhexidine Gluconate () 15 ml PO BID [facility] Last Admin: 11/24/17 09:45 Dose: 15 ml Chlorhexidine Gluconate () 1 each TOPICAL DAILY [facility] Last Admin: 11/24/17 03:20 Dose: 1 each Clotrimazole (Lotrimin) 1 applicatio TOPICAL BID RICH PRN Reason: Protocol Last Admin: 11/24/17 09:46 Dose: 1 applicatio Dextrose (D50w Syringe) 0 gm IV X1 PRN; Protocol PRN Reason: Hypoglycemia Famotidine (Pepcid) 20 mg GT BID [facility] Last Admin: 11/24/17 09:49 Dose: 20 mg Folic Acid (Folic Acid) 1 mg GT DAILY [facility] Glucagon () 1 mg IM .X1 PRN PRN Reason: Hypoglycemia Heparin Sodium (Porcine) (Heparin Na) 5,000 unit SC Q8 [facility] Last Admin: 11/24/17 06:34 Dose: 5,000 u Piperacillin Sod/Tazobactam Sod (Zosyn) 3.375 gm in 50 mls @ 12.5 mls/hr IV Q8 [facility] Last Admin: 11/24/17 06:34 Dose: 12.5 mls/hr Norepinephrine Bitartrate 8 mg (/ Dextrose) 258 mls @ 9.67 mls/hr IV .[id number] RICH PRN Reason: 5 MCG/MIN Last Admin: 11/24/17 07:33 Dose: 9.67 mls/hr Dexmedetomidine HCl 400 mcg/ (Sodium Chloride) 100 mls @ 13.58 mls/hr IV .[id number] RICH; 0.5 MCG/KG/HR PRN Reason: Protocol Last Admin: 11/24/17 10:05 Dose: Not Given Enteral Nutritional Formula (Vital Af 1.2 Jewel Liquid) 1,000 mls @ 60 mls/hr GT .[id number] [facility] Last Admin: 11/24/17 06:38 Dose: Not Given Insulin Human Lispro (Humalog Kwikpen (Bkc)) 0 unit SC Q6 [facility] PRN Reason: Protocol Last Admin: 11/24/17 06:38 Dose: Not Given Lactulose (Chronulac, Cephulac) 20 gm GT BID [facility] Last Admin: 07/09/18 09:47 Dose: 20 gm Mineral Oil (Mineral Oil) 1 bottle RECTAL DAILY PRN PRN PRN Reason: Constipation Nicotine (Nicoderm Cq (Pbkc)) 21 mg TRANSDERM. DAILY RICH Last Admin: 11/24/17 09:47 Dose: Not Given Sodium Chloride () 5 - 30 ml IV UD PRN PRN Reason: SALINE FLUSH Last Admin: 11/24/17 04:29 Dose: 10 ml Thiamine HCl (Vitamin B1) 100 mg GT DAILY RICH - Past Medical History Past Medical History (Chronic Problems): Chronic Problems Alcohol abuse (Chronic) Tobacco dependence (Chronic) COPD (chronic obstructive pulmonary disease) (Chronic) Bipolar disorder (Chronic) - Past Surgical History Surgical History: - - Hemorrhoidectomy. - Social History Smoking Status: Former smoker - Family History Maternal History Items: Cancer, Diabetes, Heart Disease, Hypertension Paternal History Items: Cancer, Diabetes, Heart Disease, Hypertension Review of Systems Unable to obtain accurate/complete ROS d/t: pt intubated, sedate. Chart reviewed, limited history from pt dtr Patient Problems: Active and Suspected Problems Altered mental status (Acute) Sepsis (Acute) Aspiration pneumonia (Acute) - Physical Exam General: Lethargic, - - sedate on vent Oral: Moist Mucosa Neck: Supple Lungs: Clear to auscultation Cardiovascular: Regular rate, No rub noted Abdomen: Soft, Non Tender, Hypoactive Bowel Sounds, Distended Extremities: Edema - diffuse anasarca Musculoskeletal: No Muscle Wasting Neurological: - - sedate on vent Psych/Mental Status: - - sedate Vital Signs Temp Pulse Resp BP Pulse Ox 97.7 F L 89 23 H 80/62 L 99 11/24/17 12:00 11/24/17 12:00 11/24/17 12:00 11/24/17 12:00 11/24/17 12:00 Oxygen Flow Rate (L/min) 40 Oxygen Delivery Method Mechanical Ventilator Weight: 87.9 kg Body Mass Index (BMI) 29.2 Intake and Output for Last 24 Hours 11/22/17 11/23/17 11/24/17 23:59 23:59 23:59 Intake Total 1000 / 1000 3701.1 / 3701.1 1275.8 / 1275.8 Output Total 100 / 100 240 / 240 350 / 350 Balance 900 / 900 3461.1 / 3461.1 925.8 / 925.8 Microbiology Past 72 Hours 11/22/17 16:10 Gram Stain - Final Sputum, Induced/Lukens Respiratory Culture - Preliminary Klebsiella pneumoniae sp pneum 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 Laboratory Tests Past 24 Hrs 11/24/17 11/24/17 04:35 04:35 WBC 20.1 H RBC 3.46 L Hgb 10.7 L Hct 32.7 L MCV 94.5 H MCH 30.9 MCHC 32.7 RDW 17.3 H RDW Differential 58.7 H Plt Count 260 MPV 10.7 Immature Gran % (Auto) 0.200 Neut % (Auto) 77.4 H Lymph % (Auto) 15.9 L Amador % (Auto) 6.0 Eos % (Auto) 0.3 Baso % (Auto) 0.2 Absolute Neuts (auto) 15.6 H Absolute Lymphs (auto) 3.21 Total Counted Not Reportable Differential Comment SCANNED Sodium 140 Potassium 4.3 Chloride 105 Carbon Dioxide 23.0 Anion Gap 12 BUN 56 H Creatinine 2.40 H Estim Creat Clear Calc 31.67 Est GFR (MDRD) Af Amer 36 L Est GFR (MDRD) Non-Af 30 L BUN/Creatinine Ratio 23.3 H Glucose 250 H Calcium 7.1 L POC Glucose 11/24/17 11/23/17 11/23/17 06:37 23:11 18:21 POC Glucose 125 H 127 H 116 H 11/23/17 12:26 POC Glucose 103 Clinical Impression(s) from Imaging Studies Brain CT 11/22/17 11:27 IMPRESSION: Chronic involutional changes of the brain. Electronically Signed: Ian Mayer MD at 12:49 EDT Tel , Service support , Chest X-Ray 11/22/17 12:10 Chest X-Ray 11/22/17 15:17 KUB X-Ray 11/22/17 15:35 KUB X-Ray 11/24/17 06:08 IMPRESSION: Findings suggestive of a distended urinary bladder. Findings in keeping with a small bowel obstruction. Follow-up is recommended. Electronically Signed: Kam Hicks MD at 10:08 EDT Tel [phone], Service support , Assessment/Plan All Active Problems Hyponatremia (Acute) Severe sepsis (Acute) Depression (Acute) Altered mental status (Acute) Sepsis (Acute) Aspiration pneumonia (Acute) 1. Oliguric ischemic ATN due to sepsis. Renal fxn continues to decline. Will eventually need to discuss with family about initiating dialysis or de-escalate his care. Overall prognosis poor with history of chronic ETOH abuse, poor nutritional status, hepatic encephalopathy 2. Acute respiratory failure, aspiration pneumonia. Remains on vent 3. Sepsis requiring pressor support 4. ETOH abuse 5. Hepatic encephalopathy, ascites 6. Severe protein/calorie malnutrition 7. COPD with tobacco abuse
--- NOTE | 2017-11-24 12:36 | CON.PCM_ITS ---
Consultation - Renal 11/24/17 PCP/ Referring MD: Requesting physician: Dr Griffin Primary care physician: No Primary Care Phys Reason for Consultation:: acute kidney injury - History of Present Illness History of Present Illness: The patient is a 62 year old M with a history of chronic alcohol abuse with cirrhosis, bipolar disorder, depression, COPD, tobacco use and severe protein calorie malnutrition with albumin 1.2. He was recently discharged from [facility] on to [facility] after hospitalized for hyponatremia sodium 117 on 11/08, perineal infection. He was readmitted for hepatic encephalopathy, altered mental status, hypoxia from aspiration pneumonia s/p intubation for respiratory distress. Currently sedate, on vent. Chart reviewed. Pt daughter at bedside. Arrived Sat night from [place] after received phone call from pt brother about his admission. According to the pt daughter, he has been in [place] living with his brother for past 2 years. He drinks about 30 beers a day. He has a history of encephalopathy, confusion, abusive behavior with alcohol consumption. He has been lethargic and has been sitting in his waste on the couch at home prior to admit. He has chronic swelling. Creatinine during last hospitalization at [facility] was 0.48 in October increased to 1.01 on 11/21 prior to discharge to [facility]. He was sent on aldactone. Creatinine on admit was 1.16 on 11/22 to 1.71 on 11/23, 2.4 today. He is hypotensive requiring pressor support for sepsis with GNR in sputum. He underwent paracentesis on 11/19 during his last hospitalization. He has diffuse edema, on vent. Echo from showed preserved EF of 65%. - Allergies Allergies: Allergies No Known Allergies Allergy (Verified 11/22/17 11:14) - Current Medications Current Medications: Current Medications Albuterol Sulfate (Ventolin Aerosols) 2.5 mg INHALATION Q2H PRN PRN PRN Reason: WHEEZING Albuterol/Ipratropium (Duoneb) 3 ml INHALATION Q6H.RT [facility] Last Admin: 11/24/17 06:58 Dose: 3 ml Bisacodyl (Dulcolax) 10 mg RECTAL DAILY PRN PRN PRN Reason: Constipation Calamine/Phenol (Calmoseptine Ointment) 1 applic TOPICAL 4X/DAY RICH PRN Reason: Protocol Last Admin: 11/24/17 09:45 Dose: 1 applicatio Chlorhexidine Gluconate () 15 ml PO BID [facility] Last Admin: 11/24/17 09:45 Dose: 15 ml Chlorhexidine Gluconate () 1 each TOPICAL DAILY [facility] Last Admin: 11/24/17 03:20 Dose: 1 each Clotrimazole (Lotrimin) 1 applicatio TOPICAL BID RICH PRN Reason: Protocol Last Admin: 11/24/17 09:46 Dose: 1 applicatio Dextrose (D50w Syringe) 0 gm IV X1 PRN; Protocol PRN Reason: Hypoglycemia Famotidine (Pepcid) 20 mg GT BID [facility] Last Admin: 11/24/17 09:49 Dose: 20 mg Folic Acid (Folic Acid) 1 mg GT DAILY [facility] Glucagon () 1 mg IM .X1 PRN PRN Reason: Hypoglycemia Heparin Sodium (Porcine) (Heparin Na) 5,000 unit SC Q8 [facility] Last Admin: 11/24/17 06:34 Dose: 5,000 u Piperacillin Sod/Tazobactam Sod (Zosyn) 3.375 gm in 50 mls @ 12.5 mls/hr IV Q8 [facility] Last Admin: 11/24/17 06:34 Dose: 12.5 mls/hr Norepinephrine Bitartrate 8 mg (/ Dextrose) 258 mls @ 9.67 mls/hr IV .[id number] RICH PRN Reason: 5 MCG/MIN Last Admin: 11/24/17 07:33 Dose: 9.67 mls/hr Dexmedetomidine HCl 400 mcg/ (Sodium Chloride) 100 mls @ 13.58 mls/hr IV .[id number] RICH; 0.5 MCG/KG/HR PRN Reason: Protocol Last Admin: 11/24/17 10:05 Dose: Not Given Enteral Nutritional Formula (Vital Af 1.2 Jewel Liquid) 1,000 mls @ 60 mls/hr GT .[id number] [facility] Last Admin: 11/24/17 06:38 Dose: Not Given Insulin Human Lispro (Humalog Kwikpen (Bkc)) 0 unit SC Q6 [facility] PRN Reason: Protocol Last Admin: 11/24/17 06:38 Dose: Not Given Lactulose (Chronulac, Cephulac) 20 gm GT BID [facility] Last Admin: 07/09/18 09:47 Dose: 20 gm Mineral Oil (Mineral Oil) 1 bottle RECTAL DAILY PRN PRN PRN Reason: Constipation Nicotine (Nicoderm Cq (Pbkc)) 21 mg TRANSDERM. DAILY [facility] Last Admin: 11/24/17 09:47 Dose: Not Given Sodium Chloride () 5 - 30 ml IV UD PRN PRN Reason: SALINE FLUSH Last Admin: 11/24/17 04:29 Dose: 10 ml Thiamine HCl (Vitamin B1) 100 mg GT DAILY RICH - Past Medical History Past Medical History (Chronic Problems): Chronic Problems Alcohol abuse (Chronic) Tobacco dependence (Chronic) COPD (chronic obstructive pulmonary disease) (Chronic) Bipolar disorder (Chronic) - Past Surgical History Surgical History: - - Hemorrhoidectomy. - Social History Smoking Status: Former smoker - Family History Maternal History Items: Cancer, Diabetes, Heart Disease, Hypertension Paternal History Items: Cancer, Diabetes, Heart Disease, Hypertension Review of Systems Unable to obtain accurate/complete ROS d/t: pt intubated, sedate. Chart reviewed, limited history from pt dtr Patient Problems: Active and Suspected Problems Altered mental status (Acute) Sepsis (Acute) Aspiration pneumonia (Acute) - Physical Exam General: Lethargic, - - sedate on vent Oral: Moist Mucosa Neck: Supple Lungs: Clear to auscultation Cardiovascular: Regular rate, No rub noted Abdomen: Soft, Non Tender, Hypoactive Bowel Sounds, Distended Extremities: Edema - diffuse anasarca Musculoskeletal: No Muscle Wasting Neurological: - - sedate on vent Psych/Mental Status: - - sedate Vital Signs Temp Pulse Resp BP Pulse Ox 97.7 F L 89 23 H 80/62 L 99 11/24/17 12:00 11/24/17 12:00 11/24/17 12:00 11/24/17 12:00 11/24/17 12:00 Oxygen Flow Rate (L/min) 40 Oxygen Delivery Method Mechanical Ventilator Weight: 87.9 kg Body Mass Index (BMI) 29.2 Intake and Output for Last 24 Hours 11/22/17 11/23/17 11/24/17 23:59 23:59 23:59 Intake Total 1000 / 1000 3701.1 / 3701.1 1275.8 / 1275.8 Output Total 100 / 100 240 / 240 350 / 350 Balance 900 / 900 3461.1 / 3461.1 925.8 / 925.8 Microbiology Past 72 Hours 11/22/17 16:10 Gram Stain - Final Sputum, Induced/Lukens Respiratory Culture - Preliminary Klebsiella pneumoniae sp pneum Proteus mirabilis 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 Laboratory Tests Past 24 Hrs 11/24/17 11/24/17 04:35 04:35 WBC 20.1 H RBC 3.46 L Hgb 10.7 L Hct 32.7 L MCV 94.5 H MCH 30.9 MCHC 32.7 RDW 17.3 H RDW Differential 58.7 H Plt Count 260 MPV 10.7 Immature Gran % (Auto) 0.200 Neut % (Auto) 77.4 H Lymph % (Auto) 15.9 L [place] % (Auto) 6.0 Eos % (Auto) 0.3 Baso % (Auto) 0.2 Absolute Neuts (auto) 15.6 H Absolute Lymphs (auto) 3.21 Total Counted Not Reportable Differential Comment SCANNED Sodium 140 Potassium 4.3 Chloride 105 Carbon Dioxide 23.0 Anion Gap 12 BUN 56 H Creatinine 2.40 H Estim Creat Clear Calc 31.67 Est GFR (MDRD) Af Amer 36 L Est GFR (MDRD) Non-Af 30 L BUN/Creatinine Ratio 23.3 H Glucose 250 H Calcium 7.1 L POC Glucose 11/24/17 11/23/17 11/23/17 06:37 23:11 18:21 POC Glucose 125 H 127 H 116 H 11/23/17 12:26 POC Glucose 103 Clinical Impression(s) from Imaging Studies Brain CT 11/22/17 11:27 IMPRESSION: Chronic involutional changes of the brain. Electronically Signed: Ian Mayer MD at 12:49 EDT Tel , Service support , Chest X-Ray 11/22/17 12:10 Chest X-Ray 11/22/17 15:17 KUB X-Ray 11/22/17 15:35 KUB X-Ray 11/24/17 06:08 IMPRESSION: Findings suggestive of a distended urinary bladder. Findings in keeping with a small bowel obstruction. Follow-up is recommended. Electronically Signed: Kam Hicks MD at 10:08 EDT Tel [phone], Service support , Assessment/Plan All Active Problems Hyponatremia (Acute) Severe sepsis (Acute) Depression (Acute) Altered mental status (Acute) Sepsis (Acute) Aspiration pneumonia (Acute) 1. Oliguric ischemic ATN due to sepsis. Renal fxn continues to decline. Will eventually need to discuss with family about initiating dialysis or de-escalate his care. Overall prognosis poor with history of chronic ETOH abuse, poor nutritional status, hepatic encephalopathy 2. Acute respiratory failure, aspiration pneumonia. Remains on vent 3. Sepsis requiring pressor support 4. ETOH abuse 5. Hepatic encephalopathy, ascites 6. Severe protein/calorie malnutrition 7. COPD with tobacco abuse
[2017-11-24 12:40] LABS: Bedside Glucose 105 mg/dL (70-110)
[2017-11-24 13:17] LABS: Urine Sodium 12 mmol/L (Not Establ.)
[2017-11-24 17:36] LABS: Bedside Glucose 104 mg/dL (70-110)
--- NOTE | 2017-11-24 18:39 | NURSING ---
reviewed D Manav RN charting and agree with assessment findings
[2017-11-24] MEDS: Lactulose 20 GM/30 ML UDC 200 GM RECTAL (22:59)
[2017-11-25] VITALS (61 sets, daily range): BP systolic 71–108; BP diastolic 42–76; PULSE 92–122; RESP 17–32; TEMP 36.4–37.3; O2SAT 90–100
[2017-11-25 01:01] LABS: Bedside Glucose 95 mg/dL (70-110)
[2017-11-25] MEDS: Ipratropium/Albuterol Sulfate 3 ML AMPUL.NEB INHALATION ×4 (01:14→18:33)
[2017-11-25 04:39] LABS: Hematocrit 34.6 % (40-54); Hemoglobin 11.8 g/dl (13.0-16.5); Mean Corp Hgb Conc 34.1 g/gl (32-36); Mean Corpuscular Hgb 31.8 pg (27.0-32.0); Mean Corpuscular Volume 93.3 fL (80-94); Mean Platelet Vol. 10.3 fl (6.2-12.0); Platelet Count 251 K/mm3 (150-450); RBC Distribution Width CV 17.9 % (11.6-14.6); RBC Distribution Width SD 57.1 fl (35.1-43.9); Red Blood Count 3.71 M/mm3 (4.6-6.2); White Blood Count 24.4 K/mm3 (4.4-11.0)
[2017-11-25 04:43] LABS: Scan Indicated on CBC? Y/N NO
[2017-11-25 05:01] LABS: ALB/GLOB Ratio 0.2 RATIO (0.9-2.4); AST(SGOT) 47 U/L (15-37); Alanine Aminotransfer ALT/SGPT 22 U/L (16-61); Alkaline Phosphatase 178 U/L (45-117); Anion Gap 14 (5-15); BUN 70 mg/dL (7-18); BUN/Creat Ratio 22.5 RATIO (10-20); Calcium,Total 7.3 mg/dL (8.5-10.1); Chloride 108 mmol/L (98-107); Creatinine, Serum 3.11 mg/dL (0.70-1.30); EST Glomerular Filtration Rate 22 mL/min (>60); Est Glom Filt Rate - Afr Amer 26 mL/min (>60); Estimated Creatinine Clearance 24.44 ml/min; Globulin 4.1 g/dL (2.2-4.2); Glucose 115 mg/dL (74-106); Potassium 4.7 mmol/L (3.5-5.1); Protein, Total 5.1 g/dL (6.4-8.2); Sodium Level 144 mmol/L (136-145)
[2017-11-25 06:11] LABS: Bedside Glucose 95 mg/dL (70-110)
--- NOTE | 2017-11-25 06:31 | CT_ITS ---
STUDY: CT ABDOMEN AND PELVIS WITHOUT CONTRAST REASON FOR EXAM: Male, 62 years old. Abdominal pain. Possible small bowel obstruction. RADIATION DOSAGE (If Supplied By Facility): CTDIvol = ( 20.82 ) mGy, DLP = ( 1102.60 ) mGycm TECHNIQUE: Transaxial images were obtained from the dome of the diaphragm to the symphysis pubis without oral contrast, and without intravenous contrast. Sagittal and coronal images were reconstructed. Individualized dose optimization techniques were used for this CT. COMPARISON: Comparison is made with prior study dated November 08, 2017. FINDINGS: An enteric tube is seen within the body of the stomach. Patchy alveolar infiltrates in both lung bases worse on the right side with the left basilar atelectasis. Coronary artery calcification. Diffuse ascites. Normal liver. Normal gallbladder and extrahepatic biliary system. Normal spleen. Normal pancreas. Normal bilateral adrenal glands. Normal right kidney. Normal left kidney. There is a small hiatal hernia. There are multiple mildly dilated air and fluid distended small bowel loops. Fecal material and gas are seen throughout the colon. This may represent an ileus pattern. Normal colon. The appendix is visualized and appears normal. There is diffuse atherosclerotic calcification of the abdominal aorta and its major visceral branches, without a demonstrated aneurysm. Normal inferior vena cava. Normal retroperitoneum. A Lepe catheter is seen within the bladder. Bladder is empty. Several small air bubbles are seen within the pelvic fluid most likely secondary to recent paracentesis. Normal abdominal wall. There are degenerative changes of the visualized lumbar spine. There is a 1 cm slightly sclerotic nodular density in the left posterior iliac bone. This may represent a small bone island. CT/Abdomen/Pelvis without Cont IMPRESSION: Diffuse ascites. Small air bubbles are seen within the pelvic fluid most likely secondary to recent paracentesis. Findings suggestive of an ileus gas pattern. Further follow-up is recommended. Electronically Signed: Kam Hicks MD at 9:14 EDT Tel [phone], Service support ,
--- NOTE | 2017-11-25 06:50 | PCM.PN.INT ---
Subjective: Patient did okay overnight. Patient does remain on Levophed therapy and has had issues getting lactulose enemas. Patient did have significant OG output of over 600 mL's. Patient continues to be minimally responsive with anasarca. Abdominal compartment pressures have increased to 15-16 from a level of 8 yesterday. Patient continues to have urine output. General: - - Intubated and sedated. Appears much older than stated age. Anasarca noted. Good vent synchrony noted. HEENT: Atraumatic, PERRLA, EOMI, Normocephalic, - - Temporal wasting. Oral: Moist Mucosa, No Gingival or Mucosal Lesions/ Ulcerations, - - Poor dentition. Neck: Supple, No Nodes, Trachea Midline, JVD, Right Lungs: No rales, Diminished, Rhonchi, Wheezes, - - Symmetric expansion. No dullness to percussion. Cardiovascular: Regular rate, Regular Rhythm, Normal S1, Normal S2, No murmurs, No rub noted, No Gallop Abdomen: Soft, Non Tender, Bowel Sounds Not Present, Distended, - - No guarding or rebound appreciated. Extremities: No cyanosis, Clubbing, Diminished Peripheral Pulses, Edema, - - Rectal tube now in place. Skin: - - No significant change compared to previous. Musculoskeletal: No Tenderness to Palpation of Joints or Extremities, Cachexia, Muscle Wasting Lymphatic: No Cervical, Supraclavicular, or Inguinal Adenopathy Neurological: - - Spontaneous movement of all extremities. Not following commands. Sensation appears intact. Psych/Mental Status: Flat Affect Vital Signs Temp Pulse Resp BP Pulse Ox 37.1 C 95 30 H 72/61 L 93 11/25/17 01:00 11/25/17 05:00 11/25/17 05:00 11/25/17 05:00 11/25/17 05:00 Oxygen Flow Rate (L/min) 40 Oxygen Delivery Method Mechanical Ventilator Weight: 86.2 kg Body Mass Index (BMI) 29.2 Intake and Output for Last 24 Hours 11/23/17 11/24/17 11/25/17 23:59 23:59 23:59 Intake Total 3701.1 / 3701.1 1589.0 / 1589.0 421.6 / 421.6 Output Total 240 / 240 700 / 700 750 / 750 Balance 3461.1 / 3461.1 889.0 / 889.0 -328.4 / -328.4 Labs (Last 48 Hours) 11/23/17 11/23/17 11/23/17 03:50 07:55 12:26 WBC RBC Hgb Hct MCV MCH MCHC RDW RDW Differential Plt Count MPV Immature Gran % (Auto) Neut % (Auto) Lymph % (Auto) [place] % (Auto) Eos % (Auto) Baso % (Auto) Absolute Neuts (auto) Absolute Lymphs (auto) Total Counted Differential Comment Specimen Type ART Sample Site L Radial pH 7.49 H Bicarbonate Actual 21.8 L POC Total CO2 23 Base Excess -2 O2 Saturation 96 O2 % 40 ABG pCO2 28.8 L ABG pO2 75 Mitul Test POS Respiration Rate 12 O2 Delivery Device Vent Vent Mode VC+ Tidal Volume 500 POC PEEP 5 Blood Gas Notified Whom ICU MD Blood Gas Notified Time 755 Sodium Potassium Chloride Carbon Dioxide Anion Gap BUN Creatinine Estim Creat Clear Calc Est GFR (MDRD) Af Amer Est GFR (MDRD) Non-Af BUN/Creatinine Ratio Glucose Calcium Total Bilirubin AST ALT Alkaline Phosphatase Total Creatine Kinase 47 Total Protein Albumin Globulin Albumin/Globulin Ratio Ur Random Sodium Urine Creatinine POC Glucose 103 11/23/17 11/23/17 11/24/17 18:21 23:11 04:35 WBC 20.1 H RBC 3.46 L Hgb 10.7 L Hct 32.7 L MCV 94.5 H MCH 30.9 MCHC 32.7 RDW 17.3 H RDW Differential 58.7 H Plt Count 260 MPV 10.7 Immature Gran % (Auto) 0.200 Neut % (Auto) 77.4 H Lymph % (Auto) 15.9 L [place] % (Auto) 6.0 Eos % (Auto) 0.3 Baso % (Auto) 0.2 Absolute Neuts (auto) 15.6 H Absolute Lymphs (auto) 3.21 Total Counted Not Reportable Differential Comment SCANNED Specimen Type Sample Site pH Bicarbonate Actual POC Total CO2 Base Excess O2 Saturation O2 % ABG pCO2 ABG pO2 Mitul Test Respiration Rate O2 Delivery Device Vent Mode Tidal Volume POC PEEP Blood Gas Notified Whom Blood Gas Notified Time Sodium Potassium Chloride Carbon Dioxide Anion Gap BUN Creatinine Estim Creat Clear Calc Est GFR (MDRD) Af Amer Est GFR (MDRD) Non-Af BUN/Creatinine Ratio Glucose Calcium Total Bilirubin AST ALT Alkaline Phosphatase Total Creatine Kinase Total Protein Albumin Globulin Albumin/Globulin Ratio Ur Random Sodium Urine Creatinine POC Glucose 116 H 127 H 11/24/17 11/24/17 11/24/17 04:35 06:37 12:33 WBC RBC Hgb Hct MCV MCH MCHC RDW RDW Differential Plt Count MPV Immature Gran % (Auto) Neut % (Auto) Lymph % (Auto) [place] % (Auto) Eos % (Auto) Baso % (Auto) Absolute Neuts (auto) Absolute Lymphs (auto) Total Counted Differential Comment Specimen Type Sample Site pH Bicarbonate Actual POC Total CO2 Base Excess O2 Saturation O2 % ABG pCO2 ABG pO2 Mitul Test Respiration Rate O2 Delivery Device Vent Mode Tidal Volume POC PEEP Blood Gas Notified Whom Blood Gas Notified Time Sodium 140 Potassium 4.3 Chloride 105 Carbon Dioxide 23.0 Anion Gap 12 BUN 56 H Creatinine 2.40 H Estim Creat Clear Calc 31.67 Est GFR (MDRD) Af Amer 36 L Est GFR (MDRD) Non-Af 30 L BUN/Creatinine Ratio 23.3 H Glucose 250 H Calcium 7.1 L Total Bilirubin AST ALT Alkaline Phosphatase Total Creatine Kinase Total Protein Albumin Globulin Albumin/Globulin Ratio Ur Random Sodium Urine Creatinine POC Glucose 125 H 105 11/24/17 11/24/17 11/24/17 12:50 12:50 17:30 WBC RBC Hgb Hct MCV MCH MCHC RDW RDW Differential Plt Count MPV Immature Gran % (Auto) Neut % (Auto) Lymph % (Auto) [place] % (Auto) Eos % (Auto) Baso % (Auto) Absolute Neuts (auto) Absolute Lymphs (auto) Total Counted Differential Comment Specimen Type Sample Site pH Bicarbonate Actual POC Total CO2 Base Excess O2 Saturation O2 % ABG pCO2 ABG pO2 Mitul Test Respiration Rate O2 Delivery Device Vent Mode Tidal Volume POC PEEP Blood Gas Notified Whom Blood Gas Notified Time Sodium Potassium Chloride Carbon Dioxide Anion Gap BUN Creatinine Estim Creat Clear Calc Est GFR (MDRD) Af Amer Est GFR (MDRD) Non-Af BUN/Creatinine Ratio Glucose Calcium Total Bilirubin AST ALT Alkaline Phosphatase Total Creatine Kinase Total Protein Albumin Globulin Albumin/Globulin Ratio Ur Random Sodium 12 Urine Creatinine 91.20 POC Glucose 104 11/25/17 11/25/17 11/25/17 00:55 04:30 04:30 WBC 24.4 H RBC 3.71 L Hgb 11.8 L Hct 34.6 L MCV 93.3 MCH 31.8 MCHC 34.1 RDW 17.9 H RDW Differential 57.1 H Plt Count 251 MPV 10.3 Immature Gran % (Auto) Neut % (Auto) Lymph % (Auto) [place] % (Auto) Eos % (Auto) Baso % (Auto) Absolute Neuts (auto) Absolute Lymphs (auto) Total Counted Differential Comment Specimen Type Sample Site pH Bicarbonate Actual POC Total CO2 Base Excess O2 Saturation O2 % ABG pCO2 ABG pO2 Mitul Test Respiration Rate O2 Delivery Device Vent Mode Tidal Volume POC PEEP Blood Gas Notified Whom Blood Gas Notified Time Sodium 144 Potassium 4.7 Chloride 108 H Carbon Dioxide 22.0 Anion Gap 14 BUN 70 H Creatinine 3.11 H Estim Creat Clear Calc 24.44 Est GFR (MDRD) Af Amer 26 L Est GFR (MDRD) Non-Af 22 L BUN/Creatinine Ratio 22.5 H Glucose 115 H Calcium 7.3 L Total Bilirubin 1.10 H AST 47 H ALT 22 Alkaline Phosphatase 178 H Total Creatine Kinase Total Protein 5.1 L Albumin 1.0 L Globulin 4.1 Albumin/Globulin Ratio 0.2 L Ur Random Sodium Urine Creatinine POC Glucose 95 11/25/17 06:07 WBC RBC Hgb Hct MCV MCH MCHC RDW RDW Differential Plt Count MPV Immature Gran % (Auto) Neut % (Auto) Lymph % (Auto) [place] % (Auto) Eos % (Auto) Baso % (Auto) Absolute Neuts (auto) Absolute Lymphs (auto) Total Counted Differential Comment Specimen Type Sample Site pH Bicarbonate Actual POC Total CO2 Base Excess O2 Saturation O2 % ABG pCO2 ABG pO2 Mitul Test Respiration Rate O2 Delivery Device Vent Mode Tidal Volume POC PEEP Blood Gas Notified Whom Blood Gas Notified Time Sodium Potassium Chloride Carbon Dioxide Anion Gap BUN Creatinine Estim Creat Clear Calc Est GFR (MDRD) Af Amer Est GFR (MDRD) Non-Af BUN/Creatinine Ratio Glucose Calcium Total Bilirubin AST ALT Alkaline Phosphatase Total Creatine Kinase Total Protein Albumin Globulin Albumin/Globulin Ratio Ur Random Sodium Urine Creatinine POC Glucose 95 Microbiology 11/22/17 16:10 Sputum, Induced/Lukens Gram Stain - Final 11/22/17 16:10 Sputum, Induced/Lukens Respiratory Culture - Preliminary Klebsiella pneumoniae sp pneum Proteus mirabilis 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 Findings in keeping with a small bowel obstruction. Follow-up is recommended. Electronically Signed: Kam Hicks MD at 10:08 EDT Tel [phone], Service support , Medical Necessity - Tobacco Use Smoking Status: Former smoker Assessment/Plan All Active Problems Hyponatremia (Acute) Severe sepsis (Acute) Depression (Acute) Altered mental status (Acute) Sepsis (Acute) Aspiration pneumonia (Acute) RECOMMENDATIONS: 1. Propofol should be avoided given elevated baseline triglyceride levels, continue Precedex 2. Discontinue beta-ailyn and Spironolactone, given vasopressor requirement 3. Discontinue lactulose 4. Obtain CT of the abdomen with p.o. contrast 5. NG to low intermittent suction 6. Continue broad-spectrum antibiotics, pending infectious workup 7. Continue Levophed to maintain a mean arterial pressure at or above 65 mmHg. Discontinue vasopressin 8. ICU prophylaxis with subcutaneous heparin and Pepcid IMPRESSIONS: 1. Septic shock Clinical concern for acute aspiration event, given the circumstances of his presentation. Patient's hemodynamics have slightly improved compared to yesterday. Patient has been able to come off of vasopressin, but still has substantial Levophed requirements. Patient is on broad-spectrum antibiotics and has grown Proteus, Klebsiella and a gram-negative baldomero from his sputum. That being said, patient's abdominal pressures have increased. Clinical suspicion for ascites, but patient also has an ileus 2. Acute hypoxemic and hypercarbic respiratory failure The patient does have an extensive smoking history, raising the concern for potential underlying COPD. However, there is a high probability that the patient experienced an acute aspiration event upon arrival to the hospital. Continue full mechanical ventilatory support. Sputum cultures show polymicrobial gram-negative infection. Continue bronchodilators as ordered. Continue Precedex therapy. Maintain a RASS of -1 to 1. Plan for daily paired spontaneous awakening and breathing trials per protocol. 3. Encephalopathy, likely metabolic/infectious in nature The patient is currently being treated for septic shock. In addition, he had an elevated ammonia level to 51 in the past. Patient does not appear to be tolerating lactulose at this time. Given intra-abdominal pressures, will discontinue enemas. Obtain ammonia. Continue treatment of underlying infectious process. 4. Acute kidney injury Likely secondary to hemodynamic instability in the setting of #1. Patient likely developing ATN. Continue to monitor urine output. No indication for renal replacement therapy at the current time, but nephrology is following. Patient does have significant extravasation secondary to poor nutritional status. Would not recommend the use of albumin for correction. Continue to support blood pressure using pressor agents. 5. Troponin elevation Likely secondary to demand ischemia in the setting of #1. 6. Small bowel ileus Likely secondary to septic shock. Conservative management at this time. Patient does have OG to low intermittent suction. Attempt to hold fentanyl if possible. Will obtain a CT scan of the abdomen for evaluation. P.o. contrast only given patient's renal function. 7. Chronic alcohol and tobacco dependence/severe protein calorie malnutrition/deconditioning/bipolar disorder Complicates care, management, recovery and prognosis. The patient will require physical therapy evaluation, once medically stabilized. Okay to start tube feeds today from my perspective. CODE STATUS/goals of care discussion to be had with the patient's family. TIME: 60 minutes of critical care time, independent of procedures, was spent addressing the patient's septic shock, acute respiratory failure, encephalopathy, acute kidney injury, troponin elevation, review of all data and collaboration with the care team. (5:30 AM to 7 AM) Code Visit [id number]: [id number] Critical care first hour
[2017-11-25] MEDS: Piperacil/Tazobactam 3.375 GM/50 ML ML IV ×3 (06:56→21:27)
[2017-11-25] MEDS: Heparin Injection (Vial) 5,000 UNIT/ML VIAL 5000 UNIT SC ×3 (06:56→21:26)
[2017-11-25] MEDS: CHLORHEXIDINE GLUC 2% CLOTH 1 EACH TOWELETTE TOPICAL (06:57)
--- NOTE | 2017-11-25 09:38 | PCM.PN.HOSP ---
Patient Problems: Active and Suspected Problems Altered mental status (Acute) Sepsis (Acute) Aspiration pneumonia (Acute) Subjective: Patient seen and examined. Patient still intubated and sedated and so unable to do review of systems. However, abdomen noted to be getting more distended overnight. Abdominal pressure was checked and was noted to have gone up from 8-16. Abdominal CT ordered per property developer to assess. Patient is currently noted to be getting more edematous. No other active issues overnight. Vitals/I&O's: Vital Signs Temp Pulse Resp BP Pulse Ox 98.8 F 94 22 H 86/71 L 93 11/25/17 01:00 11/25/17 07:09 11/25/17 07:09 11/25/17 07:00 11/25/17 07:07 Oxygen Flow Rate (L/min) 40 Oxygen Delivery Method Mechanical Ventilator Weight: 190 lb 0.615 oz Body Mass Index (BMI) 29.2 Intake and Output for Last 24 Hours 11/23/17 11/24/17 11/25/17 23:59 23:59 23:59 Intake Total 3701.1 / 3701.1 1589.0 / 1589.0 1426.3 / 1426.3 Output Total 240 / 240 700 / 700 950 / 950 Balance 3461.1 / 3461.1 889.0 / 889.0 476.3 / 476.3 General: - - Intubated and sedated, rest score is -1. HEENT: Atraumatic, PERRLA, EOMI, Normocephalic Oral: Dry Mucosa Neck: Supple, No JVD, Negative Carotid Bruits Lungs: - - Decreased breath sounds bibasally with some coarse crackles auscultated. Cardiovascular: Regular rate, Regular Rhythm, Normal S1, Normal S2, No murmurs Abdomen: Bowel Sounds Present, Soft, Non Tender, - - Abdomen is distended and tympanitic to percussion; also has abdominal wall pitting edema. Extremities: No clubbing, Capillary Refill Less than 3 Seconds, - - Has 3+ pitting edema of all extremities and abdominal wall. Toes on right foot are noted to be cold to touch and a dusky blue color. Dorsalis pedis pulse 1+ palpable and dopplerable. Skin: No rashes, No breakdown Musculoskeletal: No Tenderness to Palpation of Joints or Extremities Lymphatic: No Cervical, Supraclavicular, or Inguinal Adenopathy Neurological: - - intubated, sedated. RASS score is -1. 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 pelt grader Laboratory Results 11/24/17 12:33: POC Glucose 105 11/24/17 12:50: Urine Creatinine 91.20 11/24/17 12:50: Ur Random Sodium 12 11/24/17 17:30: POC Glucose 104 11/25/17 00:55: POC Glucose 95 11/25/17 04:30: WBC 24.4 H, RBC 3.71 L, Hgb 11.8 L, Hct 34.6 L, MCV 93.3, MCH 31.8, MCHC 34.1, RDW 17.9 H, RDW Differential 57.1 H, Plt Count 251, MPV 10.3 11/25/17 04:30: Sodium 144, Potassium 4.7, Chloride 108 H, Carbon Dioxide 22.0, Anion Gap 14, BUN 70 H, Creatinine 3.11 H, Estim Creat Clear Calc 24.44, Est GFR (MDRD) Af Amer 26 L, Est GFR (MDRD) Non-Af 22 L, BUN/Creatinine Ratio 22.5 H, Glucose 115 H, Calcium 7.3 L, Total Bilirubin 1.10 H, AST 47 H, ALT 22, Alkaline Phosphatase 178 H, Total Protein 5.1 L, Albumin 1.0 L, Globulin 4.1, Albumin/Globulin Ratio 0.2 L 11/25/17 06:07: POC Glucose 95 Current Medications Albuterol Sulfate (Ventolin Aerosols) 2.5 mg INHALATION Q2H PRN PRN PRN Reason: WHEEZING Albuterol/Ipratropium (Duoneb) 3 ml INHALATION Q6H.RT RICH Last Admin: 11/25/17 01:14 Dose: 3 ml Bisacodyl (Dulcolax) 10 mg RECTAL DAILY PRN PRN PRN Reason: Constipation Calamine/Phenol (Calmoseptine Ointment) 1 applic TOPICAL 4X/DAY RICH PRN Reason: Protocol Last Admin: 11/24/17 23:00 Dose: 1 applicatio Chlorhexidine Gluconate () 15 ml PO BID [facility] Last Admin: 11/24/17 23:01 Dose: 15 ml Chlorhexidine Gluconate () 1 each TOPICAL DAILY [facility] Last Admin: 11/25/17 06:57 Dose: 1 each Clotrimazole (Lotrimin) 1 applicatio TOPICAL BID RICH PRN Reason: Protocol Last Admin: 11/24/17 23:00 Dose: 1 applicatio Dextrose (D50w Syringe) 0 gm IV X1 PRN; Protocol PRN Reason: Hypoglycemia Famotidine (Pepcid) 20 mg GT BID [facility] Last Admin: 11/24/17 23:01 Dose: 20 mg Folic Acid (Folic Acid) 1 mg GT DAILY [facility] Glucagon () 1 mg IM .X1 PRN PRN Reason: Hypoglycemia Heparin Sodium (Porcine) (Heparin Na) 5,000 unit SC Q8 [facility] Last Admin: 11/25/17 06:56 Dose: 5,000 u Piperacillin Sod/Tazobactam Sod (Zosyn) 3.375 gm in 50 mls @ 12.5 mls/hr IV Q8 [facility] Last Admin: 11/25/17 06:56 Dose: 12.5 mls/hr Norepinephrine Bitartrate 8 mg (/ Dextrose) 258 mls @ 9.67 mls/hr IV .[id number] RICH PRN Reason: 5 MCG/MIN Last Admin: 11/25/17 03:00 Dose: 9.67 mls/hr Dexmedetomidine HCl 400 mcg/ (Sodium Chloride) 100 mls @ 13.58 mls/hr IV .[id number] RICH; 0.5 MCG/KG/HR PRN Reason: Protocol Last Admin: 11/25/17 08:05 Dose: 13.58 mls/hr Insulin Human Lispro (Humalog Kwikpen (Bkc)) 0 unit SC Q6 RICH PRN Reason: Protocol Last Admin: 11/25/17 06:46 Dose: Not Given Mineral Oil (Mineral Oil) 1 bottle RECTAL DAILY PRN PRN PRN Reason: Constipation Nicotine (Nicoderm Cq (Pbkc)) 21 mg TRANSDERM. DAILY [facility] Last Admin: 11/24/17 09:47 Dose: Not Given Sodium Chloride () 5 - 30 ml IV UD PRN PRN Reason: SALINE FLUSH Last Admin: 11/24/17 04:29 Dose: 10 ml Thiamine HCl (Vitamin B1) 100 mg GT DAILY RICH Medical Necessity - Tobacco Use Smoking Status: Former smoker Assessment/Plan All Active Problems Hyponatremia (Acute) Severe sepsis (Acute) Depression (Acute) Altered mental status (Acute) Sepsis (Acute) Aspiration pneumonia (Acute) 8-year-old male with a history of chronic alcohol abuse with resultant cirrhosis status post paracentesis, bipolar disorder and depression. He was admitted by the ED on 11/22/2017 complaint of altered mental status from his [facility]. 1. Septic shock due to aspiration pneumonia still intubated and sedated. levophed increased to 12mcg/min. On Precedex 0.7mcg/min Vent settings: FiO2-40%, RR-12, TV-500mls, PEEP-5 white cell count is 24.4 today sputum cultured Klebsiella and Proteus mirabilis as well as GNR lactose pelt grader blood cultures showed no growth after 48 hours. urine culture negative. remains on IV vancomycin and IV zosyn 2. Acute hypercapnic and hYpoxic respiratory failure due to aspiration pneumonia still on ventilator. Vent settings AC volume control with tidal volume of 500, respiratory rate of 12, PEEP of 5 and FiO2 40%. on breathing treatments and suctioning prn maintain saturation >92% chest physiotherapy 3. CIrrrhosis with ascites s/p paracentesis Patient remains very edematous, likely due to third spacing from IV fluids. Spironolactone, furosemide and beta-ailyn on hold. on lactulose, to titrate to 2-3 loose stools daily abdominal compartment pressure increased to 16 today, from [address] abdomen with oral contrast ordered not tolerating lactulose per property developer, best to hold off on albumin for now. 4. Intestinal ileus: abdomen getting distended; minimal bowel sounds, and abdomen is tympanitic to percussion CT abdomen today whosed: diffuse ascites with small air bubbles seen in pelvic fluid, likely secondary to recent paracentesis. Findings suggestive of ileus gas pattern. Further follow up recommended. NG tube to continuous suction TUbe feeding stopped as he was not tolerating it. 5. CAROL: worsening. Cr was 1.16 on admission, now trended up to 3.11 today nephrology on board FeNa is 0.23, indicating that this is likely a pre-renal cause. It is most likely from septic shock prognosis is poor cannot give IVF o/a of cirrhosis; on levophed to maintain BP and MAP>65 6. Depression and bipolar disorder: trazodone on hold. 7. Severe protein calorie malnutrition: Nutrition consulted. Currently on tube feeds 8. COPD: intubated for hypoxic, hypercapnic respiratory failure. on breathing treatments 9. DVT prophylaxis: heparin. 10. GI prophylaxis: famotidine 11. Code status: Full code. Daughter Lori is next of kin. This note was generated with [employer] dictation software. It may contain incorrect words, spelling, and punctuation that were not noted in checking the note before signing. Code Visit Inpatient E&M: 60048 Subs Hosp L3
--- NOTE | 2017-11-25 09:53 | PN_ITS ---
Patient Problems: Active and Suspected Problems Altered mental status (Acute) Sepsis (Acute) Aspiration pneumonia (Acute) Subjective: Patient seen and examined. Patient still intubated and sedated and so unable to do review of systems. However, abdomen noted to be getting more distended overnight. Abdominal pressure was checked and was noted to have gone up from 8- 16. Abdominal CT ordered per recycling sorter to assess. Patient is currently noted to be getting more edematous. No other active issues overnight. Vitals/I&O's: Vital Signs Temp Pulse Resp BP Pulse Ox 98.8 F 94 22 H 86/71 L 93 11/25/17 01:00 11/25/17 07:09 11/25/17 07:09 11/25/17 07:00 11/25/17 07:07 Oxygen Flow Rate (L/min) 40 Oxygen Delivery Method Mechanical Ventilator Weight: 190 lb 0.615 oz Body Mass Index (BMI) 29.2 Intake and Output for Last 24 Hours 11/23/17 11/24/17 11/25/17 23:59 23:59 23:59 Intake Total 3701.1 / 3701.1 1589.0 / 1589.0 1426.3 / 1426.3 Output Total 240 / 240 700 / 700 950 / 950 Balance 3461.1 / 3461.1 889.0 / 889.0 476.3 / 476.3 General: - - Intubated and sedated, rest score is -1. HEENT: Atraumatic, PERRLA, EOMI, Normocephalic Oral: Dry Mucosa Neck: Supple, No JVD, Negative Carotid Bruits Lungs: - - Decreased breath sounds bibasally with some coarse crackles auscultated. Cardiovascular: Regular rate, Regular Rhythm, Normal S1, Normal S2, No murmurs Abdomen: Bowel Sounds Present, Soft, Non Tender, - - Abdomen is distended and tympanitic to percussion; also has abdominal wall pitting edema. Extremities: No clubbing, Capillary Refill Less than 3 Seconds, - - Has 3+ pitting edema of all extremities and abdominal wall. Toes on right foot are noted to be cold to touch and a dusky blue color. Dorsalis pedis pulse 1+ palpable and dopplerable. Skin: No rashes, No breakdown Musculoskeletal: No Tenderness to Palpation of Joints or Extremities Lymphatic: No Cervical, Supraclavicular, or Inguinal Adenopathy Neurological: - - intubated, sedated. RASS score is -1. 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 barrel lathe operator inside Laboratory Results 11/24/17 12:33: POC Glucose 105 11/24/17 12:50: Urine Creatinine 91.20 11/24/17 12:50: Ur Random Sodium 12 11/24/17 17:30: POC Glucose 104 11/25/17 00:55: POC Glucose 95 11/25/17 04:30: WBC 24.4 H, RBC 3.71 L, Hgb 11.8 L, Hct 34.6 L, MCV 93.3, MCH 31.8, MCHC 34.1, RDW 17.9 H, RDW Differential 57.1 H, Plt Count 251, MPV 10.3 11/25/17 04:30: Sodium 144, Potassium 4.7, Chloride 108 H, Carbon Dioxide 22.0, Anion Gap 14, BUN 70 H, Creatinine 3.11 H, Estim Creat Clear Calc 24.44, Est GFR (MDRD) Af Amer 26 L, Est GFR (MDRD) Non-Af 22 L, BUN/Creatinine Ratio 22.5 H , Glucose 115 H, Calcium 7.3 L, Total Bilirubin 1.10 H, AST 47 H, ALT 22, Alkaline Phosphatase 178 H, Total Protein 5.1 L, Albumin 1.0 L, Globulin 4.1, Albumin/Globulin Ratio 0.2 L 11/25/17 06:07: POC Glucose 95 Current Medications Albuterol Sulfate (Ventolin Aerosols) 2.5 mg INHALATION Q2H PRN PRN PRN Reason: WHEEZING Albuterol/Ipratropium (Duoneb) 3 ml INHALATION Q6H.RT RICH Last Admin: 11/25/17 01:14 Dose: 3 ml Bisacodyl (Dulcolax) 10 mg RECTAL DAILY PRN PRN PRN Reason: Constipation Calamine/Phenol (Calmoseptine Ointment) 1 applic TOPICAL 4X/DAY RICH PRN Reason: Protocol Last Admin: 11/24/17 23:00 Dose: 1 applicatio Chlorhexidine Gluconate () 15 ml PO BID [facility] Last Admin: 11/24/17 23:01 Dose: 15 ml Chlorhexidine Gluconate () 1 each TOPICAL DAILY [facility] Last Admin: 11/25/17 06:57 Dose: 1 each Clotrimazole (Lotrimin) 1 applicatio TOPICAL BID RICH PRN Reason: Protocol Last Admin: 11/24/17 23:00 Dose: 1 applicatio Dextrose (D50w Syringe) 0 gm IV X1 PRN; Protocol PRN Reason: Hypoglycemia Famotidine (Pepcid) 20 mg GT BID [facility] Last Admin: 11/24/17 23:01 Dose: 20 mg Folic Acid (Folic Acid) 1 mg GT DAILY [facility] Glucagon () 1 mg IM .X1 PRN PRN Reason: Hypoglycemia Heparin Sodium (Porcine) (Heparin Na) 5,000 unit SC Q8 [facility] Last Admin: 11/25/17 06:56 Dose: 5,000 u Piperacillin Sod/Tazobactam Sod (Zosyn) 3.375 gm in 50 mls @ 12.5 mls/hr IV Q8 [facility] Last Admin: 11/25/17 06:56 Dose: 12.5 mls/hr Norepinephrine Bitartrate 8 mg (/ Dextrose) 258 mls @ 9.67 mls/hr IV .[id number] RICH PRN Reason: 5 MCG/MIN Last Admin: 11/25/17 03:00 Dose: 9.67 mls/hr Dexmedetomidine HCl 400 mcg/ (Sodium Chloride) 100 mls @ 13.58 mls/hr IV .[id number] RICH; 0.5 MCG/KG/HR PRN Reason: Protocol Last Admin: 11/25/17 08:05 Dose: 13.58 mls/hr Insulin Human Lispro (Humalog Kwikpen (Bkc)) 0 unit SC Q6 RICH PRN Reason: Protocol Last Admin: 11/25/17 06:46 Dose: Not Given Mineral Oil (Mineral Oil) 1 bottle RECTAL DAILY PRN PRN PRN Reason: Constipation Nicotine (Nicoderm Cq (Pbkc)) 21 mg TRANSDERM. DAILY [facility] Last Admin: 11/24/17 09:47 Dose: Not Given Sodium Chloride () 5 - 30 ml IV UD PRN PRN Reason: SALINE FLUSH Last Admin: 11/24/17 04:29 Dose: 10 ml Thiamine HCl (Vitamin B1) 100 mg GT DAILY [facility] Medical Necessity - Tobacco Use Smoking Status: Former smoker Assessment/Plan All Active Problems Hyponatremia (Acute) Severe sepsis (Acute) Depression (Acute) Altered mental status (Acute) Sepsis (Acute) Aspiration pneumonia (Acute) 8-year-old male with a history of chronic alcohol abuse with resultant cirrhosis status post paracentesis, bipolar disorder and depression. He was admitted by the ED on 11/22/2017 complaint of altered [facility] status from his [facility]. 1. Septic shock due to aspiration pneumonia * still intubated and sedated. * levophed increased to 12mcg/min. On Precedex 0.7mcg/min * Vent settings: FiO2-40%, RR-12, TV-500mls, PEEP-5 * white cell count is 24.4 today * sputum cultured Klebsiella and Proteus mirabilis as well as GNR lactose barrel lathe operator inside * blood cultures showed no growth after 48 hours. * urine culture negative. * remains on IV vancomycin and IV zosyn * 2. Acute hypercapnic and hYpoxic respiratory failure due to aspiration pneumonia * still on ventilator. Vent settings AC volume control with tidal volume of 500 , respiratory rate of 12, PEEP of 5 and FiO2 40%. * on breathing treatments and suctioning prn * maintain saturation >92% * chest physiotherapy 3. CIrrrhosis with ascites s/p paracentesis * Patient remains very edematous, likely due to third spacing from IV fluids. * Spironolactone, furosemide and beta-ailyn on hold. * on lactulose, to titrate to 2-3 loose stools daily * abdominal compartment pressure increased to 16 today, from 8 yesterday. * CT abdomen with oral contrast ordered * not tolerating lactulose * per recycling sorter, best to hold off on albumin for now. * 4. Intestinal ileus: * abdomen getting distended; minimal bowel sounds, and abdomen is tympanitic to percussion * CT abdomen today whosed: diffuse ascites with small air bubbles seen in pelvic fluid, likely secondary to recent paracentesis. Findings suggestive of ileus gas pattern. Further follow up recommended. * NG tube to continuous suction * TUbe feeding stopped as he was not tolerating it. * 5. CAROL: * worsening. Cr was 1.16 on admission, now trended up to 3.11 today * nephrology on board * FeNa is 0.23, indicating that this is likely a pre-renal cause. It is most likely from septic shock * prognosis is poor * cannot give IVF o/a of cirrhosis; on levophed to maintain BP and MAP>65 * * 6. Depression and bipolar disorder: trazodone on hold. 7. Severe protein calorie malnutrition: Nutrition consulted. Currently on tube feeds 8. COPD: intubated for hypoxic, hypercapnic respiratory failure. on breathing treatments 9. DVT prophylaxis: heparin. 10. GI prophylaxis: famotidine 11. Code status: Full code. Daughter Lori is next of kin. * This note was generated with [employer] dictation software. It may contain incorrect words, spelling, and punctuation that were not noted in checking the note before signing. Code Visit Inpatient E&M: 33118 Subs Hosp L3
[2017-11-25] MEDS: Chlorhexidine 15 ML PO ×2 (10:32→21:15)
[2017-11-25] MEDS: Menthol/Lanolin/Calamine/Znox 113 GM Tube 1 APPLIC TOPICAL ×4 (10:32→21:15)
[2017-11-25] MEDS: Thiamine Hydrochloride 100 MG Tablet GT (10:34)
[2017-11-25] MEDS: Famotidine 20 MG Tablet GT ×2 (10:34→21:27)
[2017-11-25] MEDS: Folic Acid 1 MG Tablet GT (10:34)
--- NOTE | 2017-11-25 11:16 | PCM.PN.REN ---
Patient Problems: Active and Suspected Problems Altered mental status (Acute) Sepsis (Acute) Aspiration pneumonia (Acute) Subjective: remains vent dependent, hypotensive requiring continued pressor support. Sedate, unresponsive. Continues to be oligoanuric with rising creatinine. - Physical Exam General: Lethargic, - - sedate HEENT: - - pinpoint pupils Oral: Dry Mucosa Neck: Supple Lungs: Clear to auscultation, Rhonchi - on vent Cardiovascular: Regular rate Abdomen: Hypoactive Bowel Sounds, Distended - tense Extremities: Edema - anasarca Skin: - - tattoos Musculoskeletal: Muscle Wasting Neurological: - - sedate, unresponsive Psych/Mental Status: - - unresponsive Vital Signs Temp Pulse Resp BP Pulse Ox 99.2 F H 95 25 H 96/67 98 11/25/17 10:00 11/25/17 10:40 11/25/17 10:40 11/25/17 10:00 11/25/17 10:40 Oxygen Flow Rate (L/min) 40 Oxygen Delivery Method Mechanical Ventilator Weight: 86.2 kg Body Mass Index (BMI) 29.2 Intake and Output for Last 24 Hours 11/23/17 11/24/17 11/25/17 23:59 23:59 23:59 Intake Total 3701.1 / 3701.1 1589.0 / 1589.0 1426.3 / 1426.3 Output Total 240 / 240 700 / 700 950 / 950 Balance 3461.1 / 3461.1 889.0 / 889.0 476.3 / 476.3 Microbiology Past 72 Hours 11/22/17 16:10 Gram Stain - Final Sputum, Induced/Lukens Respiratory Culture - Preliminary Klebsiella pneumoniae sp pneum Proteus mirabilis 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 Laboratory Tests Past 24 Hrs 11/24/17 11/24/17 11/25/17 12:50 12:50 04:30 WBC 24.4 H RBC 3.71 L Hgb 11.8 L Hct 34.6 L MCV 93.3 MCH 31.8 MCHC 34.1 RDW 17.9 H RDW Differential 57.1 H Plt Count 251 MPV 10.3 Sodium Potassium Chloride Carbon Dioxide Anion Gap BUN Creatinine Estim Creat Clear Calc Est GFR (MDRD) Af Amer Est GFR (MDRD) Non-Af BUN/Creatinine Ratio Glucose Calcium Total Bilirubin AST ALT Alkaline Phosphatase Total Protein Albumin Globulin Albumin/Globulin Ratio Ur Random Sodium 12 Urine Creatinine 91.20 11/25/17 04:30 WBC RBC Hgb Hct MCV MCH MCHC RDW RDW Differential Plt Count MPV Sodium 144 Potassium 4.7 Chloride 108 H Carbon Dioxide 22.0 Anion Gap 14 BUN 70 H Creatinine 3.11 H Estim Creat Clear Calc 24.44 Est GFR (MDRD) Af Amer 26 L Est GFR (MDRD) Non-Af 22 L BUN/Creatinine Ratio 22.5 H Glucose 115 H Calcium 7.3 L Total Bilirubin 1.10 H AST 47 H ALT 22 Alkaline Phosphatase 178 H Total Protein 5.1 L Albumin 1.0 L Globulin 4.1 Albumin/Globulin Ratio 0.2 L Ur Random Sodium Urine Creatinine POC Glucose 11/25/17 11/25/17 11/24/17 06:07 00:55 17:30 POC Glucose 95 95 104 11/24/17 12:33 POC Glucose 105 Clinical Impression(s) from Imaging Studies Abdomen/Pelvis CT 11/25/17 06:31 IMPRESSION: Diffuse ascites. Small air bubbles are seen within the pelvic fluid most likely secondary to recent paracentesis. Findings suggestive of an ileus gas pattern. Further follow-up is recommended. Electronically Signed: Kam Hicks MD at 9:14 EDT Tel [phone], Service support , Medical Necessity - Tobacco Use Smoking Status: Former smoker Assessment/Plan All Active Problems Hyponatremia (Acute) Severe sepsis (Acute) Depression (Acute) Altered mental status (Acute) Sepsis (Acute) Aspiration pneumonia (Acute) 1. Oliguric ischemic ATN due to sepsis. Renal fxn continues to decline. Will eventually need to discuss with family about initiating dialysis or de-escalate his care. Overall prognosis poor with history of chronic ETOH abuse, poor nutritional status, hepatic encephalopathy 2. Acute respiratory failure, aspiration pneumonia. Remains on vent 3. Sepsis requiring pressor support 4. ETOH abuse 5. Hepatic encephalopathy, ascites 6. Severe protein/calorie malnutrition discussed with hospitalist
--- NOTE | 2017-11-25 11:23 | PN.RENAL_ITS ---
Patient Problems: Active and Suspected Problems Altered mental status (Acute) Sepsis (Acute) Aspiration pneumonia (Acute) Subjective: remains vent dependent, hypotensive requiring continued pressor support. Sedate , unresponsive. Continues to be oligoanuric with rising creatinine. - Physical Exam General: Lethargic, - - sedate HEENT: - - pinpoint pupils Oral: Dry Mucosa Neck: Supple Lungs: Clear to auscultation, Rhonchi - on vent Cardiovascular: Regular rate Abdomen: Hypoactive Bowel Sounds, Distended - tense Extremities: Edema - anasarca Skin: - - tattoos Musculoskeletal: Muscle Wasting Neurological: - - sedate, unresponsive Psych/Mental Status: - - unresponsive Vital Signs Temp Pulse Resp BP Pulse Ox 99.2 F H 95 25 H 96/67 98 11/25/17 10:00 11/25/17 10:40 11/25/17 10:40 11/25/17 10:00 11/25/17 10:40 Oxygen Flow Rate (L/min) 40 Oxygen Delivery Method Mechanical Ventilator Weight: 86.2 kg Body Mass Index (BMI) 29.2 Intake and Output for Last 24 Hours 11/23/17 11/24/17 11/25/17 23:59 23:59 23:59 Intake Total 3701.1 / 3701.1 1589.0 / 1589.0 1426.3 / 1426.3 Output Total 240 / 240 700 / 700 950 / 950 Balance 3461.1 / 3461.1 889.0 / 889.0 476.3 / 476.3 Microbiology Past 72 Hours 11/22/17 16:10 Gram Stain - Final Sputum, Induced/Lukens Respiratory Culture - Preliminary Klebsiella pneumoniae sp pneum Proteus mirabilis GNR lactose 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 technologies director Laboratory Tests Past 24 Hrs 11/24/17 11/24/17 11/25/17 12:50 12:50 04:30 WBC 24.4 H RBC 3.71 L Hgb 11.8 L Hct 34.6 L MCV 93.3 MCH 31.8 MCHC 34.1 RDW 17.9 H RDW Differential 57.1 H Plt Count 251 MPV 10.3 Sodium Potassium Chloride Carbon Dioxide Anion Gap BUN Creatinine Estim Creat Clear Calc Est GFR (MDRD) Af Amer Est GFR (MDRD) Non-Af BUN/Creatinine Ratio Glucose Calcium Total Bilirubin AST ALT Alkaline Phosphatase Total Protein Albumin Globulin Albumin/Globulin Ratio Ur Random Sodium 12 Urine Creatinine 91.20 11/25/17 04:30 WBC RBC Hgb Hct MCV MCH MCHC RDW RDW Differential Plt Count MPV Sodium 144 Potassium 4.7 Chloride 108 H Carbon Dioxide 22.0 Anion Gap 14 BUN 70 H Creatinine 3.11 H Estim Creat Clear Calc 24.44 Est GFR (MDRD) Af Amer 26 L Est GFR (MDRD) Non-Af 22 L BUN/Creatinine Ratio 22.5 H Glucose 115 H Calcium 7.3 L Total Bilirubin 1.10 H AST 47 H ALT 22 Alkaline Phosphatase 178 H Total Protein 5.1 L Albumin 1.0 L Globulin 4.1 Albumin/Globulin Ratio 0.2 L Ur Random Sodium Urine Creatinine POC Glucose 11/25/17 11/25/17 11/24/17 06:07 00:55 17:30 POC Glucose 95 95 104 11/24/17 12:33 POC Glucose 105 Clinical Impression(s) from Imaging Studies Abdomen/Pelvis CT 11/25/17 06:31 IMPRESSION: Diffuse ascites. Small air bubbles are seen within the pelvic fluid most likely secondary to recent paracentesis. Findings suggestive of an ileus gas pattern. Further follow-up is recommended. Electronically Signed: Kam Hicks MD at 9:14 EDT Tel [phone], Service support , Medical Necessity - Tobacco Use Smoking Status: Former smoker Assessment/Plan All Active Problems Hyponatremia (Acute) Severe sepsis (Acute) Depression (Acute) Altered mental status (Acute) Sepsis (Acute) Aspiration pneumonia (Acute) 1. Oliguric ischemic ATN due to sepsis. Renal fxn continues to decline. Will eventually need to discuss with family about initiating dialysis or de-escalate his care. Overall prognosis poor with history of chronic ETOH abuse, poor nutritional status, hepatic encephalopathy 2. Acute respiratory failure, aspiration pneumonia. Remains on vent 3. Sepsis requiring pressor support 4. ETOH abuse 5. Hepatic encephalopathy, ascites 6. Severe protein/calorie malnutrition discussed with hospitalist
[2017-11-25 12:00] LABS: Bedside Glucose 101 mg/dL (70-110)
--- NOTE | 2017-11-25 14:46 | CASEMGMT ---
FELIPA faxed updates to [facility]. Lesli OLSON TERMITE TECHNICIAN
[2017-11-25 17:15] LABS: Bedside Glucose 96 mg/dL (70-110)
[2017-11-26] VITALS (31 sets, daily range): BP systolic 82–109; BP diastolic 57–79; PULSE 39–130; RESP 19–33; TEMP 35.8–36.9; O2SAT 80–100
[2017-11-26 00:11] LABS: Bedside Glucose 89 mg/dL (70-110)
[2017-11-26 04:34] LABS: Hemoglobin 11.4 g/dl (13.0-16.5); Mean Corp Hgb Conc 34.5 g/gl (32-36); Mean Corpuscular Volume 92.7 fL (80-94); Platelet Count 234 K/mm3 (150-450); RBC Distribution Width CV 17.9 % (11.6-14.6); RBC Distribution Width SD 56.4 fl (35.1-43.9); Red Blood Count 3.56 M/mm3 (4.6-6.2); White Blood Count 27.4 K/mm3 (4.4-11.0)
[2017-11-26 04:41] LABS: Scan Indicated on CBC? Y/N NO
[2017-11-26 04:47] LABS: Anion Gap 15 (5-15); BUN 83 mg/dL (7-18); BUN/Creat Ratio 21.9 RATIO (10-20); Calcium,Total 7.3 mg/dL (8.5-10.1); Chloride 105 mmol/L (98-107); Creatinine, Serum 3.79 mg/dL (0.70-1.30); EST Glomerular Filtration Rate 17 mL/min (>60); Est Glom Filt Rate - Afr Amer 21 mL/min (>60); Estimated Creatinine Clearance 20.05 ml/min; Glucose 112 mg/dL (74-106); Sodium Level 141 mmol/L (136-145)
[2017-11-26] MEDS: Piperacil/Tazobactam 3.375 GM/50 ML ML IV (05:48)
[2017-11-26] MEDS: Ipratropium/Albuterol Sulfate 3 ML AMPUL.NEB INHALATION ×2 (06:33→14:09)
[2017-11-26] MEDS: 0.9% NaCl Peripheral Flush Adult/Peds IV ×2 (07:57→22:06)
--- NOTE | 2017-11-26 08:00 | US_ITS ---
PROCEDURE: Ultrasound guided paracentesis. DATE OF EXAMINATION: November 26, 2017. INDICATION: Male, 62 years old. Ascites. PHYSICIAN: Kam Hicks M.D. TECHNIQUE: The risks, benefits, and alternatives to the procedure were explained to the patient. The specific risks of bleeding, infection, and damage to bowel were detailed and accepted. Witnessed informed consent was obtained. The abdomen was ultrasonographically surveyed. An appropriate pocket of fluid was identified at the right lower quadrant. The skin were cleaned and prepped in the usual sterile fashion. Using ultrasound guidance, the peritoneal cavity was accessed with a 5-Portuguese paracentesis needle/catheter system. The trocar was removed. A total of 4720 ml of divya-colored fluid were removed from the peritoneal cavity. A 120 mL sample of fluid was sent to the laboratory. The catheter was removed and a sterile dressing was applied. The procedure was well tolerated. US/Paracentesis with US IMPRESSION: Ultrasound guided paracentesis. Electronically Signed: Kam Hicks MD at 14:35 EDT Tel [phone], Service support ,
[2017-11-26 08:04] LABS: AST(SGOT) 41 U/L (15-37); Alanine Aminotransfer ALT/SGPT 18 U/L (16-61); Alkaline Phosphatase 147 U/L (45-117); Globulin 4.2 g/dL (2.2-4.2); Protein, Total 5.2 g/dL (6.4-8.2)
[2017-11-26 08:10] LABS: International Normalized Ratio 1.5; Prothrombin Time (Protime)PT. 18.5 SECONDS (11.7-14.9)
[2017-11-26 08:11] LABS: Partial Thromboplast Time 53.2 Seconds (24.1-36.2)
[2017-11-26] MEDS: Menthol/Lanolin/Calamine/Znox 113 GM Tube 1 APPLIC TOPICAL ×2 (09:38→13:38)
[2017-11-26] MEDS: Chlorhexidine 15 ML PO (09:38)
[2017-11-26] MEDS: CHLORHEXIDINE GLUC 2% CLOTH 1 EACH TOWELETTE TOPICAL (09:38)
[2017-11-26] MEDS: Folic Acid 1 MG Tablet GT (09:38)
[2017-11-26] MEDS: Famotidine 20 MG Tablet GT (09:39)
[2017-11-26] MEDS: Thiamine Hydrochloride 100 MG Tablet GT (09:39)
--- NOTE | 2017-11-26 09:47 | PCM.PN.HOSP ---
Patient Problems: Active and Suspected Problems Altered mental status (Acute) Sepsis (Acute) Aspiration pneumonia (Acute) Subjective: Patient seen and examined. Per nurse, he had no active issues overnight. He is now off the sedatives but patient is barely responsive. Abdomen remains distended and he is due to have paracentesis today. Intra-abdominal purchase checked today were down to 8. No other active issues overnight. Vitals/I&O's: Vital Signs Temp Pulse Resp BP Pulse Ox 97.5 F L 107 H 28 H 91/68 98 11/26/17 08:00 11/26/17 09:00 11/26/17 09:00 11/26/17 09:00 11/26/17 09:00 Oxygen Flow Rate (L/min) 40 Oxygen Delivery Method Mechanical Ventilator Weight: 190 lb 11.198 oz Body Mass Index (BMI) 29.2 Intake and Output for Last 24 Hours 11/24/17 11/25/17 11/26/17 23:59 23:59 23:59 Intake Total 1589.0 / 1589.0 2346.0 / 2346.0 437.7 / 437.7 Output Total 700 / 700 1920 / 1920 250 / 250 Balance 889.0 / 889.0 426.0 / 426.0 187.7 / 187.7 General: - - patient lethargic, unresponsive, remains intubated; is off sedatives HEENT: Atraumatic, EOMI Oral: Moist Mucosa Neck: Supple, No JVD, Negative Carotid Bruits Lungs: - - has decreased breath sounds bibasally, with minimal crackles auscultated Cardiovascular: Regular rate, Regular Rhythm, Normal S1, Normal S2, No murmurs Abdomen: - - abdomen distended, tympanitic to percussion, few bowel sounds heard. positive fluid thrill, but no positive shifting dullness Extremities: - - generalised 2+ edema of all extremities and abdominal wall. Skin: No rashes, No breakdown Musculoskeletal: No Tenderness to Palpation of Joints or Extremities Lymphatic: No Cervical, Supraclavicular, or Inguinal Adenopathy Neurological: - - RASS score is -4, patient off sedatives, not responsive to nail bed pressure or voice call. Microbiology Past 72 Hours 11/22/17 16:10 Sputum, Induced/Lukens Gram Stain - Final 07/07/18 16:10 Sputum, Induced/Lukens Respiratory Culture - Final Klebsiella pneumoniae sp pneum Proteus mirabilis Escherichia coli Laboratory Results 11/25/17 11:57: POC Glucose 101 11/25/17 17:04: POC Glucose 96 11/26/17 00:07: POC Glucose 89 11/26/17 04:18: WBC 27.4 H, RBC 3.56 L, Hgb 11.4 L, Hct 33.0 L, MCV 92.7, MCH 32.0, MCHC 34.5, RDW 17.9 H, RDW Differential 56.4 H, Plt Count 234, MPV 11.0 11/26/17 04:18: Sodium 141, Potassium 5.0, Chloride 105, Carbon Dioxide 21.0, Anion Gap 15, BUN 83 H, Creatinine 3.79 H, Estim Creat Clear Calc 20.05, Est GFR (MDRD) Af Amer 21 L, Est GFR (MDRD) Non-Af 17 L, BUN/Creatinine Ratio 21.9 H, Glucose 112 H, Calcium 7.3 L 11/26/17 04:18: Total Bilirubin 1.30 H, Direct Bilirubin 0.80 H, AST 41 H, ALT 18, Alkaline Phosphatase 147 H, Total Protein 5.2 L, Albumin 1.0 L, Globulin 4.2 11/26/17 07:50: PT 18.5 H, INR 1.5, APTT 53.2 H Diagnostic Data Brain CT 11/22/17 11:27 IMPRESSION: Chronic involutional changes of the brain. Electronically Signed: Ian Mayer MD at 12:49 EDT Tel , Service support , Chest X-Ray 11/22/17 15:17 KUB X-Ray 11/24/17 06:08 IMPRESSION: Findings suggestive of a distended urinary bladder. Findings in keeping with a small bowel obstruction. Follow-up is recommended. Electronically Signed: Kam Hicks MD at 10:08 EDT Tel [phone], Service support , Abdomen/Pelvis CT 11/25/17 06:31 IMPRESSION: Diffuse ascites. Small air bubbles are seen within the pelvic fluid most likely secondary to recent paracentesis. Findings suggestive of an ileus gas pattern. Further follow-up is recommended. Electronically Signed: Kam Hicks MD at 9:14 EDT Tel [phone], Service support , Current Medications Albuterol Sulfate (Ventolin Aerosols) 2.5 mg INHALATION Q2H PRN PRN PRN Reason: WHEEZING Albuterol/Ipratropium (Duoneb) 3 ml INHALATION Q6H.RT [facility] Last Admin: 11/26/17 06:33 Dose: 3 ml Bisacodyl (Dulcolax) 10 mg RECTAL DAILY PRN PRN PRN Reason: Constipation Calamine/Phenol (Calmoseptine Ointment) 1 applic TOPICAL 4X/DAY RICH PRN Reason: Protocol Last Admin: 11/26/17 09:38 Dose: 1 applicatio Chlorhexidine Gluconate () 15 ml PO BID [facility] Last Admin: 11/26/17 09:38 Dose: 15 ml Chlorhexidine Gluconate () 1 each TOPICAL DAILY [facility] Last Admin: 11/26/17 09:38 Dose: 1 each Clotrimazole (Lotrimin) 1 applicatio TOPICAL BID [facility] PRN Reason: Protocol Last Admin: 11/26/17 09:39 Dose: 1 applicatio Dextrose (D50w Syringe) 0 gm IV X1 PRN; Protocol PRN Reason: Hypoglycemia Famotidine (Pepcid) 20 mg GT BID [facility] Last Admin: 11/26/17 09:39 Dose: 20 mg Folic Acid (Folic Acid) 1 mg GT DAILY [facility] Last Admin: 11/26/17 09:38 Dose: 1 mg Glucagon () 1 mg IM .X1 PRN PRN Reason: Hypoglycemia Heparin Sodium (Porcine) (Heparin Na) 5,000 unit SC Q8 [facility] Last Admin: 11/25/17 21:26 Dose: 5,000 u Norepinephrine Bitartrate 8 mg (/ Dextrose) 258 mls @ 9.67 mls/hr IV .[id number] [facility] PRN Reason: 5 MCG/MIN Last Admin: 11/26/17 05:58 Dose: 9.67 mls/hr Dexmedetomidine HCl 400 mcg/ (Sodium Chloride) 100 mls @ 13.58 mls/hr IV .Q7H22M RICH; 0.5 MCG/KG/HR PRN Reason: Protocol Last Admin: 11/26/17 07:56 Dose: Not Given Fentanyl () 100 mls @ 5 mls/hr IV .Q20H [facility] Last Admin: 11/25/17 14:00 Dose: 5 mls/hr Cefotaxime Sodium 1 gm/ (Dextrose) 50 mls @ 150 mls/hr IV Q8 R[facility] Insulin Human Lispro (Humalog Kwikpen (Bkc)) 0 unit SC Q6 [facility] PRN Reason: Protocol Last Admin: 11/26/17 05:52 Dose: Not Given Mineral Oil (Mineral Oil) 1 bottle RECTAL DAILY PRN PRN PRN Reason: Constipation Nicotine (Nicoderm Cq (Pbkc)) 21 mg TRANSDERM. DAILY [facility] Last Admin: 11/26/17 09:38 Dose: 21 mg Sodium Chloride () 5 - 30 ml IV UD PRN PRN Reason: SALINE FLUSH Last Admin: 11/26/17 07:57 Dose: 20 ml Thiamine HCl (Vitamin B1) 100 mg GT DAILY [facility] Last Admin: 11/26/17 09:39 Dose: 100 mg Medical Necessity - Tobacco Use Smoking Status: Former smoker Assessment/Plan All Active Problems Hyponatremia (Acute) Severe sepsis (Acute) Depression (Acute) Altered mental status (Acute) Sepsis (Acute) Aspiration pneumonia (Acute) 8-year-old male with a history of chronic alcohol abuse with resultant cirrhosis status post paracentesis, bipolar disorder and depression. He was admitted by the ED on 11/22/2017 complaint of altered mental status from his retirement. 1. Septic shock due to aspiration pneumonia still intubated and sedated. on levophed 12mcg/min; precedex dced. Vent settings: FiO2-40%, RR-12, TV-500mls, PEEP-5 white cell count is up to 27.4 today sputum cultured Klebsiella and Proteus mirabilis as well as E.coli blood cultures showed no growth after 48 hours. urine culture negative. on IV cefotaxime now, per hull grinder 2. Acute hypercapnic and hYpoxic respiratory failure due to aspiration pneumonia still intubated and sedated. Vent settings AC volume control with tidal volume of 500, respiratory rate of 12, PEEP of 5 and FiO2 40%. on breathing treatments and suctioning prn maintain saturation >92% chest physiotherapy 3. Cirrhosis with ascites s/p paracentesis Patient remains very edematous, l Spironolactone, furosemide and beta-ailyn on hold. on lactulose, ut has not been tolerating it very well. abdominal compartment pressure iown to 8 today, from 16 yesterday/ CT abdomen showed diffuse ascites with ileus gas pattern. to get paracentesis today 4. Intestinal ileus: abdomen remains distended, and tympanitic to percussion. CT abdomen: diffuse ascites with small air bubbles seen in pelvic fluid, likely secondary to recent paracentesis. Findings suggestive of ileus gas pattern. Further follow up recommended. NG tube to continuous suction; gastric drainage was ~ 1.350L over last 24 hrs TUbe feeding stopped as he was not tolerating it. 5. CAROL: worsening. Cr was 1.16 on admission, now 3.79 family refuses dialysis for now. prognosis is very poor nephrology on board unable to give IVF due to cirrhosis and paracentesis 6. Depression and bipolar disorder: trazodone on hold. 7. Severe protein calorie malnutrition: Nutrition consulted. tube feeds on hold as he is not tolerating it 8. COPD: intubated for hypoxic, hypercapnic respiratory failure. on breathing treatments 9. DVT prophylaxis: heparin. 10. GI prophylaxis: famotidine 11. Code status: Full code. Daughter Lori is next of kin. This note was generated with Impermiumation software. It may contain incorrect words, spelling, and punctuation that were not noted in checking the note before signing. Code Visit Inpatient E&M: [address] [facility] H[facility] L3
--- NOTE | 2017-11-26 09:55 | PN_ITS ---
Patient Problems: Active and Suspected Problems Altered mental status (Acute) Sepsis (Acute) Aspiration pneumonia (Acute) Subjective: Patient seen and examined. Per nurse, he had no active issues overnight. He is now off the sedatives but patient is barely responsive. Abdomen remains distended and he is due to have paracentesis today. Intra-abdominal purchase checked today were down to 8. No other active issues overnight. Vitals/I&O's: Vital Signs Temp Pulse Resp BP Pulse Ox 97.5 F L 107 H 28 H 91/68 98 11/26/17 08:00 11/26/17 09:00 11/26/17 09:00 11/26/17 09:00 11/26/17 09:00 Oxygen Flow Rate (L/min) 40 Oxygen Delivery Method Mechanical Ventilator Weight: 190 lb 11.198 oz Body Mass Index (BMI) 29.2 Intake and Output for Last 24 Hours 11/24/17 11/25/17 11/26/17 23:59 23:59 23:59 Intake Total 1589.0 / 1589.0 2346.0 / 2346.0 437.7 / 437.7 Output Total 700 / 700 1920 / 1920 250 / 250 Balance 889.0 / 889.0 426.0 / 426.0 187.7 / 187.7 General: - - patient lethargic, unresponsive, remains intubated; is off sedatives HEENT: Atraumatic, EOMI Oral: Moist Mucosa Neck: Supple, No JVD, Negative Carotid Bruits Lungs: - - has decreased breath sounds bibasally, with minimal crackles auscultated Cardiovascular: Regular rate, Regular Rhythm, Normal S1, Normal S2, No murmurs Abdomen: - - abdomen distended, tympanitic to percussion, few bowel sounds heard. positive fluid thrill, but no positive shifting dullness Extremities: - - generalised 2+ edema of all extremities and abdominal wall. Skin: No rashes, No breakdown Musculoskeletal: No Tenderness to Palpation of Joints or Extremities Lymphatic: No Cervical, Supraclavicular, or Inguinal Adenopathy Neurological: - - RASS score is -4, patient off sedatives, not responsive to nail bed pressure or voice call. Microbiology Past 72 Hours 11/22/17 16:10 Sputum, Induced/Lukens Gram Stain - Final 07/07/18 16:10 Sputum, Induced/Lukens Respiratory Culture - Final Klebsiella pneumoniae sp pneum Proteus mirabilis Escherichia coli Laboratory Results 11/25/17 11:57: POC Glucose 101 11/25/17 17:04: POC Glucose 96 11/26/17 00:07: POC Glucose 89 11/26/17 04:18: WBC 27.4 H, RBC 3.56 L, Hgb 11.4 L, Hct 33.0 L, MCV 92.7, MCH 32.0, MCHC 34.5, RDW 17.9 H, RDW Differential 56.4 H, Plt Count 234, MPV 11.0 11/26/17 04:18: Sodium 141, Potassium 5.0, Chloride 105, Carbon Dioxide 21.0, Anion Gap 15, BUN 83 H, Creatinine 3.79 H, Estim Creat Clear Calc 20.05, Est GFR (MDRD) Af Amer 21 L, Est GFR (MDRD) Non-Af 17 L, BUN/Creatinine Ratio 21.9 H , Glucose 112 H, Calcium 7.3 L 11/26/17 04:18: Total Bilirubin 1.30 H, Direct Bilirubin 0.80 H, AST 41 H, ALT 18, Alkaline Phosphatase 147 H, Total Protein 5.2 L, Albumin 1.0 L, Globulin 4.2 11/26/17 07:50: PT 18.5 H, INR 1.5, APTT 53.2 H [address] Data [address] CT 11/22/17 11:27 IMPRESSION: Chronic involutional changes of the brain. Electronically Signed: Ian Mayer MD at 12:49 EDT Tel , Service support , Chest X-Ray 11/22/17 15:17 KUB X-Ray 11/24/17 06:08 IMPRESSION: Findings suggestive of a distended urinary bladder. Findings in keeping with a small bowel obstruction. Follow-up is recommended. Electronically Signed: Kam Hicks MD at 10:08 EDT Tel [phone], Service support , Abdomen/Pelvis CT 11/25/17 06:31 IMPRESSION: Diffuse ascites. Small air bubbles are seen within the pelvic fluid most likely secondary to recent paracentesis. Findings suggestive of an ileus gas pattern. Further follow-up is recommended. Electronically Signed: Kam Hicks MD at 9:14 EDT Tel [phone], Service support , Current Medications Albuterol Sulfate (Ventolin Aerosols) 2.5 mg INHALATION Q2H PRN PRN PRN Reason: WHEEZING Albuterol/Ipratropium (Duoneb) 3 ml INHALATION Q6H.RT [facility] Last Admin: 11/26/17 06:33 Dose: 3 ml Bisacodyl (Dulcolax) 10 mg RECTAL DAILY PRN PRN PRN Reason: Constipation Calamine/Phenol (Calmoseptine Ointment) 1 applic TOPICAL 4X/DAY [facility] PRN Reason: Protocol Last Admin: 11/26/17 09:38 Dose: 1 applicatio Chlorhexidine Gluconate () 15 ml PO BID [facility] Last Admin: 11/26/17 09:38 Dose: 15 ml Chlorhexidine Gluconate () 1 each TOPICAL DAILY [facility] Last Admin: 11/26/17 09:38 Dose: 1 each Clotrimazole (Lotrimin) 1 applicatio TOPICAL BID [facility] PRN Reason: Protocol Last Admin: 11/26/17 09:39 Dose: 1 applicatio Dextrose (D50w Syringe) 0 gm IV X1 PRN; Protocol PRN Reason: Hypoglycemia Famotidine (Pepcid) 20 mg GT BID [facility] Last Admin: 11/26/17 09:39 Dose: 20 mg Folic Acid (Folic Acid) 1 mg GT DAILY [facility] Last Admin: 11/26/17 09:38 Dose: 1 mg Glucagon () 1 mg IM .X1 PRN PRN Reason: Hypoglycemia Heparin Sodium (Porcine) (Heparin Na) 5,000 unit SC Q8 [facility] Last Admin: 11/25/17 21:26 Dose: 5,000 u Norepinephrine Bitartrate 8 mg (/ Dextrose) 258 mls @ 9.67 mls/hr IV .[id number] [facility] PRN Reason: 5 MCG/MIN Last Admin: 11/26/17 05:58 Dose: 9.67 mls/hr Dexmedetomidine HCl 400 mcg/ (Sodium Chloride) 100 mls @ 13.58 mls/hr IV .Q7H22M RICH; 0.5 MCG/KG/HR PRN Reason: Protocol Last Admin: 11/26/17 07:56 Dose: Not Given Fentanyl () 100 mls @ 5 mls/hr IV .Q20H [facility] Last Admin: 11/25/17 14:00 Dose: 5 mls/hr Cefotaxime Sodium 1 gm/ (Dextrose) 50 mls @ 150 mls/hr IV Q8 [facility] Insulin Human Lispro (Humalog Kwikpen (Bkc)) 0 unit SC Q6 [facility] PRN Reason: Protocol Last Admin: 11/26/17 05:52 Dose: Not Given Mineral Oil (Mineral Oil) 1 bottle RECTAL DAILY PRN PRN PRN Reason: Constipation Nicotine (Nicoderm Cq (Pbkc)) 21 mg TRANSDERM. DAILY [facility] Last Admin: 11/26/17 09:38 Dose: 21 mg Sodium Chloride () 5 - 30 ml IV UD PRN PRN Reason: SALINE FLUSH Last Admin: 11/26/17 07:57 Dose: 20 ml Thiamine HCl (Vitamin B1) 100 mg GT DAILY [facility] Last Admin: 11/26/17 09:39 Dose: 100 mg Medical Necessity - Tobacco Use Smoking Status: Former smoker Assessment/Plan All Active Problems Hyponatremia (Acute) Severe sepsis (Acute) Depression (Acute) Altered mental status (Acute) Sepsis (Acute) Aspiration pneumonia (Acute) 8-year-old male with a history of chronic alcohol abuse with resultant cirrhosis status post paracentesis, bipolar disorder and depression. He was admitted by the ED on 11/22/2017 complaint of altered mental status from his [facility]. 1. Septic shock due to aspiration pneumonia * still intubated and sedated. * on levophed 12mcg/min; precedex dced. * Vent settings: FiO2-40%, RR-12, TV-500mls, PEEP-5 * white cell count is up to 27.4 today * sputum cultured Klebsiella and Proteus mirabilis as well as E.coli * blood cultures showed no growth after 48 hours. * urine culture negative. * on IV cefotaxime now, per pneumatic deicer inspector * 2. Acute hypercapnic and hYpoxic respiratory failure due to aspiration pneumonia * still intubated and sedated. Vent settings AC volume control with tidal volume of 500, respiratory rate of 12, PEEP of 5 and FiO2 40%. * on breathing treatments and suctioning prn * maintain saturation >92% * chest physiotherapy 3. Cirrhosis with ascites s/p paracentesis * Patient remains very edematous, l * Spironolactone, furosemide and beta-ailyn on hold. * on lactulose, ut has not been tolerating it very well. * abdominal compartment pressure iown to 8 today, from 16 yesterday/ * CT abdomen showed diffuse ascites with ileus gas pattern. * to get paracentesis today * 4. Intestinal ileus: * abdomen remains distended, and tympanitic to percussion. * CT abdomen: diffuse ascites with small air bubbles seen in pelvic fluid, likely secondary to recent paracentesis. Findings suggestive of ileus gas pattern. Further follow up recommended. * NG tube to continuous suction; gastric drainage was ~ 1.350L over last 24 hrs * TUbe feeding stopped as he was not tolerating it. * 5. CAROL: * worsening. Cr was 1.16 on admission, now 3.79 * family refuses dialysis for now. * prognosis is very poor * nephrology on board * unable to give IVF due to cirrhosis and paracentesis * * 6. Depression and bipolar disorder: trazodone on hold. 7. Severe protein calorie malnutrition: Nutrition consulted. tube feeds on hold as he is not tolerating it 8. COPD: intubated for hypoxic, hypercapnic respiratory failure. on breathing treatments 9. DVT prophylaxis: heparin. 10. GI prophylaxis: famotidine 11. Code status: Full code. Daughter Lori is next of kin. * This note was generated with Numedeonation software. It may contain incorrect words, spelling, and punctuation that were not noted in checking the note before signing. Code Visit Inpatient E&M: 75578 [facility] Hosp L3
--- NOTE | 2017-11-26 10:05 | PN_ITS ---
Subjective: Patient did okay overnight. Respiratory status remains stable. Patient continues to have significant OG output, so tube feeds have not been initiated. Levophed requirements have been relatively stable. No fevers were reported overnight. Patient has had a slight increase in tachypnea and abdominal pressures have remained stable at about 15. Patient is to have a paracentesis today. Heparin was held this morning in anticipation. General: - - RASS -4. Appears older than stated age. Anasarca. Temporal wasting HEENT: Atraumatic, PERRLA, EOMI, Normocephalic, - - Scleral injection noted. Oral: Moist Mucosa, No Gingival or Mucosal Lesions/ Ulcerations, - - Poor dentition Neck: Supple, No JVD, No Nodes, Trachea Midline Lungs: No rhonchi, No wheeze, Diminished, Rales, - - Symmetric expansion. No dullness to percussion. Cardiovascular: Normal S1, Normal S2, No murmurs, No rub noted, No Gallop, Tachycardic Abdomen: Soft, Non Tender, Bowel Sounds Not Present, Distended Extremities: No cyanosis, Capillary Refill Less than 3 Seconds, Clubbing, Edema Skin: - - No significant change compared to previous Musculoskeletal: Cachexia, Muscle Wasting Lymphatic: No Cervical, Supraclavicular, or Inguinal Adenopathy Neurological: Cranial nerves II-XII grossly intact, Neuro grossly intact, Motor Exam 5/5 strength throughout Psych/Mental Status: Flat Affect Vital Signs Temp Pulse Resp BP Pulse Ox 36.4 C L 107 H 28 H 91/68 98 11/26/17 08:00 11/26/17 09:00 11/26/17 09:00 11/26/17 09:00 11/26/17 09:00 Oxygen Flow Rate (L/min) 40 Oxygen Delivery Method Mechanical Ventilator Weight: 86.5 kg Body Mass Index (BMI) 29.2 Intake and Output for Last 24 Hours 11/24/17 11/25/17 11/26/17 23:59 23:59 23:59 Intake Total 1589.0 / 1589.0 2346.0 / 2346.0 437.7 / 437.7 Output Total 700 / 700 1920 / 1920 250 / 250 Balance 889.0 / 889.0 426.0 / 426.0 187.7 / 187.7 Labs (Last 48 Hours) 11/24/17 11/24/17 11/24/17 12:33 12:50 12:50 WBC RBC Hgb Hct MCV MCH MCHC RDW RDW Differential Plt Count MPV PT INR APTT Sodium Potassium Chloride Carbon Dioxide Anion Gap BUN Creatinine Estim Creat Clear Calc Est GFR (MDRD) Af Amer Est GFR (MDRD) Non-Af BUN/Creatinine Ratio Glucose Calcium Total Bilirubin Direct Bilirubin AST ALT Alkaline Phosphatase Total Protein Albumin Globulin Albumin/Globulin Ratio Ur Random Sodium 12 Urine Creatinine 91.20 POC Glucose 105 11/24/17 11/25/17 11/25/17 17:30 00:55 04:30 WBC 24.4 H RBC 3.71 L Hgb 11.8 L Hct 34.6 L MCV 93.3 MCH 31.8 MCHC 34.1 RDW 17.9 H RDW Differential 57.1 H Plt Count 251 MPV 10.3 PT INR APTT Sodium Potassium Chloride Carbon Dioxide Anion Gap BUN Creatinine Estim Creat Clear Calc Est GFR (MDRD) Af Amer Est GFR (MDRD) Non-Af BUN/Creatinine Ratio Glucose Calcium Total Bilirubin Direct Bilirubin AST ALT Alkaline Phosphatase Total Protein Albumin Globulin Albumin/Globulin Ratio Ur Random Sodium Urine Creatinine POC Glucose 104 95 11/25/17 11/25/17 11/25/17 04:30 06:07 11:57 WBC RBC Hgb Hct MCV MCH MCHC RDW RDW Differential Plt Count MPV PT INR APTT Sodium 144 Potassium 4.7 Chloride 108 H Carbon Dioxide 22.0 Anion Gap 14 BUN 70 H Creatinine 3.11 H Estim Creat Clear Calc 24.44 Est GFR (MDRD) Af Amer 26 L Est GFR (MDRD) Non-Af 22 L BUN/Creatinine Ratio 22.5 H Glucose 115 H Calcium 7.3 L Total Bilirubin 1.10 H Direct Bilirubin AST 47 H ALT 22 Alkaline Phosphatase 178 H Total Protein 5.1 L Albumin 1.0 L Globulin 4.1 Albumin/Globulin Ratio 0.2 L Ur Random Sodium Urine Creatinine POC Glucose 95 101 11/25/17 11/26/17 11/26/17 17:04 00:07 04:18 WBC 27.4 H RBC 3.56 L Hgb 11.4 L Hct 33.0 L MCV 92.7 MCH 32.0 MCHC 34.5 RDW 17.9 H RDW Differential 56.4 H Plt Count 234 MPV 11.0 PT INR APTT Sodium Potassium Chloride Carbon Dioxide Anion Gap BUN Creatinine Estim Creat Clear Calc Est GFR (MDRD) Af Amer Est GFR (MDRD) Non-Af BUN/Creatinine Ratio Glucose Calcium Total Bilirubin Direct Bilirubin AST ALT Alkaline Phosphatase Total Protein Albumin Globulin Albumin/Globulin Ratio Ur Random Sodium Urine Creatinine POC Glucose 96 89 11/26/17 11/26/17 11/26/17 04:18 04:18 07:50 WBC RBC Hgb Hct MCV MCH MCHC RDW RDW Differential Plt Count MPV PT 18.5 H INR 1.5 APTT 53.2 H Sodium 141 Potassium 5.0 Chloride 105 Carbon Dioxide 21.0 Anion Gap 15 BUN 83 H Creatinine 3.79 H Estim Creat Clear Calc 20.05 Est GFR (MDRD) Af Amer 21 L Est GFR (MDRD) Non-Af 17 L BUN/Creatinine Ratio 21.9 H Glucose 112 H Calcium 7.3 L Total Bilirubin 1.30 H Direct Bilirubin 0.80 H AST 41 H ALT 18 Alkaline Phosphatase 147 H Total Protein 5.2 L Albumin 1.0 L Globulin 4.2 Albumin/Globulin Ratio Ur Random Sodium Urine Creatinine POC Glucose Microbiology 11/22/17 16:10 Sputum, Induced/Lukens Gram Stain - Final 11/22/17 16:10 Sputum, Induced/Lukens Respiratory Culture - Final Klebsiella pneumoniae sp pneum Proteus mirabilis Escherichia coli Medical Necessity - Tobacco Use Smoking Status: Former smoker Assessment/Plan All Active Problems Hyponatremia (Acute) Severe sepsis (Acute) Depression (Acute) Altered mental status (Acute) Sepsis (Acute) Aspiration pneumonia (Acute) RECOMMENDATIONS: 1. Propofol should be avoided given elevated baseline triglyceride levels, continue Precedex 2. Transition to cefotaxime 3. Discontinue lactulose 4. Await paracentesis with labs 5. NG to low intermittent suction 6. Initiate tube feeds once OG output decreases 7. Continue Levophed to maintain a mean arterial pressure at or above 65 mmHg. 8. ICU prophylaxis with subcutaneous heparin and Pepcid IMPRESSIONS: 1. Septic shock Clinical concern for acute aspiration event, given the circumstances of his presentation. Patient's hemodynamics have remained stable compared to yesterday. Patient has been able to come off of vasopressin, but still has substantial Levophed requirements. Susceptibilities are available. Patient will be transitioned to cefotaxime. Patient does have significant ascites, so spontaneous bacterial peritonitis labs will be sent. 2. Acute hypoxemic and hypercarbic respiratory failure The patient does have an extensive smoking history, raising the concern for potential underlying COPD. However, there is a high probability that the patient experienced an acute aspiration event upon arrival to the hospital. Continue full mechanical ventilatory support. Sputum cultures show polymicrobial gram-negative infection. Continue bronchodilators as ordered. Continue Precedex therapy. Maintain a RASS of -1 to 1. Plan for daily paired spontaneous awakening and breathing trials per protocol. 3. Encephalopathy, likely metabolic/infectious in nature The patient is currently being treated for septic shock. In addition, he had an elevated ammonia level to 51 in the past. Patient does not appear to be tolerating lactulose at this time. Given intra-abdominal pressures, will discontinue enemas. Obtain ammonia. Continue treatment of underlying infectious process. 4. Acute kidney injury Likely secondary to hemodynamic instability in the setting of #1. Patient likely developing ATN. Continue to monitor urine output. No indication for renal replacement therapy at the current time, but nephrology is following. Patient does have significant extravasation secondary to poor nutritional status. Would not recommend the use of albumin for correction. Continue to support blood pressure using pressor agents. 5. Troponin elevation Likely secondary to demand ischemia in the setting of #1. 6. Small bowel ileus Likely secondary to septic shock. Conservative management at this time. Patient does have OG to low intermittent suction. Attempt to hold fentanyl if possible. CT scan of the abdomen showed significant ascites without bowel ischemia or perforation. 7. Chronic alcohol and tobacco dependence/severe protein calorie malnutrition/deconditioning/bipolar disorder Complicates care, management, recovery and prognosis. The patient will require physical therapy evaluation, once medically stabilized. Okay to start tube feeds today from my perspective. CODE STATUS/goals of care discussion to be had with the patient's family. TIME: 50 minutes of critical care time, independent of procedures, was spent addressing the patient's septic shock, acute respiratory failure, encephalopathy , acute kidney injury, troponin elevation, review of all data and collaboration with the care team. (6:30 AM to 8 AM) Code Visit 9xxxx: [id number] Critical care first hour
[2017-11-26 11:40] LABS: Bedside Glucose 95 mg/dL (70-110)
[2017-11-26 13:41] LABS: Body Fluid Mononuclear WBC # 0.232 10^3/uL; Body Fluid Mononuclear WBC % 22.1 %; Body Fluid Polynuclear WBC # 0.816 10^3/uL; Body Fluid Polynuclear WBC % 77.9 %; Body Fluid Total Cells Counted 1.054 10^3/ul; White Blood Count/Body Fluid 1.048 10^3/uL
[2017-11-26 13:49] LABS: Auto B Fluid Analyzer BKGD Ct COUNTS W/IN LIMITS (W/IN LIMITS)
[2017-11-26 13:50] LABS: Appearance/Body Fluid SL CLDY; Color/Body Fluid YELLOW; Source- Body Fluid OTHER
[2017-11-26 13:56] LABS: Red Cell Count/Body Fluid 170 /mm3
[2017-11-26 14:42] LABS: Body Fluid QC Type(s) BF1Q,BF2Q; Lymphocytes 19 %; Monocytes 3 %; Neutrophil (Segs) 78 %
--- NOTE | 2017-11-26 16:49 | NURSING ---
Dr. Griffin here talking with daughter, sister. Family wishes to withdraw care@ this time. Clerneva enrafaelate to give Last Rights
--- NOTE | 2017-11-26 17:02 | CASEMGMT ---
Social Work: TC from [place] [employer]FOR[employer] asking SS Field Clerk to contact the escalator constructor glost tile sorter as family would like to have last rights. TC to escalator constructor glost tile sorter who states he will be to the hospital within the next 30 mins. Spoke with family in patient's room. Patient's daughter, ex- and sister all present. Family members tearful but stating this is not how he would want to live. Family choosing to withdraw care at this time. Family aware that glost tile sorter is on route at this time. Much support provided. LIZZETTE Gilbert
--- NOTE | 2017-11-26 17:53 | NURSING ---
extubated, og removed , iv medications discontinued as per family request
--- NOTE | 2017-11-26 18:05 | NURSING ---
family given breaveament blanket & emotional support
--- NOTE | 2017-11-26 18:18 | PCM.PN.REN ---
Patient Problems: Active and Suspected Problems Altered mental status (Acute) Sepsis (Acute) Aspiration pneumonia (Acute) Subjective: remains on vent, pressors with dusky digits. Pt family at bedside. Still with no puposeful movements, unresponsive. Plan for paracentesis today. Discussed with family re: dialysis option. - Physical Exam General: Lethargic, - - on vent HEENT: - - pinpoint pupils Oral: Moist Mucosa Neck: No JVD Lungs: Rhonchi Cardiovascular: Regular rate Abdomen: Bowel Sounds Present, Distended - tense ascites Extremities: Edema - diffuse Musculoskeletal: Muscle Wasting Neurological: - - sedate Psych/Mental Status: - - sedate Vital Signs Temp Pulse Resp BP Pulse Ox 98.4 F 97 19 H 92/61 99 11/26/17 15:00 11/26/17 16:12 11/26/17 16:12 11/26/17 16:00 11/26/17 16:12 Oxygen Flow Rate (L/min) 2 Oxygen Delivery Method Nasal Cannula Weight: 86.5 kg Body Mass Index (BMI) 29.2 Intake and Output for Last 24 Hours 11/24/17 11/25/17 11/26/17 23:59 23:59 23:59 Intake Total 1589.0 / 1589.0 2346.0 / 2346.0 651.7 / 651.7 Output Total 700 / 700 1920 / 1920 5170 / 5170 Balance 889.0 / 889.0 426.0 / 426.0 -4518.3 / -4518.3 Microbiology Past 72 Hours 11/22/17 16:10 Gram Stain - Final Sputum, Induced/Lukens Respiratory Culture - Final Klebsiella pneumoniae sp pneum Proteus mirabilis Escherichia coli Laboratory Tests Past 24 Hrs 11/26/17 11/26/17 11/26/17 04:18 04:18 04:18 WBC 27.4 H RBC 3.56 L Hgb 11.4 L Hct 33.0 L MCV 92.7 MCH 32.0 MCHC 34.5 RDW 17.9 H RDW Differential 56.4 H Plt Count 234 MPV 11.0 PT INR APTT Sodium 141 Potassium 5.0 Chloride 105 Carbon Dioxide 21.0 Anion Gap 15 BUN 83 H Creatinine 3.79 H Estim Creat Clear Calc 20.05 Est GFR (MDRD) Af Amer 21 L Est GFR (MDRD) Non-Af 17 L BUN/Creatinine Ratio 21.9 H Glucose 112 H Calcium 7.3 L Total Bilirubin 1.30 H Direct Bilirubin 0.80 H AST 41 H ALT 18 Alkaline Phosphatase 147 H Total Protein 5.2 L Albumin 1.0 L Globulin 4.2 Fluid Source Fluid Color Fluid Appearance Fluid WBC Fluid RBC Fluid Tot Cell Count Fld Polynuclear WBCs # Fld Polynuclear WBCs % Fluid Mononuclear WBCs Fld Mononuclear WBCs % Fluid Neutrophils Fluid Lymphocytes Fluid Monocytes Fl Pathologist Comment Fluid Comment 2 11/26/17 11/26/17 07:50 13:00 WBC RBC Hgb Hct MCV MCH MCHC RDW RDW Differential Plt Count MPV PT 18.5 H INR 1.5 APTT 53.2 H Sodium Potassium Chloride Carbon Dioxide Anion Gap BUN Creatinine Estim Creat Clear Calc Est GFR (MDRD) Af Amer Est GFR (MDRD) Non-Af BUN/Creatinine Ratio Glucose Calcium Total Bilirubin Direct Bilirubin AST ALT Alkaline Phosphatase Total Protein Albumin Globulin Fluid Source OTHER Fluid Color YELLOW Fluid Appearance SL CLDY Fluid WBC 1.048 Fluid RBC 170 Fluid Tot Cell Count 1.054 Fld Polynuclear WBCs # 0.816 Fld Polynuclear WBCs % 77.9 Fluid Mononuclear WBCs 0.232 Fld Mononuclear WBCs % 22.1 Fluid Neutrophils 78 Fluid Lymphocytes 19 Fluid Monocytes 3 Fl Pathologist Comment May follow Fluid Comment 2 SEE COMMENT POC Glucose 11/26/17 11/26/17 11:32 00:07 POC Glucose 95 89 Medical Necessity - Tobacco Use Smoking Status: Former smoker Assessment/Plan All Active Problems Hyponatremia (Acute) Severe sepsis (Acute) Depression (Acute) Altered mental status (Acute) Sepsis (Acute) Aspiration pneumonia (Acute) 1. Oliguric ischemic ATN due to sepsis. Renal fxn continues to decline. Discussed with family option of dialysis .due to severe comorbidities with overall poor prognosis, family has leaned towards no dialysis. Pt poor dialysis candidate due to chronic alcoholic cirrhosis, decline in health past several months. 2. Acute respiratory failure, aspiration pneumonia. Remains on vent 3. Sepsis requiring pressor support 4. ETOH abuse 5. Hepatic encephalopathy, ascites 6. Severe protein/calorie malnutrition discussed with hospitalist, family at bedside.
--- NOTE | 2017-11-26 18:57 | NURSING ---
hr 116, pulse ox 81 on ra, apneustic breathing continues, daughter @ bedside
[2017-11-26] MEDS: Morphine 2 MG/ML Syringe IV (22:06)
--- NOTE | 2017-11-26 22:55 | NURSING ---
Pt's HR decreasing to 30s-40s, Respirations agonal RR 4. Carotid pulse present. Family at bedside
--- NOTE | 2017-11-26 22:58 | NURSING ---
Pt asystole. No apical heart tones heard [id number], no respirations, pupils fixed and dilated, No BP obtainable. Pt is pronounced at this time by this RN and Leena Morrison RN. Family at bedside, much emotional support provided
--- NOTE | 2017-11-26 23:20 | NURSING ---
[facility] is called and notified of . Reference number [id number]. Pt to be placed on hold
--- NOTE | 2017-11-27 00:36 | NURSING ---
[facility] calling this RN to notify that hold continues. [facility] unable to reach family at this time. Fax received from [facility], eye donor care performed at this time.
--- NOTE | 2017-11-27 02:17 | NURSING ---
Body leaving floor to [facility] with nursing supervisor [facility] [employer] department Patience Landa RN
--- NOTE | 2017-11-27 14:12 | PCM.DEATH ---
Preliminary Cause of acute hypoxic respiratory failure Date of Admission: 11/22/17 Date of : 11/27/17 - Principle Diagnosis acute hypoxic respiratory failure aspiration pneumonia CAROL due to sepsis Hospital Course The patient is a 62 year old M with a history of chronic alcohol abuse with cirrhosis, bipolar disorder, depression, COPD, and severe protein calorie malnutrition. Patient was admitted from his [place] [facility] on 11/22/2017 after he was brought to the [facility] ED on account of altered mental status. Patient had been on admission [facility] and was just discharged to the [place] [facility] on 11/21/2017. Not much history could be obtained as patient was not very responsive. . Per discussion with the ED doctor, patient was brought in because of altered mental status and suspicion for aspiration. As mentioned he had been on admission after being managed for sepsis, and hyponatremia as well as ascites for which he received paracentesis. In the [place] [facility] and admit noted that his mental status was declining and he had rapid shallow breathing and bizarre behavior such as eating Band-Aids. Unable to obtain any more history from patient relatives. On admission in the ED, temperature was 98.1, blood pressure was 100/73 and suddenly went down to 84/62, pulse rate was 106 and patient was breathing at 36 minute. Labs were significant for leukocytosis of 16.9. Brain MRI was negative. Patient was admitted to the ICU and ABGs done showed severe respiratory acidosis with CO2 in the 80s. Patient was intubated during which copious amounts of thick brown fluid was found in the airway. He was managed for septic shock due to aspiration pneumonia and was started on IV vancomycin and IV Zosyn. He was started on IV Levophed and vasopressin was added to maintain blood pressure with MAP more than 65. Patient gradually deteriorated and AK I worsened with creatinine trending up to above 3. Sputum culture Klebsiella and Proteus mirabilis as well as E. coli. Blood cultures were negative after 48 hours. Antibiotics were switched to IV cefotaxime. He developed intestinal ileus with worsening generalized edema. CT abdomen showed diffuse ascites with small air bubbles in pelvic fluid likely due to his recent paracentesis. Tube feeding was stopped as patient was not tolerating it. Patient gradually deteriorated and family decided to withdraw care on 11/26/17 as they did not think he had much hope of recovery and the new that patient would not have wanted dialysis and to remain intubated for such a long period. Carolina Sandoval (who is next of kin), his sister and his partner were by his bedside and all in agreement. Patient CODE STATUS was switched to DNR CC form for code on 11/26/2017. Last rights were administered by a casting cleaner and all care was withdrawn. Patient went into asystole and was pronounced at 2258 on 11/26/2017. Code Visit Inpatient E&M: [id number] Disch Hosp
--- NOTE | 2017-11-27 14:21 | EXP.PCM_ITS ---
Preliminary Cause of acute hypoxic respiratory failure Date of Admission: 11/22/17 Date of : 11/27/17 - Principle Diagnosis acute hypoxic respiratory failure aspiration pneumonia CAROL due to sepsis Hospital Course The patient is a 62 year old M with a history of chronic alcohol abuse with cirrhosis, bipolar disorder, depression, COPD, and severe protein calorie malnutrition. [facility] account of altered mental status. Patient had been on admission [facility] and was just discharged to the [facility] on 11/21/2017. Not much history could be obtained as patient was not very responsive. . Per discussion with the ED doctor, patient was brought in because of altered mental status and suspicion for aspiration. As mentioned he had been on admission after being managed for sepsis, and hyponatremia as well as ascites for which he received paracentesis. In the [facility] and admit noted that his mental status was declining and he had rapid shallow breathing and bizarre behavior such as eating Band-Aids. Unable to obtain any more history from patient relatives. On admission in the ED, temperature was 98.1, blood pressure was 100/73 and suddenly went down to 84 /62, pulse rate was 106 and patient was breathing at 36 minute. Labs were significant for leukocytosis of 16.9. Brain MRI was negative. Patient was admitted to the ICU and ABGs done showed severe respiratory acidosis with CO2 in the 80s. Patient was intubated during which copious amounts of thick brown fluid was found in the airway. He was managed for septic shock due to aspiration pneumonia and was started on IV vancomycin and IV Zosyn. He was started on IV Levophed and vasopressin was added to maintain blood pressure with MAP more than 65. Patient gradually deteriorated and AK I worsened with creatinine trending up to above 3. Sputum culture Klebsiella and Proteus mirabilis as well as E. coli. Blood cultures were negative after 48 hours. Antibiotics were switched to IV cefotaxime. He developed intestinal ileus with worsening generalized edema. CT abdomen showed diffuse ascites with small air bubbles in pelvic fluid likely due to his recent paracentesis. Tube feeding was stopped as patient was not tolerating it. Patient gradually deteriorated and family decided to withdraw care on 11/26/17 as they did not think he had much hope of recovery and the new that patient would not have wanted dialysis and to remain intubated for such a long period. Carolina Sandoval (who is next of kin), his sister and his partner were by his bedside and all in agreement. Patient CODE STATUS was switched to DNR CC form for code on 11/26/2017. Last rights were administered by a cnc mill and lathe operator and all care was withdrawn. Patient went into asystole and was pronounced at 2258 on 11/26/2017. Code Visit Inpatient E&M: [id number] Disch Hosp
[2017-11-28 10:37] LABS: Pathologist Comment/Body Fluid Reviewed
== END 2017-11-26 22:58 | DRG 870 ==
LOC: ED 13:03 → ICU 13:59
PROVIDERS: Internal Medicine Critical Care Medicine; Internal Medicine Nephrology; Admitting Provider Student in an Organized Health Care Education/Training Program; Emergency Provider Emergency Medicine; Visit Provider Student in an Organized Health Care Education/Training Program
DX: A41.9 Sepsis, unspecified organism (principal); G93.41 Metabolic encephalopathy; J96.01 Acute respiratory failure with hypoxia; J96.02 Acute respiratory failure with hypercapnia; J69.0 Pneumonitis due to inhalation of food and vomit; E43 Unspecified severe protein-calorie malnutrition; R65.21 Severe sepsis with septic shock; N17.9 Acute kidney failure, unspecified; K56.7 Ileus, unspecified; R40.2433 Glasgow coma scale score 3-8, at hospital admission; L89.152 Pressure ulcer of sacral region, stage 2; F31.9 Bipolar disorder, unspecified; J44.9 Chronic obstructive pulmonary disease, unspecified; Z68.29 Body mass index [BMI] 29.0-29.9, adult; Z66 Do not resuscitate; Z87.891 Personal history of nicotine dependence; K70.31 Alcoholic cirrhosis of liver with ascites; F10.20 Alcohol dependence, uncomplicated
CPT/HCPCS: 31500; 31720; 36415; 36592; 36600; 49083; 51702; 70450; 71045; 74018; 74176; 80048; 80053; 80076; 80320; 81001; 82140; 82550; 82570; 82803; 82962; 83605; 83690; 84300; 84478; 84484; 85025; 85027; 85610; 85730; 87040; 87070; 87075; 87077; 87086; 87186; 87205; 87641; 89050; 92950; 93005; 94002; 94003; 94640; 94660; 95831; 97803; 99285; J7030; J7040; J7050; J7120; P9047; A4216; G0480; J0696; J2310; J3490